=== PATIENT | female | born 1940 | race Caucasian/White ===

== ENCOUNTER 2017-04-06 23:10 | Observation (INO) | payer MEDICARE, SELFPAY ==
[2017-04-06 23:11] VITALS: BP 122/77; PULSE 125; RESP 26; TEMP 36.9; O2SAT 87; BMI 23.9
[2017-04-06 23:14] VITALS: BP 143/65; PULSE 121; RESP 26; O2SAT 95
--- NOTE | 2017-04-06 23:16 | NURSING ---
RN CALLED FOR EKG, PULLED OLD EKG'S FOR
--- NOTE | 2017-04-06 23:22 | EKG12_ITS ---
Test Reason : SOB Blood Pressure : / mmHG Vent. Rate : 161 BPM Atrial Rate : 105 BPM P-R Int : 152 ms QRS Dur : 010 ms QT Int : 074 ms P-R-T Axes : 057 000 246 degrees QTc Int : 121 ms Sinus rhythm Indeterminate axis Nonspecific ST and T wave abnormality Inferior PR, age undetermined, cannot be excluded Abnormal ECG Confirmed by KRISTOFER SHARP, ANGEL ([id number]), video effects editor LAVERNE HEMPHILL ([id number]) on 04/09/2017 1:55:00 PM Referred By: NIXON Confirmed By:ANGEL MINER MD
[2017-04-06 23:23] VITALS: O2SAT 95
--- NOTE | 2017-04-06 23:26 | ED.DCSUM_ITS ---
- ER Visit Summary Date of Service: 04/06/17 Chief Complaint: Pain and shortness of breath History of Present Illness: The patient is a 76 F with history of hypertension and hypercholesterolemia who presents for intermittent back pain and shortness of breath. Patient states that she began having symptoms 4 days ago with a really tight sharp pain in her bilateral lower thoracic back that takes her breath away. Pain gradually subsided and returned tonight. She is having cough and shortness of breath with it. No chest pain, no fever, no abdominal pain nausea or vomiting. She history of sleep apnea and has oxygen for this but does not use it. She denies any cardiac history. No history of blood clots in the lungs or legs. No recent history of travel or surgery, she does use tobacco. No known cancer history or use of exogenous hormones. Patient is not on blood thinners. Physical Examination: Vital signs: afebrile, hemodynamically stable, 87% on room air, hypoxic General: well nourished, well developed, in respiratory distress Skin: warm, dry, no rash, no pallor HEENT: normocephalic and atraumatic; PERRL, EOMI, moist mucous membranes Cardiovascular: Tachycardic rate and rhythm without murmurs, no peripheral edema , 2+ pulses all distal extremities no calf tenderness swelling Respiratory: Mild increased work of breathing, 96% on 2 L nasal cannula, lungs mild diffuse rhonchi with hyperresonant breath sounds in the left lower field Abdominal: Abdomen is soft, nontender with normoactive bowel sounds, no guarding or rebound, no masses MSK: Moves all extremities, no deformities, normal strength Neuro: Awake and alert, oriented ?4. No facial droop, sensation and motor function intact and symmetric Test Results: Abnormal Lab Results 04/06/17 04/06/17 04/06/17 23:15 23:15 23:15 WBC 11.1 H RBC 4.92 Hgb 15.7 H Hct 47.8 H MCV 97.2 MCH 31.9 MCHC 32.8 RDW 13.7 RDW Differential 47.8 H Plt Count 346 MPV 9.3 Immature Gran % (Auto) 0.400 Neut % (Auto) 67.2 Lymph % (Auto) 21.0 Sampson % (Auto) 9.5 Eos % (Auto) 1.4 Baso % (Auto) 0.5 Absolute Neuts (auto) 7.5 Absolute Lymphs (auto) 2.33 Total Counted Not Reportable PT 13.3 INR 1.1 APTT 38.8 H Sodium 141 Potassium 3.8 Chloride 104 Carbon Dioxide 30.0 Anion Gap 7 BUN 20 H Creatinine 1.01 Estim Creat Clear Calc 36.89 Est GFR (MDRD) Af Amer 68 Est GFR (MDRD) Non-Af 56 L BUN/Creatinine Ratio 19.8 Glucose 122 H Calcium 9.7 Troponin I < 0.02 Emergency Department Course and Treatment: Patient presents with pleuritic back pain and diffuse rhonchi, with hyperresonant breath sounds in the left lower lobe concerning for possible consolidation. Patient was hypoxic on presentation and tachycardic. Because she does have history of COPD, she was given breathing treatments and IV steroids. EKG showed a sinus tachycardia without ischemia or ectopy. CBC showed very mild leukocytosis of 11.1. No electrolyte derangements on BMP. Troponin negative. Patient was reevaluated and had improvement in her breath sounds, with resolution of the rhonchi and the uneven breath sounds, but still was tachypneic, felt no better, still was having the pleuritic back pain worse with deep inspiration, and remained tachycardic. A d-dimer was added to a workup to evaluate for possible pulmonary embolism. It was elevated at 1.68. CTA chest was ordered and is pending. Patient will acquire admission for her back pain and shortness of breath, with differential including COPD exacerbation or pulmonary embolism. Patient was signed out to the night physician for follow-up of CTA and final disposition. Treatment Plan: [] Disposition: Patient Impression: Hypoxia on room air, shortness of breath, pleuritic back pain This note was generated with [employer] dictation software. It may contain incorrect words, spelling, and punctuation that were not noted in review of the chart prior to signing ED Disposition - Plan for ED Patient: Chief Complaint: General Illness Referrals: Rebecca Dorman PA [Primary Care Provider] -
--- NOTE | 2017-04-06 23:30 | RAD_ITS ---
STUDY: X-RAY CHEST REASON FOR EXAM: Female, 76 years old. Back and chest pain TECHNIQUE: PA and lateral views of the chest. COMPARISON: None. FINDINGS: There is a left-sided suprahilar density suspicious for mass measuring 2.1 x 2.0 cm. The lungs are hyperinflated. There are calcified nodular densities in the right apex compatible with old granulomatous disease. There is a pattern of interstitial thickening throughout the lungs suggesting chronic lung disease. Normal size heart. Normal mediastinum and naida. Normal visualized pulmonary arteries. There is atherosclerotic calcification of the aortic arch with tortuosity. There are diffuse degenerative changes of the visualized thoracic spine. Normal visualized ribs, clavicles, and shoulders. There is no demonstrated abnormality of the visualized soft tissue structures of the upper abdomen. RAD/Chest PA and Lateral IMPRESSION: Soft tissue density in the suprahilar region of the left chest suspicious for mass or neoplasm measuring 2.1 x 2.0 cm. This is superimposed on chronic obstructive pulmonary disease. Recommend follow-up CT scan of the chest. N.B. : The above information has been verbally conveyed by Alexus Gunderson MD to , Covering Physician, on 04/07/2017 00:59:28 (ET). Electronically Signed: Alexus Gunderson MD at 0:55 EST Tel , Service support , N.B. : The above information has been verbally conveyed by Alexus Gunderson MD to , Covering Physician, on 04/07/2017 00:59:28 (ET).
[2017-04-06 23:36] LABS: Absolute Lymphocyte Count 2.33 X10^3/ul (0.83-4.51); Absolute Neutrophil Count 7.5 X10^3/uL (2.0-7.7); Basophil# 0.05 X10^3/uL; Basophil% 0.5 % (0-1); Eosinophil# 0.16 X10^3/uL; Eosinophils% 1.4 % (0-5); Hematocrit 47.8 % (37-47); Hemoglobin 15.7 g/dl (12.0-15.0); Lymphocyte # 2.33 X10^3/ul (4.0); Mean Corp Hgb Conc 32.8 g/gl (32-36); Mean Corpuscular Hgb 31.9 pg (27.0-32.0); Mean Corpuscular Volume 97.2 fL (81-99); Mean Platelet Vol. 9.3 fl (6.2-12.0); Monocyte# 1.05 X10^3/uL; Monocyte% 9.5 % (0-10); Neutrophil # 7.46 X10^3/uL (2.7-7.7); Neutrophil % 67.2 % (47-70); Platelet Count 346 K/mm3 (150-450); RBC Distribution Width CV 13.7 % (11.6-14.6); RBC Distribution Width SD 47.8 fl (35.1-43.9); Red Blood Count 4.92 M/mm3 (4.2-5.4); White Blood Count 11.1 K/mm3 (4.4-11.0)
[2017-04-06 23:40] LABS: International Normalized Ratio 1.1; Prothrombin Time (Protime)PT. 13.3 SECONDS (11.7-14.9)
[2017-04-06 23:41] LABS: Partial Thromboplast Time 38.8 Seconds (24.1-36.2)
[2017-04-06] MEDS: 0.9% Normal Saline 1,000 ML 250 ML IV (23:45)
[2017-04-06] MEDS: Aspirin 81 MG TAB.CHEW 324 MG PO (23:45)
[2017-04-06] MEDS: MethylPREDNISolone 125 MG/2 ML Vial IV (23:45)
[2017-04-06 23:48] VITALS: PULSE 101; RESP 28
[2017-04-06] MEDS: Albuterol 2.5 MG/3 ML VIAL.NEB. INHALATION (23:48)
[2017-04-06] MEDS: Ipratropium/Albuterol Sulfate 3 ML AMPUL.NEB INHALATION (23:48)
[2017-04-06 23:51] LABS: POSITIVE COUNT NO; POSITIVE DIFFERENTIAL NO; POSITIVE MORPHOLOGY NO
[2017-04-06 23:58] LABS: Anion Gap 7 (5-15); BUN 20 mg/dL (7-18); BUN/Creat Ratio 19.8 RATIO (10-20); Calcium,Total 9.7 mg/dL (8.5-10.1); Chloride 104 mmol/L (98-107); Creatinine, Serum 1.01 mg/dL (0.55-1.02); EST Glomerular Filtration Rate 56 mL/min (>60); Est Glom Filt Rate - Afr Amer 68 mL/min (>60); Estimated Creatinine Clearance 36.89 ml/min; Glucose 122 mg/dL (74-106); Potassium 3.8 mmol/L (3.5-5.1); Sodium Level 141 mmol/L (136-145)
[2017-04-07] VITALS (10 sets, daily range): BP systolic 132–173; BP diastolic 81–94; PULSE 86–108; RESP 18–24; TEMP 36.6–36.9; O2SAT 90–96; BMI 23.2
[2017-04-07 00:25] LABS: D-Dimer Quantitative (DVT/PE) 1.68 FEU/ug/m (0.27-0.49)
--- NOTE | 2017-04-07 00:26 | CT_ITS ---
STUDY: CTA CHEST REASON FOR EXAM: Female, 76 years old. Elevated d-dimer shortness of breath RADIATION DOSAGE (If Supplied By Facility): CTDIvol = ( 6.11 ) mGy, DLP = ( 305.75 ) mGycm TECHNIQUE: The examination was performed with the intravenous administration of 75ml ml of Isovue 370 contrast material. Post-processing of the angiographic images was performed, with multiplanar reformation and 3D reconstruction. Individualized dose optimization techniques were used for this CT. COMPARISON: Chest x-ray April 06, 2017 FINDINGS: Normal enhancement of the main pulmonary artery and right and left pulmonary arteries. Normal enhancement of the bilateral peripheral pulmonary arteries. There is no demonstrated pulmonary embolism. The aorta is tortuous and partially calcified in the ascending aorta. There is a mild bulbous appearance of the arch which likely represents ductus diverticulum. The descending thoracic aorta measures 3.1 x 3.0 cm. There is peripheral thrombus demonstrated. The descending thoracic aorta measures 3.2 x 3.2 cm at the level of the left atrium. It is tortuous as it enters the abdomen. There is no demonstrated aortic dissection. There are coronary calcifications. There is borderline cardiomegaly. Normal mediastinum. Normal hilar regions. Normal visualized trachea and bronchi. There is a pattern of emphysematous change throughout the lungs. There are scattered areas of minimal peripheral fibrotic change. Within the left upper lobe there is a lobulated spiculated mass that abuts the pleura and the prevascular pericardial fat that measures 2.4 x 2.5 x 2.8 cm. There is a subtle adjacent nodule measuring 2.4 mm. There are multiple punctate calcifications in the anterior aspect of the upper lobe and in the right upper lobe towards the apex compatible with old granulomatous disease. Normal pleura. Normal chest wall structures. The bones are osteopenic. There is multilevel loss of height demonstrated at the level of L1 T11 and T10. There is partial visualization of a sizable infrarenal aorta that measures 6.5 x 5.0 cm with a internal lumen measuring 5.0 x 3.9 cm. This could be further described on the CT scan of the abdomen and pelvis performed the same day. CT/CTA Chest W/WO Contrast IMPRESSION: There is a mass in the left apex Measuring 3.4 x 2.5 x 2.5 which is highly suspicious for primary lung carcinoma. Mild aneurysmal dilatation of the descending thoracic aorta. Advanced pulmonary emphysema and chronic obstructive pulmonary disease. Degenerative change thoracolumbar spine multilevel loss of height of the lower thoracic spine and upper lumbar spine. Please refer to the CT scan of the abdomen and pelvis performed the same day for further discussion of the infrarenal aortic aneurysm. N.B. : The above information has been verbally conveyed by Alexus Gunderson MD to Dr. Fuchs , Covering Physician, on 04/07/2017 02:21:52 (ET). Electronically Signed: Alexus Gunderson MD at 1:56 EST Tel , Service support , N.B. : The above information has been verbally conveyed by Alexus Gunderson MD to Dr. Fuchs , Covering Physician, on 04/07/2017 02:21:52 (ET).
--- NOTE | 2017-04-07 00:27 | NURSING ---
lab called with a critical of 1.68 ddimer
--- NOTE | 2017-04-07 00:51 | CT_ITS ---
STUDY: CTA OF THE ABDOMINAL AORTA AND BILATERAL LOWER EXTREMITIES REASON FOR EXAM: Female, 76 years old. Positive d-dimer RADIATION DOSAGE (If Supplied By Facility): CTDIvol = ( 21.12 ) mGy, DLP = ( 536.12 ) mGycm TECHNIQUE: Axial CT angiography multi-detector data acquisition was obtained from the to the following intravenous administration of 75ml ml of Isovue 370 contrast. Axial images and MIP images were reconstructed from the axial data set. Post-processing of the angiographic images was performed, with multiplanar reformation and 3D reconstruction. Individualized dose optimization techniques were used for this CT. TECHNICAL QUALITY: Good COMPARISON: None. Descriptors of Narrowing: None (0%) Mild (< 50%) Moderate (50-70%) Severe (70-90%) Subtotal/Total Occlusion (90-100%) Non-Evaluable (technically non-diagnostic FINDINGS: Abdominal aorta: Aorta at the hiatus measures 3.0 x 3.0 cm. There is a narrowed appearance of the lumen at the takeoff of the superior mesenteric artery relative to the caliber of the aorta. The aorta measures 2.0 x 3.7 cm. There is contrast within the aorta measuring 2.7 x 2.4 cm. At the level of the renal arteries see order measures 4.4 x 3.6 cm. Infrarenal aorta measures 6.2 x 5.7 cm over a segment of approximately 6.4 cm. The aorta is tortuous and then bifurcates to near normal caliber bilateral iliac arteries. There is fairly good contrast enhancement of the iliac arteries. Celiac and superior mesenteric arteries: The celiac has its takeoff from the well contrasted lumen at the hiatus there is calcification the take off of the superior mesenteric artery Inferior mesenteric artery: A track of contrast and seen be seen exiting the peripheral thrombosed portion of the aorta to enter into the inferior mesenteric artery which shows limited enhancement. Right renal artery(arteries): No demonstrated narrowing. Left renal artery(arteries): The flow to the left renal artery courses through the thrombus at the level of the aneurysm. Right common iliac artery: There is [id number] diffuse narrowing. Right external iliac artery: There is mild diffuse narrowing. Right internal iliac artery: There is moderate diffuse narrowing. Left common iliac artery: There is mild diffuse narrowing. Left external iliac artery: There is mild diffuse narrowing. Left internal iliac artery: There is mild diffuse narrowing. RIGHT LOWER EXTREMITY Right common femoral artery: There is mild diffuse narrowing. LEFT LOWER EXTREMITY Left common femoral artery: There is mild diffuse narrowing. The liver is borderline enlarged and fatty infiltrated. The gallbladder spleen and pancreas appear grossly unremarkable. There is right renal pelviectasis. There is left hydronephrosis likely secondary to the mass effect of the large aorta leaning to the left causing some effacement of the left ureter. There is a sizable diverticulum at the level of the duodenum with gas and fecal material that measures 5.2 x 6.5 cm. This appears to extend from the second part of the duodenum. There is a small hiatal hernia. Adrenal glands appear normal. There is abundant stool in the colon. There are numerous diverticula present without evidence of diverticulitis. There is a tortuous appearance of the bowel. There are a few small bowel loops that have a fecal appearance suggesting possible stasis associated with tortuosity. There is a tortuous low-lying appearance of the colon. The cecum appears to be on the left side of the abdomen. The appendix is not well-visualized. The uterus appears to been removed. At the timing of this study there is a right-sided ureteral jet. The left-sided ureteral jet is not seen. There is multilevel degenerative change in the thoracolumbar spine with chronic appearing loss of height at L1 and the visualized level of T12. CT/CTA Abdomen W/WO Contrast IMPRESSION: Abdominal aortic aneurysm measuring 5.2 x 6.5 cm. Without acute hematoma or free fluid in the abdomen. It is off to the left side of the abdomen at the left level of the left kidney causing mild to moderate hydronephrosis which is superimposed on left-sided pelviectasis. Hepatic steatosis. Large duodenal diverticulum. Tortuous colon with the cecum appearing to extend to the left side of the abdomen could consider follow-up barium enema when appropriate. Diverticulosis without evidence of diverticulitis. Small hiatal hernia. Electronically Signed: Alexus Gunderson MD at 2:09 EST Tel , Service support ,
--- NOTE | 2017-04-07 02:43 | PCM.HP.STD ---
Problem List (1) COPD with acute exacerbation Status: Acute (2) COPD (chronic obstructive pulmonary disease) Status: Chronic (3) AAA (abdominal aortic aneurysm) Status: Acute Qualifiers: Presence of rupture: without rupture Qualified Code(s): I71.4 - Abdominal aortic aneurysm, without rupture (4) Lung mass Status: Acute (5) Hyperlipidemia Status: Chronic (6) Hypertension Status: Chronic History of Present Illness Date of Admission: 04/07/17 Chief Complaint: back pain The patient is a 76 year old F presents w 1 day h/o back pain. Pain worse with deep respirations. Presents to ED and had a d-dimer that came back elevated. Subsequently underwent a CTA of chest that showed.a left lung apex mass of 3.4x2.5x2.5. Also underwent a CTA of A/P that showed a 5.2x6.5 AAA. Pt denies any abdominal pain. She was hypoxic at 87% on RA on presentation. Pt treated for AECOPD w solumedrol and BDs.[] Past Medical History Past Medical History (Chronic Problems): Chronic Problems COPD (chronic obstructive pulmonary disease) (Chronic) Hyperlipidemia (Chronic) Hypertension (Chronic) Allergies No Known Allergies Allergy (Verified 04/06/17 23:14) Home Medications: Ambulatory Orders Medication Instructions Recorded Albuterol Aerosols [Ventolin 2.5 mg INHALATION Q6HWA.RT 04/06/17 Aerosols] Albuterol IH (ProAir) [Proair Hfa 2 puff INHALATION 4X/DAY PRN PRN 04/06/17 (SP)Vent Pts] Fluticasone/Salmeterol [Advair 1 each IH BID 04/06/17 250-50 Diskus] Lisinopril 20 mg PO DAILY 04/06/17 Multivitamin No.58/Vit D3/K 1 tab PO DAILY 04/06/17 [Multivit-A,B,D,E,K,Zn Softgel] Pravastatin [Pravachol] 40 mg PO DAILY 04/06/17 Vitamin E Mixed [Vitamin E] 1,000 unit PO DAILY 04/06/17 Smoking Status: Heavy Smoker (>10/day) Tobacco Use: Cigarettes Alcohol: None Drugs: None - *Family History Maternal History Items: - - no cancer Review of Systems Constitutional: Denies: Chills, Fever, Weight Change Eyes: Denies: Blurred vision, Double vision HEENT: Reports: Difficulty Hearing. Denies: Dysphasia Cardiovascular: Denies: Chest Pain, Edema Respiratory: Reports: Shortness of Breath. Denies: Sputum production Gastrointestinal: Denies: Abdominal Pain, Nausea, Vomiting Genitourinary: Denies: Dysuria Musculoskeletal: Reports: Back Pain. Denies: Arm Pain Skin: Denies: Rash, Wounds Neurological: Denies: Blurred vision, Double vision, Focal weakness, Numbness, Tingling Psychiatric: Denies: Anxiety, Depression Hematologic/ Lymphatic: Denies: Easy Bruising, Easy Bleeding, Hx of blood clot VTE Information - Inpt Only VTE Present on Admission: No VTE Pharm Prophylaxis ordered?: Yes Patient Problems: Active and Suspected Problems COPD with acute exacerbation (Acute) AAA (abdominal aortic aneurysm) (Acute) Lung mass (Acute) - Physical Exam General: Alert, Cooperative, No apparent distress, - - P[place]E HEENT: Atraumatic, Normocephalic Neck: No Nodes, Thyroid Normal Size and Texture Lungs: No rhonchi, No wheeze, Diminished Cardiovascular: Regular rate, Regular Rhythm, Normal S1, Normal S2, No murmurs Abdomen: Bowel Sounds Present, Soft, Non Tender, Non-Distended, No Hepato-splenomegaly Extremities: No edema, No Calf Tenderness Skin: No rashes, No breakdown Musculoskeletal: No Tenderness to Palpation of Joints or Extremities, No Muscle Wasting Neurological: Neuro grossly intact, Sensory exam intact to light touch and pain Psych/Mental Status: Normal Affect, Appropriate Vital Signs Temp Pulse Resp BP Pulse Ox 36.9 C 103 H 24 H 132/93 H 94 04/07/17 02:24 04/07/17 02:24 04/07/17 02:24 04/07/17 02:24 04/07/17 02:24 Oxygen Flow Rate 2 Oxygen Delivery Method Nasal Cannula Weight: 59.3 kg Body Mass Index (BMI) 23.9 Laboratory Tests Past 24 Hrs 04/06/17 04/06/17 04/06/17 23:15 23:15 23:15 WBC 11.1 H RBC 4.92 Hgb 15.7 H Hct 47.8 H MCV 97.2 MCH 31.9 MCHC 32.8 RDW 13.7 RDW Differential 47.8 H Plt Count 346 MPV 9.3 Immature Gran % (Auto) 0.400 Neut % (Auto) 67.2 Lymph % (Auto) 21.0 Mathews % (Auto) 9.5 Eos % (Auto) 1.4 Baso % (Auto) 0.5 Absolute Neuts (auto) 7.5 Absolute Lymphs (auto) 2.33 Total Counted Not Reportable PT 13.3 INR 1.1 APTT 38.8 H D-Dimer Quant (PE/DVT) Sodium 141 Potassium 3.8 Chloride 104 Carbon Dioxide 30.0 Anion Gap 7 BUN 20 H Creatinine 1.01 Estim Creat Clear Calc 36.89 Est GFR (MDRD) Af Amer 68 Est GFR (MDRD) Non-Af 56 L BUN/Creatinine Ratio 19.8 Glucose 122 H Calcium 9.7 Troponin I < 0.02 04/06/17 23:18 WBC RBC Hgb Hct MCV MCH MCHC RDW RDW Differential Plt Count MPV Immature Gran % (Auto) Neut % (Auto) Lymph % (Auto) Mathews % (Auto) Eos % (Auto) Baso % (Auto) Absolute Neuts (auto) Absolute Lymphs (auto) Total Counted PT INR APTT D-Dimer Quant (PE/DVT) 1.68 H* Sodium Potassium Chloride Carbon Dioxide Anion Gap BUN Creatinine Estim Creat Clear Calc Est GFR (MDRD) Af Amer Est GFR (MDRD) Non-Af BUN/Creatinine Ratio Glucose Calcium Troponin I Clinical Impression(s) from Imaging Studies Chest X-Ray 04/06/17 23:30 IMPRESSION: Soft tissue density in the suprahilar region of the left chest suspicious for mass or neoplasm measuring 2.1 x 2.0 cm. This is superimposed on chronic obstructive pulmonary disease. Recommend follow-up CT scan of the chest. N.B. : The above information has been verbally conveyed by Alexus Gunderson MD to , Covering Physician, on 04/07/2017 00:59:28 (ET). Electronically Signed: Alexus Gunderson MD at 0:55 EST Tel , Service support , N.B. : The above information has been verbally conveyed by Alexus Gunderson MD to , Covering Physician, on 04/07/2017 00:59:28 (ET). Chest CTA 04/07/17 00:26 IMPRESSION: There is a mass in the left apex Measuring 3.4 x 2.5 x 2.5 which is highly suspicious for primary lung carcinoma. Mild aneurysmal dilatation of the descending thoracic aorta. Advanced pulmonary emphysema and chronic obstructive pulmonary disease. Degenerative change thoracolumbar spine multilevel loss of height of the lower thoracic spine and upper lumbar spine. Please refer to the CT scan of the abdomen and pelvis performed the same day for further discussion of the infrarenal aortic aneurysm. N.B. : The above information has been verbally conveyed by Alexus Gunderson MD to Dr. Fuchs , Covering Physician, on 04/07/2017 02:21:52 (ET). Electronically Signed: Alexus Gunderson MD at 1:56 EST Tel , Service support , N.B. : The above information has been verbally conveyed by Alexus Gunderson MD to Dr. Fuchs , Covering Physician, on 04/07/2017 02:21:52 (ET). Abdomen CTA 04/07/17 00:51 IMPRESSION: Abdominal aortic aneurysm measuring 5.2 x 6.5 cm. Without acute hematoma or free fluid in the abdomen. It is off to the left side of the abdomen at the left level of the left kidney causing mild to moderate hydronephrosis which is superimposed on left-sided pelviectasis. Hepatic steatosis. Large duodenal diverticulum. Tortuous colon with the cecum appearing to extend to the left side of the abdomen could consider follow-up barium enema when appropriate. Diverticulosis without evidence of diverticulitis. Small hiatal hernia. Electronically Signed: Alexus Gunderson MD at 2:09 EST Tel , Service support , Assessment/Plan Active and Suspected Problems COPD with acute exacerbation (Acute) AAA (abdominal aortic aneurysm) (Acute) Lung mass (Acute) 1. AECOPD BDs and solumedrol advised to quit smoking d/t further progression of COPD but also due to #2 and 3 2. Lung mass concerning for CA c/s pulm for input and recs for biopsy (perc v bronch). Informed pt and family may be done as outpt. 3. AAA asymptomatic, but large consult vascular surgery for input Again, pt and family advised may need further addressed as outpt 4. DVT proph: LMWH. Code Visit Inpatient E&M: [id number] Init Hosp L3
--- NOTE | 2017-04-07 02:54 | HP.PCM_ITS ---
Problem List (1) COPD with acute exacerbation Status: Acute (2) COPD (chronic obstructive pulmonary disease) Status: Chronic (3) AAA (abdominal aortic aneurysm) Status: Acute Qualifiers: Presence of rupture: without rupture Qualified Code(s): I71.4 - Abdominal aortic aneurysm, without rupture (4) Lung mass Status: Acute (5) Hyperlipidemia Status: Chronic (6) Hypertension Status: Chronic History of Present Illness Date of Admission: 04/07/17 Chief Complaint: back pain The patient is a 76 year old F presents w 1 day h/o back pain. Pain worse with deep respirations. Presents to ED and had a d-dimer that came back elevated. Subsequently underwent a CTA of chest that showed.a left lung apex mass of 3.4x2.5x2.5. Also underwent a CTA of A/P that showed a 5.2x6.5 AAA. Pt denies any abdominal pain. She was hypoxic at 87% on RA on presentation. Pt treated for AECOPD w solumedrol and BDs.[] Past Medical History Past Medical History (Chronic Problems): Chronic Problems COPD (chronic obstructive pulmonary disease) (Chronic) Hyperlipidemia (Chronic) Hypertension (Chronic) Allergies No Known Allergies Allergy (Verified 04/06/17 23:14) Home Medications: Ambulatory Orders Medication Instructions Recorded Albuterol Aerosols [Ventolin 2.5 mg INHALATION Q6HWA.RT 04/06/17 Aerosols] Albuterol IH (ProAir) [Proair Hfa 2 puff INHALATION 4X/DAY PRN PRN 04/06/17 (SP)Vent Pts] Fluticasone/Salmeterol [Advair 1 each IH BID 04/06/17 250-50 Diskus] Lisinopril 20 mg PO DAILY 04/06/17 Multivitamin No.58/Vit D3/K 1 tab PO DAILY 04/06/17 [Multivit-A,B,D,E,K,Zn Softgel] Pravastatin [Pravachol] 40 mg PO DAILY 04/06/17 Vitamin E Mixed [Vitamin E] 1,000 unit PO DAILY 04/06/17 Smoking Status: Heavy Smoker (>10/day) Tobacco Use: Cigarettes Alcohol: None Drugs: None - *Family History Maternal History Items: - - no cancer Review of Systems Constitutional: Denies: Chills, Fever, Weight Change Eyes: Denies: Blurred vision, Double vision HEENT: Reports: Difficulty Hearing. Denies: Dysphasia Cardiovascular: Denies: Chest Pain, Edema Respiratory: Reports: Shortness of Breath. Denies: Sputum production Gastrointestinal: Denies: Abdominal Pain, Nausea, Vomiting Genitourinary: Denies: Dysuria Musculoskeletal: Reports: Back Pain. Denies: Arm Pain Skin: Denies: Rash, Wounds Neurological: Denies: Blurred vision, Double vision, Focal weakness, Numbness, Tingling Psychiatric: Denies: Anxiety, Depression Hematologic/ Lymphatic: Denies: Easy Bruising, Easy Bleeding, Hx of blood clot VTE Information - Inpt Only VTE Present on Admission: No VTE Pharm Prophylaxis ordered?: Yes Patient Problems: Active and Suspected Problems COPD with acute exacerbation (Acute) AAA (abdominal aortic aneurysm) (Acute) Lung mass (Acute) - Physical Exam General: Alert, Cooperative, No apparent distress, - - [place] HEENT: Atraumatic, Normocephalic Neck: No Nodes, Thyroid Normal Size and Texture Lungs: No rhonchi, No wheeze, Diminished Cardiovascular: Regular rate, Regular Rhythm, Normal S1, Normal S2, No murmurs Abdomen: Bowel Sounds Present, Soft, Non Tender, Non-Distended, No Hepato- splenomegaly Extremities: No edema, No Calf Tenderness Skin: No rashes, No breakdown Musculoskeletal: No Tenderness to Palpation of Joints or Extremities, No Muscle Wasting Neurological: Neuro grossly intact, Sensory exam intact to light touch and pain Psych/Mental Status: Normal Affect, Appropriate Vital Signs Temp Pulse Resp BP Pulse Ox 36.9 C 103 H 24 H 132/93 H 94 04/07/17 02:24 04/07/17 02:24 04/07/17 02:24 04/07/17 02:24 04/07/17 02:24 Oxygen Flow Rate 2 Oxygen Delivery Method Nasal Cannula Weight: 59.3 kg Body Mass Index (BMI) 23.9 Laboratory Tests Past 24 Hrs 04/06/17 04/06/17 04/06/17 23:15 23:15 23:15 WBC 11.1 H RBC 4.92 Hgb 15.7 H Hct 47.8 H MCV 97.2 MCH 31.9 MCHC 32.8 RDW 13.7 RDW Differential 47.8 H Plt Count 346 MPV 9.3 Immature Gran % (Auto) 0.400 Neut % (Auto) 67.2 Lymph % (Auto) 21.0 [place] % (Auto) 9.5 Eos % (Auto) 1.4 Baso % (Auto) 0.5 Absolute Neuts (auto) 7.5 Absolute Lymphs (auto) 2.33 Total Counted Not Reportable PT 13.3 INR 1.1 APTT 38.8 H D-Dimer Quant (PE/DVT) Sodium 141 Potassium 3.8 Chloride 104 Carbon Dioxide 30.0 Anion Gap 7 BUN 20 H Creatinine 1.01 Estim Creat Clear Calc 36.89 Est GFR (MDRD) Af Amer 68 Est GFR (MDRD) Non-Af 56 L BUN/Creatinine Ratio 19.8 Glucose 122 H Calcium 9.7 Troponin I < 0.02 04/06/17 23:18 WBC RBC Hgb Hct MCV MCH MCHC RDW RDW Differential Plt Count MPV Immature Gran % (Auto) Neut % (Auto) Lymph % (Auto) [place] % (Auto) Eos % (Auto) Baso % (Auto) Absolute Neuts (auto) Absolute Lymphs (auto) Total Counted PT INR APTT D-Dimer Quant (PE/DVT) 1.68 H* Sodium Potassium Chloride Carbon Dioxide Anion Gap BUN Creatinine Estim Creat Clear Calc Est GFR (MDRD) Af Amer Est GFR (MDRD) Non-Af BUN/Creatinine Ratio Glucose Calcium Troponin I Clinical Impression(s) from Imaging Studies Chest X-Ray 04/06/17 23:30 IMPRESSION: Soft tissue density in the suprahilar region of the left chest suspicious for mass or neoplasm measuring 2.1 x 2.0 cm. This is superimposed on chronic obstructive pulmonary disease. Recommend follow-up CT scan of the chest. N.B. : The above information has been verbally conveyed by Alexus Gunderson MD to , Covering Physician, on 04/07/2017 00:59:28 (ET). Electronically Signed: Alexus Gunderson MD at 0:55 EST Tel , Service support , N.B. : The above information has been verbally conveyed by Alexus Gunderson MD to , Covering Physician, on 04/07/2017 00:59:28 (ET). Chest CTA 04/07/17 00:26 IMPRESSION: There is a mass in the left apex Measuring 3.4 x 2.5 x 2.5 which is highly suspicious for primary lung carcinoma. Mild aneurysmal dilatation of the descending thoracic aorta. Advanced pulmonary emphysema and chronic obstructive pulmonary disease. Degenerative change thoracolumbar spine multilevel loss of height of the lower thoracic spine and upper lumbar spine. Please refer to the CT scan of the abdomen and pelvis performed the same day for further discussion of the infrarenal aortic aneurysm. N.B. : The above information has been verbally conveyed by Alexus Gunderson MD to Dr. Fuchs , Covering Physician, on 04/07/2017 02:21:52 (ET). Electronically Signed: Alexus Gunderson MD at 1:56 EST Tel , Service support , N.B. : The above information has been verbally conveyed by Alexus Gunderson MD to Dr. Fuchs , Covering Physician, on 04/07/2017 02:21:52 (ET). Abdomen CTA 04/07/17 00:51 IMPRESSION: Abdominal aortic aneurysm measuring 5.2 x 6.5 cm. Without acute hematoma or free fluid in the abdomen. It is off to the left side of the abdomen at the left level of the left kidney causing mild to moderate hydronephrosis which is superimposed on left-sided pelviectasis. Hepatic steatosis. Large duodenal diverticulum. Tortuous colon with the cecum appearing to extend to the left side of the abdomen could consider follow-up barium enema when appropriate. Diverticulosis without evidence of diverticulitis. Small hiatal hernia. Electronically Signed: Alexus Gunderson MD at 2:09 EST Tel , Service support , Assessment/Plan Active and Suspected Problems COPD with acute exacerbation (Acute) AAA (abdominal aortic aneurysm) (Acute) Lung mass (Acute) 1. AECOPD * BDs and solumedrol * advised to quit smoking d/t further progression of COPD but also due to #2 and 3 2. Lung mass * concerning for CA * c/s pulm for input and recs for biopsy (perc v bronch). Informed pt and family may be done as outpt. 3. AAA * asymptomatic, but large * consult vascular surgery for input * Again, pt and family advised may need further addressed as outpt 4. DVT proph: LMWH. Code Visit Inpatient E&M: 37309 Init Hosp L3
[2017-04-07] MEDS: 0.9% NaCl Peripheral Flush Adult/Peds IV (05:31)
--- NOTE | 2017-04-07 06:13 | PCM.CONS.GEN ---
Problem List (1) AAA (abdominal aortic aneurysm) Status: Acute Qualifiers: Presence of rupture: without rupture Qualified Code(s): I71.4 - Abdominal aortic aneurysm, without rupture Reason for Consult Date of Consultation: 04/07/17 History of Present Illness: The patient is a 76 year old F who was admitted yesterday with exacerbation of COPD. Because of shortness of breath CT imaging of the chest led to identification of an abnormally ectatic thoracic aorta and a abdominal aortic aneurysm. CT of the abdomen was obtained demonstrating a 5.2 x 6.5 cm abdominal aortic aneurysm with tortuosity and suspected mass effect upon the left kidney causing mild to moderate hydronephrosis. Great significance however is that there is irregular thrombus within the aneurysm and narrowing of the lumen at the origin of the superior mesenteric artery. There is thrombus heavily involving the wall of the aneurysm at the level of the renals and there is aneurysmal change already at the level of the renals measuring 4.4 x 3.6 cm. additional mention is made of a 5.2 x 6.5 cm duodenal diverticulum. Tortuous colon. Diverticulosis. Small hiatal hernia. In addition unfortunately due to the patient's COPD she has a newly detected left apical lung mass measuring 3.4 x 2.5 x 2.5 which is highly suspicious for malignancy she is a long-term cigarette smoker and she continues to smoke. She has exacerbation of her COPD hypoxic at 87% on room air. She was complaining of back pain that was therefore aggravating and exacerbating her ability to breathe. She currently states that she is not having back pain at this moment Past Medical History Past Medical History (Chronic Problems): Chronic Problems COPD (chronic obstructive pulmonary disease) (Chronic) Hyperlipidemia (Chronic) Hypertension (Chronic) Allergies No Known Allergies Allergy (Verified 04/06/17 23:14) Home Medications: Ambulatory Orders Medication Instructions Recorded Albuterol Aerosols [Ventolin 2.5 mg INHALATION Q6HWA.RT 04/06/17 Aerosols] Albuterol IH (ProAir) [Proair Hfa 2 puff INHALATION 4X/DAY PRN PRN 04/06/17 (SP)Vent Pts] Fluticasone/Salmeterol [Advair 1 each IH BID 04/06/17 250-50 Diskus] Lisinopril 20 mg PO DAILY 04/06/17 Multivitamin No.58/Vit D3/K 1 tab PO DAILY 04/06/17 [Multivit-A,B,D,E,K,Zn Softgel] Pravastatin [Pravachol] 40 mg PO DAILY 04/06/17 Vitamin E Mixed [Vitamin E] 1,000 unit PO DAILY 04/06/17 Surgical History: hysterectomy Smoking Status: Heavy Smoker (>10/day) Tobacco Use: Cigarettes Alcohol: None Drugs: None - *Family History Maternal History Items: - - no cancer Review of Systems Constitutional: Denies: Anorexia Eyes: Denies: Blurred vision HEENT: Denies: Difficulty Hearing Cardiovascular: Reports: Chest Tightness Respiratory: Reports: Shortness of Breath Gastrointestinal: Denies: Abdominal Pain, Nausea, Vomiting Genitourinary: Denies: Dysuria Musculoskeletal: Denies: Leg Pain Skin: Denies: Jaundice Neurological: Denies: Balance problems Psychiatric: Denies: Anxiety Hematologic/ Lymphatic: Denies: Adenopathy Patient Problems: Active and Suspected Problems COPD with acute exacerbation (Acute) AAA (abdominal aortic aneurysm) (Acute) Lung mass (Acute) - Physical Exam General: Alert, Oriented x3, Cooperative, - - Patient moves and very quick hyper movements HEENT: Atraumatic Oral: Moist Mucosa Lungs: - - Markedly increased anterior posterior diameter. Notably kyphotic. Poor air excursion. Wheezes bilaterally Cardiovascular: - - Ectopic beats. 2/6 systolic ejection murmur Abdomen: Bowel Sounds Present, Soft, Non Tender, Non-Distended - Patient prefers a semisitting position. I cannot detect the aneurysm in this position Bilateral carotids 3+ no bruits, bilateral brachial and radials and femorals and popliteals 3+. Right DP 2+. Right PT 3+. Left DP and PT 3+ Lymphatic: No Cervical, Supraclavicular, or Inguinal Adenopathy Vital Signs Temp Pulse Resp BP Pulse Ox 98 F 101 H 20 H 173/84 H 94 04/07/17 03:25 04/07/17 03:25 04/07/17 03:25 04/07/17 03:25 04/07/17 03:25 Oxygen Flow Rate 1 Oxygen Delivery Method Room Air Weight: 127 lb 1 oz Body Mass Index (BMI) 23.2 Intake and Output for Last 24 Hours 04/05/17 04/06/17 04/07/17 23:59 23:59 23:59 Intake Total 120 / 120 Balance 120 / 120 Assessment/Plan Active and Suspected Problems COPD with acute exacerbation (Acute) AAA (abdominal aortic aneurysm) (Acute) Lung mass (Acute) Complicated 76-year-old female. She has exacerbation of her COPD and significant pulmonary dysfunction. In addition to that she has a newly detected highly suspicious left apical lung mass. In addition to that she has diffuse ectasia of her thoracic aorta and a significant abdominal aortic aneurysm with thrombus at the level of the superior mesenteric artery and aneurysm and thrombus involving the renal arteries. This represents an extraordinarily high risk repair candidate. She will need to be referred to a tertiary center for consideration of aneurysm treatment. The etiology to the patient's back pain that occurred yesterday and previously on Wednesday is indeterminate. Although the aneurysm is not demonstrating current signs of rupture it is not clear whether it is a component of her discomfort or whether it is compression upon the left kidney could be part of this complex. Tertiary evaluation at earliest convenience would be appropriate. I appreciate the opportunity of assisting with her surgical care and will sign off Aftab Tilley M.D., F.A.C.S.
[2017-04-07] MEDS: Ipratropium/Albuterol Sulfate 3 ML AMPUL.NEB INHALATION ×3 (07:08→15:22)
--- NOTE | 2017-04-07 09:08 | PCM.CONS.GEN ---
Problem List (1) Suspected chronic obstructive pulmonary disease based on initial evaluation Status: Chronic (2) AAA (abdominal aortic aneurysm) Status: Acute Qualifiers: Presence of rupture: without rupture Qualified Code(s): I71.4 - Abdominal aortic aneurysm, without rupture (3) Lung mass Status: Acute (4) Hyperlipidemia Status: Chronic Qualifiers: Hyperlipidemia type: unspecified Qualified Code(s): E78.5 - Hyperlipidemia, unspecified (5) Hypertension Status: Chronic Qualifiers: Hypertension type: unspecified Qualified Code(s): I10 - Essential (primary) hypertension Reason for Consult Date of Consultation: 04/07/17 Reason for Consultation: lung mass History of Present Illness: The patient is a 76 year old F with a past medical history as below who presented to the ED with a one-day history of severe lower thoracic back pain across her entire back. Patient states she had some moderate back pain the previous couple of days, however on day of presentation was so severe that she became short of breath. She tried taking a nebulizer with no relief. The pain was worse with deep inspiration. No relieving factors. Associated symptoms of cough but no sputum production. She denied any chest pain, fevers or chills, abdominal pain, nausea, vomiting, or diarrhea. She thought maybe she was having heart problems and called her granddaughter to bring her to the ED. Patient was initially hypoxic at 87% on room air. She did not appear to be in any respiratory distress. Chest x-ray on presentation showed a soft tissue density in the suprahilar region left chest suspicious for mass/neoplasm, as well as COPD. CTA of the chest was obtained and confirmed a mass in the left apex measuring 3.4 x 2.5 x 2.5 cm. There is also mild aneurysmal dilatation of the descending thoracic aorta and advanced pulmonary emphysema/COPD. There are degenerative changes of the lower thoracic and upper lumbar spine. CTA of the abdomen was obtained to further evaluate her aneurysm, showed AAA measuring 5.2 x 6.5 cm there is no acute hematoma or free fluid in the abdomen. She did have mild to moderate hydronephrosis with left-sided pelviectasis. There is also hepatic steatosis and large duodenal diverticulum. The colon was tortuous with the cecum appearing to extend to the left side of the abdomen. CBC remarkable for mildly elevated white count of 11,100, elevated hemoglobin of 15.7 and hematocrit 47.8. BUN mildly elevated at 20 and normal creatinine at 1.01. Glucose was 122, troponin normal, INR 1.1. D-dimer was elevated at 1.68. EKG with sinus tachycardia, no evidence of ischemia. Patient was given 4 baby aspirin, Solu-Medrol 125 mg ?1, and aerosols with improvement in her breathing. The pain in her back resolved while in the ER. She was started on scheduled IV steroids and bronchodilators and transferred to the medical surgical 3 floor for further evaluation and management. Patient denies previously seeing a custom furrier or having any pulmonary function tests completed. She was placed on Advair quite some time ago and has been using albuterol nebulizers for several years. She typically uses albuterol every 4-6 hours and Advair twice daily. Nebulizers do typically improve her shortness of breath. She does have some intermittent wheezing at home but nothing significant. She takes Proair when out of the house. Patient does note a history of tuberculosis when she was 21 years old and was treated for this at [facility]. She had follow-up chest x-rays for over 15 years and was eventually told she did not need to follow-up anymore. She denies any known abnormal follow up imaging. 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 She denies previous colonoscopies but had a mammogram several years ago that was reportedly normal. She does not wish to have any further testing done, including a colonoscopy. Denies any family or personal history of cancer. She does have a significant smoking history with 50 pack years and continues to smoke a pack a day. The patient has been weaned to room air this morning. Her shortness of breath on exertion is back to baseline which is very mild. She denies any significant cough or sputum production. No history of hemoptysis. She does admit to a history of sleep apnea and used oxygen for this in the past, however she does not currently use any oxygen at home. Patient does not wish to have a repeat sleep study or wear a noninvasive positive pressure device. Past Medical History Past Medical History (Chronic Problems): Chronic Problems COPD (chronic obstructive pulmonary disease) (Chronic) Hyperlipidemia (Chronic) Hypertension (Chronic) Suspected chronic obstructive pulmonary disease based on initial evaluation (Chronic) Allergies No Known Allergies Allergy (Verified 04/06/17 23:14) Home Medications: Ambulatory Orders Medication Instructions Recorded Albuterol Aerosols [Ventolin 2.5 mg INHALATION Q6HWA.RT 04/06/17 Aerosols] Albuterol IH (ProAir) [Proair Hfa 2 puff INHALATION 4X/DAY PRN PRN 04/06/17 (SP)Vent Pts] Fluticasone/Salmeterol [Advair 1 each IH BID 04/06/17 250-50 Diskus] Lisinopril 20 mg PO DAILY 04/06/17 Multivitamin No.58/Vit D3/K 1 tab PO DAILY 04/06/17 [Multivit-A,B,D,E,K,Zn Softgel] Pravastatin [Pravachol] 40 mg PO DAILY 04/06/17 Vitamin E Mixed [Vitamin E] 1,000 unit PO DAILY 04/06/17 Surgical History: hysterectomy Psychiatric History: No pertinent psych hx FLAT FOLDER History: No pertinent FLAT FOLDER history Lives: Alone Smoking Status: Heavy Smoker (>10/day) Tobacco Use: Cigarettes Alcohol: None Drugs: None - *Family History Maternal History Items: - - no cancer Paternal History Items: No pertinent history Review of Systems Constitutional: Denies: Anorexia, Chills, Fever, Night Sweats, Malaise, Weakness, Weight Change, Fatigue Eyes: Denies: Vision Change HEENT: Reports: - - TORRES MARTINEZ. Denies: Difficulty Swallowing, Head Aches, Nasal bleeding, Nasal Congestion, Post Nasal Drip, Sinus Congestion, Sore Throat Cardiovascular: Denies: Chest Pain, Chest Tightness, Edema, Light Headedness, Orthopnea, Palpitations, Paroxysmal Noc. Dyspnea, Syncope Respiratory: Reports: Cough - chronic. Denies: Hemoptysis Gastrointestinal: Denies: Abdominal Pain, Constipation, Diarrhea, Dyspepsia, Hematemesis, Hematochezia, Nausea, Melena, Vomiting Genitourinary: Reports: Incontinence - stress. Denies: Dysuria, Hematuria, Retention Gynecological: Denies: Breast symptoms Musculoskeletal: Reports: Back Pain - Resolved, Joint stiffness - Generalized. Denies: Muscle pain, Neck Pain Skin: Denies: Rash, Wounds Neurological: Denies: Balance problems, Change in Speech, Confusion, Difficulty swallowing, Focal weakness, Numbness, Tingling, Tremor, Seizures Psychiatric: Denies: Anxiety, Depression Endocrine: Denies: Change in Body Habitus, Polydipsia, Polyuria Hematologic/ Lymphatic: Reports: Easy Bruising. Denies: Adenopathy, Anemia, Easy Bleeding, Hx of blood clot Patient Problems: Active and Suspected Problems COPD with acute exacerbation (Acute) AAA (abdominal aortic aneurysm) (Acute) Lung mass (Acute) Subjective: The patient was seen and examined. She is ambulatory in the room. She does not appear to be in any acute distress. She reports her breathing is back to her baseline. She does have an occasional cough with no sputum production. Denies any wheezing or chest tightness. The pain in her back has not returned since she was in the ER. Objective: Clinical Impression(s) from Imaging Studies Chest X-Ray 04/06/17 23:30 IMPRESSION: Soft tissue density in the suprahilar region of the left chest suspicious for mass or neoplasm measuring 2.1 x 2.0 cm. This is superimposed on chronic obstructive pulmonary disease. Recommend follow-up CT scan of the chest. N.B. : The above information has been verbally conveyed by Alexus Gunderson MD to , Covering Physician, on 04/07/2017 00:59:28 (ET). Electronically Signed: Alexus Gunderson MD at 0:55 EST Tel , Service support , N.B. : The above information has been verbally conveyed by Alexus Gunderson MD to , Covering Physician, on 04/07/2017 00:59:28 (ET). Chest CTA 04/07/17 00:26 IMPRESSION: There is a mass in the left apex Measuring 3.4 x 2.5 x 2.5 which is highly suspicious for primary lung carcinoma. Mild aneurysmal dilatation of the descending thoracic aorta. Advanced pulmonary emphysema and chronic obstructive pulmonary disease. Degenerative change thoracolumbar spine multilevel loss of height of the lower thoracic spine and upper lumbar spine. Please refer to the CT scan of the abdomen and pelvis performed the same day for further discussion of the infrarenal aortic aneurysm. N.B. : The above information has been verbally conveyed by Alexus Gunderson MD to Dr. Fuchs , Covering Physician, on 04/07/2017 02:21:52 (ET). Electronically Signed: Alexus Gunderson MD at 1:56 EST Tel , Service support , N.B. : The above information has been verbally conveyed by Alexus Gunderson MD to Dr. Fuchs , Covering Physician, on 04/07/2017 02:21:52 (ET). Abdomen CTA 04/07/17 00:51 IMPRESSION: Abdominal aortic aneurysm measuring 5.2 x 6.5 cm. Without acute hematoma or free fluid in the abdomen. It is off to the left side of the abdomen at the left level of the left kidney causing mild to moderate hydronephrosis which is superimposed on left-sided pelviectasis. Hepatic steatosis. Large duodenal diverticulum. Tortuous colon with the cecum appearing to extend to the left side of the abdomen could consider follow-up barium enema when appropriate. Diverticulosis without evidence of diverticulitis. Small hiatal hernia. Electronically Signed: Alexus Gunderson MD at 2:09 EST Tel , Service support , - Physical Exam General: Alert, Oriented x3, Cooperative, No apparent distress, Well developed, Well nourished, - - No conversational dyspnea HEENT: Atraumatic, PERRLA, Normocephalic Oral: Moist Mucosa, No Gingival or Mucosal Lesions/ Ulcerations, - - Scar to right chin area from infection secondary to dental implants Neck: Supple, No JVD, No Nodes, Trachea Midline Lungs: - - Diminished throughout, no appreciable rhonchi, rales, or wheezing. Symmetric expansion. Kyphosis. Cardiovascular: Regular rate, Regular Rhythm, Normal S1, Normal S2, No murmurs, No rub noted, No Gallop Abdomen: Bowel Sounds Present, Soft, Non Tender, Non-Distended, No Hepato-splenomegaly Extremities: No cyanosis, No edema, Capillary Refill Less than 3 Seconds, Peripheral Pulses Normal Skin: No rashes, No breakdown Musculoskeletal: No Tenderness to Palpation of Joints or Extremities Lymphatic: No Cervical, Supraclavicular, or Inguinal Adenopathy Neurological: Cranial nerves II-XII grossly intact, Neuro grossly intact, Motor Exam 5/5 strength throughout Psych/Mental Status: Alert and oriented to time, place, person, mood and affect Vital Signs Temp Pulse Resp BP Pulse Ox 98 F 86 20 H 173/84 H 96 04/07/17 03:25 04/07/17 07:08 04/07/17 07:08 04/07/17 03:25 04/07/17 07:10 Oxygen Flow Rate 1 Oxygen Delivery Method Room Air Weight: 127 lb 1 oz Body Mass Index (BMI) 23.2 Intake and Output for Last 24 Hours 04/05/17 04/06/17 04/07/17 23:59 23:59 23:59 Intake Total 120 / 120 Balance 120 / 120 Assessment/Plan Active and Suspected Problems COPD with acute exacerbation (Acute) AAA (abdominal aortic aneurysm) (Acute) Lung mass (Acute) RECOMMENDATIONS 1. Wean oxygen supplementation to keep saturations 88-92%. 2. Encourage incentive spirometer 3. Increase activity as tolerated 4. Continue aerosols scheduled and PRN 5. Likely okay to discontinue steroids 6. Consider transfer to tertiary care center for evaluation of her AAA. 7. Follow-up with her primary care physician regarding her suspected COPD, management 8. Okay to discharge from pulmonary perspective IMPRESSIONS 1. Lung mass CTA of the chest showed a mass in the left apex measuring 3.4 x 2.5 x 2.5 cm that was suspicious for primary lung carcinoma. There is mild aneurysmal dilatation of the descending thoracic aorta. Also advanced pulmonary emphysema and COPD. If cancer, mass is likely not resectable. Discussed the CT findings with the patient, she does not wish to pursue any further workup regarding the mass. She states if it was cancer, she would still not want to pursue further evaluation and treatment, including chemotherapy and/or radiation. Discussed having a CT-guided biopsy while in the hospital, she is adamant she is not interested in this. I also met with the patient's son and son-in-law, who were brought up to speed on findings. 2. Suspected COPD CTA of the chest consistent with advanced pulmonary emphysema/COPD. No previous custom furrier or official pulmonary function tests to quantify her lung disease, states her COPD is presumed. Not wish to pursue any further workup or follow-up in the pulmonary clinic. Patient home inhaler regimen includes albuterol nebulizers every 4-6 hours and Advair twice daily. She also uses a MDI for when she is out of the house. States she is typically well at home and has not had any exacerbations in 2 years. Patient does not appear to be in an acute exacerbation at this time. No significant wheezing but is globally diminished. Very slight leukocytosis, no fevers. Can obtain sputum culture if cough becomes productive. Likely okay to discontinue steroids. No antibiotics required. Reasonable to continue her nebulizers and Advair on discharge. 3. Abdominal aortic aneurysm Evaluated via CTA of abdomen, measuring 5.2 x 6.5 cm. No acute hematoma or free fluid in abdomen. It is off to the left side of the abdomen at the level of the left kidney causing mild to moderate hydronephrosis which is superimposed on left-sided pelviectasis. Hepatic steatosis, large duodenal diverticulum. Small hiatal hernia, patient denies any epigastric discomfort or history of GERD. Dr. Tilley saw the patient as surgical consult, patient deemed high risk for intervention here at [facility] and recommended transfer to tertiary care center. The patient is interested in discussing transfer to a tertiary care center for possible intervention for her aneurysm. 4. Hypertension/hyperlipidemia/tobacco abuse Complicates care, management, recovery, and prognosis. Patient has verbalized no intention of quitting smoking. She still smokes about a pack a day. Nicotine replacement therapy can be offered while hospitalized. Thank you for the opportunity to participate in this patient's care, please do not hesitate to contact us with any further questions or concerns. This note was generated with [employer] dictation software. It may contain incorrect words, spelling, and punctuation that were not noted in checking the note before signing.
--- NOTE | 2017-04-07 09:23 | CON.PCM_ITS ---
Problem List (1) Suspected chronic obstructive pulmonary disease based on initial evaluation Status: Chronic (2) AAA (abdominal aortic aneurysm) Status: Acute Qualifiers: Presence of rupture: without rupture Qualified Code(s): I71.4 - Abdominal aortic aneurysm, without rupture (3) Lung mass Status: Acute (4) Hyperlipidemia Status: Chronic Qualifiers: Hyperlipidemia type: unspecified Qualified Code(s): E78.5 - Hyperlipidemia , unspecified (5) Hypertension Status: Chronic Qualifiers: Hypertension type: unspecified Qualified Code(s): I10 - Essential (primary ) hypertension Reason for Consult Date of Consultation: 04/07/17 Reason for Consultation: lung mass History of Present Illness: The patient is a 76 year old F with a past medical history as below who presented to the ED with a one-day history of severe lower thoracic back pain across her entire back. Patient states she had some moderate back pain the previous couple of days, however on day of presentation was so severe that she became short of breath. She tried taking a nebulizer with no relief. The pain was worse with deep inspiration. No relieving factors. Associated symptoms of cough but no sputum production. She denied any chest pain, fevers or chills, abdominal pain, nausea, vomiting, or diarrhea. She thought maybe she was having heart problems and called her granddaughter to bring her to the ED. Patient was initially hypoxic at 87% on room air. She did not appear to be in any respiratory distress. Chest x-ray on presentation showed a soft tissue density in the suprahilar region left chest suspicious for mass/neoplasm, as well as COPD. CTA of the chest was obtained and confirmed a mass in the left apex measuring 3.4 x 2.5 x 2.5 cm. There is also mild aneurysmal dilatation of the descending thoracic aorta and advanced pulmonary emphysema/COPD. There are degenerative changes of the lower thoracic and upper lumbar spine. CTA of the abdomen was obtained to further evaluate her aneurysm, showed AAA measuring 5.2 x 6.5 cm there is no acute hematoma or free fluid in the abdomen. She did have mild to moderate hydronephrosis with left-sided pelviectasis. There is also hepatic steatosis and large duodenal diverticulum. The colon was tortuous with the cecum appearing to extend to the left side of the abdomen. CBC remarkable for mildly elevated white count of 11,100, elevated hemoglobin of 15.7 and hematocrit 47.8. BUN mildly elevated at 20 and normal creatinine at 1.01. Glucose was 122, troponin normal, INR 1.1. D-dimer was elevated at 1.68. EKG with sinus tachycardia, no evidence of ischemia. Patient was given 4 baby aspirin, Solu-Medrol 125 mg ?1, and aerosols with improvement in her breathing. The pain in her back resolved while in the ER. She was started on scheduled IV steroids and bronchodilators and transferred to the medical surgical 3 floor for further evaluation and management. Patient denies previously seeing a warp trucker or having any pulmonary function tests completed. She was placed on Advair quite some time ago and has been using albuterol nebulizers for several years. She typically uses albuterol every 4-6 hours and Advair twice daily. Nebulizers do typically improve her shortness of breath. She does have some intermittent wheezing at home but nothing significant. She takes Proair when out of the house. Patient does note a history of tuberculosis when she was 21 years old and was treated for this at [facility]. She had follow-up chest x-rays for over 15 years and was eventually told she did not need to follow-up anymore. She denies any known abnormal follow up imaging. 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 She denies previous colonoscopies but had a mammogram several years ago that was reportedly normal. She does not wish to have any further testing done, including a colonoscopy. Denies any family or personal history of cancer. She does have a significant smoking history with 50 pack years and continues to smoke a pack a day. The patient has been weaned to room air this morning. Her shortness of breath on exertion is back to baseline which is very mild. She denies any significant cough or sputum production. No history of hemoptysis. She does admit to a history of sleep apnea and used oxygen for this in the past, however she does not currently use any oxygen at home. Patient does not wish to have a repeat sleep study or wear a noninvasive positive pressure device. Past Medical History Past Medical History (Chronic Problems): Chronic Problems COPD (chronic obstructive pulmonary disease) (Chronic) Hyperlipidemia (Chronic) Hypertension (Chronic) Suspected chronic obstructive pulmonary disease based on initial evaluation ( Chronic) Allergies No Known Allergies Allergy (Verified 04/06/17 23:14) Home Medications: Ambulatory Orders Medication Instructions Recorded Albuterol Aerosols [Ventolin 2.5 mg INHALATION Q6HWA.RT 04/06/17 Aerosols] Albuterol IH (ProAir) [Proair Hfa 2 puff INHALATION 4X/DAY PRN PRN 04/06/17 (SP)Vent Pts] Fluticasone/Salmeterol [Advair 1 each IH BID 04/06/17 250-50 Diskus] Lisinopril 20 mg PO DAILY 04/06/17 Multivitamin No.58/Vit D3/K 1 tab PO DAILY 04/06/17 [Multivit-A,B,D,E,K,Zn Softgel] Pravastatin [Pravachol] 40 mg PO DAILY 04/06/17 Vitamin E Mixed [Vitamin E] 1,000 unit PO DAILY 04/06/17 Surgical History: hysterectomy Psychiatric History: No pertinent psych hx MUSIC COMPOSER History: No pertinent MUSIC COMPOSER history Lives: Alone Smoking Status: Heavy Smoker (>10/day) Tobacco Use: Cigarettes Alcohol: None Drugs: None - *Family History Maternal History Items: - - no cancer Paternal History Items: No pertinent history Review of Systems Constitutional: Denies: Anorexia, Chills, Fever, Night Sweats, Malaise, Weakness , Weight Change, Fatigue Eyes: Denies: Vision Change HEENT: Reports: - - [place]. Denies: Difficulty Swallowing, Head Aches, Nasal bleeding, Nasal Congestion, Post Nasal Drip, Sinus Congestion, Sore Throat Cardiovascular: Denies: Chest Pain, Chest Tightness, Edema, Light Headedness, Orthopnea, Palpitations, Paroxysmal Noc. Dyspnea, Syncope Respiratory: Reports: Cough - chronic. Denies: Hemoptysis Gastrointestinal: Denies: Abdominal Pain, Constipation, Diarrhea, Dyspepsia, Hematemesis, Hematochezia, Nausea, Melena, Vomiting Genitourinary: Reports: Incontinence - stress. Denies: Dysuria, Hematuria, Retention Gynecological: Denies: Breast symptoms Musculoskeletal: Reports: Back Pain - Resolved, Joint stiffness - Generalized. Denies: Muscle pain, Neck Pain Skin: Denies: Rash, Wounds Neurological: Denies: Balance problems, Change in Speech, Confusion, Difficulty swallowing, Focal weakness, Numbness, Tingling, Tremor, Seizures Psychiatric: Denies: Anxiety, Depression Endocrine: Denies: Change in Body Habitus, Polydipsia, Polyuria Hematologic/ Lymphatic: Reports: Easy Bruising. Denies: Adenopathy, Anemia, Easy Bleeding, Hx of blood clot Patient Problems: Active and Suspected Problems COPD with acute exacerbation (Acute) AAA (abdominal aortic aneurysm) (Acute) Lung mass (Acute) Subjective: The patient was seen and examined. She is ambulatory in the room. She does not appear to be in any acute distress. She reports her breathing is back to her baseline. She does have an occasional cough with no sputum production. Denies any wheezing or chest tightness. The pain in her back has not returned since she was in the ER. Objective: Clinical Impression(s) from Imaging Studies Chest X-Ray 04/06/17 23:30 IMPRESSION: Soft tissue density in the suprahilar region of the left chest suspicious for mass or neoplasm measuring 2.1 x 2.0 cm. This is superimposed on chronic obstructive pulmonary disease. Recommend follow-up CT scan of the chest. N.B. : The above information has been verbally conveyed by Alexus Gunderson MD to , Covering Physician, on 04/07/2017 00:59:28 (ET). Electronically Signed: Alexus Gunderson MD at 0:55 EST Tel , Service support , N.B. : The above information has been verbally conveyed by Alexus Gunderson MD to , Covering Physician, on 04/07/2017 00:59:28 (ET). Chest CTA 04/07/17 00:26 IMPRESSION: There is a mass in the left apex Measuring 3.4 x 2.5 x 2.5 which is highly suspicious for primary lung carcinoma. Mild aneurysmal dilatation of the descending thoracic aorta. Advanced pulmonary emphysema and chronic obstructive pulmonary disease. Degenerative change thoracolumbar spine multilevel loss of height of the lower thoracic spine and upper lumbar spine. Please refer to the CT scan of the abdomen and pelvis performed the same day for further discussion of the infrarenal aortic aneurysm. N.B. : The above information has been verbally conveyed by Alexus Gunderson MD to Dr. Fuchs , Covering Physician, on 04/07/2017 02:21:52 (ET). Electronically Signed: Alexus Gunderson MD at 1:56 EST Tel , Service support , N.B. : The above information has been verbally conveyed by Alexus Gunderson MD to Dr. Fuchs , Covering Physician, on 04/07/2017 02:21:52 (ET). Abdomen CTA 04/07/17 00:51 IMPRESSION: Abdominal aortic aneurysm measuring 5.2 x 6.5 cm. Without acute hematoma or free fluid in the abdomen. It is off to the left side of the abdomen at the left level of the left kidney causing mild to moderate hydronephrosis which is superimposed on left-sided pelviectasis. Hepatic steatosis. Large duodenal diverticulum. Tortuous colon with the cecum appearing to extend to the left side of the abdomen could consider follow-up barium enema when appropriate. Diverticulosis without evidence of diverticulitis. Small hiatal hernia. Electronically Signed: Alexus Gunderson MD at 2:09 EST Tel , Service support , - Physical Exam General: Alert, Oriented x3, Cooperative, No apparent distress, Well developed, Well nourished, - - No conversational dyspnea HEENT: Atraumatic, PERRLA, Normocephalic Oral: Moist Mucosa, No Gingival or Mucosal Lesions/ Ulcerations, - - Scar to right chin area from infection secondary to dental implants Neck: Supple, No JVD, No Nodes, Trachea Midline Lungs: - - Diminished throughout, no appreciable rhonchi, rales, or wheezing. Symmetric expansion. Kyphosis. Cardiovascular: Regular rate, Regular Rhythm, Normal S1, Normal S2, No murmurs, No rub noted, No Gallop Abdomen: Bowel Sounds Present, Soft, Non Tender, Non-Distended, No Hepato- splenomegaly Extremities: No cyanosis, No edema, Capillary Refill Less than 3 Seconds, Peripheral Pulses Normal Skin: No rashes, No breakdown Musculoskeletal: No Tenderness to Palpation of Joints or Extremities Lymphatic: No Cervical, Supraclavicular, or Inguinal Adenopathy Neurological: Cranial nerves II-XII grossly intact, Neuro grossly intact, Motor Exam 5/5 strength throughout Psych/Mental Status: Alert and oriented to time, place, person, mood and affect Vital Signs Temp Pulse Resp BP Pulse Ox 98 F 86 20 H 173/84 H 96 04/07/17 03:25 04/07/17 07:08 04/07/17 07:08 04/07/17 03:25 04/07/17 07:10 Oxygen Flow Rate 1 Oxygen Delivery Method Room Air Weight: 127 lb 1 oz Body Mass Index (BMI) 23.2 Intake and Output for Last 24 Hours 04/05/17 04/06/17 04/07/17 23:59 23:59 23:59 Intake Total 120 / 120 Balance 120 / 120 Assessment/Plan Active and Suspected Problems COPD with acute exacerbation (Acute) AAA (abdominal aortic aneurysm) (Acute) Lung mass (Acute) RECOMMENDATIONS 1. Wean oxygen supplementation to keep saturations 88-92%. 2. Encourage incentive spirometer 3. Increase activity as tolerated 4. Continue aerosols scheduled and PRN 5. Likely okay to discontinue steroids 6. Consider transfer to tertiary care center for evaluation of her AAA. 7. Follow-up with her primary care physician regarding her suspected COPD, management 8. Okay to discharge from pulmonary perspective IMPRESSIONS 1. Lung mass CTA of the chest showed a mass in the left apex measuring 3.4 x 2.5 x 2.5 cm that was suspicious for primary lung carcinoma. There is mild aneurysmal dilatation of the descending thoracic aorta. Also advanced pulmonary emphysema and COPD. If cancer, mass is likely not resectable. Discussed the CT findings with the patient, she does not wish to pursue any further workup regarding the mass. She states if it was cancer, she would still not want to pursue further evaluation and treatment, including chemotherapy and/or radiation. Discussed having a CT-guided biopsy while in the hospital, she is adamant she is not interested in this. I also met with the patient's son and son-in-law, who were brought up to speed on findings. 2. Suspected COPD CTA of the chest consistent with advanced pulmonary emphysema/COPD. No previous warp trucker or official pulmonary function tests to quantify her lung disease, states her COPD is presumed. Not wish to pursue any further workup or follow-up in the pulmonary clinic. Patient home inhaler regimen includes albuterol nebulizers every 4-6 hours and Advair twice daily. She also uses a MDI for when she is out of the house. States she is typically well at home and has not had any exacerbations in 2 years. Patient does not appear to be in an acute exacerbation at this time. No significant wheezing but is globally diminished. Very slight leukocytosis, no fevers. Can obtain sputum culture if cough becomes productive. Likely okay to discontinue steroids. No antibiotics required. Reasonable to continue her nebulizers and Advair on discharge. 3. Abdominal aortic aneurysm Evaluated via CTA of abdomen, measuring 5.2 x 6.5 cm. No acute hematoma or free fluid in abdomen. It is off to the left side of the abdomen at the level of the left kidney causing mild to moderate hydronephrosis which is superimposed on left-sided pelviectasis. Hepatic steatosis, large duodenal diverticulum. Small hiatal hernia, patient denies any epigastric discomfort or history of GERD. Dr. Tilley saw the patient as surgical consult, patient deemed high risk for intervention here at [facility] and recommended transfer to tertiary care center. The patient is interested in discussing transfer to a tertiary care center for possible intervention for her aneurysm. 4. Hypertension/hyperlipidemia/tobacco abuse Complicates care, management, recovery, and prognosis. Patient has verbalized no intention of quitting smoking. She still smokes about a pack a day. Nicotine replacement therapy can be offered while hospitalized. Thank you for the opportunity to participate in this patient's care, please do not hesitate to contact us with any further questions or concerns. This note was generated with [employer] dictation software. It may contain incorrect words, spelling, and punctuation that were not noted in checking the note before signing.
[2017-04-07] MEDS: Lisinopril 20 MG Tablet PO (09:26)
[2017-04-07] MEDS: Multivitamins,Therapeutic Tablet 1 TABLET PO (09:26)
[2017-04-07] MEDS: Enoxaparin 40 MG/0.4 ML Syringe SC (09:29)
--- NOTE | 2017-04-07 10:15 | CASEMGMT ---
RN JOAQUIN Face to Face with patient for initial transition planning/care coordination assessment. RN CM introduced self and role at [facility]. Patient sitting in chair, alert and oriented, family at bedside. Patient willing to participate in assessment and is able to answer all questions appropriately. Care providers, pharmacy, and demographics verified. See link attached. Patient wishes to discharge home, denies need for home health at this time. Patient states she has no further needs or concerns at this time. CM to follow for discharge planning needs that may arise. Disposition Plan: Patient to discharge home with family support and follow-up plans in place.
--- NOTE | 2017-04-07 14:52 | PCM.DC ---
- Discharge Diagnoses Current Active Problems: Current Active and Chronic Problems COPD with acute exacerbation (Acute) COPD (chronic obstructive pulmonary disease) (Chronic) AAA (abdominal aortic aneurysm) (Acute) Lung mass (Acute) Hyperlipidemia (Chronic) Hypertension (Chronic) Suspected chronic obstructive pulmonary disease based on initial evaluation (Chronic) You will use the following diet at home:: Regular Discharge Activity: Return to Normal Activity Allergies/Adverse Reactions: Allergies No Known Allergies Allergy (Verified 04/06/17 23:14) Medications to take at Discharge Albuterol Aerosols [Ventolin Aerosols] 2.5 mg INHALATION Q6HWA.RT 04/06/17 Albuterol IH (ProAir) [Proair Hfa] 2 puff INHALATION 4X/DAY PRN PRN 04/06/17 Fluticasone/Salmeterol [Advair 250-50 Diskus] 1 each IH BID 04/06/17 Lisinopril 20 mg PO DAILY 04/06/17 Multivitamin No.58/Vit D3/K [Multivit-A,B,D,E,K,Zn Softgel] 1 tab PO DAILY 04/06/17 Pravastatin [Pravachol] 40 mg PO DAILY 04/06/17 Vitamin E Mixed [Vitamin E] 1,000 unit PO DAILY 04/06/17 Primary Care Physician: Rebecca Dorman PA [Primary Care Provider] - In 1 Week
--- NOTE | 2017-04-07 14:54 | PCM.DC.SUM ---
Discharge Date and Diagnosis Date of Admission: 04/07/17 Date of Discharge: 04/07/17 - Primary Discharge Diagnosis Active and Suspected Problems COPD with acute exacerbation (Acute) AAA (abdominal aortic aneurysm) (Acute) Lung mass (Acute) - Secondary Discharge Diagnosis Chronic Problems COPD (chronic obstructive pulmonary disease) (Chronic) Hyperlipidemia (Chronic) Hypertension (Chronic) Suspected chronic obstructive pulmonary disease based on initial evaluation (Chronic) Hospital Course and Treatment Summary of Care Provided: Maria Del Rosario Choi is a 76 F with history of hypertension and hypercholesterolemia who presents to the emergency room for intermittent back pain and shortness of breath. Patient states that she began having symptoms 4 days ago with a really tight sharp pain in her bilateral lower thoracic back that takes her breath away. In the emergency room she underwent CTA of the chest abdomen and pelvis. CTA of the chest showed a new left upper lobe lung mass suspicious for malignancy. CTA of the abdomen and pelvis shows a 6.5 cm x 5.7 cm infrarenal aneurysm of the aorta with no evidence of rupture. Additionally she has mild to moderate left hydronephrosis. Patient remained stable in the emergency department. Regarding the a new left upper lobe lung mass suspicious for malignancy found on the CT scan, pulmonary medicine was consulted but the patient declined any further workup on this. She understands this is likely to be malignancy but she does not want to proceed with any further workup or treatment on this. Regarding the CTA of the abdomen and pelvis showing the 6.5 cm x 5.7 cm infrarenal aneurysm of the aorta with no evidence of rupture. Dr Tilley was consulted,although the aneurysm is not demonstrating current signs of rupture it is not clear whether it is a component of her discomfort or whether it is compression upon the left kidney could be part of this complex. Tertiary evaluation at earliest convenience was recommended. The patient and family elected to go to tertiary care as an outpatient evaluation to her primary care doctor. For imaging on disc be given to them. She was discharged home in a stable condition. physical exam at the time of discharge; vital signs were stable. He was alert and oriented to time place and person. He did not appear to be any form of distress. S1 and S2 heard no murmur or gallop Lung exam was clear to auscultation with no adventitious sounds. Abdomen was soft nontender with normal bowel sounds. extremity exam did not reveal any edema, palpable pulses bilaterally. Neurologic exam was grossly intact. Discharge Diet: No Restrictions Discharge Activity: Return to Normal Activity Home Medications: Medications to take at Discharge Albuterol Aerosols [Ventolin Aerosols] 2.5 mg INHALATION Q6HWA.RT 04/06/17 Albuterol IH (ProAir) [Proair Hfa] 2 puff INHALATION 4X/DAY PRN PRN 04/06/17 Fluticasone/Salmeterol [Advair 250-50 Diskus] 1 each IH BID 04/06/17 Lisinopril 20 mg PO DAILY 04/06/17 Multivitamin No.58/Vit D3/K [Multivit-A,B,D,E,K,Zn Softgel] 1 tab PO DAILY 04/06/17 Pravastatin [Pravachol] 40 mg PO DAILY 04/06/17 Vitamin E Mixed [Vitamin E] 1,000 unit PO DAILY 04/06/17 Primary Care Physician: Rebecca Dorman PA [Primary Care Provider] - In 1 Week Disposition: Home Meaningful Use Info Meaningful Use Diagnoses (Choose all that apply): None applicable Code Visit Inpatient E&M: 74860 Disch Hosp
--- NOTE | 2017-04-07 15:36 | CASEMGMT ---
SW spoke w/pt and daughter in room, as pt has a new diagnosis of a lung mass. SW offered support to pt and daughter. Pt explains she has spoken with so many different doctors, she is not certain what to think or what questions to ask. Pt states she is not certain where to go from here and what to do next. SW offered support to pt and daughter, explained that the next step will likely be to follow up w/her doctor, and her doctor can assist in directing her what to do next(and this is what the physician did put in the discharge instructions). SW gave daughter SW card. SW explained if once they leave they think of questions, to call SW, and SW will assist as able. No further needs at this time, pt home today. CRISTOBAL Garcia, WAITER/WAITRESS BAR
== END 2017-04-07 16:09 | disposition home or self-care (01) ==
LOC: ED 04-07 01:05 → MS3 04-07 02:52 → PCU 04-07 15:11
PROVIDERS: Emergency Provider Emergency Medicine; Family Provider Physician Assistant; PCP Physician Assistant; Visit Provider Internal Medicine
DX: J44.1 Chronic obstructive pulmonary disease with (acute) exacerbation (principal); I71.4 Abdominal aortic aneurysm, without rupture; R91.8 Other nonspecific abnormal finding of lung field; E78.5 Hyperlipidemia, unspecified; I10 Essential (primary) hypertension; N13.30 Unspecified hydronephrosis; M54.6 Pain in thoracic spine; F17.210 Nicotine dependence, cigarettes, uncomplicated; K44.9 Diaphragmatic hernia without obstruction or gangrene; K57.90 Diverticulosis of intestine, part unspecified, without perforation or abscess without bleeding; Z79.899 Other long term (current) drug therapy
CPT/HCPCS: 71046; 71275; 74175; 80048; 84484; 85025; 85379; 85610; 85730; 93005; 94640; 96361; 96372; 96374; 96376; 99218; 99283; 99406; J7030; Q9967; A4216; G0378

== ENCOUNTER 2017-12-10 11:08 | Emergency (ER) | payer MEDICARE, SELFPAY ==
[2017-12-10] VITALS (8 sets, daily range): BP systolic 87–129; BP diastolic 54–83; PULSE 52–109; RESP 16–26; TEMP 36.9; O2SAT 85–100; BMI 25.5
--- NOTE | 2017-12-10 11:25 | RAD_ITS ---
STUDY: X-RAY CHEST REASON FOR EXAM: Female, 77 years old. Weakness TECHNIQUE: Single AP portable view of the chest. COMPARISON: April 06, 2017. FINDINGS: There are fibrotic densities and granulomatous calcifications of the lungs. There is no demonstrated pleural abnormality. There is mild cardiac enlargement. Normal mediastinum and naida. Normal visualized pulmonary arteries. There is atherosclerotic tortuosity of the aortic arch and descending thoracic aorta. There is demineralization of the osseous structures. There is scoliosis with degenerative change of the spine. Normal visualized ribs, clavicles, and shoulders. There is no demonstrated abnormality of the visualized soft tissue structures of the upper abdomen. RAD/Chest 1 View (Portable) IMPRESSION: Degenerative changes, as described above. No demonstrated acute cardiopulmonary process. Electronically Signed: Neno Marquez MD at 12:54 EDT , Service support ,
--- NOTE | 2017-12-10 11:25 | CT_ITS ---
STUDY: CT BRAIN WITHOUT CONTRAST REASON FOR EXAM: Female, 77 years old. Left arm weakness. RADIATION DOSAGE (If Supplied By Facility): CTDIvol = ( 44.99 ) mGy, DLP = ( 745.49 ) mGycm TECHNIQUE: Transaxial CT imaging of the brain was performed without administration of intravenous contrast material. Individualized dose optimization techniques were used for this CT. COMPARISON: None. FINDINGS: Normal soft tissue structures. Normal calvarium. There is an approximately 1.8 cm maximum dimension ovoid focus with associated small hemorrhage and adjacent vasogenic edema within the periphery of the posterior right frontal lobe. This finding is seen best on sequence 2, image 31, sequence 602, image 21 and sequence 601 image 48. There is no midline shift. There is local mass effect manifested by effacement over overlying cortical sulci. Normal size ventricles and extra-axial spaces for the patient's age. Normal basal ganglia and thalami. Normal brainstem. Normal cerebellum. There is no large vessel territory ischemia/edema. Normal visualized paranasal sinuses. CT/Brain/Head without Contrast IMPRESSION: Finding within the periphery of the posterior right frontal lobe with small quantity of hemorrhage and associated vasogenic edema. Differential considerations include hemorrhage within a neoplasm versus hemorrhage involving an underlying vascular malformation. Recommend better characterization with pre and postcontrast brain MRI. Neurosurgical consultation is also recommended. N.B. : The above information has been verbally conveyed by Mushtaq Woods MD to Marivel Alvarez MD, on 12/10/2017 13:05:23 (ET). Electronically Signed: Mushtaq Woods MD at 13:05 EDT , Service support ,
--- NOTE | 2017-12-10 11:26 | EKG12_ITS ---
Test Reason : SOB Blood Pressure : / mmHG Vent. Rate : 089 BPM Atrial Rate : 089 BPM P-R Int : 156 ms QRS Dur : 078 ms QT Int : 364 ms P-R-T Axes : 041 -25 069 degrees QTc Int : 442 ms Normal sinus rhythm Inferior infarct , age undetermined Cannot rule out Anterior infarct , age undetermined Abnormal ECG Confirmed by CHEO SHARP, ISELA ([id number]), market editor LAVERNE HEMPHILL ([id number]) on 12/13/2017 3:06:59 PM Referred By: LITA Confirmed By:ISELA GRIDER MD
[2017-12-10] MEDS: 0.9% Normal Saline 1,000 ML 150 ML IV (12:26)
[2017-12-10 12:42] LABS: Absolute Neutrophil Count 5.3 X10^3/uL (2.0-7.7); Basophil# 0.01 X10^3/uL; Basophil% 0.1 % (0-1); Eosinophil# 0.11 X10^3/uL; Eosinophils% 1.4 % (0-5); Hematocrit 46.3 % (37-47); Hemoglobin 15.2 g/dl (12.0-15.0); Mean Corp Hgb Conc 32.8 g/gl (32-36); Mean Corpuscular Volume 97.5 fL (81-99); Monocyte# 0.66 X10^3/uL; Monocyte% 8.3 % (0-10); Neutrophil # 5.25 X10^3/uL (2.7-7.7); Neutrophil % 66.2 % (47-70); POSITIVE COUNT NO; POSITIVE DIFFERENTIAL NO; POSITIVE MORPHOLOGY NO; Platelet Count 285 K/mm3 (150-450); RBC Distribution Width CV 13.3 % (11.6-14.6); RBC Distribution Width SD 46.9 fl (35.1-43.9); Red Blood Count 4.75 M/mm3 (4.2-5.4); White Blood Count 7.9 K/mm3 (4.4-11.0)
[2017-12-10 12:53] LABS: Bacteria 0 SEEN /hpf (None Seen); Mucous, Urine 0 SEEN /hpf (<or=2+); Red Blood Cells-Urine 0 SEEN /hpf (0-5); White Blood Cells 0 SEEN /hpf (0-5)
[2017-12-10 12:58] LABS: Color, Urine Yellow (Yellow); Glucose, Dipstick Normal (Normal); Ketone-Dipstick Negative (Negative); Leukocyte Esterase-Dipstick Negative /ul (Negative); Nitrite-Dipstick Negative (Negative); Occult Blood-Urine Negative /ul (Negative); Protein-Dipstick Negative (Negative); Urine Bilirubin Dipstick Negative (Negative); Urine Clarity Clear (Clear); Urine Urobilinogen Normal (Normal)
[2017-12-10 12:58] LABS: Anion Gap 7 (5-15); BUN 12 mg/dL (7-18); BUN/Creat Ratio 16.3 RATIO (10-20); Calcium,Total 9.3 mg/dL (8.5-10.1); Chloride 101 mmol/L (98-107); Creatinine, Serum 0.74 mg/dL (0.55-1.02); EST Glomerular Filtration Rate 81 mL/min (>60); Est Glom Filt Rate - Afr Amer 98 mL/min (>60); Glucose 86 mg/dL (74-106); Potassium 4.1 mmol/L (3.5-5.1); Sodium Level 139 mmol/L (136-145)
[2017-12-10 13:08] LABS: Squamous Epithelial Cells - UA 0-5 SEEN /hpf (5-10)
[2017-12-10] MEDS: Ipratropium/Albuterol Sulfate 3 ML AMPUL.NEB INHALATION (13:25)
--- NOTE | 2017-12-10 14:44 | ED.VISSUMM ---
- ER Visit Summary Date of Service: 12/10/17 Chief Complaint: [Left arm weakness] History of Present Illness: The patient is a 77 F [presents the emergency department complaint of left arm weakness that she noticed last night but states that it is possible it may been there for more than several days. Patient states that she noticed a couple of days ago that she was having a hard time pushing the button for her inhaler with her left arm so she started doing everything with her right arm. Patient denies any visual changes. Patient denies any slurred speech. She denies any weakness in her lower extremities. Patient denies headache or recent fall. Patient does have a history of COPD, hypertension, high cholesterol, lung mass and, AAA.] Physical Examination: [HEENT-PERRLA, EOMI. Cranial nerves II through XII grossly intact. TMs clear. Mucous membranes moist. No adenopathy. Cardiovascular-regular rate and rhythm without murmur or ectopy Lungs-clear to auscultation, chest wall stable without crepitus or subcu emphysema Abdomen-normoactive bowel sounds, soft, nontender, no rebound or rigidity, no peritoneal signs. Neuro hrdx-rxcnck-krez and heel fernandez testing within normal limits, negative Romberg, negative pronator drift, fundi benign. NIH stroke scale was 0 as I do not see any objective evidence of weakness. Extremities-intact ?4, normal range of motion, normal pulses, atraumatic] Test Results: [CBC with differential obtained showed a white blood cell count 7.9, hemoglobin 15, hematocrit 46, platelets 285. Chemistries unremarkable. Urinalysis was normal. EKG on arrival shows sinus rhythm with a ventricular rate of 89 bpm. Chest x-ray showed nothing acute. CT scan of the brain without contrast showed findings within the periphery of the posterior right frontal lobe with small quantity of hemorrhage and associated vasogenic edema differential consideration include hemorrhage with a neoplasm versus hemorrhage involving an underlying vascular malformation and recommended MRI for further evaluation and neurosurgical consultation.] Emergency Department Course and Treatment: [Case was discussed with patient and family members and since we do not have neurosurgical services at this hospital they request to be transferred to [facility] in [place] however they did not have neurosurgery available today. Patient then requested to go to the [facility] and I spoke with [facility] who accepted transfer of patient] Treatment Plan: [Transfer to [facility] for further workup and definitive care] Disposition: [Transfer] Impression: [Intracranial hemorrhage-metastasis with hemorrhage versus AV malformation with hemorrhage COPD] This note was generated with [employer] dictation software. It may contain incorrect words, spelling, and punctuation that were not noted in review of the chart prior to signing ED Disposition - Plan for ED Patient: Chief Complaint: Weakness Referrals: Rebecca Dorman PA [Primary Care Provider] -
--- NOTE | 2017-12-10 14:48 | ED.DCSUM_ITS ---
- ER Visit Summary Date of Service: 12/10/17 Chief Complaint: [Left arm weakness] History of Present Illness: The patient is a 77 F [presents the emergency department complaint of left arm weakness that she noticed last night but states that it is possible it may been there for more than several days. Patient states that she noticed a couple of days ago that she was having a hard time pushing the button for her inhaler with her left arm so she started doing everything with her right arm. Patient denies any visual changes. Patient denies any slurred speech. She denies any weakness in her lower extremities. Patient denies headache or recent fall. Patient does have a history of COPD, hypertension, high cholesterol, lung mass and, AAA.] Physical Examination: [HEENT-PERRLA, EOMI. Cranial nerves II through XII grossly intact. TMs clear. Mucous membranes moist. No adenopathy. Cardiovascular-regular rate and rhythm without murmur or ectopy Lungs-clear to auscultation, chest wall stable without crepitus or subcu emphysema Abdomen-normoactive bowel sounds, soft, nontender, no rebound or rigidity, no peritoneal signs. Neuro dooj-cyfnip-rbws and heel fernandez testing within normal limits, negative Romberg, negative pronator drift, fundi benign. NIH stroke scale was 0 as I do not see any objective evidence of weakness. Extremities-intact ?4, normal range of motion, normal pulses, atraumatic] Test Results: [CBC with differential obtained showed a white blood cell count 7.9, hemoglobin 15, hematocrit 46, platelets 285. Chemistries unremarkable. Urinalysis was normal. EKG on arrival shows sinus rhythm with a ventricular rate of 89 bpm. Chest x-ray showed nothing acute. CT scan of the brain without contrast showed findings within the periphery of the posterior right frontal lobe with small quantity of hemorrhage and associated vasogenic edema differential consideration include hemorrhage with a neoplasm versus hemorrhage involving an underlying vascular malformation and recommended MRI for further evaluation and neurosurgical consultation.] Emergency Department Course and Treatment: [Case was discussed with patient and family members and since we do not have neurosurgical services at this hospital they request to be transferred to [facility] in [place] however they did not have neurosurgery available today. Patient then requested to go to the [facility] and I spoke with [facility] who accepted transfer of patient] Treatment Plan: [Transfer to [facility] for further workup and definitive care] Disposition: [Transfer] Impression: [Intracranial hemorrhage-metastasis with hemorrhage versus AV malformation with hemorrhage COPD] This note was generated with [employer] dictation software. It may contain incorrect words, spelling, and punctuation that were not noted in review of the chart prior to signing ED Disposition - Plan for ED Patient: Chief Complaint: Weakness Referrals: Rebecca Dorman PA [Primary Care Provider] -
--- NOTE | 2017-12-10 15:28 | ED.RN ---
CALLED [facility] TO CHECK ON SQUAD, DISPATCHER STATED THAT THEY WOULD BE HERE ANY MINUTE.
== END 2017-12-10 15:49 | disposition home or self-care (01) ==
LOC: ED 13:03
PROVIDERS: Emergency Provider Emergency Medicine; Family Provider Physician Assistant; PCP Physician Assistant
DX: I62.9 Nontraumatic intracranial hemorrhage, unspecified (principal); G81.94 Hemiplegia, unspecified affecting left nondominant side; J44.9 Chronic obstructive pulmonary disease, unspecified; I10 Essential (primary) hypertension; E78.00 Pure hypercholesterolemia, unspecified; R91.1 Solitary pulmonary nodule; Z72.0 Tobacco use; Z79.51 Long term (current) use of inhaled steroids; Z79.899 Other long term (current) drug therapy
CPT/HCPCS: 70450; 71045; 80048; 81001; 84484; 85025; 93005; 94640; 96360; 96361; 99285; J7030; J7050

== ENCOUNTER 2017-12-25 09:59 | Emergency (ER) | payer MEDICARE, SELFPAY ==
[2017-12-25 10:00] VITALS: BP 136/96; PULSE 94; RESP 18; TEMP 36.4; O2SAT 93; BMI 26.4
--- NOTE | 2017-12-25 10:14 | EKG12_ITS ---
Test Reason : SOB Blood Pressure : / mmHG Vent. Rate : 143 BPM Atrial Rate : 084 BPM P-R Int : 134 ms QRS Dur : 072 ms QT Int : 354 ms P-R-T Axes : 048 -13 057 degrees QTc Int : 546 ms Sinus rhythm Possible Left atrial enlargement Low voltage QRS Inferior infarct , age undetermined Cannot rule out Anterior infarct , age undetermined Abnormal ECG Confirmed by RENETTA STEVEN ([id number]), book editor LAVERNE HEMPHILL ([id number]) on 12/28/2017 8:37:56 AM Referred By: RAIN Confirmed By:RENETTA STEVEN
--- NOTE | 2017-12-25 10:28 | RAD_ITS ---
STUDY: X-RAY CHEST REASON FOR EXAM: Female, 77 years old. Shortness of breath TECHNIQUE: Single AP portable view of the chest. COMPARISON: December 10 2017 chest x-ray CT chest April 07, 2017. April 06, 2017 chest x-ray. FINDINGS: There is a pattern of hyperlucency of the upper lung zones. There are calcifications in the right upper lobe compatible granulomatous disease. There is a left upper lobe suprahilar mass measuring 3.1 x 3.1 cm. This was also demonstrated on prior study April 07, 2017. There is no demonstrated pleural abnormality. Normal size heart. Normal mediastinum and naida. Normal visualized pulmonary arteries. There is atherosclerotic calcification of the aortic arch with tortuosity. Normal visualized thoracic spine. Normal visualized ribs, clavicles, and shoulders. There is no demonstrated abnormality of the visualized soft tissue structures of the upper abdomen. RAD/Chest 1 View (Portable) IMPRESSION: Persistent left upper lobe mass measuring 3.1 x 3.1 cm suspicious for cancer. Chronic obstructive pulmonary disease emphysema. Chronic interstitial markings. Electronically Signed: Alexus Gunderson MD at 11:21 EDT Tel , Service support ,
[2017-12-25 10:29] VITALS: BP 140/124; PULSE 84; O2SAT 96
--- NOTE | 2017-12-25 10:38 | ED.VISSUMM ---
- ER Visit Summary Date of Service: 12/25/17 Chief Complaint: Multiple conditions for evaluation History of Present Illness: The patient is a 77 F who is brought in by her family stating that they were told if anything is different to come to the emergency room. She has a history of lung cancer with brain metastasis. She is set to get gamma knife radiation treatment on the brain next week. Family states for the past several days she has had swelling in the legs. She states that that has not been a problem in the past. Family also notes that she has had what appears to be a pustule in the right axilla that they were using warm compresses for which had gotten better but now is worse and now they note some satellite pustules. The larger lesion had been draining pus. Patient is on chronic home oxygen. History of COPD. She is currently on dexamethasone. Physical Examination: Afebrile vital signs stable Gen: Well-nourished well-developed Head: Normocephalic atraumatic Eyes: Perrl EOMI ENT: TMs clear no rhinorrhea moist mucous membranes Neck: Supple no lymphadenopathy no JVD nontender CVS: Regular rate rhythm no murmurs normal S1-S2 Respiratory: Tachypneic clear to auscultation bilaterally chest nontender Abdomen: Soft nontender nondistended normal bowel sounds no masses Back: Nontender Extremity: Nontender 1+ bilateral lower extremity edema pitting Skin: Normal color no rash in the right axilla there are several small pustules surrounding a firm rubbery apparent abscess. There is a central crater with granulation tissue in it. There is no overt cellulitis. Neuro: alert orientated ?3 CN II-XII intact Psych: Normal affect normal mood Test Results: EKG shows a sinus rhythm at a rate of 85 without ectopy. This appears unchanged from December 10, 2017. White count 23.3. Creatinine 0.74. BUN 25. Troponin 0 0.027. Beta natruretic peptide 181.8. Chest x-ray showed COPD and lung mass. CT Zehra of the chest does not demonstrate pulmonary embolism. Is no evidence of superior vena cava syndrome. Emergency Department Course and Treatment: Bedside ultrasound of the lesion in the axilla I do not see any obvious drainable abscess. Patient will be started on Keflex and Bactrim. For the lymphedema we will do Lasix and I advised compression stockings. Follow-up with primary care. Return if worsening or concerns Impression: 1. Lymphedema 2. Right axillary abscess 3. Metastatic lung cancer This note was generated with [facility] dictation software. It may contain incorrect words, spelling, and punctuation that were not noted in review of the chart prior to signing ED Disposition - Plan for ED Patient: Disposition: Home or Assisted Living Chief Complaint: Edema Instructions: ED Staph Infec Abx Tx Only, ED Lymphedema Prescriptions: Cephalexin [Keflex] 500 mg PO Q6 #28 cap Furosemide [Lasix] 40 mg PO DAILY #7 tab Smz/Tmp Ds [Bactrim Ds] 1 tab PO BID #14 tab Referrals: Rebecca Dorman PA [Primary Care Provider] - 5-7 Days
[2017-12-25] MEDS: Ipratropium/Albuterol Sulfate 3 ML AMPUL.NEB INHALATION (10:48)
[2017-12-25 10:49] VITALS: PULSE 85; RESP 22
[2017-12-25 10:50] LABS: Absolute Lymphocyte Count 1.44 X10^3/ul (0.83-4.51); Absolute Neutrophil Count 19.8 X10^3/uL (2.0-7.7); Basophil# 0.02 X10^3/uL; Basophil% 0.1 % (0-1); Differential Indicated SCAN CRITERIA MET; Eosinophil# 0.05 X10^3/uL; Eosinophils% 0.2 % (0-5); Hematocrit 45.7 % (37-47); Hemoglobin 14.7 g/dl (12.0-15.0); Lymphocyte # 1.44 X10^3/ul (4.0); Lymphocyte % 6.2 % (19-41); Mean Corp Hgb Conc 32.2 g/gl (32-36); Mean Corpuscular Volume 99.6 fL (81-99); Mean Platelet Vol. 9.1 fl (6.2-12.0); Monocyte# 1.82 X10^3/uL; Monocyte% 7.8 % (0-10); Neutrophil % 85.2 % (47-70); POSITIVE COUNT NO; POSITIVE DIFFERENTIAL YES; POSITIVE MORPHOLOGY NO; Platelet Count 271 K/mm3 (150-450); RBC Distribution Width CV 13.5 % (11.6-14.6); RBC Distribution Width SD 49.2 fl (35.1-43.9); Red Blood Count 4.59 M/mm3 (4.2-5.4); White Blood Count 23.3 K/mm3 (4.4-11.0)
[2017-12-25 11:03] LABS: AST(SGOT) 19 U/L (15-37); Alanine Aminotransfer ALT/SGPT 26 U/L (13-56); Albumin, Serum 2.9 g/dL (3.2-5.0); Alkaline Phosphatase 63 U/L (45-117); Anion Gap 7 (5-15); BUN 25 mg/dL (7-18); BUN/Creat Ratio 33.7 RATIO (10-20); Calcium,Total 8.5 mg/dL (8.5-10.1); Chloride 98 mmol/L (98-107); Creatinine, Serum 0.74 mg/dL (0.55-1.02); EST Glomerular Filtration Rate 81 mL/min (>60); Est Glom Filt Rate - Afr Amer 97 mL/min (>60); Globulin 3.1 g/dL (2.2-4.2); Glucose 110 mg/dL (74-106); Potassium 3.9 mmol/L (3.5-5.1); Sodium Level 135 mmol/L (136-145)
[2017-12-25 11:17] LABS: BNP,B-Type NATRIURETIC PEPTIDE 181.8 pg/mL (0-100)
[2017-12-25 11:25] VITALS: BP 131/68; PULSE 86; RESP 16; O2SAT 96
[2017-12-25 11:32] LABS: Differential Comment SCANNED
--- NOTE | 2017-12-25 11:37 | CT_ITS ---
STUDY: CTA CHEST REASON FOR EXAM: Female, 77 years old. Shortness of breath bilateral lower extremity edema, sores in the right axilla Stage IV lung cancer brain metastases smoker hypertension COPD RADIATION DOSAGE (If Supplied By Facility): CTDIvol = ( 8.99 ) mGy, DLP = ( 353.84 ) mGycm TECHNIQUE: The examination was performed with the intravenous administration of 100 ml of Isovue 370 contrast material. Post-processing of the angiographic images was performed, with multiplanar reformation and 3D reconstruction. Individualized dose optimization techniques were used for this CT. COMPARISON: CTA chest April 07, 2017 FINDINGS: The right upper extremity is partially visualized on this study and there is partial visualization of a mass which may be extending out of the skin on the axillary view. This is also seen coronal view which there is a mass underlying the skin measuring 1.4 x 1.2 cm. Normal enhancement of the main pulmonary artery and right and left pulmonary arteries. Normal enhancement of the bilateral peripheral pulmonary arteries. There is no demonstrated pulmonary embolism. The aorta is tortuous partially calcified. The aorta is aneurysmal in the descending thoracic aorta extending into the hiatus. The aorta at the level of the left pulmonary artery measures 2.9 x 2.6 cm. Allowing for tortuosity aorta measures 2.9 x 3.6 cm towards the hiatus. At the level of the celiac aorta measures 3.7 x 3.0 cm. 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 Aorta at the takeoff of the celiac measures 3.9 x 3.1 cm. In the infrarenal aorta measures 6.4 x 5.5 cm with visualized central luminal contrast enhancement that may measure 2.8 x 2.0 cm. The size of the aortic aneurysm is stable since prior study. There is mild cardiac enlargement. Normal heart and pericardium. There are a few small AP window lymph nodes measuring up to 6 mm. There is a minimal left hilar lymph node. Normal visualized trachea and bronchi. There is a pattern of advanced emphysematous change throughout the lungs. This is especially seen in the right upper lobe. There is a persistent abnormal lobulated spiculated mass with extension to the left upper pleura with thickening that measures 2.9 x 2.1 x 2.3 cm. There is partial visualization of right upper arm skin thickening and a underlying indeterminate mass this is not seen on prior study. There are degenerative changes of thoracic spine. As mentioned above there is a sizable infrarenal aortic aneurysm. Allowing for differences in contrast enhancement there is a lesser contrasted appearance of the aorta within the abdomen. There are persistent bilateral peripelvic cysts. There is a large distended appearance of the duodenum more large 6.4 x 5.4 duodenal diverticulum in the right upper quadrant approximately the level of the second part of the duodenum. CT/CTA Chest W/WO Contrast IMPRESSION: No evidence of pulmonary embolism. Persistent neoplasm in the left upper lobe slightly lesser in size from prior study. Pulmonary emphysema chronic obstructive pulmonary disease. New subcutaneous mass right upper extremity partially visualized on this study. Significant aneurysmal dilatation of the infrarenal aorta. Bilateral peripelvic cysts Large duodenal diverticulum. Electronically Signed: Alexus Gunderson MD at 13:14 EDT Tel , Service support ,
[2017-12-25 14:02] VITALS: BP 123/70; PULSE 84; RESP 14; O2SAT 98
[2017-12-25 14:54] VITALS: BP 123/70; PULSE 83; RESP 22; O2SAT 96
== END 2017-12-25 14:54 | disposition home or self-care (01) ==
PROVIDERS: Emergency Provider Emergency Medicine; Family Provider Physician Assistant; PCP Physician Assistant
DX: I89.0 Lymphedema, not elsewhere classified (principal); L02.411 Cutaneous abscess of right axilla; C34.90 Malignant neoplasm of unspecified part of unspecified bronchus or lung; C79.31 Secondary malignant neoplasm of brain; R06.82 Tachypnea, not elsewhere classified; J44.9 Chronic obstructive pulmonary disease, unspecified; Z99.81 Dependence on supplemental oxygen; Z79.899 Other long term (current) drug therapy; Z72.0 Tobacco use
CPT/HCPCS: 71045; 71275; 80048; 80076; 83880; 84484; 85025; 93005; 94640; 99284; Q9967; A4216

== ENCOUNTER 2018-01-29 17:17 | Inpatient (IN) | payer MEDICARE, SELFPAY ==
[2018-01-29] VITALS (17 sets, daily range): BP systolic 103–177; BP diastolic 48–97; PULSE 99–139; RESP 12–40; TEMP 36.6–37.7; O2SAT 84–100; BMI 23.9; BMI 26.9; BMI 26.8
--- NOTE | 2018-01-29 17:31 | RAD_ITS ---
STUDY: X-RAY CHEST REASON FOR EXAM: Female, 77 years old. Shortness of breath. TECHNIQUE: Single frontal view of the chest. COMPARISON: December 25, 2017 FINDINGS: There is stable hyperexpansion. There are healed granulomatous calcifications unchanged. There is no demonstrated pleural abnormality. There is borderline cardiomegaly unchanged. Normal mediastinum and naida. Normal visualized pulmonary arteries. Normal visualized aortic arch and descending thoracic aorta. Normal visualized thoracic spine. Normal visualized ribs, clavicles, and shoulders. There is no demonstrated abnormality of the visualized soft tissue structures of the upper abdomen. RAD/Chest 1 View (Portable) IMPRESSION: Stable appearance of the chest with no new or acute finding. Electronically Signed: Kareem Downey MD at 20:10 EST , Service support ,
--- NOTE | 2018-01-29 17:31 | EKG12_ITS ---
Test Reason : SOB Blood Pressure : / mmHG Vent. Rate : 135 BPM Atrial Rate : 121 BPM P-R Int : 152 ms QRS Dur : 066 ms QT Int : 304 ms P-R-T Axes : 053 002 073 degrees QTc Int : 456 ms Sinus rhythm Low voltage QRS (limb leads) Inferior infarct Abnormal ECG Confirmed by KRISTOFER SHARP, ANGEL ([id number]), deputy editor in chief LAVERNE HEMPHILL ([id number]) on 02/01/2018 2:33:10 PM Referred By: ALISTAIR Confirmed By:ANGEL MINER MD
--- NOTE | 2018-01-29 17:34 | ED.VISSUMM ---
- ER Visit Summary Date of Service: 01/29/18 Chief Complaint: Shortness of breath History of Present Illness: The patient is a 77 F history of lung CA with brain metastases being treated with radiation. Also hypertension, COPD on 4 L O2 at home and a known AAA. Patient states that since she has had increasing shortness of breath. Denies any fever. No hemoptysis. She has had recent negative workups for pulmonary emboli. She denies any leg pain or swelling. No chest pain. No nausea, vomiting or diarrhea Mahsa. No melena. She is on no blood thinners. Family who is with her states she is also just been generalized weakness. No fever. No dysuria. Physical Examination: Older female vital signs show blood pressure 139/80 temperature 99.9. Heart rate 133. Sat initially was 84% on her normal 4 L which is obviously toxic. HEENT exam unremarkable. Moist mucous membranes. Neck nontender no JVD. No lymphadenopathy. Lungs diminished breath sounds bilaterally. Prolonged expiratory phase. No rales or rhonchi. Increased respiratory rate. Heart tachycardic no murmur. Abdomen soft nontender. Normal bowel sounds no peritoneal signs. She is moving all 4 extremities. Neurovascular intact. Calves are nontender without edema or cords. Neurologically she is awake and alert. Moving all 4 extremities. No focal motor deficits. Test Results: Chest x-ray portable 1 view read by myself shows chronic changes no acute process. Chronic left upper lung mass. EKG sinus tachycardia rate of 135. No acute signs of IL or acute ischemia. Unchanged from a prior EKG from November. CBC shows a white count 9. Hemoglobin 12. Electrolytes are unremarkable CO2 of 36. Normal creatinine and gap. Troponin is normal. Emergency Department Course and Treatment: Patient with dyspnea. Treated with aerosols both DuoNeb and albuterol. IV Solu-Medrol. Multiple repeat exams patient remains tachycardic in the 130s. We tried to ambulate her and her pulse ox dropped immediately even while being on her 4 L of normal oxygen. Treatment Plan: I will speak to the hospitalist about admission. Disposition: Assigned to observation. Impression: Acute dyspnea acute exacerbation COPD History of COPD on 4 L nasal cannula O2 History of lung CA with brain metastases History of known AAA This note was generated with [employer] dictation software. It may contain incorrect words, spelling, and punctuation that were not noted in review of the chart prior to signing ED Disposition - Plan for ED Patient: Chief Complaint: Shortness of Breath Referrals: Rebecca Dorman PA [Primary Care Provider] -
[2018-01-29] MEDS: Albuterol 2.5 MG/3 ML VIAL.NEB. INHALATION ×2 (17:39)
[2018-01-29] MEDS: Ipratropium/Albuterol Sulfate 3 ML AMPUL.NEB INHALATION ×2 (17:39→23:10)
[2018-01-29] MEDS: MethylPREDNISolone 125 MG/2 ML Vial IV (17:51)
[2018-01-29 17:53] LABS: Absolute Lymphocyte Count 1.76 X10^3/ul (0.83-4.51); Eosinophil# 0.07 X10^3/uL; Eosinophils% 0.8 % (0-5); Hematocrit 38.2 % (37-47); Hemoglobin 12.5 g/dl (12.0-15.0); Lymphocyte # 1.76 X10^3/ul (4.0); Lymphocyte % 19.6 % (19-41); Mean Corp Hgb Conc 32.7 g/gl (32-36); Mean Corpuscular Hgb 31.6 pg (27.0-32.0); Mean Corpuscular Volume 96.5 fL (81-99); Mean Platelet Vol. 8.7 fl (6.2-12.0); Monocyte# 1.12 X10^3/uL; Monocyte% 12.5 % (0-10); Neutrophil # 6.03 X10^3/uL (2.7-7.7); Platelet Count 352 K/mm3 (150-450); RBC Distribution Width CV 14.1 % (11.6-14.6); RBC Distribution Width SD 50.1 fl (35.1-43.9); Red Blood Count 3.96 M/mm3 (4.2-5.4)
[2018-01-29 17:56] LABS: POSITIVE COUNT NO; POSITIVE DIFFERENTIAL NO; POSITIVE MORPHOLOGY NO
[2018-01-29 18:24] LABS: Anion Gap 5 (5-15); BUN 14 mg/dL (7-18); BUN/Creat Ratio 18.7 RATIO (10-20); Calcium,Total 9.4 mg/dL (8.5-10.1); Chloride 99 mmol/L (98-107); Creatinine, Serum 0.75 mg/dL (0.55-1.02); EST Glomerular Filtration Rate 80 mL/min (>60); Est Glom Filt Rate - Afr Amer 96 mL/min (>60); Glucose 101 mg/dL (74-106); Sodium Level 140 mmol/L (136-145)
[2018-01-29] MEDS: Morphine 4 MG/ML Syringe IV (18:32)
[2018-01-29] MEDS: Ondansetron 4 MG/2 ML Vial IV (18:32)
--- NOTE | 2018-01-29 19:32 | HP.PCM_ITS ---
Problem List (1) COPD with acute exacerbation Status: Acute (2) AAA (abdominal aortic aneurysm) Status: Acute Qualifiers: Presence of rupture: without rupture Qualified Code(s): I71.4 - Abdominal aortic aneurysm, without rupture (3) Lung mass Status: Acute (4) Hypertension Status: Chronic Qualifiers: Hypertension type: unspecified Qualified Code(s): I10 - Essential (primary) hypertension History of Present Illness Date of Admission: 01/29/18 Chief Complaint: back pain and shortness of breath The patient is a 77 year old F with a significant history of AAA; hypertension; lung cancer metastatic to the brain; COPD on 4 L of home oxygen who presented because of progressively worsening excruciating upper back pain and shortness of breath. Patient reported that her symptoms started 2 days ago. She describes sharp nonradiating progressively worsening upper back pain. Her back pain increases with mild exertion. Her back pain was relieved with morphine given at the emergency department. She has shortness of breath at rest which increases with exertion. She has chronic cough with clear to yellow sputum which is unchanged from her baseline. Reported patient has been very weak to the extent that even she has a problem using the spoon to drink a bowl of soup. At emergency department she was found to be 84% on 4 L of nasal cannula. Past Medical History Past Medical History (Chronic Problems): Chronic Problems COPD (chronic obstructive pulmonary disease) (Chronic) Hyperlipidemia (Chronic) Hypertension (Chronic) Suspected chronic obstructive pulmonary disease based on initial evaluation (Chronic) Allergies No Known Allergies Allergy (Verified 01/29/18 18:34) Home Medications: Ambulatory Orders Medication Instructions Recorded Acetaminophen [Tylenol Arthritis] 1,300 mg PO BID 12/10/17 Albuterol IH (ProAir) [Proair Hfa 2 puff INHALATION Q4H PRN PRN 12/10/17 (SP)Vent Pts] Fluticasone/Salmeterol [Advair 1 each IH BID 12/10/17 250-50 Diskus] Ipratropium/Albuterol Sulfate 3 ml INHALATION Q4HWA.RT 12/10/17 [Duoneb] Latanoprost 0.005% [Xalatan 1 drop RIGHT EYE QHS 12/10/17 Opthalmic] Lisinopril/Hydrochlorothiazide 12.5 mg PO DAILY 12/10/17 [Zestoretic 20-12.5 mg Tablet] Mirtazapine [Remeron] 15 mg PO QHS 12/10/17 Pravastatin [Pravachol] 40 mg PO DAILY 12/10/17 Vitamin E Mixed [Vitamin E] 1,000 unit PO DAILY 12/10/17 Surgical History: hysterectomy Lives: With Family Smoking Status: Current every day smoker Tobacco Use: Cigarettes Alcohol: None - *Family History Maternal Family History: Family History (Last Updated 01/29/18 @ 20:17 by Pop Velazquez MD) Mother Myocardial infarction Father Myocardial infarction Brother Cancer History Items: - Paternal Family History: Family History (Last Updated 01/29/18 @ 20:17 by Pop Velazquez MD) Mother Myocardial infarction Father Myocardial infarction Brother Cancer History Items: No pertinent history Review of Systems Constitutional: Reports: Weakness. Denies: Chills, Fever, Weight Change HEENT: Denies: Head Aches, Sinus Congestion, Sinus Drainage Cardiovascular: Denies: Chest Pain, Palpitations Respiratory: Reports: Cough - Chronic, Shortness of Breath, Shortness of breath upon exertion, Sputum production - Chronic. Denies: Shortness of breath at rest Gastrointestinal: Denies: Abdominal Pain, Nausea, Vomiting Genitourinary: Denies: Dysuria Musculoskeletal: Denies: Joint Pain, Joint Tenderness Skin: Denies: Rash, Wounds Neurological: Denies: Numbness, Tingling, Focal weakness Psychiatric: Denies: Anxiety, Depression, Homicidal Ideations, Suicidal Ideations Hematologic/ Lymphatic: Denies: Easy Bruising, Easy Bleeding VTE Information - Inpt Only VTE Present on Admission: Yes VTE Mechan Device Prophylaxis: None VTE Pharm Prophylaxis ordered?: Yes - Physical Exam General: Alert, Oriented x3, Cooperative HEENT: Atraumatic, PERRLA, EOMI, Normocephalic Neck: Supple, No JVD, Negative Carotid Bruits Lungs: Diminished - Severely diminished, Tachypneic, Using Accessory Muscles, - - Talking in short sentences due to shortness of breath. Cardiovascular: No murmurs, Tachycardic Abdomen: Bowel Sounds Present, Soft, Non Tender Extremities: No edema, Capillary Refill Less than 3 Seconds Skin: No rashes, No breakdown Musculoskeletal: No Tenderness to Palpation of Joints or Extremities Neurological: Neuro grossly intact Psych/Mental Status: Normal Affect, Anxious Vital Signs Temp Pulse Resp BP Pulse Ox 99.9 F H 130 H 23 H 177/81 H 100 01/29/18 17:17 01/29/18 19:17 01/29/18 19:17 01/29/18 19:17 01/29/18 19:17 Oxygen Flow Rate (L/min) 4 Oxygen Delivery Method Room Air Weight: 62.4 kg Body Mass Index (BMI) 26.9 Laboratory Tests Past 24 Hrs 01/29/18 01/29/18 17:45 17:45 WBC 9.0 RBC 3.96 L Hgb 12.5 Hct 38.2 MCV 96.5 MCH 31.6 MCHC 32.7 RDW 14.1 RDW Differential 50.1 H Plt Count 352 MPV 8.7 Immature Gran % (Auto) 0.100 Neut % (Auto) 67.0 Lymph % (Auto) 19.6 Coffey % (Auto) 12.5 H Eos % (Auto) 0.8 Baso % (Auto) 0.0 Absolute Neuts (auto) 6.0 Absolute Lymphs (auto) 1.76 Total Counted Not Reportable Sodium 140 Potassium 4.0 Chloride 99 Carbon Dioxide 36.0 H Anion Gap 5 BUN 14 Creatinine 0.75 Estim Creat Clear Calc 33.30 Est GFR (MDRD) Af Amer 96 Est GFR (MDRD) Non-Af 80 BUN/Creatinine Ratio 18.7 Glucose 101 Calcium 9.4 Troponin I < 0.015 Assessment/Plan All Active Problems COPD with acute exacerbation (Acute) AAA (abdominal aortic aneurysm) (Acute) Lung mass (Acute) The patient is a 77 year old F with a significant history of AAA; hypertension; lung cancer metastatic to the brain; COPD on 4 L of home oxygen who presented because of progressively worsening excruciating upper back pain and shortness of breath concerning for acute exacerbation of COPD.. Acute hypoxemic respiratory failure Patient with bicarbonate of 36 showing chronic CO2 retention. Likely due to COPD exacerbation. Received Solu-Medrol at emergency department. Solu-Medrol continued. Receive DuoNeb at emergency department. Scheduled DuoNeb and as needed albuterol. Due to increased work of breathing with patient's respiratory rate in the 30s and heart rates in the upper 120s-130s will place patient on BiPAP. Influenza test ordered. Back pain Diagnosis include acute exacerbation of COPD; metastatic spread of cancer to her back; aortic aneurysm enlargement. Of note patient has not had low blood pressure making aortic aneurysm rupture unlikely. Patient had a CT PA about a month ago. Continue treat for COPD. If patient does not improve consider further imaging of her back or CTPA. Review of old records show that last CTPA was on 12/25/2017. At that time it showed persistent neoplasm in the left upper lobe; emphysema; subcutaneous mass; aortic aneurysm; and large duodenal diverticulum. Morphine as needed for pain. Hypertension On admission her blood pressure was not within goal. Home lisinopril and HCTZ continued. Trend blood pressure medication and make adjustments as necessary. 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 Per family patient is scheduled to have radiation of the lungs on 11 February 2018. Continue outpatient follow-up. Tobacco abuse Counseled Nicotine patch ordered. DVT prophylaxis Subcutaneous Lovenox ordered. CODE STATUS Patient is a full code for now. Power of finance attorney is Ritu Candelaria, daughter. Code Visit Inpatient E&M: 24425 Init Hosp L3
[2018-01-29] MEDS: Morphine 2 MG/ML Syringe IV (19:54)
[2018-01-29] MEDS: Pravastatin 40 MG Tablet PO (23:01)
[2018-01-29] MEDS: Latanoprost 0.005% 1 Bottle 1 DRP RIGHT EYE (23:02)
[2018-01-30] VITALS (37 sets, daily range): BP systolic 79–208; BP diastolic 45–117; PULSE 78–140; RESP 12–51; TEMP 36.6–39.2; O2SAT 87–99
[2018-01-30] MEDS: Ipratropium/Albuterol Sulfate 3 ML AMPUL.NEB INHALATION ×2 (02:55→07:01)
[2018-01-30] MEDS: Morphine 2 MG/ML Syringe IV ×9 (03:20→22:50)
[2018-01-30] MEDS: 0.9% NaCl Peripheral Flush Adult/Peds IV ×4 (03:24→07:47)
[2018-01-30] MEDS: LORazepam 2 MG/ML Syringe 1 MG IV (03:36)
[2018-01-30 03:56] LABS: Allen Test POS; Base Excess 7 mmol/L (-2 to +2); Bicarbonate 33.4 mmol/L (22-26); Blood Gas Specimen Type ART; EPAP 6; FI02 35; IPAP 11; PO2 77 mmHG (75-100); RR 12; SITE R Radial; SO2 94 % (95-99); Time Given 345; Total Carbon Dioxide 35 mmol/L; pCO2 63.2 mmHg (35-45); pH 7.33 (7.35-7.45)
--- NOTE | 2018-01-30 04:10 | NURSING ---
0410 Pt arrives to ICU 0412 Dr. Velazquez arrives to bedside 0422 Etomidate 20mg given by Dr. Velazquez 0423 Succ [address] Velazquez 0424 IV started to right hand by Brandy Schmidt,RN 0425 heart rate 119, 148/102, 16 0430 Intubated with 7.5 tube 0435 OG inserted by this RN 0442 Propofol and Fentanyl started.
[2018-01-30] MEDS: fentaNYL drip 100 ML 2.5 MCG IV (04:50)
[2018-01-30] MEDS: Propofol 10MG/Ml 1,000 MG/100 ML Bottle 3.72 MG CONT INF (04:50)
--- NOTE | 2018-01-30 04:50 | RAD_ITS ---
HISTORY: ETT PLACEMENT, OG PLACEMENT EXAM: XR Chest 1 View: COMPARISON: 01/29/2018 and CTA chest 12/25/2017 FINDINGS: LINES/DEVICES: The endotracheal tube and NG tube appear in good position. Lungs: There is a left suprahilar density, more conspicuous compared to previous, which corresponds to a mass lesion evident by recent CT exam. By chest x-ray, this lesion appears enlarging. Background chronic lung disease with emphysema and Binh has calcifications. Atherosclerotic thoracic aorta. RAD/Chest 1 View (Portable) IMPRESSION: 1. The previously seen left upper lobe mass is more conspicuous and appears enlarged. 2. Background chronic lung disease with emphysema and granulomatous calcifications. 3. The endotracheal tube and NG tube appear in good position. at 0635 Reported and signed by: Girish Wilde MD Electronically Signed: Girish Wilde, at 6:33 EST Tel , Service support ,
--- NOTE | 2018-01-30 04:55 | PCM.PN.BLA ---
Progress Note Critical Care Documentation: Patient was at the progressive care unit but patient continued to be tachypneic; tachycardic and was using accessory muscles of breathing. ABG showed pH of 7.33; and CO2 of 73.2; and PO2 of 77. Patient complained of back pain and also giving as needed morphine for pain. Also because she was severely anxious she was given Ativan IV to relax her. CODE STATUS was discussed seeing that patient has lung cancer with metastasis to her brain. Family and patient settled on full code with POA to make further decisions if patient was intubated. Prognosis was discussed with family. Patient and family was advised that intubation was necessary since patient patient was pending respiratory failure. Her lung sounds remain diminished. Patient was moved to the ICU and was subsequently intubated because of impending respiratory failure.. A critical care spent on patient without intubation was 45 minutes.
--- NOTE | 2018-01-30 05:00 | RAD_ITS ---
HISTORY: ETT PLACEMENT, NG PLACEMENT EXAM: XR Chest 1 View: 0440 hours COMPARISON: 01/29/2018 and CTA chest 12/25/2017 FINDINGS: LINES/DEVICES: The endotracheal tube has been retracted and appears in good position with the tube tip approximately 3.5 cm above the ayla. The NG tube remains in good position. Lungs: There is a left suprahilar density, more conspicuous compared to previous, which corresponds to a mass lesion evident by recent CT exam. By chest x-ray, this lesion appears enlarging. Background chronic lung disease with emphysema and Binh has calcifications. Atherosclerotic thoracic aorta. RAD/Chest 1 View (Portable) IMPRESSION: 1. The endotracheal tube has been retracted and now appears in good position. 2. Persistent left upper lobe mass and this lesion is well seen by recent CT exam. 3. Background chronic lung disease with emphysema and granulomatous calcifications. at 0936 Reported and signed by: Girish Wilde MD Electronically Signed: Girish Wilde, at 7:00 EST Tel , Service support ,
--- NOTE | 2018-01-30 05:10 | PCM.PN.BLA ---
Progress Note Endotracheal Intubation Note Indication: Respiratory Distress Performed by: Dr. Pop Velazquez The patient was placed in a flat position. RSI was done using Etomidate 20mg and succinylcholine 100 mg. The patient was easily ventilated using an ambu bag. Miguel blade of 3 was used to view vocal cords. A 7.5-[place] endotracheal tube was inserted. The cuff was inflated. Colorimetric change was visualized on the CO2 detector. Breath sounds were heard equally in both lung peterson. The endotracheal tube was placed at 23 cm, measured at the lips. A STAT chest x-ray was ordered to verify endotracheal tube placement. The patient tolerated the procedure well and there were no immediate complications. Code Visit Procedures: 69048 Insert Emergency Airway
--- NOTE | 2018-01-30 05:14 | PN_ITS ---
Progress Note Endotracheal Intubation Note Indication: Respiratory Distress Performed by: Dr. Pop Velazquez The patient was placed in a flat position. RSI was done using Etomidate 20mg and succinylcholine 100 mg. The patient was easily ventilated using an ambu bag. Miguel blade of 3 was used to view vocal cords. A 7.5-[place] endotracheal tube was inserted. The cuff was inflated. Colorimetric change was visualized on the CO2 detector. Breath sounds were heard equally in both lung peterson. The endotracheal tube was placed at 23 cm, measured at the lips. A STAT chest x-ray was ordered to verify endotracheal tube placement. The patient tolerated the procedure well and there were no immediate complications. Code Visit Procedures: 29078 Insert Emergency Airway
--- NOTE | 2018-01-30 05:42 | CT_ITS ---
STUDY: CTA CHEST REASON FOR EXAM: Female, 77 years old. Redness of breath and back pain intubated history of COPD hypertension lung cancer with brain metastases history of abdominal aortic aneurysm. RADIATION DOSAGE (If Supplied By Facility): CTDIvol = ( 11.71 ) mGy, DLP = ( 441.04 ) mGycm TECHNIQUE: The examination was performed with the intravenous administration of 75 ml of Isovue 370 contrast material. Post-processing of the angiographic images was performed, with multiplanar reformation and 3D reconstruction. Individualized dose optimization techniques were used for this CT. COMPARISON: April 27, 2017 CT scan abdomen and pelvis FINDINGS: Patient is intubated. The ET tube above the ayla. An NG tube is present to the stomach. There is mild prominence of the pulmonary arteries. There is a subtle focus of thrombus within the lingular branch, image #128 and 139 upper lobe series 2, image 103 of the coronal views series 601. . Endings are positive for pulmonary embolism. The ascending thoracic aorta measures 3.0 x 2.8 cm. The descending thoracic aorta is tortuous and shows peripheral thrombus measures up to 3.4 x 3.6 cm the level of the pulmonary arteries and 2.8 x 3.03 level hiatus and then expands in the abdomen 5.5 x 6.1 cm which is known to the patient. There is no demonstrated aortic dissection. Normal heart and pericardium. Normal mediastinum. Normal hilar regions. Normal visualized trachea and bronchi. There is a pattern of emphysematous change and chronic obstructive pulmonary disease. There are calcified granulomas right upper lobe and right middle lobe. There is lower lobe atelectasis. There is a solid spiculated mass within the left upper lobe in the same region as the PE that measures 3.2 x 2.3 x 2.8 cm with adjacent pleural thickening. There is closer proximity to the pericardial fat compared to prior study when the mass measures 2.8 x 2.0 cm. Normal chest wall structures. There is 50% loss of height at the level of T11 T10 T8 and T7 and L1. The bones are osteopenic. There is hepatic steatosis. His of abdominal aortic aneurysm. There is a thickened appearance to bilateral adrenal glands. CT/CTA Chest W/WO Contrast IMPRESSION: Pulmonary emphysema chronic obstructive pulmonary disease enlarging left upper lobe mass compatible with neoplasm. Findings are positive for pulmonary embolism involving the left upper lobe and lingula. Descending thoracic aortic aneurysm, abdominal aortic and. Multilevel 50% loss of height stable since prior study in the thoracic spine and the visualized L1 level as detailed above. N.B. : The above information has been verbally conveyed by Alexus Gunderson MD to Vish Uribe MD, on 01/30/2018 08:50:23 (ET). Electronically Signed: Alexus Gunderson MD at 8:35 EST Tel , Service support ,
[2018-01-30 06:08] LABS: Partial Thromboplast Time 36.6 Seconds (24.1-36.2)
[2018-01-30 06:23] LABS: Lactic Acid 1.4 mmol/L (0.4-2.0)
--- NOTE | 2018-01-30 06:31 | PCM.CON.CC ---
Reason for Consult Date of Consultation: 01/30/18 Reason for Consultation: Respiratory failure History of Present Illness: The patient is a 77-year-old female, with a history as outlined below, who initially presented to the emergency department on January 29 with complaints of shortness of breath. The patient has underlying COPD, chronic hypoxemic respiratory failure and a known AAA. She also has a history of lung cancer with brain metastases. The exact type of underlying lung cancer is not known to the patient's family. However, she is currently following with an oncology provider at the [facility]. On presentation to the emergency department, the patient was noted to be febrile, tachycardic and tachypneic. She was initially requiring 4 L/min of supplemental oxygen to maintain appropriate saturations. Laboratory evaluation revealed no evidence of a leukocytosis. Chemistry profile revealed an elevated serum bicarbonate to 36. Troponin was negative. Serum lactate was within normal limits. Initial plain film chest x-ray revealed no acute cardiopulmonary process. The patient was treated in the emergency department with duo nebs, albuterol and IV Solu-Medrol. She was subsequently admitted to the progressive care unit for ongoing management. 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 The patient's respiratory state became unstable with increasing tachycardia, tachypnea and hypoxia. The overnight hospitalist did have a CODE STATUS discussion with the family, who eventually agreed on maintaining the patient a full CODE STATUS. The patient had to be transferred to the medical intensive care unit, where she was subsequently intubated for impending respiratory failure. A CTA chest obtained this morning did reveal evidence for pulmonary embolism along with a known left upper lobe spiculated mass and emphysematous changes bilaterally. Past Medical History Past Medical History (Chronic Problems): Chronic Problems COPD (chronic obstructive pulmonary disease) (Chronic) Hyperlipidemia (Chronic) Hypertension (Chronic) Suspected chronic obstructive pulmonary disease based on initial evaluation (Chronic) Allergies No Known Allergies Allergy (Verified 01/29/18 18:34) Home Medications: Ambulatory Orders Medication Instructions Recorded Acetaminophen [Tylenol Arthritis] 1,300 mg PO BID 12/10/17 Albuterol IH (ProAir) [Proair Hfa 2 puff INHALATION Q4H PRN PRN 12/10/17 (SP)Vent Pts] Fluticasone/Salmeterol [Advair 1 each IH BID 12/10/17 250-50 Diskus] Ipratropium/Albuterol Sulfate 3 ml INHALATION Q4HWA.RT 12/10/17 [Duoneb] Latanoprost 0.005% [Xalatan 1 drop EACH EYE QHS 12/10/17 Opthalmic] Lisinopril/Hydrochlorothiazide 12.5 mg PO DAILY 12/10/17 [Zestoretic 20-12.5 mg Tablet] Mirtazapine [Remeron] 15 mg PO QHS 12/10/17 Pravastatin [Pravachol] 40 mg PO DAILY 12/10/17 Melatonin 10 mg PO QHS PRN PRN 01/29/18 Surgical History: hysterectomy Lives: With Family Smoking Status: Current every day smoker Tobacco Use: Cigarettes Alcohol: None - *Family History Maternal Family History: Family History (Last Updated 01/29/18 @ 20:17 by Pop Velazquez MD) Mother Myocardial infarction Father Myocardial infarction Brother Cancer History Items: - Paternal Family History: Family History (Last Updated 01/29/18 @ 20:17 by Pop Velazquez MD) Mother Myocardial infarction Father Myocardial infarction Brother Cancer History Items: No pertinent history Review of Systems Unable to obtain accurate/complete ROS d/t: Due to current intubation and mechanical ventilation status. Objective: The patient's most recent lab work, culture data and imaging studies have all been personally reviewed. - Physical Exam General: - - Intubated, sedated mechanically ventilated. HEENT: Atraumatic, PERRLA, Normocephalic Oral: No Gingival or Mucosal Lesions/ Ulcerations, - - Edentulous. Endotracheal and OG tubes in place. Neck: Supple, No Nodes, Trachea Midline Lungs: No wheeze, No rales, Diminished, - - Scant rhonchi. Cardiovascular: Normal S1, Normal S2, No murmurs, Tachycardic Abdomen: Bowel Sounds Present, Soft, Distended Extremities: No clubbing, No cyanosis, - - Trace pedal edema Skin: No breakdown Musculoskeletal: No Tenderness to Palpation of Joints or Extremities Lymphatic: No Cervical, Supraclavicular, or Inguinal Adenopathy Neurological: - - No focal neurological deficits. Currently sedated with a RASS of -2. Vital Signs Temp Pulse Resp BP Pulse Ox 39.2 C H 112 H 17 118/69 94 01/30/18 05:42 01/30/18 05:50 01/30/18 05:42 01/30/18 05:42 01/30/18 05:42 Oxygen Flow Rate (L/min) 6 Oxygen Delivery Method Mechanical Ventilator Weight: 135 lb 9.349 oz Body Mass Index (BMI) 26.8 Intake and Output for Last 24 Hours 01/28/18 01/29/18 01/30/18 23:59 23:59 23:59 Intake Total 50 / 50 Output Total 200 / 200 Balance -150 / -150 Microbiology Past 72 Hours 01/29/18 20:45 Influenza Types A,B Direct FA (BRISEYDA) - Final Mucosa - Nose Laboratory Tests Past 24 Hrs 01/29/18 01/29/18 01/30/18 17:45 17:45 03:47 WBC 9.0 RBC 3.96 L Hgb 12.5 Hct 38.2 MCV 96.5 MCH 31.6 MCHC 32.7 RDW 14.1 RDW Differential 50.1 H Plt Count 352 MPV 8.7 Immature Gran % (Auto) 0.100 Neut % (Auto) 67.0 Lymph % (Auto) 19.6 [place] % (Auto) 12.5 H Eos % (Auto) 0.8 Baso % (Auto) 0.0 Absolute Neuts (auto) 6.0 Absolute Lymphs (auto) 1.76 Total Counted Not Reportable APTT Specimen Type ART Sample Site R Radial pH 7.33 L Bicarbonate Actual 33.4 H POC Total CO2 35 Base Excess 7 H O2 Saturation 94 L O2 % 35 ABG pCO2 63.2 H ABG pO2 77 Michael Test POS Respiration Rate 12 O2 Delivery Device Bi / C PAP EPAP 6 IPAP 11 Blood Gas Notified Whom HOSP Blood Gas Notified Time 345 Sodium 140 Potassium 4.0 Chloride 99 Carbon Dioxide 36.0 H Anion Gap 5 BUN 14 Creatinine 0.75 Estim Creat Clear Calc 33.30 Est GFR (MDRD) Af Amer 96 Est GFR (MDRD) Non-Af 80 BUN/Creatinine Ratio 18.7 Glucose 101 Lactic Acid Calcium 9.4 Phosphorus Total Bilirubin AST ALT Alkaline Phosphatase Total Creatine Kinase Troponin I < 0.015 Total Protein Albumin Triglycerides 01/30/18 01/30/18 01/30/18 05:40 05:40 05:40 WBC RBC Hgb Hct MCV MCH MCHC RDW RDW Differential Plt Count MPV Immature Gran % (Auto) Neut % (Auto) Lymph % (Auto) [place] % (Auto) Eos % (Auto) Baso % (Auto) Absolute Neuts (auto) Absolute Lymphs (auto) Total Counted APTT Pending Specimen Type Sample Site pH Bicarbonate Actual POC Total CO2 Base Excess O2 Saturation O2 % ABG pCO2 ABG pO2 Michael Test Respiration Rate O2 Delivery Device EPAP IPAP Blood Gas Notified Whom Blood Gas Notified Time Sodium Pending Potassium Pending Chloride Pending Carbon Dioxide Pending Anion Gap Pending BUN Pending Creatinine Pending Estim Creat Clear Calc Est GFR (MDRD) Af Amer Pending Est GFR (MDRD) Non-Af Pending BUN/Creatinine Ratio Pending Glucose Pending Lactic Acid 1.4 Calcium Pending Phosphorus Pending Total Bilirubin Pending AST Pending ALT Pending Alkaline Phosphatase Pending Total Creatine Kinase Pending Troponin I Total Protein Pending Albumin Pending Triglycerides Pending Clinical Impression(s) from Imaging Studies Chest X-Ray 01/29/18 17:31 IMPRESSION: Stable appearance of the chest with no new or acute finding. Electronically Signed: Kareem Downey MD at 20:10 EST , Service support , Chest X-Ray 01/30/18 04:50 IMPRESSION: 1. The previously seen left upper lobe mass is more conspicuous and appears enlarged. 2. Background chronic lung disease with emphysema and granulomatous calcifications. 3. The endotracheal tube and NG tube appear in good position. at 0635 Reported and signed by: Girish Wilde MD Electronically Signed: Girish Wilde, at 6:33 EST Tel , Service support , Assessment/Plan RECOMMENDATIONS: 1. Initiate treatment strength Lovenox, given underlying PE. 2. Continue bronchodilators. 3. Discontinue sedative regimen with plans to transition to CPAP with eventual extubation, per family wishes. 4. CODE STATUS to be updated to DNR comfort care. 5. If the patient remains stable once extubated, consideration can be given to hospice referral tomorrow morning. IMPRESSIONS: 1. Acute on chronic hypoxemic and hypercarbic respiratory failure, likely secondary to newly discovered pulmonary embolism The patient was initially intubated due to impending respiratory failure in the setting of a COPD exacerbation and newly discovered pulmonary embolism. However, per the patient's family, she did have some form of advanced directives indicating that she would not want invasive mechanical ventilation. Upon further discussion with the family this morning at the bedside, they have elected to pursue palliative withdrawal of life support and initiation of comfort care measures. The plan at this time will include withdrawal of sedation and subsequent extubation, once the patient is no longer sedated. Morphine and Ativan can be utilized for pain and anxiety. If the patient does not pass this afternoon/overnight, will contact hospice in the morning. 2. Stage IV metastatic lung cancer The patient is currently being followed at the [facility]. The patient reportedly has a poor prognosis and is receiving palliative radiation. As noted above, the plan at this time will include palliative withdrawal of life support and initiation of comfort care measures, per family wishes. 3. Hypertension/tobacco dependence/chronic back pain/baseline COPD of unknown severity Complicates care, management, recovery and prognosis. Continue baseline medications as tolerated. 4. CODE STATUS I did have a discussion with the patient's family, present at the bedside. They indicated to me that the patient would not want to have any of the current interventions, nor would she have wanted to be intubated. Alternatives to her current full CODE STATUS was discussed with the patient at length. Following a family meeting, they have elected to proceed with comfort care measures. They would like to proceed with extubating the patient at this time. I explained to them that I would place the patient's sedatives on hold and proceed with weaning her from mechanical ventilation. If she does remain stable throughout today and tonight, consideration can be given to hospice referral tomorrow morning. CODE STATUS to be updated to DNR CC. TIME: 45 minutes of critical care time, independent of procedures, was spent addressing the patient's acute on chronic hypoxemic and hypercarbic respiratory failure, acute PE, stage IV metastatic lung cancer, tobacco dependency, review of all data and collaboration with the care team. ([id number]) Code Visit 9xxxx: [id number] Critical care first hour
--- NOTE | 2018-01-30 06:37 | CON.PCM_ITS ---
Reason for Consult Date of Consultation: 01/30/18 Reason for Consultation: Respiratory failure History of Present Illness: The patient is a 77-year-old female, with a history as outlined below, who initially presented to the emergency department on January 29 with complaints of shortness of breath. The patient has underlying COPD, chronic hypoxemic respiratory failure and a known AAA. She also has a history of lung cancer with brain metastases. The exact type of underlying lung cancer is not known to the patient's family. However, she is currently following with an oncology provider at the [facility]. On presentation to the emergency department, the patient was noted to be feb rile, tachycardic and tachypneic. She was initially requiring 4 L/min of supplemental oxygen to maintain appropriate saturations. Laboratory evaluation revealed no evidence of a leukocytosis. Chemistry profile revealed an elevated serum bicarbonate to 36. Troponin was negative. Serum lactate was within normal limits. Initial plain film chest x-ray revealed no acute cardiopulmonary process. The patient was treated in the emergency department with duo nebs, albuterol and IV Solu-Medrol. She was subsequently admitted to the progressive care unit for ongoing management. 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 The patient's respiratory state became unstable with increasing tachycardia, tachypnea and hypoxia. The overnight hospitalist did have a CODE STATUS discussion with the family, who eventually agreed on maintaining the patient a full CODE STATUS. The patient had to be transferred to the medical intensive care unit, where she was subsequently intubated for impending respiratory failure. A CTA chest obtained this morning did reveal evidence for pulmonary embolism along with a known left upper lobe s piculated mass and emphysematous changes bilaterally. Past Medical History Past Medical History (Chronic Problems): Chronic Problems COPD (chronic obstructive pulmonary disease) (Chronic) Hyperlipidemia (Chronic) Hypertension (Chronic) Suspected chronic obstructive pulmonary disease based on initial evaluation (Chronic) Allergies No Known Allergies Allergy (Verified 01/29/18 18:34) Home Medications: Ambulatory Orders Medication Instructions Recorded Acetaminophen [Tylenol Arthritis] 1,300 mg PO BID 12/10/17 Albuterol IH (ProAir) [Proair Hfa 2 puff INHALATION Q4H PRN PRN 12/10/17 (SP)Vent Pts] Fluticasone/Salmeterol [Advair 1 each IH BID 12/10/17 250-50 Diskus] Ipratropium/Albuterol Sulfate 3 ml INHALATION Q4HWA.RT 12/10/17 [Duoneb] Latanoprost 0.005% [Xalatan 1 drop EACH EYE QHS 12/10/17 Opthalmic] Lisinopril/Hydrochlorothiazide 12.5 mg PO DAILY 12/10/17 [Zestoretic 20-12.5 mg Tablet] Mirtazapine [Remeron] 15 mg PO QHS 12/10/17 Pravastatin [Pravachol] 40 mg PO DAILY 12/10/17 Melatonin 10 mg PO QHS PRN PRN 01/29/18 Surgical History: hysterectomy Lives: With Family Smoking Status: Current every day smoker Tobacco Use: Cigarettes Alcohol: None - *Family History Maternal Family History: Family History (Last Updated 01/29/18 @ 20:17 by Pop Velazquez MD) Mother Myocardial infarction Father Myocardial infarction Brother Cancer History Items: - Paternal Family History: Family History (Last Updated 01/29/18 @ 20:17 by Pop Velazquez MD) Mother Myocardial infarction Father Myocardial infarction Brother Cancer History Items: No pertinent history Review of Systems Unable to obtain accurate/complete ROS d/t: Due to current intubation and mechanical ventilation status. Objective: The patient's most recent lab work, culture data and imaging studies have all been personally reviewed. - Physical Exam General: - - Intubated, sedated mechanically ventilated. HEENT: Atraumatic, PERRLA, Normocephalic Oral: No Gingival or Mucosal Lesions/ Ulcerations, - - Edentulous. Endotracheal and OG tubes in place. Neck: Supple, No Nodes, Trachea Midline Lungs: No wheeze, No rales, Diminished, - - Scant rhonchi. Cardiovascular: Normal S1, Normal S2, No murmurs, Tachycardic Abdomen: Bowel Sounds Present, Soft, Distended Extremities: No clubbing, No cyanosis, - - Trace pedal edema Skin: No breakdown Musculoskeletal: No Tenderness to Palpation of Joints or Extremities Lymphatic: No Cervical, Supraclavicular, or Inguinal Adenopathy Neurological: - - No focal neurological deficits. Currently sedated with a RASS of -2. Vital Signs Temp Pulse Resp BP Pulse Ox 39.2 C H 112 H 17 118/69 94 01/30/18 05:42 01/30/18 05:50 01/30/18 05:42 01/30/18 05:42 01/30/18 05:42 Oxygen Flow Rate (L/min) 6 Oxygen Delivery Method Mechanical Ventilator Weight: 135 lb 9.349 oz Body Mass Index (BMI) 26.8 Intake and Output for Last 24 Hours 01/28/18 01/29/18 01/30/18 23:59 23:59 23:59 Intake Total 50 / 50 Output Total 200 / 200 Balance -150 / -150 Microbiology Past 72 Hours 01/29/18 20:45 Influenza Types A,B Direct FA (BRISEYDA) - Final Mucosa - Nose Laboratory Tests Past 24 Hrs 01/29/18 01/29/18 01/30/18 17:45 17:45 03:47 WBC 9.0 RBC 3.96 L Hgb 12.5 Hct 38.2 MCV 96.5 MCH 31.6 MCHC 32.7 RDW 14.1 RDW Differential 50.1 H Plt Count 352 MPV 8.7 Immature Gran % (Auto) 0.100 Neut % (Auto) 67.0 Lymph % (Auto) 19.6 [place] % (Auto) 12.5 H Eos % (Auto) 0.8 Baso % (Auto) 0.0 Absolute Neuts (auto) 6.0 Absolute Lymphs (auto) 1.76 Total Counted Not Reportable APTT Specimen Type ART Sample Site R Radial pH 7.33 L Bicarbonate Actual 33.4 H POC Total CO2 35 Base Excess 7 H O2 Saturation 94 L O2 % 35 ABG pCO2 63.2 H ABG pO2 77 Michael Test POS Respiration Rate 12 O2 Delivery Device Bi / C PAP EPAP 6 IPAP 11 Blood Gas Notified Whom HOSP Blood Gas Notified Time 345 Sodium 140 Potassium 4.0 Chloride 99 Carbon Dioxide 36.0 H Anion Gap 5 BUN 14 Creatinine 0.75 Estim Creat Clear Calc 33.30 Est GFR (MDRD) Af Amer 96 Est GFR (MDRD) Non-Af 80 BUN/Creatinine Ratio 18.7 Glucose 101 Lactic Acid Calcium 9.4 Phosphorus Total Bilirubin AST ALT Alkaline Phosphatase Total Creatine Kinase Troponin I < 0.015 Total Protein Albumin Triglycerides 01/30/18 01/30/18 01/30/18 05:40 05:40 05:40 WBC RBC Hgb Hct MCV MCH MCHC RDW RDW Differential Plt Count MPV Immature Gran % (Auto) Neut % (Auto) Lymph % (Auto) [place] % (Auto) Eos % (Auto) Baso % (Auto) Absolute Neuts (auto) Absolute Lymphs (auto) Total Counted APTT Pending Specimen Type Sample Site pH Bicarbonate Actual POC Total CO2 Base Excess O2 Saturation O2 % ABG pCO2 ABG pO2 Michael Test Respiration Rate O2 Delivery Device EPAP IPAP Blood Gas Notified Whom Blood Gas Notified Time Sodium Pending Potassium Pending Chloride Pending Carbon Dioxide Pending Anion Gap Pending BUN Pending Creatinine Pending Estim Creat Clear Calc Est GFR (MDRD) Af Amer Pending Est GFR (MDRD) Non-Af Pending BUN/Creatinine Ratio Pending Glucose Pending Lactic Acid 1.4 Calcium Pending Phosphorus Pending Total Bilirubin Pending AST Pending ALT Pending Alkaline Phosphatase Pending Total Creatine Kinase Pending Troponin I Total Protein Pending Albumin Pending Triglycerides Pending Clinical Impression(s) from Imaging Studies Chest X-Ray 01/29/18 17:31 IMPRESSION: Stable appearance of the chest with no new or acute finding. Electronically Signed: Kareem Downey MD at 20:10 EST , Service support , Chest X-Ray 01/30/18 04:50 IMPRESSION: 1. The previously seen left upper lobe mass is more conspicuous and appears enlarged. 2. Background chronic lung disease with emphysema and granulomatous calcifications. 3. The endotracheal tube and NG tube appear in good position. at 0635 Reported and signed by: Girish Wilde MD Electronically Signed: Girish Wilde, at 6:33 EST Tel , Service support , Assessment/Plan RECOMMENDATIONS: 1. Initiate treatment strength Lovenox, given underlying PE. 2. Continue bronchodilators. 3. Discontinue sedative regimen with plans to transition to CPAP with eventual extubation, per family wishes. 4. CODE STATUS to be updated to DNR comfort care. 5. If the patient remains stable once extubated, consideration can be given to hospice referral tomorrow morning. IMPRESSIONS: 1. Acute on chronic hypoxemic and hypercarbic respiratory failure, likely secondary to newly discovered pulmonary embolism The patient was initially intubated due to impending respiratory failure in the setting of a COPD exacerbation and newly discovered pulmonary embolism. However, per the patient's family, she did have some form of advanced directives indicating that she would not want invasive mechanical ventilation. Upon further discussion with the family this morning at the bedside, they have elected to pursue palliative withdrawal of life support and initiation of comfort care measures. The plan at this time will include withdrawal of sedation and subsequent extubation, once the patient is no longer sedated. M orphine and Ativan can be utilized for pain and anxiety. If the patient does not pass this afternoon/overnight, will contact hospice in the morning. 2. Stage IV metastatic lung cancer The patient is currently being followed at the [facility]. The patient reportedly has a poor prognosis and is receiving palliative radiation. As noted above, the plan at this time will include palliative withdrawal of life support and initiation of comfort care measures, per family wishes. 3. Hypertension/tobacco dependence/chronic back pain/baseline COPD of unknown severity Complicates care, management, recovery and prognosis. Continue baseline medications as tolerated. 4. CODE STATUS I did have a discussion with the patient's family, present at the bedside. They indicated to me that the patient would not want to have any of the current interventions, nor would she have wanted to be intubated. Alternatives to her current full CODE STATUS was discussed with the patient at length. Following a family meeting, they have elected to proceed with comfort care measures. They would like to proceed with extubating the patient at this time. I explained to them that I would place the patient's sedatives on hold and proceed with weaning her from mechanical ventilation. If she does remain stable throughout today and tonight, consideration can be given to hospice referral tomorrow morning. CODE STATUS to be updated to DNR CC. TIME: 45 minutes of critical care time, independent of procedures, was spent addressing the patient's acute on chronic hypoxemic and hypercarbic respiratory failure, acute PE, stage IV metastatic lung cancer, tobacco dependency, review of all data and collaboration with the care team. ([id number]) Code Visit 9xxxx: [id number] Critical care first hour
[2018-01-30] MEDS: Succinylcholine Chloride 200 MG/10 ML Vial 100 MG IV (07:02)
[2018-01-30] MEDS: Etomidate 20 MG/10 ML Vial IV (07:05)
[2018-01-30] MEDS: Lactated Ringers 1,000 ML 75 ML IV (07:07)
[2018-01-30 07:20] LABS: Base Excess 6 mmol/L (-2 to +2); Bicarbonate 31.8 mmol/L (22-26); Blood Gas Specimen Type ART; FI02 40; Mode A-C; O2 Delivery Device Vent; PEEP 5; PO2 64 mmHG (75-100); RR 12; SITE L Radial; SO2 91 % (95-99); Time Given 714; Total Carbon Dioxide 33 mmol/L; Vt 400; pCO2 56.1 mmHg (35-45); pH 7.36 (7.35-7.45)
[2018-01-30] MEDS: CHLORHEXIDINE GLUC 2% CLOTH 1 EACH TOWELETTE TOPICAL (07:48)
[2018-01-30 08:26] LABS: ALB/GLOB Ratio 0.7 RATIO (0.9-2.4); AST(SGOT) 27 U/L (15-37); Alanine Aminotransfer ALT/SGPT 34 U/L (13-56); Albumin, Serum 2.9 g/dL (3.2-5.0); Alkaline Phosphatase 103 U/L (45-117); Anion Gap 9 (5-15); BUN 21 mg/dL (7-18); BUN/Creat Ratio 25.6 RATIO (10-20); CPK Total, Creatine Kinase 49 U/L (26-192); Calcium,Total 9.2 mg/dL (8.5-10.1); Chloride 100 mmol/L (98-107); Creatinine, Serum 0.82 mg/dL (0.55-1.02); EST Glomerular Filtration Rate 72 mL/min (>60); Est Glom Filt Rate - Afr Amer 87 mL/min (>60); Globulin 4.2 g/dL (2.2-4.2); Glucose 157 mg/dL (74-106); Potassium 4.8 mmol/L (3.5-5.1); Protein, Total 7.1 g/dL (6.4-8.2); Sodium Level 138 mmol/L (136-145); Triglycerides 106 mg/dL
--- NOTE | 2018-01-30 09:35 | NURSING ---
Dr Lazcano at bedside after ICU Rounds, discussing patients wishes with family members. Family expressed that patient would not want the breathing tube and after discussing with Dr Lazcano decision was made by family to change patient to DNRCC and withdraw ETT kaley. Sedation was then turned off in order to wake pt for extubation per Dr Lazcano. Will proceed with extubation when pt has sustained wakefulness.
--- NOTE | 2018-01-30 10:05 | NURSING ---
Patient extubated to 5L NC by Respiratory in accordance with family wishes. Dr Lazcano and this RN present. Patient tolerated well, was awake and nodding appropriately to questions prior to extubation. Respirations non-labored at this time, tachypneic. Pt denies needs, will continue to monitor
[2018-01-30] MEDS: LORazepam 2 MG/ML Syringe 0.5 MG IV (12:10)
[2018-01-30] MEDS: Atropine Sulfate 1% 2 ml Bottle 4 DRP PO ×3 (12:14→22:41)
--- NOTE | 2018-01-30 13:07 | PCM.PN.HOSP ---
Subjective: Unresponsive, extubated on hospice Vitals/I&O's: Vital Signs Temp Pulse Resp BP Pulse Ox 101.7 F H 117 H 51 H 141/69 H 91 01/30/18 12:25 01/30/18 12:25 01/30/18 12:25 01/30/18 12:25 01/30/18 12:25 Oxygen Flow Rate (L/min) 5 Oxygen Delivery Method Nasal Cannula Weight: 135 lb 9.349 oz Body Mass Index (BMI) 26.8 Intake and Output for Last 24 Hours 01/28/18 01/29/18 01/30/18 23:59 23:59 23:59 Intake Total 50 / 50 360 / 360 Output Total 200 / 200 350 / 350 Balance -150 / -150 General: - - sedated HEENT: Atraumatic Oral: Dry Mucosa Neck: No JVD Lungs: Tachypneic, - - coarse, accessory muscle use Cardiovascular: Tachycardic Abdomen: Soft, Non-Distended, No Hepato-splenomegaly Neurological: - - Sedated and unresponsive Psych/Mental Status: - - sedated and unresponsive Microbiology Past 72 Hours 01/30/18 07:45 Sputum, Induced/Lukens Gram Stain - Final 01/30/18 07:45 Mucosa - Nose Respiratory Panel (PCR) - Final 01/29/18 20:45 Mucosa - Nose Influenza Types A,B Direct FA (BRISEYDA) - Final Laboratory Results 01/29/18 17:45: Sodium 140, Potassium 4.0, Chloride 99, Carbon Dioxide 36.0 H, Anion Gap 5, BUN 14, Creatinine 0.75, Estim Creat Clear Calc 33.30, Est GFR (MDRD) Af Amer 96, Est GFR (MDRD) Non-Af 80, BUN/Creatinine Ratio 18.7, Glucose 101, Calcium 9.4, Troponin I < 0.015 01/29/18 17:45: WBC 9.0, RBC 3.96 L, Hgb 12.5, Hct 38.2, MCV 96.5, MCH 31.6, MCHC 32.7, RDW 14.1, RDW Differential 50.1 H, Plt Count 352, MPV 8.7, Immature Gran % (Auto) 0.100, Neut % (Auto) 67.0, Lymph % (Auto) 19.6, [place] % (Auto) 12.5 H, Eos % (Auto) 0.8, Baso % (Auto) 0.0, Absolute Neuts (auto) 6.0, Absolute Lymphs (auto) 1.76, Total Counted Not Reportable 01/30/18 03:47: Specimen Type ART, Sample Site R Radial, pH 7.33 L, Bicarbonate Actual 33.4 H, POC Total CO2 35, Base Excess 7 H, O2 Saturation 94 L, O2 % 35, ABG pCO2 63.2 H, ABG pO2 77, Michael Test POS, Respiration Rate 12, O2 Delivery Device Bi / C PAP, EPAP 6, IPAP 11, Blood Gas Notified Whom HOSP , Blood Gas Notified Time 345 01/30/18 05:40: APTT 36.6 H 01/30/18 05:40: Sodium 138, Potassium 4.8, Chloride 100, Carbon Dioxide 29.0, Anion Gap 9, BUN 21 H, Creatinine 0.82, Estim Creat Clear Calc 54.90, Est GFR (MDRD) Af Amer 87, Est GFR (MDRD) Non-Af 72, BUN/Creatinine Ratio 25.6 H, Glucose 157 H, Calcium 9.2, Phosphorus 4.0, Total Bilirubin 0.90, AST 27, ALT 34, Alkaline Phosphatase 103, Total Creatine Kinase 49, Total Protein 7.1, Albumin 2.9 L, Globulin 4.2, Albumin/Globulin Ratio 0.7 L, Triglycerides 106 01/30/18 05:40: Lactic Acid 1.4 01/30/18 07:14: Specimen Type ART, Sample Site L Radial, pH 7.36, Bicarbonate Actual 31.8 H, POC Total CO2 33, Base Excess 6 H, O2 Saturation 91 L, O2 % 40, ABG pCO2 56.1 H, ABG pO2 64 L, Respiration Rate 12, O2 Delivery Device Vent, Vent Mode A-C, Tidal Volume 400, POC PEEP 5, Blood Gas Notified Whom ICU , Blood Gas Notified Time 714 Current Medications Acetaminophen (Tylenol Liquid) 650 mg PO Q4H PRN PRN PRN Reason: TEMP>101 Albuterol Sulfate (Ventolin Aerosols) 2.5 mg INHALATION Q2H PRN PRN PRN Reason: SHORTNESS OF BREATH Atropine Sulfate (Atropisol) 4 drop PO Q1H PRN PRN PRN Reason: CONGESTION Last Admin: 01/30/18 12:14 Dose: 4 drop Bisacodyl (Dulcolax) 5 mg PO DAILY PRN PRN PRN Reason: Constipation Chlorhexidine Gluconate () 15 ml PO BID [facility] Last Admin: 01/30/18 11:17 Dose: Not Given Chlorhexidine Gluconate () 1 each TOPICAL DAILY [facility] Last Admin: 01/30/18 07:48 Dose: 1 each Enoxaparin Sodium (Lovenox) 60 mg SC Q12@0600,1800 [facility] Hydrochlorothiazide (Hydrochlorothiazide) 12.5 mg PO DAILY [facility] Last Admin: 01/30/18 11:19 Dose: Not Given Pantoprazole Sodium 40 mg/ (Sodium Chloride) 110 mls @ 330 mls/hr IV Q24 [facility] Last Admin: 01/30/18 07:03 Dose: 330 mls/hr Lactated Ringer's () 1,000 mls @ 75 mls/hr IV .[id number] [facility] Last Admin: 01/30/18 07:07 Dose: 75 mls/hr Sodium Chloride () 250 mls @ 15 mls/hr IV .[id number] PRN PRN Reason: SALINE FLUSH Latanoprost (Xalatan Opthalmic) 1 drop RIGHT EYE QHS [facility] Last Admin: 01/29/18 23:02 Dose: 1 drop Lisinopril (Zestril) 20 mg PO DAILY [facility] Last Admin: 01/30/18 11:20 Dose: Not Given Lorazepam (Ativan) 0.5 - 2 mg IV Q15M PRN PRN Reason: ANXIETY/AGITATION Magnesium Hydroxide (Milk Of Magnesia) 30 ml PO DAILY PRN PRN Reason: Constipation Methylprednisolone (Solu-Medrol) 40 mg IV Q8 [facility] Last Admin: 01/30/18 03:24 Dose: 40 mg Morphine Sulfate () 2 - 10 mg IV Q10M PRN PRN PRN Reason: PAIN Nicotine (Nicoderm Cq (Pbkc)) 21 mg TRANSDERM. DAILY [facility] Last Admin: 01/30/18 11:19 Dose: Not Given Nutritional Formula (Lactose Free) (Ensure Enlive) 120 ml PO 4X/DAY [facility] Last Admin: 01/30/18 11:18 Dose: Not Given Pravastatin Sodium (Pravachol) 40 mg PO DAILY@2200 [facility] Last Admin: 01/29/18 23:01 Dose: 40 mg Sodium Chloride () 5 - 15 ml IV UD PRN PRN Reason: SALINE FLUSH Last Admin: 01/30/18 07:47 Dose: 10 ml Zolpidem Tartrate (Ambien (Generic)) 5 mg PO QHS PRN PRN PRN Reason: INSOMNIA Medical Necessity - Tobacco Use Smoking Status: Current every day smoker Tobacco Use: Cigarettes Assessment/Plan All Active Problems COPD with acute exacerbation (Acute) AAA (abdominal aortic aneurysm) (Acute) Lung mass (Acute) 1. Acute hypoxic respiratory failure/Metastatic lung cancer/COPD - Intubated based on response from a family member - she is DNRCC - Extubated and surrounded by family - Morphine as much as needed to control restlessness and pain - Ativan q10-15 min PRN for terminal restlessness - O2 if wanted - Called hospice to follow family in bereavement 2. HTN/Back pain - will discontinue all meds except those for comfort Dispo: Hospice Code Visit Inpatient E&M: [id number] Subs Hosp L2
--- NOTE | 2018-01-30 13:15 | PN_ITS ---
Subjective: Unresponsive, extubated on hospice Vitals/I&O's: Vital Signs Temp Pulse Resp BP Pulse Ox 101.7 F H 117 H 51 H 141/69 H 91 01/30/18 12:25 01/30/18 12:25 01/30/18 12:25 01/30/18 12:25 01/30/18 12:25 Oxygen Flow Rate (L/min) 5 Oxygen Delivery Method Nasal Cannula Weight: 135 lb 9.349 oz Body Mass Index (BMI) 26.8 Intake and Output for Last 24 Hours 01/28/18 01/29/18 01/30/18 23:59 23:59 23:59 Intake Total 50 / 50 360 / 360 Output Total 200 / 200 350 / 350 Balance -150 / -150 General: - - sedated HEENT: Atraumatic Oral: Dry Mucosa Neck: No JVD Lungs: Tachypneic, - - coarse, accessory muscle use Cardiovascular: Tachycardic Abdomen: Soft, Non-Distended, No Hepato-splenomegaly Neurological: - - Sedated and unresponsive Psych/Mental Status: - - sedated and unresponsive Microbiology Past 72 Hours 01/30/18 07:45 Sputum, Induced/Lukens Gram Stain - Final 01/30/18 07:45 Mucosa - Nose Respiratory Panel (PCR) - Final 01/29/18 20:45 Mucosa - Nose Influenza Types A,B Direct FA (BRISEYDA) - Final Laboratory Results 01/29/18 17:45: Sodium 140, Potassium 4.0, Chloride 99, Carbon Dioxide 36.0 H, Anion Gap 5, BUN 14, Creatinine 0.75, Estim Creat Clear Calc 33.30, Est GFR (MDRD) Af Amer 96, Est GFR (MDRD) Non-Af 80, BUN/Creatinine Ratio 18.7, Glucose 101, Calcium 9.4, Troponin I < 0.015 01/29/18 17:45: WBC 9.0, RBC 3.96 L, Hgb 12.5, Hct 38.2, MCV 96.5, MCH 31.6, MCHC 32.7, RDW 14.1, RDW Differential 50.1 H, Plt Count 352, MPV 8.7, Immature Gran % (Auto) 0.100, Neut % (Auto) 67.0, Lymph % (Auto) 19.6, [place] % (Auto) 12.5 H, Eos % (Auto) 0.8, Baso % (Auto) 0.0, Absolute Neuts (auto) 6.0, Absolute Lymphs (auto) 1.76, Total Counted Not Reportable 01/30/18 03:47: Specimen Type ART, Sample Site R Radial, pH 7.33 L, Bicarbonate Actual 33.4 H, POC Total CO2 35, Base Excess 7 H, O2 Saturation 94 L, O2 % 35, ABG pCO2 63.2 H, ABG pO2 77, Michael Test POS, Respiration Rate 12, O2 Delivery Device Bi / C PAP, EPAP 6, IPAP 11, Blood Gas Notified Whom HOSP , Blood Gas Notified Time 345 01/30/18 05:40: APTT 36.6 H 01/30/18 05:40: Sodium 138, Potassium 4.8, Chloride 100, Carbon Dioxide 29.0, Anion Gap 9, BUN 21 H, Creatinine 0.82, Estim Creat Clear Calc 54.90, Est GFR (MDRD) Af Amer 87, Est GFR (MDRD) Non-Af 72, BUN/Creatinine Ratio 25.6 H, Glucose 157 H, Calcium 9.2, Phosphorus 4.0, Total Bilirubin 0.90, AST 27, ALT 34, Alkaline Phosphatase 103, Total Creatine Kinase 49, Total Protein 7.1, Albumin 2.9 L, Globulin 4.2, Albumin/Globulin Ratio 0.7 L, Triglycerides 106 01/30/18 05:40: Lactic Acid 1.4 01/30/18 07:14: Specimen Type ART, Sample Site L Radial, pH 7.36, Bicarbonate Actual 31.8 H, POC Total CO2 33, Base Excess 6 H, O2 Saturation 91 L, O2 % 40, ABG pCO2 56.1 H, ABG pO2 64 L, Respiration Rate 12, O2 Delivery Device Vent, Vent Mode A-C, Tidal Volume 400, POC PEEP 5, Blood Gas Notified Whom ICU , Blood Gas Notified Time 714 Current Medications Acetaminophen (Tylenol Liquid) 650 mg PO Q4H PRN PRN PRN Reason: TEMP>101 Albuterol Sulfate (Ventolin Aerosols) 2.5 mg INHALATION Q2H PRN PRN PRN Reason: SHORTNESS OF BREATH Atropine Sulfate (Atropisol) 4 drop PO Q1H PRN PRN PRN Reason: CONGESTION Last Admin: 01/30/18 12:14 Dose: 4 drop Bisacodyl (Dulcolax) 5 mg PO DAILY PRN PRN PRN Reason: Constipation Chlorhexidine Gluconate () 15 ml PO BID [facility] Last Admin: 01/30/18 11:17 Dose: Not Given Chlorhexidine Gluconate () 1 each TOPICAL DAILY [facility] Last Admin: 01/30/18 07:48 Dose: 1 each Enoxaparin Sodium (Lovenox) 60 mg SC Q12@0600,1800 [facility] Hydrochlorothiazide (Hydrochlorothiazide) 12.5 mg PO DAILY [facility] Last Admin: 01/30/18 11:19 Dose: Not Given Pantoprazole Sodium 40 mg/ (Sodium Chloride) 110 mls @ 330 mls/hr IV Q24 [facility] Last Admin: 01/30/18 07:03 Dose: 330 mls/hr Lactated Ringer's () 1,000 mls @ 75 mls/hr IV .[id number] [facility] Last Admin: 01/30/18 07:07 Dose: 75 mls/hr Sodium Chloride () 250 mls @ 15 mls/hr IV .[id number] PRN PRN Reason: SALINE FLUSH Latanoprost (Xalatan Opthalmic) 1 drop RIGHT EYE QHS [facility] Last Admin: 01/29/18 23:02 Dose: 1 drop Lisinopril (Zestril) 20 mg PO DAILY [facility] Last Admin: 01/30/18 11:20 Dose: Not Given Lorazepam (Ativan) 0.5 - 2 mg IV Q15M PRN PRN Reason: ANXIETY/AGITATION Magnesium Hydroxide (Milk Of Magnesia) 30 ml PO DAILY PRN PRN Reason: Constipation Methylprednisolone (Solu-Medrol) 40 mg IV Q8 [facility] Last Admin: 01/30/18 03:24 Dose: 40 mg Morphine Sulfate () 2 - 10 mg IV Q10M PRN PRN PRN Reason: PAIN Nicotine (Nicoderm Cq (Pbkc)) 21 mg TRANSDERM. DAILY [facility] Last Admin: 01/30/18 11:19 Dose: Not Given Nutritional Formula (Lactose Free) (Ensure Enlive) 120 ml PO 4X/DAY [facility] Last Admin: 01/30/18 11:18 Dose: Not Given Pravastatin Sodium (Pravachol) 40 mg PO DAILY@2200 [facility] Last Admin: 01/29/18 23:01 Dose: 40 mg Sodium Chloride () 5 - 15 ml IV UD PRN PRN Reason: SALINE FLUSH Last Admin: 01/30/18 07:47 Dose: 10 ml Zolpidem Tartrate (Ambien (Generic)) 5 mg PO QHS PRN PRN PRN Reason: INSOMNIA Medical Necessity - Tobacco Use Smoking Status: Current every day smoker Tobacco Use: Cigarettes Assessment/Plan All Active Problems COPD with acute exacerbation (Acute) AAA (abdominal aortic aneurysm) (Acute) Lung mass (Acute) 1. Acute hypoxic respiratory failure/Metastatic lung cancer/COPD - Intubated based on response from a family member - she is DNRCC - Extubated and surrounded by family - Morphine as much as needed to control restlessness and pain - Ativan q10-15 min PRN for terminal restlessness - O2 if wanted - Called hospice to follow family in bereavement 2. HTN/Back pain - will discontinue all meds except those for comfort Dispo: Hospice Code Visit Inpatient E&M: [id number] Subs Hosp L2
[2018-01-30] MEDS: LORazepam 2 MG/ML Syringe IV ×2 (14:04→22:49)
[2018-01-30] MEDS: Acetaminophen 650 MG Suppository RECTAL ×2 (15:58→22:40)
[2018-01-31] MEDS: Morphine 2 MG/ML Syringe IV (00:44)
[2018-01-31] MEDS: Atropine Sulfate 1% 2 ml Bottle 4 DRP PO (00:49)
--- NOTE | 2018-01-31 01:55 | NURSING ---
Addendum entered by Fadumo Ponce 01/31/18 03:30: Family present in room. Original Note: Pt. at 0145 01/31/19. Verified with Robina Gutierrez RN.
--- NOTE | 2018-01-31 02:10 | PCM.DEATH ---
Preliminary Cause of Acute respiratory failure secondary to COPD exacerbation and PE Date of Admission: 01/29/18 Date of : 01/31/18 - Principle Diagnosis Acute COPD exacerbation on top of Pulmonary embolism in setting of Metastatic Lung mass to the brain. Problem List: Metastatic Lung mass to [facility] brain Acute COPD exacerbation Pulmonary Embolism HTN Hyperlipidemia Hospital Course The patient is a 77 year old F with a significant history of AAA; hypertension; lung cancer metastatic to the brain; COPD on 4 L of home oxygen who presented because of progressively worsening excruciating upper back pain; shortness of breath and severe generalized weakness.. Patient reported that her symptoms started 2 days prior to her admission. She describes sharp nonradiating progressively worsening upper back pain for which she was placed on as needed morphine. She was admitted to the stepdown unit of the [facility] care after being placed on BiPAP from the emergency department. Right from the emergency department she was started on breathing treatment and IV steroid which was continued on the floor. Once on the floor patient was noted to have increasing shortness of breath and was wearing out her muscles of respiration. An ABG showed worsening respiratory acidosis. Patient was anxious and was given some Ativan. She continued to have worsening shortness of breath and was tiring out her muscles of respiration. A discussion was made with patient and family on impending respiratory failure. Risk and benefits of intubation with mechanical ventilation was discussed with patient and family. With hesitancy patient and family said that patient should be kept as a full code and intubated and placed on mechanical ventilation; and further orders obtained from the power of regulatory attorney. Patient was moved to the intensive care unit and intubated and placed on mechanical ventilation for impending respiratory failure. A CTPA of the chest show the patient had a pulmonary embolism. Because prognosis was grin family decided that patient should be made a DNR CC and extubated. Accordingly patient was extubated and placed on hospice. Patient received comfort care with morphine and Ativan. On 01/31/2018 at 1:45am nurses noted that patient had . On examination by physician, patient had no heart sounds or lung sounds. Patient had no pupillary reflex or corneal reflex. Accordingly patient was pronounced . Time of would be 01/31/2018 at 1:45 am Time spent with discharge was 45 minutes. Code Visit Inpatient E&M: [id number] [facility]
--- NOTE | 2018-01-31 02:15 | EXP.PCM_ITS ---
Preliminary Cause of Acute respiratory failure secondary to COPD exacerbation and PE Date of Admission: 01/29/18 Date of : 01/31/18 - Principle Diagnosis Acute COPD exacerbation on top of Pulmonary embolism in setting of Metastatic Lung mass to the brain. Problem List: Metastatic Lung mass to [facility] brain Acute COPD exacerbation Pulmonary Embolism HTN Hyperlipidemia Hospital Course The patient is a 77 year old F with a significant history of AAA; hypertension; lung cancer metastatic to the brain; COPD on 4 L of home oxygen who presented because of progressively worsening excruciating upper back pain; shortness of breath and severe generalized weakness.. Patient reported that her symptoms started 2 days prior to her admission. She describes sharp nonradiating progressively worsening upper back pain for which she was placed on as needed morphine. She was admitted to the stepdown unit of the [facility] care after being placed on BiPAP from the emergency department. Right from the emergency department she was started on breathing treatment and IV steroid which was continued on the floor. Once on the floor patient was noted to have increasing shortness of breath and was wearing out her muscles of respiration. An ABG showed worsening respiratory acidosis. Patient was anxious and was given some Ativan. She continued to have worsening shortness of breath and was tiring out her muscles of respiration. A discussion was made with patient and family on impending respiratory failure. Risk and benefits of intubation with mechanical ventilation was discussed with patient and family. With hesitancy patient and family said that patient should be kept as a full code and intubated and placed on mechanical ventilation; and further orders obtained from the power of civil attorney. Patient was moved to the intensive care unit and intubated and placed on mechanical ventilation for impending respiratory failure. A CTPA of the chest show the patient had a pulmonary embolism. Because prognosis was grin family decided that patient should be made a DNR CC and extubated. Accordingly patient was extubated and placed on hospice. Patient received comfort care with morphine and Ativan. On 01/31/2018 at 1:45am nurses noted that patient had . On examination by physician, patient had no heart sounds or lung sounds. Patient had no pupillary reflex or corneal reflex. Accordingly patient was pronounced . Time of would be 01/31/2018 at 1:45 am Time spent with discharge was 45 minutes. Code Visit Inpatient E&M: [id number] [facility]
--- NOTE | 2018-01-31 02:30 | DCINST_ITS ---
- Discharge Diagnoses Reason(s) for Visit for Discharge Instructions: Shortness of breath Allergies/Adverse Reactions: Allergies No Known Allergies Allergy (Verified 01/29/18 18:34) Medications to take at Discharge Acetaminophen [Tylenol Arthritis] 1,300 mg PO BID 12/10/17 Albuterol IH (ProAir) [Proair Hfa (SP)Vent Pts] 2 puff INHALATION Q4H PRN PRN 12/10/17 Fluticasone/Salmeterol [Advair 250-50 Diskus] 1 each IH BID 12/10/17 Ipratropium/Albuterol Sulfate [Duoneb] 3 ml INHALATION Q4HWA.RT 12/10/17 Latanoprost 0.005% [Xalatan Opthalmic] 1 drop EACH EYE QHS 12/10/17 Lisinopril/Hydrochlorothiazide [Zestoretic 20-12.5 mg Tablet] 12.5 mg PO DAILY 12/10/17 Mirtazapine [Remeron] 15 mg PO QHS 12/10/17 Pravastatin [Pravachol] 40 mg PO DAILY 12/10/17 Melatonin 10 mg PO QHS PRN PRN 01/29/18 Primary Care Physician: Rebecca Dorman PA [Primary Care Provider] - Test Results: Test results from this visit will be discussed in further detail at your follow- up appointment, if applicable.
--- NOTE | 2018-01-31 03:28 | NURSING ---
[facility] called at 0250, patient
--- OUTSIDE RECORDS SUMMARY | 2018-03-25 21:36 | XMS RPT_ITS ---
:1940 Author Organization OHIP Support Name Relationship Address Phone ARMBRUST, RITU Unavailable [address] + [place] [address] NAHUN, CINNOMON Unavailable [address] + [place] [address] R Unavailable Unavailable Unavailable ARMBRUST, RITU Unavailable [address] + [place] [address] NAHUN, CINNOMON Unavailable [address] + [place] [address] R Unavailable Unavailable Unavailable ARMBRUST, RITU Unavailable [address] + [place] [address] NAHUN, CINNOMON Unavailable [address] + [place] [address] R Unavailable Unavailable Unavailable ARMBRUST, RITU Unavailable [address] + [place] [address] NAHUN, CINNOMON Unavailable [address] + [place] [address] R Unavailable Unavailable Unavailable ARMBRUST, RITU Unavailable [address] + [place] [address] NAHUN, CINNOMON Unavailable [address] + [place] [address] R Unavailable Unavailable Unavailable ARMBRUST, RITU Unavailable [address] + [place] [address] NAHUN, CINNOMON Unavailable [address] + [place] [address] R Unavailable Unavailable Unavailable ARMBRUST, RITU Unavailable [address] + [place] [address] NAHUN, CINNOMON Unavailable [address] + [place] [address] R Unavailable Unavailable Unavailable NOT GIVEN Unavailable Unavailable Unavailable ARMBRUST, RITU Unavailable [address] + [place] [address] NAHUN, CINNOMON Unavailable [address] + [place] [address] R Unavailable Unavailable Unavailable NAHUN, CINNAMON Unavailable [address] + [address] [place] [phone] NOT GIVEN Unavailable Unavailable Unavailable NAHUN, CINNAMON Unavailable [address] [place], [place] [phone] ARMBRUST, RITU Unavailable Unavailable + NAHUN, CINNAMON Unavailable [address] + [address] [place] [phone] ARMBRUST, RITU Unavailable [address] + [place] [address] NAHUN, CINNOMON Unavailable [address] + [place] [address] R Unavailable Unavailable Unavailable ARMBRUST, RITU Unavailable [address] + [place] [address] NAHUN, CINNOMON Unavailable [address] + [place] [address] R Unavailable Unavailable Unavailable ARMBRUST, RITU Unavailable [address] + [place] [address] NAHUN, CINNOMON Unavailable [address] + [place] [address] R Unavailable Unavailable Unavailable ARMBRUST, RITU Unavailable [address] + [place] [address] NAHUN, CINNOMON Unavailable [address] + [place] [address] R Unavailable Unavailable Unavailable ARMBRUST, RITU Unavailable [address] + [place] [address] NAHUN, CINNOMON Unavailable [address] + [place] [address] R Unavailable Unavailable Unavailable Care Team Providers Name Role Phone LILLIAN SHARP, THIERRY Brandon Consulting Unavailable RUDI FRANZ MD Attending Unavailable DORMAN, MS. REBECCA Primary Care Unavailable DORMAN, MS. REBECCA Referring Unavailable MK, REN Referring Unavailable MK, REN Attending Unavailable THIERRY SNYDER Referring Unavailable NIKUNJ MARSHALL V (LITZY) Attending Unavailable THIERRY SNYDER Referring Unavailable MK, REN Referring Unavailable SELENE HOUSER Admitting Unavailable KRZYSZTOF CHU) Attending Unavailable KRZYSZTOF CHU) Referring Unavailable SADIAJANETH Attending Unavailable KRZYSZTOF CHU) Referring Unavailable BRAND, ENZO Santamaria Attending Unavailable KRZYSZTOF CHU) Referring Unavailable ANGELOV, KERRI Attending Unavailable SADIAJANETH Referring Unavailable ANGELOV, KERRI Referring Unavailable ANGELOV, KERRI Admitting Unavailable ANGELOV, KERRI Attending Unavailable ANGELOV, KERRI Referring Unavailable ANGELOV, KERRI Admitting Unavailable ANGELOV, KERRI Attending Unavailable ANGELOV, KERRI Referring Unavailable ANGELOV, KERRI Admitting Unavailable ANGELOV, KERRI Attending Unavailable ANGELOV, KERRI Referring Unavailable BRAND, ENZO A Referring Unavailable BRAND, ENZO Santamaria Referring Unavailable BRAND, ENZO Santamaria Attending Unavailable BRAND, ENZO Santamaria Referring Unavailable GASTONANTONYUNG Attending Unavailable BRAND, ENZO Santamaria Referring Unavailable GASTON, DAESUNG Referring Unavailable SAPPHIRE, DR NISHANT Cloud Admitting Unavailable SAPPHIRE, DR NISHANT Cloud Attending Unavailable SAPPHIRE, DR NISHANT Cloud Primary Care Unavailable DORMAN, REBECCA J Consulting Unavailable PROVIDER, UNKNOWN Consulting Unavailable DORMAN, REBECCA J Admitting Unavailable DORMAN, REBECCA J Attending Unavailable DORMAN, REBECCA J Primary Care Unavailable DORMAN, REBECCA J Consulting Unavailable PROVIDER, UNKNOWN Consulting Unavailable DORMAN, REBECCA J Admitting Unavailable DORMAN, REBECCA J Attending Unavailable DORMAN, REBECCA J Primary Care Unavailable DORMAN, REBECCA J Consulting Unavailable PROVIDER, UNKNOWN Consulting Unavailable DORMAN, REBECCA J Admitting Unavailable DORMAN, REBECCA J Attending Unavailable DORMAN, REBECCA J Primary Care Unavailable DORMAN, REBECCA J Consulting Unavailable PROVIDER, UNKNOWN Consulting Unavailable Pop Velazquez Attending Unavailable Sofia Turner Attending Unavailable DORMAN, REBECCA Primary Care Unavailable Brayan Castanon Admitting Unavailable Jamey Pacheco Consulting Unavailable Aftab Tilley Consulting Unavailable Jopperi, Brayan Admitting Unavailable Jopperi, Brayan Attending Unavailable [facility] Primary Care Unavailable Jopperi, Brayan Consulting Unavailable Jopperi, Brayan Admitting Unavailable Ирина Purcell NP-C Attending Unavailable [facility] Primary Care Unavailable Junior, Jamey Consulting Unavailable Cebul, Aftab Consulting Unavailable Gbaruk, Kombian Consulting Unavailable Jopperi, Brayan Admitting Unavailable Junior, Jamey Attending Unavailable [facility] Primary Care Unavailable Junior, Jamey Consulting Unavailable Jopperi, Brayan Referring Unavailable Cebul, Aftab Consulting Unavailable Gbaruk, Kombian Consulting Unavailable Cebul, Aftab Attending Unavailable [facility] Primary Care Unavailable Marivel Alvarez Attending Unavailable [facility] Primary Care Unavailable Jairon Waldrop Attending Unavailable [facility] Primary Care Unavailable Agyepong, Pop Admitting Unavailable Junior, Jamey Consulting Unavailable Adam Mckeon Attending Unavailable Agyepong, Pop Admitting Unavailable Agyepong, Pop Attending Unavailable [facility] Primary Care Unavailable Agyepong, Pop Consulting Unavailable Agyepong, Pop Admitting Unavailable [facility] Primary Care Unavailable Agyepong, Pop Consulting Unavailable Adam Mckeon Attending Unavailable Agyepong, Pop Admitting Unavailable Axel Lazcano D.O. Attending Unavailable [facility] Primary Care Unavailable Junior, Jamey Consulting Unavailable Adam Mckeon Consulting Unavailable Agyepong, Pop Admitting Unavailable Agyepong, Pop Attending Unavailable [facility] Primary Care Unavailable Junior, Jamey Consulting Unavailable Adam Mckeon Consulting Unavailable PROBLEMS PROBLEMS DATE TYPE CONDITION / CODE ATTENDING STATUS SOURCE 01/19/2018 Active Malignant neoplasm NA Active [facility] of upper lobe, left [facility] bronchus or lung / [place] C34.12(ICD-10) Repository 01/05/2018 Active Malignant neoplasm NA Active [facility] of unspecified part [facility] of right bronchus [place] or lung / Repository C34.91(ICD-10) 12/30/2017 Active Secondary malignant ANGELOV, 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 / KERRI [facility] C79.31(ICD-10) [place] Repository 12/23/2017 Active Disorder of brain, NA Active [facility] unspecified / [facility] G93.9(ICD-10) [place] Repository 12/23/2017 Active 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 / [facility] C79.51(ICD-10) [place] Repository 12/23/2017 Active 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 [facility] marrow / [place] C79.52(ICD-10) Repository 12/13/2017 Principle Dizziness and DORMAN, REBECCA Active [facility] Diagnosis giddiness / [facility] R42(ICD-10) [facility] Repository 12/15/2017 Active Nicotine KRZYSZTOF CHU Active [facility] dependence, () [facility] unspecified, [place] uncomplicated / Repository F17.200(ICD-10) 12/10/2017 Active Other nonspecific KRZYSZTOF CHU Active [facility] abnormal finding of (MD) [facility] lung field / [place] R91.8(ICD-10) Repository 12/10/2017 Active Chronic obstructive KRZYSZTOF CHU Active [facility] pulmonary disease, () [facility] unspecified / [place] J44.9(ICD-10) Repository 12/10/2017 Active Hyperlipidemia, KRZYSZTOF CHU Active [facility] unspecified / () [facility] E78.5(ICD-10) [place] Repository 04/20/2017 Active Unknown / NEGRESCU, NIKUNJ Active [facility] UNK(Unknown) V (PA-C) [facility] [place] Repository 04/08/2017 Admitting Abdominal aortic SAPPHIRE, DR Juliet [facility] Diagnosis aneurysm, without [facility] rupture / Hospital I714(ICD-10) Repository 04/08/2017 Principle Abdominal aortic SAPPHIRE, DR Juliet [facility] Diagnosis aneurysm, without [facility] I714(ICD-10) Repository 04/08/2017 Secondary Malignant neoplasm SAPPHIRE, DR Juliet [facility] Diagnosis of unspecified part [facility] of unspecified Hospital bronchus or lung / Repository C3490(ICD-10) 04/08/2017 Secondary Dorsalgia, SAPPHIRE, DR Juliet [facility] Diagnosis unspecified / [facility] M549(ICD-10) Hospital Repository 04/08/2017 Secondary Chronic obstructive SAPPHIREDR Juliet Diagnosis pulmonary disease, [facility] unspecified / Hospital J449(ICD-10) Repository 04/08/2017 Secondary Nicotine SAPPHIRE, DR Juliet [place] Diagnosis dependence, [facility] unspecified, Hospital uncomplicated / Repository A47377(ICD-10) 04/08/2017 Secondary Essential (primary) SAPPHIRE, DR Juliet [place] Diagnosis hypertension / [facility] I10(ICD-10) Hospital Repository 04/08/2017 Secondary Acquired absence of SAPPHIRE, DR Juliet [place]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) / Hospital Z9079(ICD-10) Repository 06/04/2017 Unknown I74.4 - Embolism Cebul, Aftab Active [place] and thrombosis of [facility] extremities, Repository unspecified / I74.4(ICD-10) PROCEDURES PROCEDURES No Procedure Records FoundRESULTS RESULTS 12 LEAD ELECTROCARDIOGRAM Observed: 02/01/2018 Status: F Source: [place] 2:33 PM [facility] [place] [facility] Cardi[facility] Services [address] [place] [address] 12 Lead EKG 01/29/18 1726 MR#: [id number] Acct: [id number] Name: DEBBIE CHOI Rep #: [id number] : 1940 77 From: José Miguel Eid MD Attending Dr: Adam Mckeon MD Status: DIS IN Ordering Dr: Adrian Carmona MD Date: 01/29/18 [place] [facility] [place] F C Admitted: 01/29/18 Test Reason : SOB Blood Pressure : / mmHG Vent. Rate : 135 BPM Atrial Rate : 121 BPM P-R Int : 152 ms QRS Dur : 066 ms QT Int : 304 ms P-R-T Axes : 053 002 073 degrees QTc Int : 456 ms Sinus rhythm Low voltage QRS (limb leads) Inferior infarct Abnormal ECG Confirmed by KRISTOFER SHARP, JOSÉ MIGUEL ([id number]), electronic news gathering editor LAVERNE HEMPHILL ([id number]) on 02/01/2018 2:33:10 PM Referred By: ALISTAIR Confirmed By:JOSÉ MIGUEL EID MD 02/01/18 1433 Date José Miguel Eid MD CC: CHALO DORMAN; Adrian Carmona MD; Adam Mckeon MD Signed SUMMARY Observed: 01/31/2018 Status: F Source: [place] 11:09 AM [facility] [place] Medical Records Department [address] [place] [address] Summary 01/31/18 0210 MR#: [id number] Acct: [id number] Name: DEBBIE CHOI Rep #: [id number] : 1940 77 From: Pop Velazquez MD PCP: CHALO JURADO Status: DIS IN Y Location: [facility]2 NO528-8 Preliminary Cause of Acute respiratory failure secondary to COPD exacerbation and PE Date of Admission: 01/29/18 Date of : 01/31/18 - Principle Diagnosis Acute COPD exacerbation on top of Pulmonary embolism in setting of Metastatic Lung mass to the brain. Problem List: Metastatic Lung mass to [facility] brain Acute COPD exacerbation Pulmonary Embolism HTN Hyperlipidemia Hospital Course The patient is a 77 year old F with a significant history of AAA; hypertension; lung cancer metastatic to the brain; COPD on 4 L of home oxygen who presented because of progressively worsening excruciating upper back pain; shortness of breath and severe generalized weakness.. Patient reported that her symptoms started 2 days prior to her admission. She describes sharp nonradiating progressively worsening upper back pain for which she was placed on as needed morphine. She was admitted to the stepdown unit of the progressive care after being placed on BiPAP from the emergency department. Right from the emergency department she was started on breathing treatment and IV steroid which was continued on the floor. Once on the floor patient was noted to have increasing shortness of breath and was wearing out her muscles of respiration. An ABG showed worsening respiratory acidosis. Patient was anxious and was given some Ativan. She continued to have worsening shortness of breath and was tiring out her muscles of respiration. A discussion was made with patient and family on impending respiratory failure. Risk and benefits of intubation with mechanical ventilation was discussed with patient and family. With hesitancy patient and family said that patient should be kept as a full code and intubated and placed on mechanical ventilation; and further orders obtained from the power of tax attorney. Patient was moved to the intensive care unit and intubated and placed on mechanical ventilation for impending respiratory failure. A CTPA of the chest show the patient had a pulmonary embolism. Because prognosis was grin family decided that patient should be made a DNR CC and extubated. Accordingly patient was extubated and placed on hospice. Patient received comfort care with morphine and Ativan. On 01/31/2018 at 1:45am nurses noted that patient had . On examination by physician, patient had no heart sounds or lung sounds. Patient had no pupillary reflex or corneal reflex. Accordingly patient was pronounced . Time of would be 01/31/2018 at 1:45 am Time spent with discharge was 45 minutes. Code Visit Inpatient E AND M: 36208 Disch Hosp 01/31/18 1109 <Electronically signed by Pop Velazquez MD> Date Pop Velazquez MD Cosigner Signature (if applicable): Date CC: CHALO DORMAN; Jamey Pacheco MD Signed CONSULTATION Observed: 01/31/2018 Status: F Source: [place] 6:48 AM [facility] [place] [facility] Medical Records Department [address] [place] [address] Consultation 01/30/18 0631 MR#: [id number] Acct: [id number] Name: DEBBIE CHOI Rep #: [id number] : 1940 77 From: Axel Lazcano DO PCP: CHALO JURADO Status: DIS IN Y [place] [facility] [place] Reason for Consult Date of Consultation: 01/30/18 Reason for Consultation: Respiratory failure History of Present Illness: The patient is a 77-year-old female, with a history as outlined below, who initially presented to the emergency department on January 29 with complaints of shortness of breath. The patient has underlying COPD, chronic hypoxemic respiratory failure and a known AAA. She also has a history of lung cancer with brain metastases. The exact type of underlying lung cancer is not known to the patient's family. However, she is currently following with an oncology provider at the [facility]. On presentation to the emergency department, the patient was noted to be febrile, tachycardic and tachypneic. She was initially requiring 4 L/min of supplemental oxygen to maintain appropriate saturations. Laboratory evaluation revealed no evidence of a leukocytosis. Chemistry profile revealed an elevated serum bicarbonate to 36. Troponin was negative. Serum lactate was within normal limits. Initial plain film chest x-ray revealed no acute cardiopulmonary process. The patient was treated in the emergency department with duo nebs, albuterol and IV Solu-Medrol. She was subsequently admitted to the progressive care unit for ongoing management. During the yeast pusher hours of January 30, the patient was noted to become progressively clinically unstable. The patient's respiratory state became unstable with increasing tachycardia, tachypnea and hypoxia. The overnight hospitalist did have a CODE STATUS discussion with the family, who eventually agreed on maintaining the patient a full CODE STATUS. The patient had to be transferred to the medical intensive care unit, where she was subsequently intubated for impending respiratory failure. A CTA chest obtained this morning did reveal evidence for pulmonary embolism along with a known left upper lobe spiculated mass and emphysematous changes bilaterally. Past Medical History Past Medical History (Chronic Problems): Chronic Problems COPD (chronic obstructive pulmonary disease) (Chronic) Hyperlipidemia (Chronic) Hypertension (Chronic) Suspected chronic obstructive pulmonary disease based on initial evaluation (Chronic) Allergies No Known Allergies Allergy (Verified 01/29/18 18:34) Home Medications: Ambulatory Orders Medication Instructions Recorded Acetaminophen [Tylenol Arthritis] 1,300 mg PO BID 12/10/17 Surgical History: hysterectomy Lives: With Family Smoking Status: Current every day smoker Tobacco Use: Cigarettes Alcohol: None - *Family History Maternal Family History: Family History (Last Updated 01/29/18 @ 20:17 by Pop Velazquez MD) Mother Myocardial infarction Father Myocardial infarction Brother Cancer History Items: - Paternal Family History: Family History (Last Updated 01/29/18 @ 20:17 by Pop Velazquez MD) Mother Myocardial infarction Father Myocardial infarction Brother Cancer History Items: No pertinent history Review of Systems Unable to obtain accurate/complete ROS d/t: Due to current intubation and mechanical ventilation status. Objective: The patient's most recent lab work, culture data and imaging studies have all been personally reviewed. - Physical Exam General: - - Intubated, sedated mechanically ventilated. HEENT: Atraumatic, PERRLA, Normocephalic Oral: No Gingival or Mucosal Lesions/ Ulcerations, - - Edentulous. Endotracheal and OG tubes in place. Neck: Supple, No Nodes, Trachea Midline Lungs: No wheeze, No rales, Diminished, - - Scant rhonchi. Cardiovascular: Normal S1, Normal S2, No murmurs, Tachycardic Abdomen: Bowel Sounds Present, Soft, Distended Extremities: No clubbing, No cyanosis, - - Trace pedal edema Skin: No breakdown Musculoskeletal: No Tenderness to Palpation of Joints or Extremities Lymphatic: No Cervical, Supraclavicular, or Inguinal Adenopathy Neurological: - - No focal neurological deficits. Currently sedated with a RASS of -2. Vital Signs Temp Pulse Resp BP Pulse Ox 39.2 C H 112 H 17 118/69 94 01/30/18 05:42 01/30/18 05:50 01/30/18 05:42 01/30/18 05:42 01/30/18 05:42 Oxygen Flow Rate (L/min) 6 Oxygen Delivery Method Mechanical Ventilator Weight: 135 lb 9.349 oz Body Mass Index (BMI) 26.8 Intake and Output for Last 24 Hours Intake Total 50 / 50 Output Total 200 / 200 Balance -150 / -150 Microbiology Past 72 Hours 01/29/18 20:45 Influenza Types A,B Direct FA (BRISEYDA) - Final Mucosa - Nose Laboratory Tests Past 24 Hrs WBC 9.0 RBC 3.96 L Hgb 12.5 Hct 38.2 MCV 96.5 MCH 31.6 MCHC 32.7 RDW 14.1 WBC RBC Hgb Hct Clinical Impression(s) from Imaging Studies Chest X-Ray 01/29/18 17:31 IMPRESSION: Stable appearance of the chest with no new or acute finding. Electronically Signed: Kareem Downey MD at 20:10 EST , Service support , Chest X-Ray 01/30/18 04:50 IMPRESSION: 1. The previously seen left upper lobe mass is more conspicuous and appears enlarged. 2. Background chronic lung disease with emphysema and granulomatous calcifications. 3. The endotracheal tube and NG tube appear in good position. at 0635 Reported and signed by: Girish Wilde MD Electronically Signed: Girish Wilde, at 6:33 EST Tel , Service support , Assessment/Plan RECOMMENDATIONS: 1. Initiate treatment strength Lovenox, given underlying PE. 2. Continue bronchodilators. 3. Discontinue sedative regimen with plans to transition to CPAP with eventual extubation, per family wishes. 4. CODE STATUS to be updated to DNR comfort care. 5. If the patient remains stable once extubated, consideration can be given to hospice referral tomorrow morning. IMPRESSIONS: 1. Acute on chronic hypoxemic and hypercarbic respiratory failure, likely secondary to newly discovered pulmonary embolism The patient was initially intubated due to impending respiratory failure in the setting of a COPD exacerbation and newly discovered pulmonary embolism. However, per the patient's family, she did have some form of advanced directives indicating that she would not want invasive mechanical ventilation. Upon further discussion with the family this morning at the bedside, they have elected to pursue palliative withdrawal of life support and initiation of comfort care measures. The plan at this time will include withdrawal of sedation and subsequent extubation, once the patient is no longer sedated. Morphine and Ativan can be utilized for pain and anxiety. If the patient does not pass this afternoon/overnight, will contact hospice in the morning. 2. Stage IV metastatic lung cancer The patient is currently being followed at the [facility]. The patient reportedly has a poor prognosis and is receiving palliative radiation. As noted above, the plan at this time will include palliative withdrawal of life support and initiation of comfort care measures, per family wishes. 3. Hypertension/tobacco dependence/chronic back pain/baseline COPD of unknown severity Complicates care, management, recovery and prognosis. Continue baseline medications as tolerated. 4. CODE STATUS I did have a discussion with the patient's family, present at the bedside. They indicated to me that the patient would not want to have any of the current interventions, nor would she have wanted to be intubated. Alternatives to her current full CODE STATUS was discussed with the patient at length. Following a family meeting, they have elected to proceed with comfort care measures. They would like to proceed with extubating the patient at this time. I explained to them that I would place the patient's sedatives on hold and proceed with weaning her from mechanical ventilation. If she does remain stable throughout today and tonight, consideration can be given to hospice referral tomorrow morning. CODE STATUS to be updated to DNR CC. TIME: 45 minutes of critical care time, independent of procedures, was spent addressing the patient's acute on chronic hypoxemic and hypercarbic respiratory failure, acute PE, stage IV metastatic lung cancer, tobacco dependency, review of all data and collaboration with the care team. ([id number]) Code Visit 9xxxx: [id number] Critical care first hour 01/31/18 0648 <Electronically signed by Axel Lazcano DO> Date Axel Lazcano DO Cosigner Signature (if applicable): Date CC: CHALO DORMAN; Jamey Pacheco MD Signed DISCHARGE INSTRUCTION Observed: 01/31/2018 Status: F Source: [place] 2:31 AM [facility] [place] [facility] Medical Records Department [address] [place] [id number] Instructions for Home/Discharge Instructions 01/31/18 0226 MR#: [id number] Acct: [id number] Name: DEBBIE CHOI Rep #: [id number] : 1940 77 From: Pop Velazquez MD PCP: CHALO JURADO Status: ADM IN - Discharge Diagnoses Reason(s) for Visit for Discharge Instructions: Shortness of breath Allergies/Adverse Reactions: Allergies No Known Allergies Allergy (Verified 01/29/18 18:34) Medications to take at Discharge Acetaminophen [Tylenol Arthritis] 1,300 mg PO BID 12/10/17 Albuterol IH (ProAir) [Proair Hfa (SP)Vent Pts] 2 puff INHALATION Q4H PRN PRN 12/10/17 Fluticasone/Salmeterol [Advair 250-50 Diskus] 1 each IH BID 12/10/17 Ipratropium/Albuterol Sulfate [Duoneb] 3 ml INHALATION Q4HWA.RT 12/10/17 Latanoprost 0.005% [Xalatan Opthalmic] 1 drop EACH EYE QHS 12/10/17 Lisinopril/Hydrochlorothiazide [Zestoretic 20-12.5 mg Tablet] 12.5 mg PO DAILY 12/10/17 Mirtazapine [Remeron] 15 mg PO QHS 12/10/17 Pravastatin [Pravachol] 40 mg PO DAILY 12/10/17 Melatonin 10 mg PO QHS PRN PRN 01/29/18 Primary Care Physician: Rebecca Dorman PA [Primary Care Provider] - Test Results: Test results from this visit will be discussed in further detail at your follow-up appointment, if applicable. 01/31/18 0231 <Electronically signed by Pop Velazquez MD> Date Pop Velazquez MD CC: CHALO DORMAN; Jamey Pacheco MD Observed: 01/30/2018 Status: F Source: [place] RESPIRATORY PANEL 7:45 AM [facility] [place] [facility] RP PANEL ADENOVIRUS Not Detected HUMAN METAPHNEUMO Not Detected INFLUENZA A Not Detected INFLUENZA A (SUBTYPE H1) Not Detected INFLUENZA A (SUBTYPE H3) Not Detected INFLUENZA B Not Detected PARAINFLUENZA 1 Not Detected PARAINFLUENZA 2 Not Detected PARAINFLUENZA 3 Not Detected PARAINFLUENZA 4 Not Detected RHINOVIRUS Not Detected RSV A Not Detected RSV B Not Detected NAAT METHOD Testing was performed using nucleic acid amplification Performed By: #### M100.638 #### [facility] [address] [place], [address] Observed: 01/30/2018 Status: F Source: [place] CULTURE, SPUTUM 7:45 AM [facility] [place] Gram Stain Acceptable Specimen? Acceptable Specimen(Evaluation not needed) Gram Stain 3+ White Blood Cells 2+ Gram positive cocci 1+ Gram positive rods Rare Yeast Like Organisms Resp. Culture Mixed normal respiratory kimani. No Haemophilus, Streptococcus pneumoniae, beta-hemolytic Streptococcus or Staphylococcus aureus isolated. Performed By: #### M100.0800 #### [facility] [address] [place], [address] BLOOD GASES BY CPS Collected: 01/30/2018 Status: F Source: [place] 7:14 AM [facility] [place] TYPE CODE TESTS RESULT OUT OF RANGE REFERENCE UNITS LAB L9000.9990 Normal BLD GAS TYPE ART LAB L9001.1000 Normal SITE L Radial LAB L9001.1048 Normal Mode A-C LAB L9001.1050 O2 Normal Delivery Dev Vent LAB L9001.1065 Vt Normal 400 LAB L9001.1070 RR Normal 12 LAB L9001.1074 Normal FI02 40 LAB L9001.1076 Normal PEEP 5 LAB L9001.1104 Normal Results To ICU LAB L9001.1105 Normal Time Given 714 LAB L9001.1110 7.35-7.45 pH Normal - I-STAT 7.36 LAB L9001.1210 35-45 mmHg High pCO2 - ISTAT 56.1 LAB L9001.1310 75-100 mmHG Low PO2 I-STAT 64 LAB L9001.2300 22-26 mmol/L High HCO3 ISTAT 31.8 LAB L9001.2400 -2 to +2 mmol/L High BE ISTAT 6 LAB L9001.2415 mmol/L Normal TOTAL CO2 33 ISTAT LAB L9001.2425 95-99 % Low SO2 ISTAT 91 Performed By: #### L9000.0800 #### [facility] Point of Care [address] [facility] [place] [address] CTA CHEST W/WO Observed: 01/30/2018 Status: F Source: [place] CONTRAST 5:44 AM [facility] [place] [facility] Imaging Services [address] [facility] [place] [place] [address] CTA Chest W/WO Contrast MR#: [id number] Acct: [id number] Name: DEBBIE CHOI Rep #: [id number] : 1940 F 77 From: Alexus Gunderson MD PCP: CHALO JURADO Status: ADM IN Study: CTA Chest W/WO Contrast Date of Exam: 01/30/18 Exam# [id number] Ordering Dr: Pop Velazquez MD STUDY: CTA CHEST REASON FOR EXAM: Female, 77 years old. Redness of breath and back pain intubated history of COPD hypertension lung cancer with brain metastases history of abdominal aortic aneurysm. RADIATION DOSAGE (If Supplied By Facility): CTDIvol = ( 11.71 ) mGy, DLP = ( 441.04 ) mGycm TECHNIQUE: The examination was performed with the intravenous administration of 75 ml of Isovue 370 contrast material. Post-processing of the angiographic images was performed, with multiplanar reformation and 3D reconstruction. Individualized dose optimization techniques were used for this CT. COMPARISON: April 27, 2017 CT scan abdomen and pelvis FINDINGS: Patient is intubated. The ET tube above the ayla. An NG tube is present to the stomach. There is mild prominence of the pulmonary arteries. There is a subtle focus of thrombus within the lingular branch, image #128 and 139 upper lobe series 2, image 103 of the coronal views series 601. . Endings are positive for pulmonary embolism. The ascending thoracic aorta measures 3.0 x 2.8 cm. The descending thoracic aorta is tortuous and shows peripheral thrombus measures up to 3.4 x 3.6 cm the level of the pulmonary arteries and 2.8 x 3.03 level hiatus and then expands in the abdomen 5.5 x 6.1 cm which is known to the patient. There is no demonstrated aortic dissection. Normal heart and pericardium. Normal mediastinum. Normal hilar regions. Normal visualized trachea and bronchi. There is a pattern of emphysematous change and chronic obstructive pulmonary disease. There are calcified granulomas right upper lobe and right middle lobe. There is lower lobe atelectasis. There is a solid spiculated mass within the left upper lobe in the same region as the PE that measures 3.2 x 2.3 x 2.8 cm with adjacent pleural thickening. There is closer proximity to the pericardial fat compared to prior study when the mass measures 2.8 x 2.0 cm. Normal chest wall structures. There is 50% loss of height at the level of T11 T10 T8 and T7 and L1. The bones are osteopenic. There is hepatic steatosis. His of abdominal aortic aneurysm. There is a thickened appearance to bilateral adrenal glands. CT/CTA Chest W/WO Contrast IMPRESSION: Pulmonary emphysema chronic obstructive pulmonary disease enlarging left upper lobe mass compatible with neoplasm. Findings are positive for pulmonary embolism involving the left upper lobe and lingula. Descending thoracic aortic aneurysm, abdominal aortic and. Multilevel 50% loss of height stable since prior study in the thoracic spine and the visualized L1 level as detailed above. N.B. : The above information has been verbally conveyed by Alexus Gunderson MD to Vish Uribe MD, on 01/30/2018 08:50:23 (ET). Electronically Signed: Alexus Gunderson MD at 8:35 EST Tel , Service support , CC: CHALO DORMAN; Pop Velazquez MD Charging Operator: Signed LACTIC ACID Collected: 01/30/2018 Status: F Source: [place] 5:40 AM [facility] [place] [facility] Order Comment: Yes/No query for Sepsis Lactate Rule Y TYPE CODE TESTS RESULT OUT OF RANGE REFERENCE UNITS LAB L503.6005 0.4-2.0 mmol/L Normal LACTIC ACID 1.4 Performed By: #### L503.6005, L500.4050, L501.2300, L501.3620, L501.5000, M200.1000, M100.636 #### [facility] [address] [place], [address] COMPREHENSIVE METABOLIC Collected: 01/30/2018 Status: F Source: [facility] 5:40 AM [facility] [place] TYPE CODE TESTS RESULT OUT OF RANGE REFERENCE UNITS LAB L501.0100 74-106 mg/dL High GLU 157 Result Comment: Fasting Glucose result greater than or equal to 126 mg/dL suggests DIABETES MELLITUS per A.D.A. criteria. Please note revised GLUCOSE reference range effective 2017. LAB L501.1000 7-18 mg/dL High BUN 21 LAB L501.1100 0.55-1.02 mg/dL Normal CREAT,SERUM 0.82 Result Comment: The validity of the calculated GFR AND GFRAA in patients over 70 years has not been determined. Clinical correlation is essential. LAB L501.1110 >60 mL/min Normal EST GFR 72 Result Comment: Non- GFR Calc LAB L501.1115 >60 mL/min Normal EST GFR - AA 87 Result Comment: GFR Calc LAB L501.1255 ml/min Normal Estimated CRCL 54.90 LAB L501.1300 10-20 RATIO High BUN/CRE 25.6 LAB L501.1500 6.4-8. g/dL Normal 2 T PROT 7.1 LAB L501.1800 3.2-5. g/dL Low 0 ALB 2.9 LAB L501.1950 2.2-4. g/dL Normal 2 GLOB 4.2 LAB L501.2000 0.9-2. RATIO Low 4 A/G 0.7 LAB L501.2200 8.5-10 mg/dL Normal .1 CA 9.2 LAB L501.4100 15-37 U/L Normal AST 27 Result Comment: Slight Hemolysis, Result may be falsely increased. LAB L501.4305 45-117 U/L Normal ALK P 103 LAB L501.4405 13-56 U/L Normal ALT 34 LAB L501.4600 0.20-1.00 mg/dL Normal T BILI 0.90 LAB L501.5300 136-145 mmol/L Normal NA 138 LAB L501.5600 3.5-5.1 mmol/L Normal K 4.8 Result Comment: Slight Hemolysis, Result may be falsely increased. LAB L501.5900 98-107 mmol/L Normal CL 100 LAB L501.6100 21.0-32.0 mmol/L Normal CO2 29.0 LAB L501.6200 5-15 Normal 9 GAP Performed By: #### L503.6005, L500.4050, L501.2300, L501.3620, L501.5000, M200.1000, M100.636 #### [facility] [address] [place], [address] PHOSPHORUS Collected: 01/30/2018 Status: F Source: [place] 5:40 AM [facility] [place] TYPE CODE TESTS RESULT OUT OF RANGE REFERENCE UNITS LAB L501.2300 2.5-4.9 mg/dL Normal PHOS 4.0 Performed By: #### L503.6005, L500.4050, L501.2300, L501.3620, L501.5000, M200.1000, M100.636 #### [facility] [address] [place], [address] CPK TOTAL, CREATINE Collected: 01/30/2018 Status: F Source: [place] KINASE 5:40 AM [facility] [place] TYPE CODE TESTS RESULT OUT OF RANGE REFERENCE UNITS LAB L501.3620 26-192 U/L Normal CPK TOTAL 49 Performed By: #### L503.6005, L500.4050, L501.2300, L501.3620, L501.5000, M200.1000, M100.636 #### [facility] [address] [place], [place], [address] TRIGLYCERIDES Collected: 01/30/2018 Status: F Source: [place] 5:40 AM [facility] [place] [facility] TYPE CODE TESTS RESULT OUT OF RANGE REFERENCE UNITS LAB L501.5000 mg/dL Normal TRIG 106 Result Comment: The drugs N-Acetylcysteine and Metamizole may falsely depress this assay. Serum Triglycerides Reference Interval Normal <150 mg/dL Borderline high 150 - 199 mg/dL High 200 - 499 mg/dL Very High > or = 500 mg/dL Performed By: #### L503.6005, L500.4050, L501.2300, L501.3620, L501.5000, M200.1000, M100.636 #### [facility] [address] [place], [place], [address] Observed: 01/30/2018 Status: F Source: [place] CULTURE, BLOOD (WB) 5:40 AM [facility] [place] Has pt arrived? Y BC GRAM POSITIVE COCCI IN ANAEROBIC BOTTLE PRELIM CALLED TO ICU POLIDERMULE 01/30/18/ @1610 GRAM POSITIVE COCCI IN AEROBIC BOTTLE PRELIM CALLED TO ICU DKNOBEL 01/30/18 @7261 Copy of report sent to Infection Control Printer [id number] 02/01/18 0743 DCANNON. ORGANISM 1: Meth. resistant Staph. aureus Amount Growth Growth Meth. resistant Staph. aureus: REACTION Benzylpenicillin NF >=0.5 R Cefoxitin *NF + Clindamycin $$ <=0.25 S Inducable Clindamycin Resistan - Erythromycin $ >=8 R Gentamicin $ <=0.5 S Levofloxacin $ 4 I Linezolid $$$$ 2 S Oxacillin NF >=4 R Tigecycline $$$$ <=0.12 S Rifampin $$ <=0.5 S Tetracycline NF <=1 S Trimethoprim/Sulfametho $ <=10 S Vancomycin $ 1 S (NF) indicates non-formulary drug at [facility]. Approval by Infectious Disease Specialist required before non-formulary drugs may be ordered and/or dispensed. * CLSI guidelines does not recommend testing of cephalosporins. This interpretation is deduced from Beta-lactam/penicillin results. Performed By: #### L503.6005, L500.4050, L501.2300, L501.3620, L501.5000, M200.1000, M100.636 #### [facility] [address] [facility] [place], [place], [id number] Observed: 01/30/2018 Status: F Source: [facility] GPC ID 5:40 AM [facility] [place] Has pt arrived? Y GPC ID Staphylococcus sp. Staphylococcus aureus Enterococcus sp. Not Detected Streptococcus spp. Not Detected Listeria spp Not Detected Zaid/vanB Not Detected mecA mecA Resistance Marker Detected NAAT METHOD Testing was performed using nucleic acid amplification ORGANISM 1: Staphylococcus aureus ORGANISM 2: mecA Resistance Marker Performed By: #### L503.6005, L500.4050, L501.2300, L501.3620, L501.5000, M200.1000, M100.636 #### [facility] [address] [facility] [place], [address] PARTIAL THROMBOPLAST Collected: 01/30/2018 Status: F Source: [place] TIME 5:40 AM [facility] [place] TYPE CODE TESTS RESULT OUT OF REFERENCE UNITS RANGE LAB L300.4310 24.1-36.2 Seconds High PTT 36.6 Performed By: #### L300.4310 #### [facility] [address] [place], [address] Observed: 01/30/2018 Status: F Source: [place] CULTURE, BLOOD (WB) 5:40 AM [facility] [place] Has pt arrived? Y BC GRAM POSITIVE COCCI IN ANAEROBIC BOTTLE PRELIM CALLED TO ICU JINDERMULE 01/30/18/ @1610 GRAM POSITIVE COCCI IN AEROBIC BOTTLE PRELIM CALLED TO ICU DKNOBEL 01/30/18 @1822 PLEASE REFER TO [id number] FOR COMPLETE ID AND SENSITIVITY RESULTS. Copy of report sent to Infection Control Printer [id number] 02/01/18 0745 DCANNON. ORGANISM 1: Meth. resistant Staph. aureus Amount Growth Growth Performed By: #### M200.1000 #### [facility] [address] [place], [address] CHEST 1 VIEW Observed: 01/30/2018 Status: F Source: [place] (PORTABLE) 5:07 AM [facility] [place] [facility] Imaging Services [address] [place] [address] Chest 1 View (Portable) MR#: [id number] Acct: [id number] Name: DEBBIE CHOI Rep #: [id number] : 1940 F 77 From: Girish Wilde MD PCP: CHALO JURADO Status: ADM IN Study: Chest 1 View (Portable) Date of Exam: 01/30/18 Exam# [id number] Ordering Dr: Pop Velazquez MD HISTORY: ETT PLACEMENT, NG PLACEMENT EXAM: XR Chest 1 View: 0440 hours COMPARISON: 01/29/2018 and CTA chest 12/25/2017 FINDINGS: LINES/DEVICES: The endotracheal tube has been retracted and appears in good position with the tube tip approximately 3.5 cm above the ayla. The NG tube remains in good position. Lungs: There is a left suprahilar density, more conspicuous compared to previous, which corresponds to a mass lesion evident by recent CT exam. By chest x-ray, this lesion appears enlarging. Background chronic lung disease with emphysema and Binh has calcifications. Atherosclerotic thoracic aorta. RAD/Chest 1 View (Portable) IMPRESSION: 1. The endotracheal tube has been retracted and now appears in good position. 2. Persistent left upper lobe mass and this lesion is well seen by recent CT exam. 3. Background chronic lung disease with emphysema and granulomatous calcifications. at 0936 Reported and signed by: Girish Wilde MD Electronically Signed: Girish Wilde, at 7:00 EST Tel , Service support , CC: CHALO DORMAN; Pop Velazquez MD Charging Operator: Signed CHEST 1 VIEW Observed: 01/30/2018 Status: F Source: [place] (PORTABLE) 4:37 AM [facility] [place] [facility] Imaging Services [address] [place] [address] Chest 1 View (Portable) MR#: [id number] Acct: [id number] Name: DEBBIE CHOI Rep #: [id number] : 1940 F 77 From: Girish Wilde MD PCP: CHALO JURADO Status: ADM IN Study: Chest 1 View (Portable) Date of Exam: 01/30/18 Exam# [id number] Ordering Dr: Pop Velazquez MD HISTORY: ETT PLACEMENT, OG PLACEMENT EXAM: XR Chest 1 View: COMPARISON: 01/29/2018 and CTA chest 12/25/2017 FINDINGS: LINES/DEVICES: The endotracheal tube and NG tube appear in good position. Lungs: There is a left suprahilar density, more conspicuous compared to previous, which corresponds to a mass lesion evident by recent CT exam. By chest x-ray, this lesion appears enlarging. Background chronic lung disease with emphysema and Binh has calcifications. Atherosclerotic thoracic aorta. RAD/Chest 1 View (Portable) IMPRESSION: 1. The previously seen left upper lobe mass is more conspicuous and appears enlarged. 2. Background chronic lung disease with emphysema and granulomatous calcifications. 3. The endotracheal tube and NG tube appear in good position. at 0635 Reported and signed by: Girish Wilde MD Electronically Signed: Girish Wilde, at 6:33 EST Tel , Service support , CC: CHALO DORMAN; Pop Velazquez MD Charging Operator: Signed BLOOD GASES BY CPS Collected: 01/30/2018 Status: F Source: [place] 3:47 AM [facility] [place] TYPE CODE TESTS RESULT OUT OF RANGE REFERENCE UNITS LAB L9000.9990 Normal BLD GAS TYPE ART LAB L9001.1000 Normal SITE R Radial LAB L9001.1010 Normal REGGIE TEST POS LAB L9001.1050 O2 Normal Delivery Dev Bi / C PAP LAB L9001.1070 RR Normal 12 LAB L9001.1074 Normal FI02 35 LAB L9001.1088 Normal IPAP 11 LAB L9001.1090 Normal EPAP 6 LAB L9001.1104 Normal Results To HOSP MD LAB L9001.1105 Normal Time Given 345 LAB L9001.1110 7.35-7.45 Low pH - I-STAT 7.33 LAB L9001.1210 35-45 mmHg High pCO2 - ISTAT 63.2 LAB L9001.1310 75-100 mmHG Normal PO2 I-STAT 77 LAB L9001.2300 22-26 mmol/L High HCO3 ISTAT 33.4 LAB L9001.2400 -2 to +2 mmol/L High BE ISTAT 7 LAB L9001.2415 mmol/L Normal TOTAL CO2 35 ISTAT LAB L9001.2425 95-99 % Low SO2 ISTAT 94 Performed By: #### L9000.0800 #### [facility] Point of Care [address] [place] [address] EMERGENCY DEPARTMENT Observed: 01/29/2018 Status: F Source: [place] SUMMARY 9:51 PM [facility] [place] [facility] Medical Records Department [address] [place] [address] Emergency Department Summary 01/29/18 1734 MR#: [id number] Acct: [id number] Name: DEBBIE CHOI Rep #: [id number] : 1940 77 From: Adrian Carmona MD PCP: CHALO JURADO Status: ADM IN - ER Visit Summary Date of Service: 01/29/18 Chief Complaint: Shortness of breath History of Present Illness: The patient is a 77 F history of lung CA with brain metastases being treated with radiation. Also hypertension, COPD on 4 L O2 at home and a known AAA. Patient states that since she has had increasing shortness of breath. Denies any fever. No hemoptysis. She has had recent negative workups for pulmonary emboli. She denies any leg pain or swelling. No chest pain. No nausea, vomiting or diarrhea [place]. No melena. She is on no blood thinners. Family who is with her states she is also just been generalized weakness. No fever. No dysuria. Physical Examination: Older female vital signs show blood pressure 139/80 temperature 99.9. Heart rate 133. Sat initially was 84% on her normal 4 L which is obviously toxic. HEENT exam unremarkable. Moist mucous membranes. Neck nontender no JVD. No lymphadenopathy. Lungs diminished breath sounds bilaterally. Prolonged expiratory phase. No rales or rhonchi. Increased respiratory rate. Heart tachycardic no murmur. Abdomen soft nontender. Normal bowel sounds no peritoneal signs. She is moving all 4 extremities. Neurovascular intact. Calves are nontender without edema or cords. Neurologically she is awake and alert. Moving all 4 extremities. No focal motor deficits. Test Results: Chest x-ray portable 1 view read by myself shows chronic changes no acute process. Chronic left upper lung mass. EKG sinus tachycardia rate of 135. No acute signs of GA or acute ischemia. Unchanged from a prior EKG from November. CBC shows a white count 9. Hemoglobin 12. Electrolytes are unremarkable CO2 of 36. Normal creatinine and gap. Troponin is normal. Emergency Department Course and Treatment: Patient with dyspnea. Treated with aerosols both DuoNeb and albuterol. IV Solu-Medrol. Multiple repeat exams patient remains tachycardic in the 130s. We tried to ambulate her and her pulse ox dropped immediately even while being on her 4 L of normal oxygen. Treatment Plan: I will speak to the hospitalist about admission. Disposition: Assigned to observation. Impression: Acute dyspnea acute exacerbation COPD History of COPD on 4 L nasal cannula O2 History of lung CA with brain metastases History of known AAA This note was generated with [employer] dictation software. It may contain incorrect words, spelling, and punctuation that were not noted in review of the chart prior to signing ED Disposition - Plan for ED Patient: Chief Complaint: Shortness of Breath Referrals: Rebecca Dorman PA [Primary Care Provider] - What to do if you have Problems For any increased pain, shortness of breath, bleeding, nausea or vomiting, chest pain, or any unexpected problems, contact your Primary Care Provider. Call [facility] ([phone]) or report to the closest Emergency Room. Call 911 if necessary. 01/29/18 2151 <Electronically signed by Adrian Carmona MD> Date Adrian Carmona MD Cosigner Signature (If Indicated): Date CC: CHALO DORMAN Observed: 01/29/2018 Status: F Source: [place] INFLUENZA A+B (RAPID 8:45 PM [facility] [place] [facility] REPOSITORY Order Date: 01/29/18 Has pt arrived? Y FLU A/B Rapid Negative test results should be confirmed by culture. Order Rapid Viral Culture for Influenzae A+B ([id number]) if clinically indicated. Influenza Ag, Direct Presumptive NEGATIVE for Influenza A/B Antigen (See Note) Performed By: #### M101.0101 #### [facility] [address] [facility] [place], [address] HISTORY AND PHYSICAL Observed: 01/29/2018 Status: F Source: [place] EXAM 8:30 PM [facility] [place] [facility] Medical Records Department [address] [place] [address] History and Physical 01/29/181931 MR#: [id number] Acct: [id number] Name: DEBBIE CHOI Rep #: [id number] : 1940 77 From: Pop Velazquez MD PCP: CHALO JURADO Status: ADM IN Y [id number] (1) COPD with acute exacerbation Status: Acute (2) AAA (abdominal aortic aneurysm) Status: Acute Qualifiers: Presence of rupture: without rupture Qualified Code(s): I71.4 - Abdominal aortic aneurysm, without rupture (3) Lung mass Status: Acute (4) Hypertension Status: Chronic Qualifiers: Hypertension type: unspecified Qualified Code(s): I10 - Essential (primary) hypertension History of Present Illness Date of Admission: 01/29/18 Chief Complaint: back pain and shortness of breath The patient is a 77 year old F with a significant history of AAA; hypertension; lung cancer metastatic to the brain; COPD on 4 L of home oxygen who presented because of progressively worsening excruciating upper back pain and shortness of breath. Patient reported that her symptoms started 2 days ago. She describes sharp nonradiating progressively worsening upper back pain. Her back pain increases with mild exertion. Her back pain was relieved with morphine given at the emergency department. She has shortness of breath at rest which increases with exertion. She has chronic cough with clear to yellow sputum which is unchanged from her baseline. Reported patient has been very weak to the extent that even she has a problem using the spoon to drink a bowl of soup. At emergency department she was found to be 84% on 4 L of nasal cannula. Past Medical History Past Medical History (Chronic Problems): Chronic Problems COPD (chronic obstructive pulmonary disease) (Chronic) Hyperlipidemia (Chronic) Hypertension (Chronic) Suspected chronic obstructive pulmonary disease based on initial evaluation (Chronic) Allergies No Known Allergies Allergy (Verified 01/29/18 18:34) Home Medications: Ambulatory Orders Medication Instructions Recorded Acetaminophen [Tylenol Arthritis] 1,300 mg PO BID 12/10/17 Surgical History: hysterectomy Lives: With Family Smoking Status: Current every day smoker Tobacco Use: Cigarettes Alcohol: None - *Family History Maternal Family History: Family History (Last Updated 01/29/18 @ 20:17 by Pop Velazquez MD) Mother Myocardial infarction Father Myocardial infarction Brother Cancer History Items: - Paternal Family History: Family History (Last Updated 01/29/18 @ 20:17 by Pop Velazquez MD) Mother Myocardial infarction Father Myocardial infarction Brother Cancer History Items: No pertinent history Review of Systems Constitutional: Reports: Weakness. Denies: Chills, Fever, Weight Change HEENT: Denies: Head Aches, Sinus Congestion, Sinus Drainage Cardiovascular: Denies: Chest Pain, Palpitations Respiratory: Reports: Cough - Chronic, Shortness of Breath, Shortness of breath upon exertion, Sputum production - Chronic. Denies: Shortness of breath at rest Gastrointestinal: Denies: Abdominal Pain, Nausea, Vomiting Genitourinary: Denies: Dysuria Musculoskeletal: Denies: Joint Pain, Joint Tenderness Skin: Denies: Rash, Wounds Neurological: Denies: Numbness, Tingling, Focal weakness Psychiatric: Denies: Anxiety, Depression, Homicidal Ideations, Suicidal Ideations Hematologic/ Lymphatic: Denies: Easy Bruising, Easy Bleeding VTE Information - Inpt Only VTE Present on Admission: Yes VTE Mechan Device Prophylaxis: None VTE Pharm Prophylaxis ordered?: Yes - Physical Exam General: Alert, Oriented x3, Cooperative HEENT: Atraumatic, PERRLA, EOMI, Normocephalic Neck: Supple, No JVD, Negative Carotid Bruits Lungs: Diminished - Severely diminished, Tachypneic, Using Accessory Muscles, - - Talking in short sentences due to shortness of breath. Cardiovascular: No murmurs, Tachycardic Abdomen: Bowel Sounds Present, Soft, Non Tender Extremities: No edema, Capillary Refill Less than 3 Seconds Skin: No rashes, No breakdown Musculoskeletal: No Tenderness to Palpation of Joints or Extremities Neurological: Neuro grossly intact Psych/Mental Status: Normal Affect, Anxious Vital Signs Temp Pulse Resp BP Pulse Ox 99.9 F H 130 H 23 H 177/81 H 100 01/29/18 17:17 01/29/18 19:17 01/29/18 19:17 01/29/18 19:17 01/29/18 19:17 Oxygen Flow Rate (L/min) 4 Oxygen Delivery Method Room Air Weight: 62.4 kg Body Mass Index (BMI) 26.9 Laboratory Tests Past 24 Hrs WBC 9.0 RBC 3.96 L Hgb 12.5 Hct 38.2 MCV 96.5 MCH 31.6 MCHC 32.7 RDW 14.1 Assessment/Plan All Active Problems COPD with acute exacerbation (Acute) AAA (abdominal aortic aneurysm) (Acute) Lung mass (Acute) The patient is a 77 year old F with a significant history of AAA; hypertension; lung cancer metastatic to the brain; COPD on 4 L of home oxygen who presented because of progressively worsening excruciating upper back pain and shortness of breath concerning for acute exacerbation of COPD.. Acute hypoxemic respiratory failure Patient with bicarbonate of 36 showing chronic CO2 retention. Likely due to COPD exacerbation. Received Solu-Medrol at emergency department. Solu-Medrol continued. Receive DuoNeb at emergency department. Scheduled DuoNeb and as needed albuterol. Due to increased work of breathing with patient's respiratory rate in the 30s and heart rates in the upper 120s-130s will place patient on BiPAP. Influenza test ordered. Back pain Diagnosis include acute exacerbation of COPD; metastatic spread of cancer to her back; aortic aneurysm enlargement. Of note patient has not had low blood pressure making aortic aneurysm rupture unlikely. Patient had a CT PA about a month ago. Continue treat for COPD. If patient does not improve consider further imaging of her back or CTPA. Review of old records show that last CTPA was on 12/25/2017. At that time it showed persistent neoplasm in the left upper lobe; emphysema; subcutaneous mass; aortic aneurysm; and large duodenal diverticulum. Morphine as needed for pain. Hypertension On admission her blood pressure was not within goal. Home lisinopril and HCTZ continued. Trend blood pressure medication and make adjustments as necessary. 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 Per family patient is scheduled to have radiation of the lungs on 11 February 2018. Continue outpatient follow-up. Tobacco abuse Counseled Nicotine patch ordered. DVT prophylaxis Subcutaneous Lovenox ordered. CODE STATUS Patient is a full code for now. Power of tax attorney is Ritu Candelaria, daughter. Code Visit Inpatient E AND M: 96153 Init Hosp L3 01/29/182029 <Electronically signed by Pop Velazquez MD> Date Pop Velazquez MD Cosigner Signature: Date (if applicable) CC: CHALO DORMAN; Pop Velazquez MD Signed CBC W/DIFF, AUTOMATED Collected: 01/29/2018 Status: F Source: [place] 5:45 PM [facility] [place] CODE TESTS RESULT OUT OF RANGE REFERENCE UNITS LAB L100.1000 4.4-11.0 K/mm3 Normal WBC 9.0 LAB L100.1200 4.2-5.4 M/mm3 Low RBC 3.96 LAB L100.1300 12.0-15.0 g/dl Normal HGB 12.5 LAB L100.1400 37-47 % Normal HCT 38.2 LAB L100.1500 81-99 fL Normal MCV 96.5 LAB L100.1600 27.0-32.0 pg Normal MCH 31.6 LAB L100.1700 32-36 g/gl Normal MCHC 32.7 LAB L100.1810 11.6-14.6 % Normal RDW CV 14.1 LAB L100.1820 35.1-43.9 fl High RDW SD 50.1 LAB L100.1900 150-450 K/mm3 Normal PLT 352 LAB L100.2000 6.2-12.0 fl Normal MPV 8.7 LAB L100.2100 47-70 % Normal NEUT% 67.0 LAB L100.2200 19-41 % Normal LY% 19.6 LAB L100.2300 0-10 % High MONO% 12.5 LAB L100.2400 0-5 % Normal EO% 0.8 LAB L100.2500 0-1 % Normal BASO% 0.0 LAB L100.2550 0.0-0.9 % Normal IM GRAN % 0.100 Result Comment: IG% - Immature Granulocytes (promyelocytes, myelocytes and metamyelocytes) > 1% indicates that a LEFT SHIFT is Present. LAB L100.2620 2.0-7.7 X10 3/uL Normal Absolute Neut 6.0 LAB L100.2720 0.83-4.51 X10 3/ul Normal Absolute Lymph 1.76 Performed By: #### L100.0100 #### [facility] [address] [place], [address] BASIC METABOLIC Collected: 01/29/2018 Status: F Source: [place] PRO[facility] (BMP) [facility] TYPE CODE TESTS RESULT OUT OF RANGE REFERENCE UNITS LAB L501.0100 74-106 mg/dL Normal GLU 101 Result Comment: Fasting Glucose result from 100 to 125 mg/dL suggests IMPAIRED HOMEOSTASIS per A.D.A. criteria. Please note revised GLUCOSE reference range effective 2017. LAB L501.1000 7-18 mg/dL Normal BUN 14 LAB L501.1100 0.55-1.02 mg/dL Normal CREAT,SERUM 0.75 Result Comment: The validity of the calculated GFR AND GFRAA in patients over 70 years has not been determined. Clinical correlation is essential. LAB L501.1110 >60 mL/min Normal EST GFR 80 Result Comment: Non- GFR Calc LAB L501.1115 >60 mL/min Normal EST GFR - AA 96 Result Comment: GFR Calc LAB L501.1255 ml/min Normal Estimated CRCL 33.30 LAB L501.1300 10-20 RATIO Normal BUN/CRE 18.7 LAB L501.2200 8.5-10 mg/dL Normal .1 CA 9.4 LAB L501.5300 136-14 mmol/L Normal 5 NA 140 LAB L501.5600 3.5-5. mmol/L Normal 1 K 4.0 LAB L501.5900 98-107 mmol/L Normal CL 99 LAB L501.6100 21.0-3 mmol/L High 2.0 CO2 36.0 LAB L501.6200 5-15 Normal GAP 5 Performed By: #### L500.2500, L501.4010 #### [facility] [place], [address] TROPONIN-I Collected: 01/29/2018 Status: F Source: [place] 5:45 PM [facility] [place] CODE TESTS RESULT OUT OF RANGE REFERENCE UNITS LAB L501.4010 <0.045 ng/mL Normal < 0.015 TROPONIN-I Result Comment: TROPONIN-I EXPECTED VALUES <0.045 Negative 0.045 - 0.590 Consistent with Cardiac Damage > OR = 0.600 Critical Value Not every elevated troponin is indicative of GA. These values should be used with clinical judgement in examining the patient's clinical picture for diagnosis. To establish a diagnosis of GA versus myocardial injury, there must be a demonstrated rise and/or fall in the troponin values, in addition to ischemic symptoms, EKG changes, new regional wall motion abnormality, and/or angiographical evidence. PLEASE NOTE: REFERENCE RANGES EDITED 17 Performed By: #### L500.2500, L501.4010 #### [facility] [address] [place], [address] CHEST 1 VIEW Observed: 01/29/2018 Status: F Source: [place] (PORTABLE) 5:32 PM [facility] REPOSITORY [facility] Imaging Services [address] [place] [address] Chest 1 View (Portable) MR#: [id number] Acct: [id number] Name: DEBBIE CHOI Rep #: [id number] : 1940 F 77 From: Kareem Downey MD PCP: CHALO JURADO Status: ADM ERIC Study: Chest 1 View (Portable) Date of Exam: 01/29/18 Exam# [id number] Ordering Dr: Adrian Carmona MD STUDY: X-RAY CHEST REASON FOR EXAM: Female, 77 years old. Shortness of breath. TECHNIQUE: Single frontal view of the chest. COMPARISON: December 25, 2017 FINDINGS: There is stable hyperexpansion. There are healed granulomatous calcifications unchanged. There is no demonstrated pleural abnormality. There is borderline cardiomegaly unchanged. Normal mediastinum and naida. Normal visualized pulmonary arteries. Normal visualized aortic arch and descending thoracic aorta. Normal visualized thoracic spine. Normal visualized ribs, clavicles, and shoulders. There is no demonstrated abnormality of the visualized soft tissue structures of the upper abdomen. RAD/Chest 1 View (Portable) IMPRESSION: Stable appearance of the chest with no new or acute finding. 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 HPI: 77 year old female who presents with above diagnosis, for an opinion regarding the role of radiation therapy in the management of the patient's disease. Final recommendations will be communicated back to the requesting physician by way of the shared medical record, or letter to requesting physician via US mail. 77 year old woman who had back pain early this year. CT scan showed a left lung mass and AAA. CTA chest/abdomen/pelvis on 04/20/17 showed Spiculated 3.1 x 2.2 cm mass in the left upper lobe highly suspicious for malignant neoplasm. There was Juxtarenal abdominal aortic aneurysm, associated with moderate mural thrombus and measuring 5.8 x 5.6 cm. Biopsy of the left lung mass was offered but she declined it. She developed difficulties with left had coordination last month and presented to the [facility]. CT brain there reportedly showed a hemorrhagic lesion and associated vasogenic edema at the periphery of the posterior R frontal lobe concerning for metastasis vs AVM with Hemorrhage. MRI brain on 12/10/17 showed Enhancing mass lesion posterior right frontal lobe likely reflecting metastatic disease. It measured 2.3 AP by 2.3 transverse centimeters. She declined major surgery. CT chest/abdomen/pelvis on 12/13/17 again showed Lobulated spiculated lesion in the anterior left upper lobe measuring approximately 3.[address] guided FNA of the left upper lobe lung mass on 12/14/17 showed malignant cells, adenocarcinoma with extensive necrosis. PET scan on 01/05/18 showed 2.7 x 1.9 cm anterior LEFT upper lobe hypermetabolic spiculated mass. There wre multiple bilateral calcified and noncalcified non-FDG avid pulmonary nodules which are below PET resolution. There was no definite hypermetabolic distant or hazel metastasis. She underwent GK SRS to the right frontal lobe brain lesion on 12/30/[address] Santiago. She was seen by Dr. Enzo Brand and due to her overall medical condition with COPD and possible CHF, she was thought to be not a good candidate for cytotoxic chemotherapy. She is here for consideration of SBRT. ALLERGIES No Known Allergies PAST MEDICAL HISTORY Diagnosis Date - AAA (abdominal aortic aneurysm) without rupture (HCC) - Bladder infection - COPD (chronic obstructive pulmonary disease) (HCC) - Dilatation of thoracic aorta (HCC) mild aneurismal dilatation of the descending aorta - Diverticulosis - Duodenal diverticulum large - Emphysema lung (HCC) Advanced - Hepatic steatosis - Hiatal hernia small - CH[place] RANCH (hard of hearing) - HTN (hypertension) - Hydronephrosis - Hypercholesterolemia - Lung mass - Pelviectasis left - Smoker Prior radiation therapy, collagen vascular disease, or inflammatory bowel disease: Yes, GK SRS on 12/30/17 as above. status: Post-menopausal. PAST SURGICAL HISTORY Procedure Laterality Date - PAST SURGICAL HISTORY OF 1996 Hysterectomy - PAST SURGICAL HISTORY OF 1993 dental implant placed - PAST SURGICAL HISTORY OF 06/2016 dental implant removed FAMILY HISTORY Problem Relation Age of Onset - other (AAA) Father - Cancer Brother eye - other (cerebral aneurysm) Brother Social History Marital status: Spouse name: Years of education: Number of children: Social History Main Topics Smoking status: Former Smoker Packs/day: 1.00 Years: 0.00 Types: Cigarettes Quit date: 12/17/2017 Smokeless tobacco: Never Used Comment: trying patch-1-2 cigarrettes a day Alcohol use: No Drug use: No COMPLETE REVIEW OF SYSTEMS: GENERAL: Negative for weight loss, fevers, chills, or night sweats. HEENT: Negative for sudden vision or hearing changes. NECK: Negative for masses in the neck. RESPIRATORY:Shortness of breath with exertion. She is on oxygen 3L/min. CARDIAC: Negative for chest pain, palpitations, murmurs, or syncopal episodes. GI: Negative for nausea, vomiting, diarrhea, constipation, blood per rectum, or melena. : frequency MUSCULOSKELETAL: Negative for limitations in movement, pain, or swelling. NEURO: Negative for dizziness, headache, weakness or numbness. HEMATOLOGIC: easy bruising. SKIN: Negative for rashes or other skin changes. PHYSICAL EXAM: VS: BP 116/59 (BP Site: Right Arm, BP Position: Sitting, BP Cuff Size: Regular Adult) Pulse 94 Temp 36.9 ?C (98.4 ?F) (Temporal Artery) Resp 22 Wt 63.3 kg (139 lb 8 oz) SpO2 92% BMI 27.42 kg/m? KPS: 70 General Appearance: Alert and oriented. No acute distress. HEENT: NCAT. Sclera anicteric. PERRL. EOMI. Neck: Normal ROM. Chest: No respiratory distress. Lungs bilateral rhonchi. Heart: Regular rate and rhythm. Abdomen: Soft. Nontender. Nondistended. Musculoskeletal: Moderate bilateral pedal edema. Neuro: Left hand weakness. Skin: No rashes noted Lymphatics: No palpable cervical or supraclavicular adenopathy. 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 She declined major surgery. She is not a good candidate for chemotherapy due to her co-morbidity. She has oligometastasis with the only metastasis in the brain which was treated with GK SRS. Although she will eventually develop distant disease in the future, I agree with SBRT to the primary lung lesion as controlled gross disease in patients with oligometastasis is suggested to be associated with improved survival. And it appears that her disease is slowly progressing as she was found to have the lung lesion back in April when she declined a biopsy. I will get a pulmonary function test for baseline lung function before SBRT. I explained the rationale, benefits, alternative management options and potential complications of radiation treatment to the patient and she understands and agrees to proceed. It was explained and understood that other personnel such as radiation therapists, straightener and aligner, and physicists will participate in planning and delivery of radiation treatment. Permanent tattoo de la vega will be placed to aid with positioning for daily treatment and the patient consented. Patient will have a simulation procedure after PFT. Thank you very much for allowing us to participate in her care. Signed by: Mike Feldman MD cc: Rebecca Dorman, [address] [place] [address] Enzo Brand MD [address] [facility] [address] CNOV Observed: 01/19/2018 Status: COMPLETED Source: [place] 1:30 PM [facility] REPOSITORY Office Visit (RADTWS) DEBBIE CHOI ([id number]) 1940 F Date Time Provider Department 01/19/18 1:30 PM MIKE FELDMAN During your visit today, we recorded the following information about you: Temperature Pulse Respiration Blood pressure 98.4 degrees 94/minute 22/minute 116/59 Weight 63.3 kg Edilma Richardson RN, RN 01/19/2018 1:37 PM Signed Radiation Therapy - Nursing Note (Consult) PATIENT NAME: Debbie Choi PATIENT January 19, 2018 [facility] FACILITY/LOCATION: [place] Chief Complaint: consult Reason for visit: Consult. Referring physician: Internal provider Dr Brand Subjective Data: No c/o. Pt on 3 L O2 per nasal cannula Additional Data Do you want to see a Wood Panel Inspector? No Are you interested in information about fertility? No Sexual Activity: Female: postmenopausal Stress Scale: On a scale of 0 to 10, what number best describes how much distress you have experienced in the past week?(0 being no distress and 10 being extreme distress) 0 Social work notified: Pt denied need to see social work job titles at this time. Radiation therapy teaching initiated. [facility] external beam radiation therapy handout given. Department phone numbers given AND patient encouraged to verbalize questions. 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 HPI: 77 year old female who presents with above diagnosis, for an opinion regarding the role of radiation therapy in the management of the patient's disease. Final recommendations will be communicated back to the requesting physician by way of the shared medical record, or letter to requesting physician via US mail. 77 year old woman who had back pain early this year. CT scan showed a left lung mass and AAA. CTA chest/abdomen/pelvis on 04/20/17 showed Spiculated 3.1 x 2.2 cm mass in the left upper lobe highly suspicious for malignant neoplasm. There was Juxtarenal abdominal aortic aneurysm, associated with moderate mural thrombus and measuring 5.8 x 5.6 cm. Biopsy of the left lung mass was offered but she declined it. She developed difficulties with left had coordination last month and presented to the [facility]. CT brain there reportedly showed a hemorrhagic lesion and associated vasogenic edema at the periphery of the posterior R frontal lobe concerning for metastasis vs AVM with Hemorrhage. MRI brain on 12/10/17 showed Enhancing mass lesion posterior right frontal lobe likely reflecting metastatic disease. It measured 2.3 AP by 2.3 transverse centimeters. She declined major surgery. CT chest/abdomen/pelvis on 12/13/17 again showed Lobulated spiculated lesion in the anterior left upper lobe measuring approximately 3.[address] guided FNA of the left upper lobe lung mass on 12/14/17 showed malignant cells, adenocarcinoma with extensive necrosis. PET scan on 01/05/18 showed 2.7 x 1.9 cm anterior LEFT upper lobe hypermetabolic spiculated mass. There wre multiple bilateral calcified and noncalcified non-FDG avid pulmonary nodules which are below PET resolution. There was no definite hypermetabolic distant or hazel metastasis. She underwent GK SRS to the right frontal lobe brain lesion on 12/30/[address] Santiago. She was seen by Dr. Enzo Brand and due to her overall medical condition with COPD and possible CHF, she was thought to be not a good candidate for cytotoxic chemotherapy. She is here for consideration of SBRT. ALLERGIES No Known Allergies PAST MEDICAL HISTORY Diagnosis Date - AAA (abdominal aortic aneurysm) without rupture (HCC) - Bladder infection - COPD (chronic obstructive pulmonary disease) (HCC) - Dilatation of thoracic aorta (HCC) mild aneurismal dilatation of the descending aorta - Diverticulosis - Duodenal diverticulum large - Emphysema lung (HCC) Advanced - Hepatic steatosis - Hiatal hernia small - [place] RANCH (hard of hearing) - HTN (hypertension) - Hydronephrosis - Hypercholesterolemia - Lung mass - Pelviectasis left - Smoker Prior radiation therapy, collagen vascular disease, or inflammatory bowel disease: Yes, GK SRS on 12/30/17 as above. status: Post-menopausal. PAST SURGICAL HISTORY Procedure Laterality Date - PAST SURGICAL HISTORY OF 1996 Hysterectomy - PAST SURGICAL HISTORY OF 1993 dental implant placed - PAST SURGICAL HISTORY OF 06/2016 dental implant removed FAMILY HISTORY Problem Relation Age of Onset - other (AAA) Father - Cancer Brother eye - other (cerebral aneurysm) Brother Social History Marital status: Spouse name: Years of education: Number of children: Social History Main Topics Smoking status: Former Smoker Packs/day: 1.00 Years: 0.00 Types: Cigarettes Quit date: 12/17/2017 Smokeless tobacco: Never Used Comment: trying patch-1-2 cigarrettes a day Alcohol use: No Drug use: No COMPLETE REVIEW OF SYSTEMS: GENERAL: Negative for weight loss, fevers, chills, or night sweats. HEENT: Negative for sudden vision or hearing changes. NECK: Negative for masses in the neck. RESPIRATORY:Shortness of breath with exertion. She is on oxygen 3L/min. CARDIAC: Negative for chest pain, palpitations, murmurs, or syncopal episodes. GI: Negative for nausea, vomiting, diarrhea, constipation, blood per rectum, or melena. : frequency MUSCULOSKELETAL: Negative for limitations in movement, pain, or swelling. NEURO: Negative for dizziness, headache, weakness or numbness. HEMATOLOGIC: easy bruising. SKIN: Negative for rashes or other skin changes. PHYSICAL EXAM: VS: BP 116/59 (BP Site: Right Arm, BP Position: Sitting, BP Cuff Size: Regular Adult) Pulse 94 Temp 36.9 ?C (98.4 ?F) (Temporal Artery) Resp 22 Wt 63.3 kg (139 lb 8 oz) SpO2 92% BMI 27.42 kg/m? KPS: 70 General Appearance: Alert and oriented. No acute distress. HEENT: NCAT. Sclera anicteric. PERRL. EOMI. Neck: Normal ROM. Chest: No respiratory distress. Lungs bilateral rhonchi. Heart: Regular rate and rhythm. Abdomen: Soft. Nontender. Nondistended. Musculoskeletal: Moderate bilateral pedal edema. Neuro: Left hand weakness. Skin: No rashes noted Lymphatics: No palpable cervical or supraclavicular adenopathy. 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 She declined major surgery. She is not a good candidate for chemotherapy due to her co-morbidity. She has oligometastasis with the only metastasis in the brain which was treated with GK SRS. Although she will eventually develop distant disease in the future, I agree with SBRT to the primary lung lesion as controlled gross disease in patients with oligometastasis is suggested to be associated with improved survival. And it appears that her disease is slowly progressing as she was found to have the lung lesion back in April when she declined a biopsy. I will get a pulmonary function test for baseline lung function before SBRT. I explained the rationale, benefits, alternative management options and potential complications of radiation treatment to the patient and she understands and agrees to proceed. It was explained and understood that other personnel such as radiation therapists, straightener and aligner, and physicists will participate in planning and delivery of radiation treatment. Permanent tattoo de la vega will be placed to aid with positioning for daily treatment and the patient consented. Patient will have a simulation procedure after PFT. Thank you very much for allowing us to participate in her care. Signed by: Mike Feldman MD cc: Rebecca Dorman, [address] [place] [address] Enzo Brand MD [address] [facility] [address] Referring Provider: ENZO BRAND [[id number]] Allergies As of Date: 01/19/2018 (No Known Allergies) Date Reviewed: 01/19/2018 Reviewed by: Edilma (Rn) LEYDA Richardson - Fully Assessed Reason for Visit: Consult [502] Visit Diagnosis:Cancer of upper lobe of left lung (HCC) [C34.12] Order(s):SPIROMETRY - BASELINE AND POST DILATOR [[id number]] Order #: [id number] FUTURE Prescriptions as of 01/19/2018 Sig: MIRTAZAPINE 15 MG TABLET Take 15 mg by mouth daily at * LATANOPROST 0.005 % EYE DROPS INSTILL 1 DROP INTO BOTH EYES* LISINOPRIL 20 MG-HYDROCHLOROT* Take 1 tablet by mouth once d* PRAVASTATIN 40 MG TABLET once daily. ADVAIR DISKUS 250 MCG-50 MCG/* once daily. PROAIR HFA 90 MCG/ACTUATION A* INHALE 2 (TWO) PUFFS EVERY 4-* IPRATROPIUM-ALBUTEROL 0.5 MG-* USE ONE VIAL VIA NEBULIZER EV* DEXAMETHASONE 4 MG TABLET 4mg TID x4 days, then 4mg bid* Patient not taking: Reported on 01/19/2018 FAMOTIDINE 20 MG TABLET Take 1 tablet by mouth twice * Patient not taking: Reported on 01/19/2018 DEXAMETHASONE 4 MG TABLET Take 1 tablet by mouth twice * Patient not taking: Reported on 01/19/2018 PANTOPRAZOLE 40 MG TABLET,DEL* Take 1 tablet by mouth DAILY * Patient not taking: Reported on 01/19/2018 MULTIVITAMIN TABLET Take 1 tablet by mouth once d* CHOLECALCIFEROL (VITAMIN D3) * Take by mouth once daily. VITAMIN E ORAL Take by mouth once daily. Medication notes this encounter DEXAMETHASONE 4 MG TABLET >> Edilma Richardson RN, RN 01/19/2018 1:31 PM >> EDILMA RICHARDSON WedJan 19, 2018 1:31 PM Completed therapy. 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 Brain metastases (HCC) [C79.31] INVALID FOR* More... Cancer of upper lobe of left lung (HCC) [C34.12]INVALID FOR* Visit Notes: >> Edilma Dueñas) LEYDA Richardson WedJan 19, 2018 1:35 PM Status: Signed Radiation Therapy - Nursing Note (Consult) PATIENT NAME: Debbie Choi PATIENT January 19, 2018 [facility] FACILITY/LOCATION: [place] Chief Complaint: consult Reason for visit: Consult. Referring physician: Internal provider Dr Brand Subjective Data: No c/o. Pt on 3 L O2 per nasal cannula Additional Data Do you want to see a Wood Panel Inspector? No Are you interested in information about fertility? No Sexual Activity: Female: postmenopausal Stress Scale: On a scale of 0 to 10, what number best describes how much distress you have experienced in the past week?(0 being no distress and 10 being extreme distress) 0 Social work notified: Pt denied need to see social work job titles at this time. Radiation therapy teaching initiated. [facility] external beam radiation therapy handout given. Department phone numbers given AND patient encouraged to verbalize questions. SIGNED by: Edilma Richardson RN Encounter Status:Closed by MIKE FELDMAN MD on 01/21/18 CNOVSP Observed: 01/05/2018 Status: COMPLETED Source: [place] 3:40 PM [facility] REPOSITORY Visit (SP) Office ([id number]) DEBBIE CHOI ([id number]) 1940 F Date Time Provider Department 01/05/18 3:40 PM ENZO BRAND [facility] During your visit today, we recorded the following information about you: Temperature Pulse Respiration Blood pressure 98.1 degrees 84/minute 18/minute 127/55 Weight 64 kg Enzo Brand MD 01/11/2018 12:24 PM Signed I have reviewed the progress note obtained and documented by Dr. Lei and I personally participated in the brito components of care. The following comments revise or confirm relevant brito components of the note. ? 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 BIOMARKERS: EGFR pending ALK negative KRAS Negative BRAF WT MET Negative PDL-1 pending STAGE (AJCC 8): [id number] - Stage IV (solitary brain metastasis, hazel staging by PET) ? PRIOR THERAPY: 1. GK Right Frontal Brain Lesion (solitary) December 30, 2017 ? CURRENT THERAPY: Pending ? NUMBER OF PLANNED CYCLES: N/A ? SPECIAL MEDICAL ISSUES: 1. 6.5 cm AAA 2. 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 Left hydronephrosis ? PALLIATIVE CARE PROVIDER: [] INTERVAL HISTORY: ? Ms. Choi for follow-up for her metastatic lung cancer. She tolerated gamma knife well. She continues to have significant pulmonary symptoms from her COPD and overall stable. No new bony pains or focal neurological symptoms. ? PAST MEDICAL HISTORY: Hypertension Dyslipidemia COPD 2 L nasal cannula at home Glaucoma ? PAST SURGICAL HISTORY: None ? ALLERGIES:Reviewed and updated in the electronic medical record ? MEDICATIONS: Reviewed and updated in the electronic medical record ? SOCIAL HISTORY: Tobbacco: 45-50 pack years ? FAMILY HISTORY: Brother ocular cancer later age no other first or second degree relatives with malignancy REVIEW OF SYSTEMS: Otherwise negative beyond that noted in the interval history ?10 systems ? PHYSICAL EXAM: BP 127/55 Pulse 84 Temp 36.7 ?C (98.1 ?F) (Oral) Resp 18 Wt 64 kg (141 lb 3.2 oz) SpO2 97% BMI 27.76 kg/m? Per Dr. Lei LABORATORES: ? ASSESSMENT/PLAN: Metastatic lung cancer. PET scan shows no other evidence of disease besides the left lung pulmonary lesion. Mediastinal and hilar areas are negative for malignant lymphadenopathy. Outside of the brain lesion there is no other evidence of metastatic disease. I discussed the case with Dr. Ruffin and our recommendation is to consider stereotactic radiotherapy to the left lung lesion. I believe I more likely to cause harm than benefit with systemic chemotherapy given her frail nature and severe COPD and we would watch closely after the completion of radiation. ? ? Enzo Brand MD Cc: Rebecca Dorman, PAC - (Inactive), In Basket (Inactive) - User (Inactive) [address] [place] [id number] () Aguila Lei MD 01/06/2018 9:55 AM Signed FOLLOW UP THORACIC ONCOLOGY CLINIC NOTE CANCER DIAGNOSIS: Oligometastatic left lung adenocarcinoma (PET proven, brain met in addition to primary tumor) STAGE: T2a N0 M1a, stage IV CURRENT TREATMENT REGIMEN: - GK to brain met 12/30/2017 PRIOR TREATMENT REGIMENS: none ONCOLOGIC HISTORY: 77 year old lady who initially presented for management of a UTI and was incidentally found to have a lefty upper lobe mass. She had then refused to have a biopsy of the lesion. (reportedly because she was fearful of the procedure) November 2017: she presented with left hand incoordination, underwent a CT brain in [facility] which showed 1.8 cm maximum dimension ovoid focus w/ associated small hemorrhage and adjacent vasogenic edema within the periphery of the posterior right front lobe. No midline shift. Differential consideration include hemorrhage with a neoplasm versus hemorrhage involving an underlying vascular malformation and - MRI showed a peripherally enhancing mass lesion present within the posterior right frontal lobe measuring 2.3cm AP x 2.3cm transverse with mixed internal signal intensity and a moderate degree of surrounding vasogenic edema. ?No gross leptomeningeal suggestive of enhancing mass lesion posterior right frontal lobe likely reflecting metastatic disease. ? The pt has refused major surgery and her children off whom Ritu Herrera is her POA. 12/20/2017: underwent FNA of the lung lesion which showed adenocarcinoma. Her tumor is ALK negative (8%), PD-L1 pending. 12/30/17: underwent GK to the brain met 01/05/18: PET showed primary and no other mets. Other than brain that was previously known. ---> 2.7 x 1.9 cm anterior LEFT upper lobe hypermetabolic spiculated mass consistent with echogenic malignancy. ?No hypermetabolic chest lymphadenopathy or pleural effusions. Today's visit: Patient is a 77 year old y/o female, here for follow up and treatment planning. She tolerated the GK well and has no significant side effect that she has yet noted. However she is more short of breath than previously noted and reports a ?URI. Also significant pedal edema, --> ?CHF exacerbation. No pain or other complaints. No significant change in the LUE. REVIEW OF SYSTEMS: CONSTITUTIONAL: No fevers, chills, nightsweats, unintended weight loss HEENT: Denies frequent or severe headaches, nasal congestion/sinus symptoms, problematic allergy problems. CARDIOVASCULAR: No chest pain, palpitations, ankle edema. PULM: No dyspnea. GI: No dysphagia, constipation, diarrhea, changes in stool habits, hematochezia, melena. : No new urinary complaints, including dysuria, gross hematuria or pyuria. NEURO: No new balance problems. MUSC-SKEL: Lower extremity swelling +. 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 - Dilatation of thoracic aorta: mild aneurismal dilatation of the descending aorta - Diverticulosis - Duodenal diverticulum - Hepatic steatosis - Hiatal hernia - CH[place] RANCH (hard of hearing) - HTN (hypertension) - Hydronephrosis - Hypercholesterolemia - Lung cancer: oligometastatic NSCLC - Smoker: for 45-50 years 1PPD PSH: PAST SURGICAL HISTORY Procedure Laterality Date - Hysterectomy 1996 Social History: - Marital status: - Has 5 children off whom 4 live relatively nearby and 1 lives out of state - lived alone and until her recent neurological issues has been independent, even driving to get her own groceries. But now lives with her daughter. Personal History: - stopped smoking approx 2 weeks back has been using a nicotine patch - previously smoked 1ppd for 45-50 years - never used smokeless tobacco Family History: No FMH of cancer - paternal h/o AAA and aneurysm in the brother - brother had cancer in the eye in the 80s for which his eye was removed. CURRENT MEDICATIONS: Current Outpatient Prescriptions: dexamethasone (DECADRON) 4 mg tablet 4mg TID x4 days, then 4mg bid x4 days,then 4mg daily x4 days, [id number] daily x4days, then 2mg every other day x4 days then stop. Disp: 28 tablet Rfl: 0 famotidine (PEPCID) 20 mg tablet Take 1 tablet by mouth twice daily. WHILE TAKING DECADRON. STOP PEPCID WHEN FINISHED TAKING DECADRON Disp: 40 tablet Rfl: 0 dexamethasone (DECADRON) 4 mg tablet Take 1 tablet by mouth twice daily with meals. Disp: 60 tablet Rfl: [address] (PROTONIX) 40 mg tablet Take 1 tablet by mouth DAILY (6 AM). Disp: 30 tablet Rfl: 2 mirtazapine (REMERON) 15 mg tablet Take 15 mg by mouth daily at bedtime. Disp: Rfl: latanoprost (XALATAN) 0.005 % ophthalmic solution INSTILL 1 DROP INTO BOTH EYES AT BEDTIME DIRECTED Disp: Rfl: 3 lisinopril-hydrochlorothiazide (PRINZIDE,ZESTORETIC) 20-12.5 mg per tablet Take 1 tablet by mouth once daily. Disp: Rfl: 3 pravastatin (PRAVACHOL) 40 mg tablet once daily. Disp: Rfl: 3 ADVAIR DISKUS 250-50 mcg/dose dsdv once daily. Disp: Rfl: 3 PROAIR HFA 90 mcg/actuation inhaler INHALE 2 (TWO) PUFFS EVERY 4-6 HOURS NEEDED Disp: Rfl: 3 ipratropium-albuterol (DUONEB) 0.5 mg-3 mg(2.5 mg base)/3 mL nebu USE ONE VIAL VIA NEBULIZER EVERY 4 TO 6 HOURS NEEDED Disp: Rfl: 3 multivitamin tablet Take 1 tablet by mouth once daily. Disp: Rfl: CHOLECALCIFEROL, VITAMIN D3, ORAL Take by mouth once daily. Disp: Rfl: VITAMIN E ORAL Take by mouth once daily. Disp: Rfl: No current facility-administered medications for this visit. PHYSICAL EXAMINATION: BP 127/55 Pulse 84 Temp 36.7 ?C (98.1 ?F) (Oral) Resp 18 Wt 64 kg (141 lb 3.2 oz) SpO2 97% BMI 27.76 kg/m? General appearance:appears SOB, alert, in no acute distress, well-hydrated, moderately nourished. Neck: Supple, no adenopathy. Lungs: Lungs clear to auscultation. No wheezing, rhonchi, rales Heart: RRR without gallop, or rubs. Systolic murmur in the LLSB. Abdomen: Normal abdominal exam, Abdomen soft, non-tender. Bowel sounds normal. No masses, organomegaly Extremities: pedal edema ++. No rash. Neuro: Pt in wheelchair by choice, is able to walk a few meters without getting SOB. Weakness and incoordination in the left hand. No other focal deficits. LABORATORY: No new labs. PATHOLOGY: Adenocarcinoma with extensive necrosis. ALK Rearrangement 8%?(0-14%) PD-L1 pending RADIOGRAPHIC DATA: PET: 01/05/2018 1. ?NECK: No FDG avid mass, adenopathy, or fluid collection. 2. ?CHEST: * ?2.7 x 1.9 cm anterior LEFT upper lobe hypermetabolic spiculated mass consistent with echogenic malignancy. ?No hypermetabolic chest lymphadenopathy or pleural effusions. * ?Multiple bilateral calcified and noncalcified non-FDG avid pulmonary nodules which are below PET resolution -- these may be followed by follow up diagnostic CT chest. 3. ?ABDOMEN/PELVIS: Severe atherosclerotic changes of the aortoiliac system with a 6.5 x 5.7 cm mid descending aortic aneurysm. ?Aneurysm likely causes mass effect about the LEFT UPJ resulting in LEFT pelvocaliectasis. 4. ?EXTREMITIES/SKELETON: ?No FDG avid osseous process. No destructive/traumatic bony abnormality. CT abd pel: 12/13/2017 No evidence of metastatic disease in the abd, but she does have a 6cm infrarenal abdominal aneurysm. In addition also left hydronephrosis with abrupt caliber change at left UPJ. CT Chest 12/13/2017: SPICULATED LOBULATED NODULE MEASURING APPROXIMATELY 3.2 X 1.8 CM IN THE ANTERIOR LEFT UPPER LOBE. ?THIS DEMONSTRATES SOME CHANGE IN ORIENTATION AND CONFIGURATION SINCE THE PREVIOUS EXAM. ?MINIMAL OVERALL DECREASE IN SIZE IS NOT EXCLUDED. ?THE FINDINGS MAY REPRESENT NEOPLASTIC PROCESS UNDERGOING TREATMENT OR NECROTIC CHANGES. ? MRI brain 12/10/2017: Enhancing mass lesion posterior right frontal lobe likely reflecting metastatic disease. ?Chronic changes. IMPRESSION: Debbie Choi is a 77 year old female with a new diagnosis of (?oligo) metastatic NSCLC (adenocarcinoma) of the left lung. She is treatment naive and ALK negative. She has multiple other medical conditions at baseline and maybe classified as an ECOG 3. She was recently treated with GK which she tolerated well and has encouraged her to participate in further therapy. - Her PET confirmed suspected Oligometastatic disease with solitary brain met. Considering her newer clincal deterioration which is likely 2/2 COPD exacerbation v/s CHF exacerbation, she is not likely to tolerate a nisqually based regimen. - we therefore discussed with about the possibility of using radiation +/- EBUS to further stage. Per our discussion, we have decided not to recommend EBUS, instead he will evaluate her for SBRT to the primary lesion. - it is likely that the pt will manifest further metastasis in the upcoming period however considering her poor functional status, this appears to be a reasonable plan for now. - PD-L1 will enable us to plan for the future should she metastasize and want further therapy PLAN: Our recommendations are as follows: # SBRT discussion with next week. # PD-L1 testing # follow up after completion of RT. The patient was seen and discussed with . Attending addendum to follow. 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 . Follow-up and Disposition History Recorded Prescriptions as of 01/05/2018 Sig: DEXAMETHASONE 4 MG TABLET 4mg TID x4 days, then 4mg bid* FAMOTIDINE 20 MG TABLET Take 1 tablet by mouth twice * DEXAMETHASONE 4 MG TABLET Take 1 tablet by mouth twice * PANTOPRAZOLE 40 MG TABLET,DEL* Take 1 tablet by mouth DAILY * MIRTAZAPINE 15 MG TABLET Take 15 mg by mouth daily at * LATANOPROST 0.005 % EYE DROPS INSTILL 1 DROP INTO BOTH EYES* LISINOPRIL 20 MG-HYDROCHLOROT* Take 1 tablet by mouth once d* PRAVASTATIN 40 MG TABLET once daily. ADVAIR DISKUS 250 MCG-50 MCG/* once daily. PROAIR HFA 90 MCG/ACTUATION A* INHALE 2 (TWO) PUFFS EVERY 4-* IPRATROPIUM-ALBUTEROL 0.5 MG-* USE ONE VIAL VIA NEBULIZER EV* MULTIVITAMIN TABLET Take 1 tablet by mouth once d* CHOLECALCIFEROL (VITAMIN D3) * Take by mouth once daily. VITAMIN E ORAL Take by mouth once daily. Problem List As Of Date 01/05/2018 Noted Resolved Thoracoabdominal aortic aneurysm (TAAA) without*INVALID FOR* Stroke (HCC) [I63.9] INVALID FOR* Nicotine use disorder, F17.2 [F17.200] INVALID FOR* Brain mass [G93.9] INVALID FOR* Lung mass [R91.8] INVALID FOR* Secondary malignant neoplasm of bone and bone m*INVALID FOR* More... Brain metastases (HCC) [C79.31] INVALID FOR* More... Encounter Status:Closed by ENZO BRAND MD on 01/11/18 PROGRESS Observed: 01/05/2018 Status: COMPLETED Source: [place] 3:36 PM [facility] REPOSITORY HNO ID: [id number] Author: Aguila Lei (Fel) Service: (none) Author Type: Fellow Type: Progress Notes Filed: 01/06/2018 9:55 AM Note Text: FOLLOW UP THORACIC ONCOLOGY CLINIC NOTE CANCER DIAGNOSIS: Oligometastatic left lung adenocarcinoma (PET proven, brain met in addition to primary tumor) STAGE: T2a N0 M1a, stage IV CURRENT TREATMENT REGIMEN: - GK to brain met 12/30/2017 PRIOR TREATMENT REGIMENS: none ONCOLOGIC HISTORY: 77 year old lady who initially presented for management of a UTI and was incidentally found to have a lefty upper lobe mass. She had then refused to have a biopsy of the lesion. (reportedly because she was fearful of the procedure) November 2017: she presented with left hand incoordination, underwent a CT brain in [facility] which showed 1.8 cm maximum dimension ovoid focus w/ associated small hemorrhage and adjacent vasogenic edema within the periphery of the posterior right front lobe. No midline shift. Differential consideration include hemorrhage with a neoplasm versus hemorrhage involving an underlying vascular malformation and - MRI showed a peripherally enhancing mass lesion present within the posterior right frontal lobe measuring 2.3cm AP x 2.3cm transverse with mixed internal signal intensity and a moderate degree of surrounding vasogenic edema. ?No gross leptomeningeal suggestive of enhancing mass lesion posterior right frontal lobe likely reflecting metastatic disease. ? The pt has refused major surgery and her children off whom Ritu Herrera is her POA. 12/20/2017: underwent FNA of the lung lesion which showed adenocarcinoma. Her tumor is ALK negative (8%), PD-L1 pending. 12/30/17: underwent GK to the brain met 01/05/18: PET showed primary and no other mets. Other than brain that was previously known. ---> 2.7 x 1.9 cm anterior LEFT upper lobe hypermetabolic spiculated mass consistent with echogenic malignancy. ?No hypermetabolic chest lymphadenopathy or pleural effusions. Today's visit: Patient is a 77 year old y/o female, here for follow up and treatment planning. She tolerated the GK well and has no significant side effect that she has yet noted. However she is more short of breath than previously noted and reports a ?URI. Also significant pedal edema, --> ?CHF exacerbation. No pain or other complaints. No significant change in the LUE. REVIEW OF SYSTEMS: CONSTITUTIONAL: No fevers, chills, nightsweats, unintended weight loss HEENT: Denies frequent or severe headaches, nasal congestion/sinus symptoms, problematic allergy problems. CARDIOVASCULAR: No chest pain, palpitations, ankle edema. PULM: No dyspnea. GI: No dysphagia, constipation, diarrhea, changes in stool habits, hematochezia, melena. : No new urinary complaints, including dysuria, gross hematuria or pyuria. NEURO: No new balance problems. MUSC-SKEL: Lower extremity swelling +. 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 - Dilatation of thoracic aorta: mild aneurismal dilatation of the descending aorta - Diverticulosis - Duodenal diverticulum - Hepatic steatosis - Hiatal hernia - CH[place] RANCH (hard of hearing) - HTN (hypertension) - Hydronephrosis - Hypercholesterolemia - Lung cancer: oligometastatic NSCLC - Smoker: for 45-50 years 1PPD PSH: PAST SURGICAL HISTORY Procedure Laterality Date - Hysterectomy 1996 Social History: - Marital status: - Has 5 children off whom 4 live relatively nearby and 1 lives out of state - lived alone and until her recent neurological issues has been independent, even driving to get her own groceries. But now lives with her daughter. Personal History: - stopped smoking approx 2 weeks back has been using a nicotine patch - previously smoked 1ppd for 45-50 years - never used smokeless tobacco Family History: No FMH of cancer - paternal h/o AAA and aneurysm in the brother - brother had cancer in the eye in the 80s for which his eye was removed. CURRENT MEDICATIONS: Current Outpatient Prescriptions: dexamethasone (DECADRON) 4 mg tablet 4mg TID x4 days, then 4mg bid x4 days,then 4mg daily x4 days, [id number] daily x4days, then 2mg every other day x4 days then stop. Disp: 28 tablet Rfl: 0 famotidine (PEPCID) 20 mg tablet Take 1 tablet by mouth twice daily. WHILE TAKING DECADRON. STOP PEPCID WHEN FINISHED TAKING DECADRON Disp: 40 tablet Rfl: 0 dexamethasone (DECADRON) 4 mg tablet Take 1 tablet by mouth twice daily with meals. Disp: 60 tablet Rfl: [address] (PROTONIX) 40 mg tablet Take 1 tablet by mouth DAILY (6 AM). Disp: 30 tablet Rfl: 2 mirtazapine (REMERON) 15 mg tablet Take 15 mg by mouth daily at bedtime. Disp: Rfl: latanoprost (XALATAN) 0.005 % ophthalmic solution INSTILL 1 DROP INTO BOTH EYES AT BEDTIME DIRECTED Disp: Rfl: 3 lisinopril-hydrochlorothiazide (PRINZIDE,ZESTORETIC) 20-12.5 mg per tablet Take 1 tablet by mouth once daily. Disp: Rfl: 3 pravastatin (PRAVACHOL) 40 mg tablet once daily. Disp: Rfl: 3 ADVAIR DISKUS 250-50 mcg/dose dsdv once daily. Disp: Rfl: 3 PROAIR HFA 90 mcg/actuation inhaler INHALE 2 (TWO) PUFFS EVERY 4-6 HOURS NEEDED Disp: Rfl: 3 ipratropium-albuterol (DUONEB) 0.5 mg-3 mg(2.5 mg base)/3 mL nebu USE ONE VIAL VIA NEBULIZER EVERY 4 TO 6 HOURS NEEDED Disp: Rfl: 3 multivitamin tablet Take 1 tablet by mouth once daily. Disp: Rfl: CHOLECALCIFEROL, VITAMIN D3, ORAL Take by mouth once daily. Disp: Rfl: VITAMIN E ORAL Take by mouth once daily. Disp: Rfl: No current facility-administered medications for this visit. PHYSICAL EXAMINATION: BP 127/55 Pulse 84 Temp 36.7 ?C (98.1 ?F) (Oral) Resp 18 Wt 64 kg (141 lb 3.2 oz) SpO2 97% BMI 27.76 kg/m? General appearance:appears SOB, alert, in no acute distress, well-hydrated, moderately nourished. Neck: Supple, no adenopathy. Lungs: Lungs clear to auscultation. No wheezing, rhonchi, rales Heart: RRR without gallop, or rubs. Systolic murmur in the LLSB. Abdomen: Normal abdominal exam, Abdomen soft, non-tender. Bowel sounds normal. No masses, organomegaly Extremities: pedal edema ++. No rash. Neuro: Pt in wheelchair by choice, is able to walk a few meters without getting SOB. Weakness and incoordination in the left hand. No other focal deficits. LABORATORY: No new labs. PATHOLOGY: Adenocarcinoma with extensive necrosis. ALK Rearrangement 8%?(0-14%) PD-L1 pending RADIOGRAPHIC DATA: PET: 01/05/2018 1. ?NECK: No FDG avid mass, adenopathy, or fluid collection. 2. ?CHEST: * ?2.7 x 1.9 cm anterior LEFT upper lobe hypermetabolic spiculated mass consistent with echogenic malignancy. ?No hypermetabolic chest lymphadenopathy or pleural effusions. * ?Multiple bilateral calcified and noncalcified non-FDG avid pulmonary nodules which are below PET resolution -- these may be followed by follow up diagnostic CT chest. 3. ?ABDOMEN/PELVIS: Severe atherosclerotic changes of the aortoiliac system with a 6.5 x 5.7 cm mid descending aortic aneurysm. ?Aneurysm likely causes mass effect about the LEFT UPJ resulting in LEFT pelvocaliectasis. 4. ?EXTREMITIES/SKELETON: ?No FDG avid osseous process. No destructive/traumatic bony abnormality. CT abd pel: 12/13/2017 No evidence of metastatic disease in the abd, but she does have a 6cm infrarenal abdominal aneurysm. In addition also left hydronephrosis with abrupt caliber change at left UPJ. CT Chest 12/13/2017: SPICULATED LOBULATED NODULE MEASURING APPROXIMATELY 3.2 X 1.8 CM IN THE ANTERIOR LEFT UPPER LOBE. ?THIS DEMONSTRATES SOME CHANGE IN ORIENTATION AND CONFIGURATION SINCE THE PREVIOUS EXAM. ?MINIMAL OVERALL DECREASE IN SIZE IS NOT EXCLUDED. ?THE FINDINGS MAY REPRESENT NEOPLASTIC PROCESS UNDERGOING TREATMENT OR NECROTIC CHANGES. ? MRI brain 12/10/2017: Enhancing mass lesion posterior right frontal lobe likely reflecting metastatic disease. ?Chronic changes. IMPRESSION: Debbie Choi is a 77 year old female with a new diagnosis of (?oligo) metastatic NSCLC (adenocarcinoma) of the left lung. She is treatment naive and ALK negative. She has multiple other medical conditions at baseline and maybe classified as an ECOG 3. She was recently treated with GK which she tolerated well and has encouraged her to participate in further therapy. - Her PET confirmed suspected Oligometastatic disease with solitary brain met. Considering her newer clincal deterioration which is likely 2/2 COPD exacerbation v/s CHF exacerbation, she is not likely to tolerate a nisqually based regimen. - we therefore discussed with about the possibility of using radiation +/- EBUS to further stage. Per our discussion, we have decided not to recommend EBUS, instead he will evaluate her for SBRT to the primary lesion. - it is likely that the pt will manifest further metastasis in the upcoming period however considering her poor functional status, this appears to be a reasonable plan for now. - PD-L1 will enable us to plan for the future should she metastasize and want further therapy PLAN: Our recommendations are as follows: # SBRT discussion with next week. # PD-L1 testing # follow up after completion of RT. The patient was seen and discussed with . Attending addendum to follow. Aguila Lei MD Fellow, Hematology-Oncology [facility] January 06, 2018 9:54 AM Pager: [phone] NM PET/CT SKULL-THIGH Observed: 01/05/2018 Status: F Source: [facility] IN[facility] 1:57 PM [facility] REPOSITORY * * *Final Report* * * DATE OF EXAM: Jan 05 2018 1:57PM [facility] 0060 - NM PET/CT SKULL-THIGH INIT / PROCEDURE REASON: Primary lung cancer with metastasis from lung to other site, right (HCC) * * * * Physician Interpretation * * * * EXAMINATION: WHOLE BODY BODY FDG PET/CT SCAN: (01/05/2018 3:54 PM) HISTORY: 77 years old Female with lung mass and brain lesion INDICATION: Study performed for initial treatment strategy. TECHNIQUE: F18-FDG administered IV was followed about 60 minutes later by PET imaging from SKULL BASE THRU PROXIMAL THIGHS. Free breathing low dose CT was performed without contrast for attenuation correction and anatomic localization. Blood glucose before FDG injection: 81 mg/dL FDG radionuclide dose: 6.[address] Dose-Length Product (DLP): 178 mGy*cm. CT Dose Reduction Employed: Yes COMPARISON: 07/17/2015 CORRELATION: CT chest, abdomen, pelvis 12/13/2017 RESULT: Extensive muscle uptake within the upper chest and diaphragm from excursion. NECK: Physiologic uptake seen in the visualized brain, parapharyngeal soft tissues, base of tongue, vocal cords, and salivary glands. No hypermetabolic cervical lymphadenopathy or masses. No focal thyroid lesion. CHEST: Physiologic uptake in the heart and mediastinum. Lungs and tracheobronchial tree: Extensive emphysema with mild FDG avidity (Max SUV 2.2-4) associated with scarring/atelectasis at the periphery of the RIGHT lung base, likely inflammatory in nature. Mild non-FDG avid scarring seen in the posterior RIGHT lung apex. There is an approximately 1.9 x 2.7 cm spiculated anterior LEFT upper lobe mass with moderate FDG avidity (max SUV 8.7) peripherally lesion touches the peripheral pleura but not the mediastinum. Elsewhere there are multiple scattered calcified and noncalcified pulmonary nodules in both lungs which are not hypermetabolic but below PET resolution. Pleura: No hypermetabolic pleural or pericardial effusion, or pleural mass. Mediastinum and Lymph nodes: Calcified mediastinal lymph nodes. No hypermetabolic lymphadenopathy in the chest. No axillary lymphadenopathy. Chest wall and axilla: Unremarkable. ABDOMEN AND PELVIS: Physiologic uptake seen in the and GI tracts. Liver: No mass. No hepatomegaly Biliary: No bile duct dilation. Gallbladder is unremarkable. Spleen: No mass. No splenomegaly. Pancreas: No mass or duct dilation. Adrenals: No mass. Kidneys: Right kidney unremarkable. Prominent LEFT extrarenal pelvis with upper and lower pole caliectasis, but there is no ureterectasis. Mild parenchymal thinning noted raising the possibility of UVJ obstruction secondary to large abdominal aortic aneurysm that is described below. GI tract: No dilation or wall thickening. Diverticulosis without acute diverticulitis. Lymph nodes: No abdominal or pelvic lymphadenopathy. Mesentery/Peritoneum: No ascites or mass. Vasculature: Vascular patency cannot be assessed due to lack of IV contrast. Moderate to severe atherosclerotic changes of the aortoiliac system with an approximately 6.5 x 5.7 cm somewhat eccentric aneurysm of the mid abdominal aorta just adjacent to the renal vessels. Pelvis: Status post hysterectomy. No hypermetabolic pelvis mass, lymphadenopathy or fluid collection BONES AND EXTREMITIES: Bones are osteopenia. There are multilevel degenerative changes throughout the spine. No destructive or traumatic bone lesion is seen. IMPRESSION: 1. NECK: No FDG avid mass, adenopathy, or fluid collection. 2. CHEST: * 2.7 x 1.9 cm anterior LEFT upper lobe hypermetabolic spiculated mass consistent with echogenic malignancy. No hypermetabolic chest lymphadenopathy or pleural effusions. * Multiple bilateral calcified and noncalcified non-FDG avid pulmonary nodules which are below PET resolution -- these may be followed by follow up diagnostic CT chest. 3. ABDOMEN/PELVIS: Severe atherosclerotic changes of the aortoiliac system with a 6.5 x 5.7 cm mid descending aortic aneurysm. Aneurysm likely causes mass effect about the LEFT UPJ resulting in LEFT pelvocaliectasis. 4. EXTREMITIES/SKELETON: No FDG avid osseous process. No destructive/traumatic bony abnormality. COMMUNICATION: Communicated with: Physician: ENZO BRAND on 01/05/2018 at 1600. 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 INDICATION: Initial treatment strategy. COMPARISON: None CORRELATION: Brain MRI 12/30/2017 TECHNIQUE: 6.7 mCi FDG 18 IV in dimly lit and quiet room, followed by PET imaging of the brain in 35-40 minutes. The PET images were co-registered with MRI images using co-registration software. CT Radiation dose: Integrated Dose-length product (DLP) for this visit = 43 mGy*cm. CT Dose Reduction Employed: Automatic exposure control used (AED) The blood glucose level before FDG injection is 81 mg/dL. RESULT: Photopenic defect is noted in the right frontal region responding to lesion on MR scan, consistent with posttreatment changes. The FDG uptake in the rest of the cortical regions, subcortical basal structures, cerebellum appears physiological. No other hypermetabolic lesions. CT of head and brain: the images were acquired mainly for attenuation correction, suboptimal for diagnosis purpose. No gross acute abnormal findings. IMPRESSION: POSTTREATMENT CHANGES IN THE RIGHT FRONTAL REGION. NO FOCAL HYPERMETABOLIC LESIONS TO SUGGEST METASTASES. Charging Operator: BRIAN Transcribe Date/Time: Jan 06 2018 8:53A Dictated by : JENNIFER DAMON MD This examination was interpreted and the report reviewed and electronically signed by: JENNIFER DAMON MD on Jan 06 2018 9:05AM EST [id number] PROGRESS Observed: 01/05/2018 Status: COMPLETED Source: [facility] 12:24 PM [facility] REPOSITORY O ID: [id number] Author: Dm Nunez [facility] Service: (none) Author Type: (none) Type: Progress Notes Filed: 01/05/2018 12:25 PM Note Text: RADIOLOGY SERVICE PROGRESS NOTE SERVICE DATE: 01/05/2018 SERVICE TIME: 12:25 PM PATIENT IDENTITY VERIFICATION COMPLETED USING TWO (2) METHODS: Patient confirmed name and Date of verbally and ID Band . PATIENT GENDER DATA: .female : No ALLERGIES: Reviewed and unchanged MEDICATIONS REVIEWED: Yes PATIENT RELEVANT IMPLANT DATA REVIEWED: Not Applicable CREATININE: Creatinine Date Value Ref Range Status 12/15/2017 0.77 0.58 - 0.96 mg/dL Final 12/14/2017 0.69 0.58 - 0.96 mg/dL Final 12/12/2017 0.70 0.58 - 0.96 mg/dL Final eGFR-All Other Races Date Value Ref Range Status 12/15/2017 >60 . Final Comment: eGFR (Estimated GFR) Units of measure: mL/min/1.73 meters squared eGFR is derived from the reexpressed MDRD Study equation using the following parameters: serum creatinine, age, gender and race. The creatinine assay has been calibrated to be traceable to IDMS. An eGFR <60 mL/min/1.73m2 for >3 months is consistent with chronic kidney disease. Refer to KDOQI guidelines for clinical interpretation. In patients with unstable renal function, e.g. those with acute kidney injury, the eGFR may not accurately reflect actual GFR. eGFR- Date Value Ref Range Status 12/15/2017 >60 Final P.O.C.T. RESULTS: N/A January 05, [address] PERFORMED: No IV SITE: Ambulatory: NM only - direct IV injection in the Right antecubital site POST EXAM PIV STATUS: Not applicable PROCEDURE TYPE: NM INJECT: PET/CT BODY SCAN. 6.7 mCi F18 FDG. No other medications given.. ADMINISTRATION TIME: 1223 PATIENT DISCHARGED TO: Ambulatory patient, left NM department area. A Diagnostic radioactive procedure has taken place, with no further precautions necessary other than routine body substance precautions. More information regarding radiation safety can be found using this link: [email or web address] SIGNATURE: Dm Nunez [facility] PATIENT NAME: Debbie Choi DATE: January 05, 2018 TIME: 12:25 PM PAGER/CONTACT #: PROGRESS Observed: 01/05/2018 Status: COMPLETED Source: [facility] 11:04 AM [facility] REPOSITORY HNO ID: [id number] Author: Enzo Brand Service: (none) Author Type: Physician Type: Progress Notes Filed: 01/11/2018 12:24 PM Note Text: I have reviewed the progress note obtained and documented by Dr. Lei and I personally participated in the brito components of care. The following comments revise or confirm relevant brito components of the note. ? 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 BIOMARKERS: EGFR pending ALK negative KRAS Negative BRAF WT MET Negative PDL-1 pending STAGE (AJCC 8): [id number] - Stage IV (solitary brain metastasis, hazel staging by PET) ? PRIOR THERAPY: 1. GK Right Frontal Brain Lesion (solitary) December 30, 2017 ? CURRENT THERAPY: Pending ? NUMBER OF PLANNED CYCLES: N/A ? SPECIAL MEDICAL ISSUES: 1. 6.5 cm AAA 2. 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 Left hydronephrosis ? PALLIATIVE CARE PROVIDER: [] INTERVAL HISTORY: ? Ms. Choi for follow-up for her metastatic lung cancer. She tolerated gamma knife well. She continues to have significant pulmonary symptoms from her COPD and overall stable. No new bony pains or focal neurological symptoms. ? PAST MEDICAL HISTORY: Hypertension Dyslipidemia COPD 2 L nasal cannula at home Glaucoma ? PAST SURGICAL HISTORY: None ? ALLERGIES:Reviewed and updated in the electronic medical record ? MEDICATIONS: Reviewed and updated in the electronic medical record ? SOCIAL HISTORY: Tobbacco: 45-50 pack years ? FAMILY HISTORY: Brother ocular cancer later age no other first or second degree relatives with malignancy REVIEW OF SYSTEMS: Otherwise negative beyond that noted in the interval history ?10 systems ? PHYSICAL EXAM: BP 127/55 Pulse 84 Temp 36.7 ?C (98.1 ?F) (Oral) Resp 18 Wt 64 kg (141 lb 3.2 oz) SpO2 97% BMI 27.76 kg/m? Per Dr. Lei LABORATORES: ? ASSESSMENT/PLAN: Metastatic lung cancer. PET scan shows no other evidence of disease besides the left lung pulmonary lesion. Mediastinal and hilar areas are negative for malignant lymphadenopathy. Outside of the brain lesion there is no other evidence of metastatic disease. I discussed the case with Dr. Ruffin and our recommendation is to consider stereotactic radiotherapy to the left lung lesion. I believe I more likely to cause harm than benefit with systemic chemotherapy given her frail nature and severe COPD and we would watch closely after the completion of radiation. ? ? Enzo Brand MD Cc: Rebecca Dorman, PAC - (Inactive), In Basket (Inactive) - User (Inactive) [address] [place] [address] DR [place] [id number] () OPERATIVE NO Observed: 12/30/2017 Status: COMPLETED Source: [facility] 6:28 PM [facility] REPOSITORY HNO ID: [id number] Author: Kerri Mays Service: Neurosurgery Author Type: Physician Type: Operative Report Filed: 12/30/2017 6:28 PM Note Text: [facility] [address] [place] [address] [place] OPERATIVE REPORT NAME: Guadalupe Choiomi [facility] NO.: [id number] RADIATION TREATMENT START DATE AND TIME: 2017-12-30, 09:45 RADIATION TREATMENT END DATE AND TIME: 2017-12-30, 13:35 PREOPERATIVE DIAGNOSIS: Metastasis, lung POSTOPERATIVE DIAGNOSIS: Same OPERATION: Stereotactic frame application and gamma knife radiosurgery. ANESTHESIA: Locally injected 1% Lidocaine with intravenous anxiolytic Versed. SURGEON: Kerri Mays M.D. - Frame placement and planning, immediately available for all other aspects of case. RADIATION ONCOLOGIST: Janeth Santiago M.D. ASSISTANTS: NONE SPECIMEN: None EBL: 0 ccs OPERATIVE INDICATIONS: The full clinical history and indications for treatment were discussed in the initial neurosurgery visit note. The indications, risks, benefits, and alternatives were discussed with the patient who asked us to proceed. The patient is aware that this may be one of several staged procedures in the management of this disorder. OPERATIVE FINDINGS: DESCRIPTION OF PROCEDURE: The patient was admitted to the [facility] Center where intravenous access was obtained. The [place] stereotactic frame was placed with the use of intravenous sedation and local anesthetic. The frame was placed without any difficulty and appropriate stereotactic measurements were made. The patient then underwent stereotactic imaging. The scans were loaded in the planning computer and Le[place]ell gamma plan was used to perform stereotactic radiosurgery dose planning. The lesion was treated as follows: Target 1 (r_fr) Location: right frontal Prescription: 18 Gy to the 52% local isodose line The plan uses 10 shots covering 100% of the target. Target Volume: 8.6 cc Max linear size: 2.8 cm Conformality Index (PIV/TV) = 1.279 Complexity: Simple Gradient Index: 2.7 Number of Fractions: 1 After the usual quality specialist procedures were performed, stereotactic radiosurgery was delivered with use of the Gamma Knife. Following the completion of the last shot, the stereotactic frame was removed and the pin sites were dressed. The Gamma Knife checklist and time outs were performed during this procedure. Kerri Mays M.D. CT BRAIN STEREOLOCAL WO Observed: 12/30/2017 Status: F Source: [facility] 10:47 AM [facility] REPOSITORY * * *Final Report* * * DATE OF EXAM: Dec 30 2017 10:47AM [facility] 0503 - CT BRAIN STEREOLOCAL WO IVCON / PROCEDURE REASON: multiple diagnoses * * * * Physician Interpretation * * * * COMPARISONS: 12/30/2017 MRI. HISTORY: Brain neoplasm/metastatic disease preintervention. TECHNIQUE: Head CT without contrast. MQ: [id number]_3 CT Dose-Length Product (DLP): 1253 mGy*cm CT Dose Reduction Employed: No dose reduction techniques were required RESULT: HEAD CT: Patient's head placed in stereotactic frame. Streak artifact limits study sensitivity. Partially calcified high density focus within right frontal lobe represents patient's known metastasis with brain changes (better appreciable on MRI). There is questionable extend up to the dural lining with questionable mild dural thickening on MRI (not appreciated on CT examination). Stable senescent changes allowing for change in modality. Overall brain and bones and soft tissues are stable from prior disease. No herniation is noted. No additional lesions are identified on current exam. IMPRESSION: Satisfactory preintervention imaging. Charging Operator: PSCB Transcribe Date/Time: Dec 30 2017 10:57A Dictated by : RAVIN TERRELL MD This examination was interpreted and the report reviewed and electronically signed by: RAVIN TERRELL MD on Dec 30 2017 11:02AM EST [id number] PROGRESS Observed: 12/30/2017 Status: COMPLETED Source: [place] 10:43 AM [facility] REPOSITORY HNO ID: [id number] Author: Bertram Jacobsen) KAYLA Jones Service: Radiology Author Type: Clinical Blast Furnace Keeper Helper Type: Progress Notes Filed: 12/30/2017 10:44 AM Note Text: Radiology Service Progress Note PATIENT NAME: Debbie Choi DATE OF SERVICE: December 30, 2017 TIME: 10:43 AM PATIENT IDENTITY VERIFICATION COMPLETED USING TWO (2) METHODS: Patient confirmed name verbally and ID band matches.. PATIENT GENDER DATA: Female. status: : No status: NO. PATIENT RELEVANT IMPLANT DATA REVIEWED: Yes RADIOLOGY DEPARTMENT: CT; Exam(s) Completed: Brain gamma PERIPHERAL IV DATA: Not applicable SIGNED BY: KAYLA Morelos December 30, 2017 10:43 AM CNOV Observed: 12/30/2017 Status: COMPLETED Source: [place] 8:15 AM [facility] REPOSITORY Office Visit (NOGKCA) DEBBIE CHOI ([id number]) 1940 F Date Time Provider Department 12/30/17 8:15 AM [facility] MARGARET BETANCOURTRosalio During your visit today, we recorded the following information about you: Pulse Respiration Blood pressure 80/minute 15/minute 105/52 Hortencia Tay 12/30/2017 3:38 PM Signed December 30, 2017 0730 Debbie Choi arrived wheelchair with daughter from imaging after MRI completed. Debbie here for Gamma Knife Stereotactic Radiosurgery. ID verified with patient with two identifiers, name and birthdate. ID band applied. Hortencia Chong Debbie assessed for the following: Does Debbie have any pain? No. Pain 0 on scale of 0-10 Does Debbie have: Unintentional weight loss or gain of greater than 10 pounds due to a change of appetite and/or intake: no Difficulty chewing and/or swallowing: no Fall risk assessment: At risk due to: use of a wheelchair Difficulty performing or completing routine daily living activities: Yes Concerns about physical or emotional abuse: no Allergies reviewed with patient, yes. Glasses: Yes . Dentures:Yes Hearing Aid: No Transportation home verified: yes, with daughter. HANDP done, dated: . IV site: #20 Angiocath inserted in left arm prior to arrival to GK. Hortencia Tay Debbie positioned in sitting position for stereotactic frame application. UNIVERSAL PROTOCOL / SAFETY CHECKLIST Procedure to be performed: Gamma Knife headframe placement. Sign in communication: Completed. 0942 Time Out.: Team Confirms the Correct Patient, Correct Procedure, Correct Site and Site Marking, Correct Position. Hortencia Tay 0945 Versed 0.5 mg IV per order of Dr. Mays for anxiolysis, Hortencia Tay. 0947 Head frame # 2042 and pinset # 1 used for frame placement by Dr. Mays. Sign Out Discussion: Completed. Post frame scannin Report called to nurse [place]ning[place]. To CT scan via wheelchair. 1050 CT scan completed. Debbie returned to [facility] center waiting with family. Nutrition offered. Debbie updated regarding treatment planning. 1215 Decadron 10mg IV pre-Gamma Knife per order of Dr. Mays, Hortencia Tay 1245 Patient assisted to treatment room. Gamma Knife SRS begun. 1330 Gamma Knife Stereotactic Radiosurgery completed. Debbie assisted to exam bed. 1333 Morphine 1 MG IV given 1335 Head frame removed. 1340 Four pinsite wounds cleansed with hydrogen peroxide, antibiotic ointment applied, Band-Aids to Frontal area pin sites. Heplock dc'd. Hortencia Chong Does Debbie have any pain post frame removal? No. Pain 0 on scale of 0-10 Debbie is able to move within pre-procedural abilities. Discharge Information: Written and verbal post-procedural discharge instructions given to Debbie with stated understanding. Reviewed pin site care of cleansing pin sites twice a day x3-4 days and application of antibiotic ointment to sites. To keep pin sites clean/dry, do not wash hair/scalp for 48 hours post Gamma Knife Radiosurgery. Keep head elevated on 2 pillows x1 week to minimize pin site swelling. May take Ibuprofen or Tylenol for discomfort. Discharge prescriptions eScripted to pharmacy of choice: Yes Decadron (Dexamethasone) 1.Take 4 mg (1 tablet) three times a day for 4 days then 2.Take 4 mg (1 tablet) twice a day for 4 days then 3.Take 4 mg (1 tablet) once a day for 4 days then 5.Take 2 mg (1/2 tablet) once a day for 4 days then 6.Take 2 mg (1/2 tablet) every OTHER day for 4 days then 7.Stop the Decadron Take Pepcid (20 mg) twice a day while on Decadron. Stop Pepcid when you stop the Decadron. . Local and toll free telephone numbers for [facility] Center/Gamma Knife nurse, hours of availability, Dr. Mays's clinic telephone number, and [facility] local and toll free numbers given to Debbie and family/visitors. 1410 Patient IV DCED 1420 Debbie left wheelchair with daughter. Hortencia Tay Referring Provider: KERRI MAYS [[id number]] Allergies As of Date: 12/30/2017 (No Known Allergies) Date Reviewed: 12/30/2017 Reviewed by: Hortencia Tay - Fully Assessed Reason for Visit: Procedure [88] Cmt: Gamma Knife SRS Primary Visit Diagnosis:Brain mass [G93.9] Order(s):dexamethasone (DECADRON) 4 mg [id number] TID x4 days, then 4mg bid x4 days,then 4mg daily x4 days, [id number] daily x4days, then 2mg every other day x4 days then stop.Disp: 28 tabletRfl: 0 famotidine (PEPCID) 20 mg tabletTake 1 tablet by mouth twice daily. WHILE TAKING DECADRON. STOP PEPCID WHEN FINISHED TAKING DECADRONDisp: 40 tabletRfl: 0 Prescriptions as of 12/30/2017 Sig: DEXAMETHASONE 4 MG TABLET Take 1 tablet by mouth twice * Patient not taking: Reported on 01/19/2018 PANTOPRAZOLE 40 MG TABLET,DEL* Take 1 tablet by mouth DAILY * Patient not taking: Reported on 01/19/2018 MIRTAZAPINE 15 MG TABLET Take 15 mg by mouth daily at * LATANOPROST 0.005 % EYE DROPS INSTILL 1 DROP INTO BOTH EYES* LISINOPRIL 20 MG-HYDROCHLOROT* Take 1 tablet by mouth once d* PRAVASTATIN 40 MG TABLET once daily. ADVAIR DISKUS 250 MCG-50 MCG/* once daily. PROAIR HFA 90 MCG/ACTUATION A* INHALE 2 (TWO) PUFFS EVERY 4-* IPRATROPIUM-ALBUTEROL 0.5 MG-* USE ONE VIAL VIA NEBULIZER EV* DEXAMETHASONE 4 MG TABLET 4mg TID x4 days, then 4mg bid* Patient not taking: Reported on 01/19/2018 FAMOTIDINE 20 MG TABLET Take 1 tablet by mouth twice * Patient not taking: Reported on 01/19/2018 MULTIVITAMIN TABLET Take 1 tablet by mouth once d* CHOLECALCIFEROL (VITAMIN D3) * Take by mouth once daily. VITAMIN E ORAL Take by mouth once daily. 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 Brain metastases (HCC) [C79.31] INVALID FOR* More... Prescriptions ordered this encounter Disp Refills Start End DEXAMETHASONE 4 MG TABLET 28 t* 0 12/31/2017 Simg TID x4 days, then 4mg bid x4 days,then 4mg daily x4 days, otud4se daily x4days, then 2mg every other day x4 days then stop. FAMOTIDINE 20 MG TABLET 40 t* 0 12/31/2017 Route: ORAL Sig: Take 1 tablet by mouth twice daily. WHILE TAKING DECADRON. STOP PEPCID WHEN FINISHED TAKING DECADRON Follow-up and Disposition History Recorded Letter Text Debbie Choi [id number] [facility] Discharge Instructions - As with any surgery there are risks and potential side effects. There is a slight chance of developing brain swelling days or months after the Gamma Knife radiosurgery. If you experience nausea, vomiting, severe headache, visual changes, difficulty speaking, a seizure or any other symptom unusual for you, contact your physician immediately or go to the nearest emergency room. These may or may not be symptoms of brain swelling. If you go to a physician or hospital other than the [facility] with any problem related to the Gamma Knife procedure, please notify the Gamma Knife nurse. - Keep the pin sites clean and dry. You may remove the bandaids from the pin sites the morning after your radiosurgery. Clean the sites twice a day with hydrogen peroxide or mild soap and water. You may then apply a small amount of antibiotic ointment such as Neosporin or Bacitracin to the pin sites for 3-4 days. Bandaids over the pin sites for 2-3 days are sufficient. Often the sites on the back of your head will not have bandaids, as the bandaid will not adhere to hair. A small amount of pink drainage on your pillow the first or second night after your radiosurgery is not unusual. The pin sites may be tender to the touch, as with any small wound, for 3-4 days. Infection of the pin sites is very rare. If a couple days post-radiosurgery you notice increased pain, redness, swelling, the pin sites feel hot to the touch, a cloudy or foul smelling drainage from the pin sites, or a fever of 101 degrees F or higher, contact your physician. - You may wash your hair/scalp 48 hours after your radiosurgery. This gives the pin sites a chance to begin to heal and not introduce any infection into the wounds. - Avoid wearing tight bands or wigs over the pin sites for a few days. This gives the wounds a chance to heal in a dry, clean environment. - Keep your head elevated on a couple of pillows for one week. This will help lessen swelling at the pin sites and minimize pressure within your head. Occasionally patients will notice a small amount of swelling or slight bruising at the pin sites. This swelling may even spread to below your eyes. Applying ice packs to the affected area may help lessen the amount of swelling. This swelling usually lasts less than a week. - Rarely, patients experience pain the day after their radiosurgery. You may take non-aspirin pain medication, such as Ibuprofen or Tylenol, if you are having any discomfort. - Some patients are placed on steroids, such as Decadron, and an antacid, such as Pepcid, following their radiosurgery. Certain conditions require these medications to lessen the chance of swelling around the treated area. When prescribed, these medications are extremely important in the period immediately following your Gamma Knife treatment and must be taken exactly as directed. Start the day after your Gamma Knife procedure: Decadron (Dexamethasone) 1. Take 4 mg (1 tablet) three times a day for 4 days then 2. Take 4 mg (1 tablet) twice a day for 4 days then 3. Take 4 mg (1 tablet) once a day for 4 days then 5. Take 2 mg (1/2 tablet) once a day for 4 days then 6. Take 2 mg (1/2 tablet) every OTHER day for 4 days then 7. Stop the Decadron Take Pepcid (20 mg) twice a day while on Decadron. Stop Pepcid when you stop the Decadron. - Taking good care of your general health is an important step to recovery. Continue to eat well and get plenty of rest. At the time of discharge, you will be given your follow-up appointments with your neurosurgeon and radiation oncologist. If not, these appointment dates and times will be mailed to you. If you have any questions or problems, you may call the Gamma Knife nurse Wednesday through 8:00 am to 4:00 pm at [phone] or toll-free or your physician, Dr. Mays at Wednesday through Wednesday 8:00 am to 5:00 pm. 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 Encounter Status:Closed by HORTENCIA TAY on 12/30/17 PROGRESS Observed: 12/30/2017 Status: COMPLETED Source: [place] 8:03 AM [facility] REPOSIT[facility] HNO ID: [id number] Author: Hortencia Tay Service: (none) Author Type: (none) Type: Progress Notes Filed: 12/30/2017 3:38 PM Note Text: December 30, 2017 8125 Debbie Choi arrived wheelchair with daughter from imaging after MRI completed. Debbie here for Gamma Knife Stereotactic Radiosurgery. ID verified with patient with two identifiers, name and birthdate. ID band applied. Hortencia Chong Debbie assessed for the following: Does Debbie have any pain? No. Pain 0 on scale of 0-10 Does Debbie have: Unintentional weight loss or gain of greater than 10 pounds due to a change of appetite and/or intake: no Difficulty chewing and/or swallowing: no Fall risk assessment: At risk due to: use of a wheelchair Difficulty performing or completing routine daily living activities: Yes Concerns about physical or emotional abuse: no Allergies reviewed with patient, yes. Glasses: Yes . Dentures:Yes Hearing Aid: No Transportation home verified: yes, with daughter. HANDP done, dated: . IV site: #20 Angiocath inserted in left arm prior to arrival to [facility]. Hortencia Tay Debbie positioned in sitting position for stereotactic frame application. UNIVERSAL PROTOCOL / SAFETY CHECKLIST Procedure to be performed: Gamma Knife headframe placement. Sign in communication: Completed. 0942 Time Out.: Team Confirms the Correct Patient, Correct Procedure, Correct Site and Site Marking, Correct Position. Hortencia Tay 0945 Versed 0.5 mg IV per order of Dr. Mays for anxiolysis, Hortencia Tay. 0947 Head frame # [id number] and pinset # 1 used for frame placement by Dr. Mays. Sign Out Discussion: Completed. Post frame scannin Report called to nurse Gorge. To CT scan via wheelchair. 1050 CT scan completed. Debbie returned to Gamma Knife center waiting with family. Nutrition offered. Debbie updated regarding treatment planning. 1215 Decadron 10mg IV pre-Gamma Knife per order of Dr. Mays, Hortencia Tay 1245 Patient assisted to treatment room. Gamma Knife SRS begun. 1330 Gamma Knife Stereotactic Radiosurgery completed. Debbie assisted to exam bed. 1333 Morphine 1 MG IV given 1335 Head frame removed. 1340 Four pinsite wounds cleansed with hydrogen peroxide, antibiotic ointment applied, Band-Aids to Frontal area pin sites. Deandre rojo. Hortencia Chong Does Debbie have any pain post frame removal? No. Pain 0 on scale of 0-10 Debbie is able to move within pre-procedural abilities. Discharge Information: Written and verbal post-procedural discharge instructions given to Debbie with stated understanding. Reviewed pin site care of cleansing pin sites twice a day x3-4 days and application of antibiotic ointment to sites. To keep pin sites clean/dry, do not wash hair/scalp for 48 hours post Gamma Knife Radiosurgery. Keep head elevated on 2 pillows x1 week to minimize pin site swelling. May take Ibuprofen or Tylenol for discomfort. Discharge prescriptions eScripted to pharmacy of choice: Yes Decadron (Dexamethasone) 1.Take 4 mg (1 tablet) three times a day for 4 days then 2.Take 4 mg (1 tablet) twice a day for 4 days then 3.Take 4 mg (1 tablet) once a day for 4 days then 5.Take 2 mg (1/2 tablet) once a day for 4 days then 6.Take 2 mg (1/2 tablet) every OTHER day for 4 days then 7.Stop the Decadron Take Pepcid (20 mg) twice a day while on Decadron. Stop Pepcid when you stop the Decadron. . Local and toll free telephone numbers for Gamma Knife Center/Gamma Knife nurse, hours of availability, Dr. Mays's clinic telephone number, and [facility] local and toll free numbers given to Debbie and family/visitors. 1410 Patient IV DCED 1420 Debbie left wheelchair with daughter. Hortencia Chong MRI BRAIN LOCAL W Observed: 12/30/2017 Status: F Source: [place] 7:16 AM [facility] RE[facility]ORY * * *Final Report* * * DATE OF EXAM: Dec 30 2017 7:16AM MICHAEL 0289 - MRI BRAIN LOCAL W IVCON / PROCEDURE REASON: multiple diagnoses * * * * Physician Interpretation * * * * EXAMINATION: MRI BRAIN LOCAL W IVCON HISTORY: Brain mass. 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 TECHNIQUE: Localization protocol including postcontrast T1-weighted scans. No MRA. MR Contrast: Dotarem MR Contrast Volume (ml): 11 MR Contrast Route of Administration: IV RESULT: Localization protocol MR brain was performed. Redemonstration of enhancing lesion centered in the right precentral gyrus (image 61 series 2) which measures 2.5 x 2.7 cm in greatest axial dimensions, slightly increased compared with prior study previously measuring 2.3 x 2.3 cm. There is likely peripheral enhancement. Mildly increased central T1 hyperintensity may represent enhancement and/or a component of internal blood products, noting absence of precontrast T1 imaging limits evaluation for this. There is mild surrounding vasogenic edema which is stable in extent compared with prior study. Mass effect with partial effacement of the central sulcus and right lateral ventricle but no midline shift. No new enhancing intracranial lesions are identified. No leptomeningeal enhancement. Scattered foci of white matter T1 hypointensity are consistent with chronic microvascular ischemic changes. The vascular structures are patent. Partial opacification of bilateral mastoid air cells again seen, with enhancement not excluded. IMPRESSION: Slightly increased size of right posterior frontal mass compared with 12/10/2017. Charging Operator: PSCB Transcribe Date/Time: Dec 30 2017 8:17A Dictated by : VICTORINO COHEN MD This examination was interpreted and the report reviewed and electronically signed by: VICTORINO COHEN MD on Dec 30 2017 8:24AM EST [id number] PROGRESS Observed: 12/30/2017 Status: COMPLETED Source: [place] 7:11 AM [facility] O ID: [id number] Author: Ami Min Mri-T Service: (none) Author Type: (none) Type: Progress Notes Filed: 12/30/2017 7:12 AM Note Text: Radiology Service Progress Note PATIENT NAME: Debbie Choi DATE OF SERVICE: December 30, 2017 TIME: 7:11 AM PATIENT IDENTITY VERIFICATION COMPLETED USING TWO (2) METHODS: Patient confirmed name verbally and ID band matches.. PATIENT GENDER DATA: Female. status: : No status: NO. PATIENT RELEVANT IMPLANT DATA REVIEWED: Yes RADIOLOGY DEPARTMENT: MR; Exam(s) Completed: Head: Localization PERIPHERAL IV DATA: Site assessment: Clean,Dry and Intact, Site disposition Left in for next appointment SIGNED BY: Ami Min Mri-T December 30, 2017 7:11 AM PROGRESS Observed: 12/30/2017 Status: COMPLETED Source: [place] 6:49 AM [facility] REPOSITORY HNO ID: [id number] Author: Anthony (Rn) LEYDA Emmanuel Service: (none) Author Type: Registered Nurse Type: Progress Notes Filed: 12/30/2017 6:55 AM Note Text: Radiology Service Progress Note PATIENT NAME: Debbie Choi DATE OF SERVICE: December 30, 2017 TIME: 6:50 AM PATIENT WEIGHT: 135 LBS PATIENT IDENTITY VERIFICATION COMPLETED USING TWO (2) METHODS: Patient confirmed name verbally and ID band matches.. PATIENT GENDER DATA: Female. status: : No status: NO. CONTRAST INDUCED NEPHROPATHY RISK FACTORS: Patient age > 60 years CREATININE: Creatinine Date Value Ref Range Status 12/15/2017 0.77 0.58 - 0.96 mg/dL Final 12/14/2017 0.69 0.58 - 0.96 mg/dL Final 12/12/2017 0.70 0.58 - 0.96 mg/dL Final eGFR-All Other Races Date Value Ref Range Status 12/15/2017 >60 . Final Comment: eGFR (Estimated GFR) Units of measure: mL/min/1.73 meters squared eGFR is derived from the reexpressed MDRD Study equation using the following parameters: serum creatinine, age, gender and race. The creatinine assay has been calibrated to be traceable to IDMS. An eGFR <60 mL/min/1.73m2 for >3 months is consistent with chronic kidney disease. Refer to KDOQI guidelines for clinical interpretation. In patients with unstable renal function, e.g. those with acute kidney injury, the eGFR may not accurately reflect actual GFR. eGFR- Date Value Ref Range Status 12/15/2017 >60 Final P.O.C.T. RESULTS: N/A December 30, 2017 TREATMENT: No Hydration needed. ALLERGIES: Reviewed and unchanged CONTRAST ALLERGY: NO. IV SITE: Ambulatory: A peripheral IV was started in the Left antecubital site with a Angio cath: 20 gauge. and A Saline lock was inserted per protocol IV SITE APPEARANCE: Clean,Dry and Intact SIGNED BY: Anthony Emmanuel RN December 30, 2017 6:50 AM PROGRESS Observed: 12/30/2017 Status: COMPLETED Source: [place] 12:00 AM [facility] REPOSITORY HNO ID: [id number] Author: Janeth Santiago Service: Radiation Oncology Author Type: Physician Type: Progress Notes Filed: 12/31/2017 12:34 AM Note Text: DEBBIE CHOI [id number] 12/30/2017 [facility] Department of Radiation Oncology [facility] RADIATION ONCOLOGY GAMMA KNIFE TREATMENT PLANNING NOTE For reasons stated in the consult note, DEBBIE CHOI is a candidate for palliative radiosurgery. Based on review and interpretation of the relevant diagnostic studies together with the exam findings, DEBBIE CHOI was imaged on 12/30/2017. The imaging was fused into Gamma Plan and the target volume to be treated as well as the critical normal structure(s) were delineated. After participating in the treatment planning process with neurosurgery and medical physics, I approved the best plan to deliver my prescribed course of radiosurgery. The target tissue was planned using Gamma Plan to allow for the best isodose distribution and dosimetry/DVH. The dose to normal tissue and target tissue was confirmed upon review of the calculated dose. A completed summary of this plan dated 12/30/2017 incorporated herein by reference includes dose, isodose distribution and DVH. Electronically Signed Janeth Santiago M.D. / VILMA 12/30/20174:21 PM PROGRESS Observed: 12/30/2017 Status: COMPLETED Source: [place] 12:00 AM [facility] REPOSITORY HNO ID: [id number] Author: Janeth Santiago Service: Radiation Oncology Author Type: Physician Type: Progress Notes Filed: 01/01/2018 12:34 AM Note Text: DEBBIE CHOI [id number] 12/30/2017 [facility] Department of Radiation Oncology [facility] RADIATION ONCOLOGY: COMPLETION NOTE DATE OF TREATMENT: December 30, 2017 UNIT: Gamma Knife AREA TREATED: right frontal DISEASE: 77 year old female with lung SIMRAN adenocarcinoma 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 The plan utilized 10 shots using 16 mm and 8 mm sectors. Target volume = 8.6 cc. Maximum dose = 3460.0 cGy. Maximum diameter = 2.8 cm. MD/PD = 1.922. PIV/TV = 1.279. Gradient Index = 2.7. Number of Fractions = 1. 1 separate treatment plan was devised. Authorized user was present during the entire treatment. The total treatment time was within 10% of the written directive. ELAPSED TREATMENT TIME: 31 minutes (one session). Start time: 12:57 p.m./Stop time: 1:28 p.m. TOLERANCE: Excellent. RESPONSE: To be evaluated. REMARKS: The patient will follow-up in 2 months with repeat MRI scan. Signed Janeth Santiago M.D./ cc: Rebecca Dorman, [facility] [address] [place] [address] [place] [address] [place] [address] Dr. Monalisa Brand, CC Dr. Adin Mays, CC 12 LEAD ELECTROCARDIOGRAM Observed: 12/28/2017 Status: F Source: [place] 8:38 AM [facility] Cardiovascular Services [address] [place] [address] 12 Lead EKG 12/25/17 1027 MR#: [id number] Acct: [id number] Name: DEBBIE CHOI Rep #: [id number] : 1940 77 From: Jairon Steven MD Attending Dr: Status: DEP ER Ordering Dr: Jairon Waldrop DO Date: 12/25/17 Location: ED Sex: F C Admitted: Test Reason : SOB Blood Pressure : / mmHG Vent. Rate : 143 BPM Atrial Rate : 084 BPM P-R Int : 134 ms QRS Dur : 072 ms QT Int : 354 ms P-R-T Axes : 048 -13 057 degrees QTc Int : 546 ms Sinus rhythm Possible Left atrial enlargement Low voltage QRS Inferior infarct , age undetermined Cannot rule out Anterior infarct , age undetermined Abnormal ECG Confirmed by JAIRON STEVEN ([id number]), electronic news gathering editor LAVERNE HEMPHILL ([id number]) on 12/28/2017 8:37:56 AM Referred By: RAIN Confirmed By:JAIRON STEVEN 12/28/17 0838 Date Jairon Steven MD CC: CHALO DORMAN; Jairon Waldrop DO Signed EMERGENCY DEPARTMENT Observed: 12/25/2017 Status: F Source: [place] SUMMARY 4:16 PM [facility] [place] [facility] Medical Records Department [address] [place] [address] Emergency Department Summary 12/25/17 1038 MR#: [id number] Acct: [id number] Name: DEBBIE CHOI Rep #: [id number] : 1940 77 From: Jairon Waldrop DO PCP: CHALO JURADO Status: DEP ER - ER Visit Summary Date of Service: 12/25/17 Chief Complaint: Multiple conditions for evaluation History of Present Illness: The patient is a 77 F who is brought in by her family stating that they were told if anything is different to come to the emergency room. She has a history of lung cancer with brain metastasis. She is set to get gamma knife radiation treatment on the brain next week. Family states for the past several days she has had swelling in the legs. She states that that has not been a problem in the past. Family also notes that she has had what appears to be a pustule in the right axilla that they were using warm compresses for which had gotten better but now is worse and now they note some satellite pustules. The larger lesion had been draining pus. Patient is on chronic home oxygen. History of COPD. She is currently on dexamethasone. Physical Examination: Afebrile vital signs stable Gen: Well-nourished well-developed Head: Normocephalic atraumatic Eyes: Perrl EOMI ENT: TMs clear no rhinorrhea moist mucous membranes Neck: Supple no lymphadenopathy no JVD nontender CVS: Regular rate rhythm no murmurs normal S1-S2 Respiratory: Tachypneic clear to auscultation bilaterally chest nontender Abdomen: Soft nontender nondistended normal bowel sounds no masses Back: Nontender Extremity: Nontender 1+ bilateral lower extremity edema pitting Skin: Normal color no rash in the right axilla there are several small pustules surrounding a firm rubbery apparent abscess. There is a central crater with granulation tissue in it. There is no overt cellulitis. Neuro: alert orientated 3 CN II-XII intact Psych: Normal affect normal mood Test Results: EKG shows a sinus rhythm at a rate of 85 without ectopy. This appears unchanged from December 10, 2017. White count 23.3. Creatinine 0.74. BUN 25. Troponin 0 0.027. Beta natruretic peptide 181.8. Chest x-ray showed COPD and lung mass. CT Zehra of the chest does not demonstrate pulmonary embolism. Is no evidence of superior vena cava syndrome. Emergency Department Course and Treatment: Bedside ultrasound of the lesion in the axilla I do not see any obvious drainable abscess. Patient will be started on Keflex and Bactrim. For the lymphedema we will do Lasix and I advised compression stockings. Follow-up with primary care. Return if worsening or concerns Impression: 1. Lymphedema 2. Right axillary abscess 3. Metastatic lung cancer This note was generated with [employer] dictation software. It may contain incorrect words, spelling, and punctuation that were not noted in review of the chart prior to signing ED Disposition - Plan for ED Patient: Disposition: Home or Assisted Living Chief Complaint: Edema Instructions: ED Staph Infec Abx Tx Only, ED Lymphedema Prescriptions: Cephalexin [Keflex] 500 mg PO Q6 #28 cap Furosemide [Lasix] 40 mg PO DAILY #7 tab Smz/Tmp Ds [Bactrim Ds] 1 tab PO BID #14 tab Referrals: Rebecca Dorman PA [Primary Care Provider] - 5-7 Days What to do if you have Problems For any increased pain, shortness of breath, bleeding, nausea or vomiting, chest pain, or any unexpected problems, contact your Primary Care Provider. Call [facility] ([phone]) or report to the closest Emergency Room. Call 911 if necessary. 12/25/17 7176 <Electronically signed by Jairon Waldrop DO> Date Jairon Waldrop DO [facility] Signature (If Indicated): Date CC: CHALO DORMAN CTA CHEST W/WO Observed: 12/25/2017 Status: F Source: [place] CONTRAST 11:51 AM [facility] [place] [facility] Imaging Services [address] [place] [address] CTA Chest W/WO Contrast MR#: [id number] Acct: [id number] Name: DEBBIE CHOI Rep #: [id number] : 1940 F 77 From: Alexus Gunderson MD PCP: CHALO JURADO Status: REG ER Study: CTA Chest W/WO Contrast Date of Exam: 12/25/17 Exam# [id number] Ordering Dr: Jairon Waldrop DO STUDY: CTA CHEST REASON FOR EXAM: Female, 77 years old. Shortness of breath bilateral lower extremity edema, sores in the right axilla Stage IV lung cancer brain metastases smoker hypertension COPD RADIATION DOSAGE (If Supplied By Facility): CTDIvol = ( 8.99 ) mGy, DLP = ( 353.84 ) mGycm TECHNIQUE: The examination was performed with the intravenous administration of 100 ml of Isovue 370 contrast material. Post-processing of the angiographic images was performed, with multiplanar reformation and 3D reconstruction. Individualized dose optimization techniques were used for this CT. COMPARISON: CTA chest April 07, 2017 FINDINGS: The right upper extremity is partially visualized on this study and there is partial visualization of a mass which may be extending out of the skin on the axillary view. This is also seen coronal view which there is a mass underlying the skin measuring 1.4 x 1.2 cm. Normal enhancement of the main pulmonary artery and right and left pulmonary arteries. Normal enhancement of the bilateral peripheral pulmonary arteries. There is no demonstrated pulmonary embolism. The aorta is tortuous partially calcified. The aorta is aneurysmal in the descending thoracic aorta extending into the hiatus. The aorta at the level of the left pulmonary artery measures 2.9 x 2.6 cm. Allowing for tortuosity aorta measures 2.9 x 3.6 cm towards the hiatus. At the level of the celiac aorta measures 3.7 x 3.0 cm. 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 Aorta at the takeoff of the celiac measures 3.9 x 3.1 cm. In the infrarenal aorta measures 6.4 x 5.5 cm with visualized central luminal contrast enhancement that may measure 2.8 x 2.0 cm. The size of the aortic aneurysm is stable since prior study. There is mild cardiac enlargement. Normal heart and pericardium. There are a few small AP window lymph nodes measuring up to 6 mm. There is a minimal left hilar lymph node. Normal visualized trachea and bronchi. There is a pattern of advanced emphysematous change throughout the lungs. This is especially seen in the right upper lobe. There is a persistent abnormal lobulated spiculated mass with extension to the left upper pleura with thickening that measures 2.9 x 2.1 x 2.3 cm. There is partial visualization of right upper arm skin thickening and a underlying indeterminate mass this is not seen on prior study. There are degenerative changes of thoracic spine. As mentioned above there is a sizable infrarenal aortic aneurysm. Allowing for differences in contrast enhancement there is a lesser contrasted appearance of the aorta within the abdomen. There are persistent bilateral peripelvic cysts. There is a large distended appearance of the duodenum more large 6.4 x 5.4 duodenal diverticulum in the right upper quadrant approximately the level of the second part of the duodenum. CT/CTA Chest W/WO Contrast IMPRESSION: No evidence of pulmonary embolism. Persistent neoplasm in the left upper lobe slightly lesser in size from prior study. Pulmonary emphysema chronic obstructive pulmonary disease. New subcutaneous mass right upper extremity partially visualized on this study. Significant aneurysmal dilatation of the infrarenal aorta. Bilateral peripelvic cysts Large duodenal diverticulum. Electronically Signed: Alexus Gunderson MD at 13:14 EDT Tel , Service support , CC: CHALO DORMAN; Jairon Waldrop DO Charging Operator: Signed CBC W/DIFF, AUTOMATED Collected: 12/25/2017 Status: F Source: [place] 10:30 AM [facility] [place] TYPE CODE TESTS RESULT OUT OF RANGE REFERENCE UNITS LAB L100.1000 4.4-11.0 K/mm3 High WBC 23.3 LAB L100.1200 4.2-5.4 M/mm3 Normal RBC 4.59 LAB L100.1300 12.0-15.0 g/dl Normal HGB 14.7 LAB L100.1400 37-47 % Normal HCT 45.7 LAB L100.1500 81-99 fL High MCV 99.6 LAB L100.1600 27.0-32.0 pg Normal MCH 32.0 LAB L100.1700 32-36 g/gl Normal MCHC 32.2 LAB L100.1810 11.6-14.6 % Normal RDW CV 13.5 LAB L100.1820 35.1-43.9 fl High RDW SD 49.2 LAB L100.1900 150-450 K/mm3 Normal PLT 271 LAB L100.2000 6.2-12.0 fl Normal MPV 9.1 LAB L100.2100 47-70 % High NEUT% 85.2 LAB L100.2200 19-41 % Low LY% 6.2 LAB L100.2300 0-10 % Normal MONO% 7.8 LAB L100.2400 0-5 % Normal EO% 0.2 LAB L100.2500 0-1 % Normal BASO% 0.1 LAB L100.2550 0.0-0.9 % Normal IM GRAN % 0.500 Result Comment: IG% - Immature Granulocytes (promyelocytes, myelocytes and metamyelocytes) > 1% indicates that a LEFT SHIFT is Present. LAB L100.2620 2.0-7.7 X10 3/uL High Absolute Neut 19.8 LAB L100.2720 0.83-4.51 X10 3/ul Normal Absolute Lymph 1.44 LAB L100.4500 Normal SMEAR COMMENT SCANNED Performed By: #### L100.0100 #### [facility] [place], [address] BASIC METABOLIC Collected: 12/25/2017 Status: F Source: [place] PROFILE (BMP) 10:30 AM [facility] [place] CODE TESTS RESULT OUT OF RANGE REFERENCE UNITS LAB L501.0100 74-106 mg/dL High GLU 110 Result Comment: Fasting Glucose result from 100 to 125 mg/dL suggests IMPAIRED HOMEOSTASIS per A.D.A. criteria. Please note revised GLUCOSE reference range effective 2017. LAB L501.1000 7-18 mg/dL High BUN 25 LAB L501.1100 0.55-1.02 mg/dL Normal CREAT,SERUM 0.74 Result Comment: The validity of the calculated GFR AND GFRAA in patients over 70 years has not been determined. Clinical correlation is essential. LAB L501.1110 >60 mL/min Normal EST GFR 81 Result Comment: Non- GFR Calc LAB L501.1115 >60 mL/min Normal EST GFR - AA 97 Result Comment: GFR Calc LAB L501.1255 ml/min Normal Estimated CRCL 33.30 LAB L501.1300 10-20 RATIO High BUN/CRE 33.7 LAB L501.2200 8.5-10 mg/dL Normal .1 CA 8.5 LAB L501.5300 136-14 mmol/L Low 5 NA 135 LAB L501.5600 3.5-5. mmol/L Normal 1 K 3.9 LAB L501.5900 98-107 mmol/L Normal CL 98 LAB L501.6100 21.0-3 mmol/L Normal 2.0 CO2 30.0 LAB L501.6200 5-15 Normal GAP 7 Performed By: #### L500.2500, L500.3400, L501.4010 #### [facility] [address] [place], [address] LIVER PROFILE Collected: 12/25/2017 Status: F Source: [place] 10:30 AM [facility] [place] CODE TESTS RESULT OUT OF RANGE REFERENCE UNITS LAB L501.1500 6.4-8.2 g/dL Low T PROT 6.0 LAB L501.1800 3.2-5.0 g/dL Low ALB 2.9 LAB L501.1950 2.2-4.2 g/dL Normal GLOB 3.1 LAB L501.4100 15-37 U/L Normal AST 19 LAB L501.4305 45-117 U/L Normal ALK P 63 LAB L501.4405 13-56 U/L Normal ALT 26 LAB L501.4600 0.20-1.00 mg/dL Normal T BILI 0.40 LAB L501.4700 0.00-0.30 mg/dL Normal D BILI 0.10 Performed By: #### L500.2500, L500.3400, L501.4010 #### [facility] [address] [place], [address] TROPONIN-I Collected: 12/25/2017 Status: F Source: [place] 10:30 AM [facility] [place] CODE TESTS RESULT OUT OF RANGE REFERENCE UNITS LAB L501.4010 <0.045 ng/mL Normal 0.027 TROPONIN-I Result Comment: TROPONIN-I EXPECTED VALUES <0.045 Negative 0.045 - 0.590 Consistent with Cardiac Damage > OR = 0.600 Critical Value Not every elevated troponin is indicative of GA. These values should be used with clinical judgement in examining the patient's clinical picture for diagnosis. To establish a diagnosis of GA versus myocardial injury, there must be a demonstrated rise and/or fall in the troponin values, in addition to ischemic symptoms, EKG changes, new regional wall motion abnormality, and/or angiographical evidence. PLEASE NOTE: REFERENCE RANGES EDITED 17 Performed By: #### L500.2500, L500.3400, L501.4010 #### [facility] [address] [place], [place], [address] BNP,B-TYPE NATRIURETIC Collected: 12/25/2017 Status: F Source: R[place]GE PEPTIDE 10:30 AM [facility] [place] CODE TESTS RESULT OUT OF RANGE REFERENCE UNITS LAB L503.6620 0-100 pg/mL High B-TYPE 181.8 SONIYA PEP Performed By: #### L503.6620 #### [facility] [address] [place], [address] CHEST 1 VIEW Observed: 12/25/2017 Status: F Source: R[place] (PORTABLE) 10:16 AM [facility] [place] [facility] [address] [place] [address] Chest 1 View (Portable) MR#: [id number] Acct: [id number] Name: DEBBIE CHOI Rep #: [id number] : 1940 F 77 From: Alexus Gunderson MD PCP: CHALO JURADO Status: REG ER Study: Chest 1 View (Portable) Date of Exam: 12/25/17 Exam# [id number] Ordering Dr: Jairon Waldrop DO STUDY: X-RAY CHEST REASON FOR EXAM: Female, 77 years old. Shortness of breath TECHNIQUE: Single AP portable view of the chest. COMPARISON: December 10 2017 chest x-ray CT chest April 07, 2017. April 06, 2017 chest x-ray. FINDINGS: There is a pattern of hyperlucency of the upper lung zones. There are calcifications in the right upper lobe compatible granulomatous disease. There is a left upper lobe suprahilar mass measuring 3.1 x 3.1 cm. This was also demonstrated on prior study April 07, 2017. There is no demonstrated pleural abnormality. Normal size heart. Normal mediastinum and naida. Normal visualized pulmonary arteries. There is atherosclerotic calcification of the aortic arch with tortuosity. Normal visualized thoracic spine. Normal visualized ribs, clavicles, and shoulders. There is no demonstrated abnormality of the visualized soft tissue structures of the upper abdomen. RAD/Chest 1 View (Portable) IMPRESSION: Persistent left upper lobe mass measuring 3.1 x 3.1 cm suspicious for cancer. Chronic obstructive pulmonary disease emphysema. Chronic interstitial markings. Electronically Signed: Alexus Gunderson MD at 11:21 EDT Tel , Service support , CC: CHALO DORMAN; Jairon Waldrop DO Charging Operator: Signed PROGRESS Observed: 12/22/2017 Status: COMPLETED Source: [facility] 2:31 PM [facility] REPOS[facility] HNO ID: [id number] Author: Craig Vikas Ms Service: (none) Author Type: (none) Type: Progress Notes Filed: 12/23/2017 3:46 PM Note Text: Radiation Oncology - New Patient/Consult Note PATIENT NAME: Debbie Choi PATIENT REQUESTING PROVIDER: Krzysztof Chu MD. 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 No additional masses noted on CT C/A/P. She declined biopsy or treatment at that time, saying that given her age she does not want invasive workup and treatment of the lung mass. 12/10/17 She initially presented with 1 day of L handed discoordination. She had a CT done at [facility] which showed R frontal cortical hemorrhage measuring 1.4x1.1 cm with moderate associated edema. MRI at [facility] showed 2.3x2.3 cm posterior R frontal lobe enhancing lesion with moderate degree of surrounding vasogenic edema. 12/13/17 CT C/A/P redemonstrated spiculated SIMRAN mass, measuring 3.2x1.8 cm, and showed no other metastatic sites 12/14/17 Image guided biopsy lung showed adenocarcinoma with extensive necrosis Today, she reports continued worsening of discoordination in L hand as well as weakness. The patient plans to meet with Dr. Mays in Neurosurgery and Dr. Brand in medical oncology later today. ALLERGIES No Known Allergies MEDICATIONS: pantoprazole DR (PROTONIX) 40 mg tablet Take 1 tablet by mouth DAILY (6 AM). dexamethasone (DECADRON) 4 mg tablet Take 1 tablet by mouth twice daily with meals for 8 days. mirtazapine (REMERON) 15 mg tablet Take 15 mg by mouth daily at bedtime. latanoprost (XALATAN) 0.005 % ophthalmic solution INSTILL 1 DROP INTO BOTH EYES AT BEDTIME DIRECTED lisinopril-hydrochlorothiazide (PRINZIDE,ZESTORETIC) 20-12.5 mg per tablet Take 1 tablet by mouth once daily. pravastatin (PRAVACHOL) 40 mg tablet once daily. ADVAIR DISKUS 250-50 mcg/dose dsdv once daily. PROAIR HFA 90 mcg/actuation inhaler INHALE 2 (TWO) PUFFS EVERY 4-6 HOURS NEEDED ipratropium-albuterol (DUONEB) 0.5 mg-3 mg(2.5 mg base)/3 mL nebu USE ONE VIAL VIA NEBULIZER EVERY 4 TO 6 HOURS NEEDED multivitamin tablet Take 1 tablet by mouth once daily. CHOLECALCIFEROL, VITAMIN D3, ORAL Take by mouth once daily. VITAMIN E ORAL Take by mouth once daily. PAST MEDICAL HISTORY Diagnosis Date - AAA (abdominal aortic aneurysm) without rupture (HCC) - Bladder infection - COPD (chronic obstructive pulmonary disease) (HCC) - Dilatation of thoracic aorta (HCC) mild aneurismal dilatation of the descending aorta - Diverticulosis - Duodenal diverticulum large - Emphysema lung (HCC) Advanced - Hepatic steatosis - Hiatal hernia small - CHICK[place] RANCH (hard of hearing) - HTN (hypertension) - Hydronephrosis - Hypercholesterolemia - Lung mass - Pelviectasis left - Smoker Prior radiation therapy, collagen vascular disease, or inflammatory bowel disease: No status: Naturally post-menopausal. 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 RESPIRATORY: Negative, except for productive cough CARDIAC: Negative for chest pain, palpitations, murmurs, or syncopal episodes. GI: Negative for nausea, vomiting, diarrhea, constipation, blood per rectum, or melena. : Negative, except for urgent incontinence MUSCULOSKELETAL: Negative for limitations in movement, pain, or swelling. HEMATOLOGIC: Negative, except for bruises from IV at Hospital visit on 12/10/17 SKIN: Negative for rashes or other skin changes. Neuro detailed: Headache: No Pain: No Pain interventions: none required Fatigue: none Decreased visual acuity: No Diplopia: No Visual Field Changes: No Tinnitus: No Hearing loss: mild Dysphagia: No Decreased balance: none Arm/leg numbness: No Focal weakness: Yes Limb discoordination: Yes Disorientation: none Decreased concentration: none Memory changes: none Word finding difficulty: none Dysarthria: none Seizures: No PHYSICAL EXAM: VS: There were no vitals taken for this visit. KPS: 80 Neuro function score (NFS): NFS 2 General Appearance: Alert and oriented. No acute distress. HEENT: Normal ROM. No palpable cervical or supraclavicular adenopathy. Dentures present in top and bottom of mouth. Chest: No respiratory distress. Lungs clear to auscultation bilaterally. Heart: Regular rate and rhythm. Abdomen: Soft. Nontender. Nondistended. Musculoskeletal: No edema. Normal ROM in extremities. No bone or spine tenderness. Neuro: Speech fluent. CN II-XII intact. Able to recite zipcode backwards. Strength intact except for 4/5 in L arm and L hip flexion. Sensation intact to light touch. Reflexes 2+/4 and symmetric. Normal gait. VISHAL and FNF intact. Negative Romberg. No pronator drift. Dysdiadochokinesia present in left hand. Tandem gait intact. No other focal deficits. Skin: No rashes noted Lymphatics: No palpable lymphadenopathy. RADIOLOGY/LABORATORY DATA: see HPI ASSESSMENT AND PLAN: The patient is a 77 year old right-handed woman with lung SIMRAN adenocarcinoma, Stage GEOFFREY, [id number], and metastasis to R frontal cortex here to discuss radiation therapy to brain metastasis. GKBMET: Primary disease controlled:No, Extracranial disease:Yes, Prior systemic therapy for metastasis:No, # of brain metastases: 1, GTR of brain metastasis:No, Prior WBRT:No, Planned dose (use highest dose for multiple lesions): 18 Gy (per RTOG 9005) We had a long and detailed discussion with the patient and her family today regarding her diagnosis. We discussed in detail the potential risks, benefits, side effects, and alternatives to radiation therapy. All questions were addressed. The patient consents to the recommended plan. Head frame will be used. Radiosurgery will be done in a single fraction using the Gamma Knife Perfexion system, which uses up to 192 beams of radiation. A head CT and brain MRI will be performed the day of the procedure. The images will be co registered for target contouring and treatment planning. The CT scan is necessary to correct for the spatial distortion of the MRI. Both scans will be evaluated by a radiologist and the results will be discussed with the patient. We are awaiting the results of genetic analysis. The patient plans to meet with Dr. Mays in Neurosurgery and Dr. Brand in medical oncology later today to discuss other treatment options. Signed by: Craig Bean, MS4 Staff addendum: Patient was seen and examined with 77 year old right-handed woman with lung SIMRAN adenocarcinoma, Stage GEOFFREY, [id number], and metastasis to R frontal cortex. All parts of the history and PE were confirmed by me. I have reviewed the medical student's note and agree with its content. In summary, this is a 77 year old right-handed woman with lung SIMRAN adenocarcinoma, Stage GEOFFREY, [id number], and metastasis to R frontal cortex. She is being seen at the request of Dr. Chu. PMH, PSH, allergies, medications, social, family history and ROS were reviewed and confirmed by me. A/P: 77 year old right-handed woman with lung SIMRAN adenocarcinoma, Stage GEOFFREY, [id number], and metastasis to R frontal cortex The natural history and treatment options for brain metastases were fully discussed with the patient and family. I reviewed the various treatment options including Gamma Knife radiosurgery. The rationale, risks, benefits, alternatives, consent and personnel of treatment were fully discussed with the patient and family who voiced understanding. All questions were answered. Given size of her metastasis, we may proceed with staged radiosurgery. The patient has given consent to proceed and has signed informed consent. Signed by: [facility] Dept. of Radiation Oncology, [address] [place] [address] cc: Rebecca Dorman, [address] [place] [address] [place] [id number] [place] [address] Dr. Monalisa Brand, [facility] Dr. Adin Mays, [facility] CARRI Observed: 12/22/2017 Status: COMPLETED Source: [facility] 2:10 PM [facility] REPOSITORY Office Visit ([facility]) DEBBIE CHOI ([id number]) 1940 F Date Time Provider Department 12/22/17 2:10 PM KERRI MAYS [facility] During your visit today, we recorded the following information about you: Temperature Pulse Respiration Blood pressure 97.8 degrees 82/minute 16/minute 136/67 Weight Height 61.5 kg 1.519 m Kerri Mays MD 01/04/2018 8:48 PM Signed [facility] REQUESTING PROVIDER: Krzysztof Chu MD. ? 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 HPI: The patient is a 77 year old right-handed woman with lung SIMRAN adenocarcinoma, Stage GEOFFREY, [id number], and metastasis to R frontal cortex here to discuss treatment for her brain metastasis ? Apr 2017 CT chest for PE workup showed spiculated SIMRAN mass 3.1 x 2.2cm and 4mm noncalcified SIMRAN nodule. No additional masses noted on CT C/A/P. She declined biopsy or treatment at that time, saying that given her age she does not want invasive workup and treatment of the lung mass. ? 12/10/17 She initially presented with 1 day of L handed discoordination. She had a CT done at [facility] which showed R frontal cortical hemorrhage measuring 1.4x1.1 cm with moderate associated edema. MRI at [facility] showed 2.3x2.3 cm posterior R frontal lobe enhancing lesion with moderate degree of surrounding vasogenic edema. ? 12/13/17 CT C/A/P redemonstrated spiculated SIMRAN mass, measuring 3.2x1.8 cm, and showed no other metastatic sites ? 12/14/17 Image guided biopsy lung showed adenocarcinoma with extensive necrosis ? Today, she reports continued worsening of discoordination in L hand as well as weakness. She denies any headaches, nausea, vomiting, numbness, seizures, or visual changes. Patient is here today, accompanied by her daughter to discuss treatment options. REVIEW OF SYSTEMS: Constitutional: No recent fever or weight loss. Eyes: No history of glaucoma or cataracts ENMT: No recent ear infection, nasal congestion, mouth sores or sore throat. CV: No history of chest pain, palpitations or leg swelling Respiratory: No history of SOB, wheezing or recent cough. Gastrointestinal: No history of nausea, vomiting, dysphagia or abdominal pain. Genitourinary: No history of hematuria or dysuria. Musculoskeletal: No complaint of arthritis, unstable gait or arm/leg weakness Neurological: No complaint of headache No complaint of tinnitus Complaint of decreased hearing- Both ears. No complaint of diplopia No complaints of blurred vision. No complaint of arm/leg numbness No problem with limb coordination No complaint of syncope No complaints of seizures. No complaints of memory changes or disorientation. PAST MEDICAL HISTORY Diagnosis Date - AAA (abdominal aortic aneurysm) without rupture (HCC) - Bladder infection - COPD (chronic obstructive pulmonary disease) (HCC) - Dilatation of thoracic aorta (HCC) mild aneurismal dilatation of the descending aorta - Diverticulosis - Duodenal diverticulum large - Emphysema lung (HCC) Advanced - Hepatic steatosis - Hiatal hernia small - CH[place]AN[place] (hard of hearing) - HTN (hypertension) - Hydronephrosis - Hypercholesterolemia - Lung mass - Pelviectasis left - Smoker PAST SURGICAL HISTORY Procedure Laterality Date - PAST SURGICAL HISTORY OF 1997 Hysterectomy Social History Marital status: Spouse name: Years of education: Number of children: Social History Main Topics Smoking status: Former Smoker Packs/day: 1.00 Years: 0.00 Types: Cigarettes Quit date: 12/17/2017 Smokeless tobacco: Never Used Comment: trying patch FAMILY HISTORY Problem Relation Age of Onset - other (AAA) Father - other (cerebral aneurysm) Brother Current Outpatient Prescriptions: pantoprazole DR (PROTONIX) 40 mg tablet Take 1 tablet by mouth DAILY (6 AM). dexamethasone (DECADRON) 4 mg tablet Take 1 tablet by mouth twice daily with meals for 8 days. mirtazapine (REMERON) 15 mg tablet Take 15 mg by mouth daily at bedtime. latanoprost (XALATAN) 0.005 % ophthalmic solution INSTILL 1 DROP INTO BOTH EYES AT BEDTIME DIRECTED lisinopril-hydrochlorothiazide (PRINZIDE,ZESTORETIC) 20-12.5 mg per tablet Take 1 tablet by mouth once daily. pravastatin (PRAVACHOL) 40 mg tablet once daily. ADVAIR DISKUS 250-50 mcg/dose dsdv once daily. PROAIR HFA 90 mcg/actuation inhaler INHALE 2 (TWO) PUFFS EVERY 4-6 HOURS NEEDED ipratropium-albuterol (DUONEB) 0.5 mg-3 mg(2.5 mg base)/3 mL nebu USE ONE VIAL VIA NEBULIZER EVERY 4 TO 6 HOURS NEEDED multivitamin tablet Take 1 tablet by mouth once daily. CHOLECALCIFEROL, VITAMIN D3, ORAL Take by mouth once daily. VITAMIN E ORAL Take by mouth once daily. No current facility-administered medications for this visit. ALLERGIES No Known Allergies PHYSICAL EXAMINATION: BP 136/67, Pulse 82, Temp 36.6 ?C (97.8 ?F) (Oral), Resp 16, Ht 151.9 cm (4' 11.8) , Wt 61.5 kg (135 lb 8 oz) , SpO2 95% BMI 26.64 kg/m? BSA 1.61 m? General: Head, Face, Neck: No JVD, or carotid bruits. No thyroid enlargement, tenderness, mass. Eyes: Clear conjunctiva. Non-icteric. CV: Reg S1-S2 without abnormal sounds or murmurs. Respiratory: Clear breath sounds bilaterally Abdomen: Soft, non-tender without organomegaly. Neurological: Higher integrative functions: Oriented to person, place AND time. Memory: Good recent and remote. Attention Span and Concentration: Good. Language: Accurate naming of objects. Good comprehension. Fund of Knowledge: Good. 2nd CN: Full visual peterson. 3rd,4th,6th CN: Pupils (=), round, react to light, full extraocular movements. 5th CN: No decrease in facial sensation, normal corneal reflexes. 7th CN: Facial muscles symmetric and strong. 8th CN: Hears finger rub decreased bilaterally. 9th CN: Good gag. 10th CN: Spontaneous palate movement, full and symmetric. 11th CN: Full strength in shoulder shrug. 12th CN: Tongue protrusion full and midline. Sensation: No decrease in sensation in upper or lower limbs to touch. Musculoskeletal: Gait is normal. Negative romberg and Tandem gait is normal. Motor: 4/5 Left hand frame sample and pattern supervisor. 4*/5 in the left upper limb. Pronator drift in the Left. Myotatic reflexes: 3/4 throughout and symmetrical. Coordination: Rapid alternating movements decreased in the left upper limbs. KPS score:80 Imaging : 12/10/2017 10:47 PM - Radiology, [facility] In Impression IMPRESSION: Enhancing mass lesion posterior right frontal lobe likely reflecting metastatic disease. ?Chronic changes. Charging Operator: BRIAN ? Transcribe Date/Time: Dec 10 2017 10:39P Dictated by : NAY BHANDARI MD This examination was interpreted and the report reviewed and electronically signed by: NAY BHANDARI MD on Dec 10 2017 10:44PM ?EST Results-Findings * * *Final Report* * * DATE OF EXAM: Dec 10 2017 10:21PM ? QBM ? 0295 ?- ?MRI BRAIN WO/W IVCON ?/ PROCEDURE REASON: Intracranial hemorrhage ?? ? * * * * Physician Interpretation * * * * ?EXAMINATION: ?MRI BRAIN WO/W IVCON CLINICAL HISTORY: Intracranial hemorrhage. TECHNIQUE: ?Routine brain MRI protocol without and with contrast including diffusion images. MQ: ?[id number] Contrast: ?11 mL Dotarem IV COMPARISON: None. RESULT: Acute Change: ? There is no evidence of restricted diffusion to suggest an acute infarct. Hemorrhage: ? ?Remote blood degradation byproducts within the mass lesion which is detailed below. Mass Lesion/ Mass Effect: ? ?Peripherally enhancing mass lesion present within the posterior right frontal lobe measuring 2.3 AP by 2.3 transverse centimeters with mixed internal signal intensity and a moderate degree of surrounding vasogenic edema. ?No gross leptomeningeal extension of disease. ?No additional area of abnormal enhancement. Chronic Change: ?Multiple foci of increased T2 and FLAIR signal intensity are present throughout the periventricular white matter of both cerebral hemispheres which is a nonspecific finding but likely the sequelae of chronic small vessel ischemia. Parenchyma: ? Ventricles and cortical sulci are prominent suggesting volume loss. ?The brain parenchyma is otherwise within normal limits of signal intensity and morphology. Ventricles: ? ? Ventriculomegaly corresponds to the degree of parenchymal volume loss. Skull Base: ? ?Hypothalamic and pituitary region are grossly normal. ? Craniocervical junction is normal. No significant marrow replacement process. Vasculature: ? ?Major intracranial arterial structures, and dural venous sinuses show typical flow void, suggesting patency by spin echo criteria. Other: ?Minimal mucosal thickening present within the imaged paranasal sinuses. Postoperative changes involve the left globe. INFORMATION COLLECTED BY: Jose Alejandro Chavez MD Medical Decision Making Data Review: Personal review of medical records: I have reviewed with the patient history, physical exam, the images and the chart as well the above information. I personally participated in the brito components and agree with the above. Treatment Options and Risks: I have discussed the management options and their respective risks and benefits with the patient. We reviewed the radiographic findings ( above) and their significance. We discussed observations, surgery (craniotomy vs biopsy), chemotherapy, radiation and radiosurgery. Of these I believe that Gamma knife radiosurgery is the most appropriate next step. We discussed the Gamma Knife procedure including the specific risks and benefits related to the procedure. The morning of the procedure an IV is started and local anesthetic is injected at four sites into the scalp. A reference frame is then secured to the head at those sites - some discomfort (pressure) is common for the first five to ten minutes but then usually goes away. Measurement are taken and then a head CT and brain MRI will be performed. The images will be co-registered for target contouring and treatment planning. The CT scan is necessary to correct for the spatial distortion of the MRI. Both scans will be evaluated by a radiologist and the results will be discussed with the patient. These are transferred to our planning computer where I define the region(s) to be treated. The radiation oncologist reviews the plan and assigns a dose of radiation. The radiation physicist reviews the plan and confirms the machine is working properly. During this time the patient rests in the waiting area. Treatment typically is in the afternoon. The patient lies down on the treatment couch and the barrelhead inspector is part of a positioning device that will direct, with great accuracy, up to 192 beams of radiation to converge at the point I picked on the computer. The staff will leave the room prior to treatment and the patient will be monitored by 3 television cameras and 2 intercom systems. The patient will then slide into the device up to their lower chest for a variable duration and number of times as required for the treatment plan and then exit. When the treatment is completed, the patient will be taken to the recovery room where the frame will be removed and band aids applied. The patient will be observed, typically for 1/2 to 2 hours then discharged. Postoperative and follow-up instructions will be given prior to discharge. They understand that this treatment will not prevent new lesions and that if unexpected lesions are found on the day of treatment, I will attempt to treat all accessible lesions however, a staged treatment may be required. They also understand that while the lesion likely represents a metastasis related to the primary cancer, diagnostic certainty can only be achieved by direct pathological examination of tissue obtained via an open surgical procedure. Per the patient's request, we will proceed with scheduling the case in the coming days. All questions and issues were addressed with the patient and they appears satisfied with the current plan. Recommendations: As above Medicines: No Change Instructions: Continue present activity Kerri Mays M.D. cc: CHRIS Nelson RN, RN 12/22/2017 2:20 PM Signed Reviewed and confirmed with patient that there were no changes in the the nursing assessment and vitals that were completed on 12/22/2017 during previous provider appointment. Zoë Vazquez RN Referring Provider: JANETH SANTIAGO [[id number]] Allergies As of Date: 12/22/2017 (No Known Allergies) Date Reviewed: 12/22/2017 Reviewed by: Zoë (Rn) LEYDA Vazquez - Fully Assessed Primary Visit Diagnosis:Brain metastases (HCC) [C79.31] Other Visit Diagnosis:Lung mass [R91.8] Prescriptions as of 12/22/2017 Sig: DEXAMETHASONE 4 MG TABLET Take 1 tablet by mouth twice * X PANTOPRAZOLE 40 MG TABLET,DEL* Take 1 tablet by mouth DAILY * MIRTAZAPINE 15 MG TABLET Take 15 mg by mouth daily at * LATANOPROST 0.005 % EYE DROPS INSTILL 1 DROP INTO BOTH EYES* LISINOPRIL 20 MG-HYDROCHLOROT* Take 1 tablet by mouth once d* PRAVASTATIN 40 MG TABLET once daily. ADVAIR DISKUS 250 MCG-50 MCG/* once daily. PROAIR HFA 90 MCG/ACTUATION A* INHALE 2 (TWO) PUFFS EVERY 4-* IPRATROPIUM-ALBUTEROL 0.5 MG-* USE ONE VIAL VIA NEBULIZER EV* MULTIVITAMIN TABLET Take 1 tablet by mouth once d* CHOLECALCIFEROL (VITAMIN D3) * Take by mouth once daily. VITAMIN E ORAL Take by mouth once daily. Problem List As Of Date 12/22/2017 Noted Resolved Thoracoabdominal aortic aneurysm (TAAA) without*INVALID FOR* Stroke (HCC) [I63.9] INVALID FOR* Nicotine use disorder, F17.2 [F17.200] INVALID FOR* Brain mass [G93.9] INVALID FOR* Lung mass [R91.8] INVALID FOR* Visit Notes: >> Zoë (Leyda) LEYDA Vazquez WedDec 22, 2017 2:18 PM Status: Signed Reviewed and confirmed with patient that there were no changes in the the nursing assessment and vitals that were completed on 12/22/2017 during previous provider appointment. Zoë Vazquez RN Encounter Status:Closed by KERRI MAYS MD on 01/04/18 PROGRESS Observed: 12/22/2017 Status: COMPLETED Source: [facility] 1:59 PM [facility] REPOSIT[facility] HNO ID: [id number] Author: Kerri Mays Service: (none) Author Type: Physician Type: Progress Notes Filed: 01/04/2018 8:48 PM Note Text: [facility] CONSULT REQUESTING PROVIDER: Krzysztof Chu MD. ? DIAGNOSIS: 77 year old female with lung SIMRAN adenocarcinoma and metastasis to R frontal cortex, Stage GEOFFREY, [id number] ? HPI: The patient is a 77 year old right-handed woman with lung SIMRAN adenocarcinoma, Stage GEOFFREY, [id number], and metastasis to R frontal cortex here to discuss treatment for her brain metastasis ? Apr 2017 CT chest for PE workup showed spiculated SIMRAN mass 3.1 x 2.2cm and 4mm noncalcified SIMRAN nodule. No additional masses noted on CT C/A/P. She declined biopsy or treatment at that time, saying that given her age she does not want invasive workup and treatment of the lung mass. ? 12/10/17 She initially presented with 1 day of L handed discoordination. She had a CT done at [facility] which showed R frontal cortical hemorrhage measuring 1.4x1.1 cm with moderate associated edema. MRI at [facility] showed 2.3x2.3 cm posterior R frontal lobe enhancing lesion with moderate degree of surrounding vasogenic edema. ? 12/13/17 CT C/A/P redemonstrated spiculated SIMRAN mass, measuring 3.2x1.8 cm, and showed no other metastatic sites ? 12/14/17 Image guided biopsy lung showed adenocarcinoma with extensive necrosis ? Today, she reports continued worsening of discoordination in L hand as well as weakness. She denies any headaches, nausea, vomiting, numbness, seizures, or visual changes. Patient is here today, accompanied by her daughter to discuss treatment options. REVIEW OF SYSTEMS: Constitutional: No recent fever or weight loss. Eyes: No history of glaucoma or cataracts ENMT: No recent ear infection, nasal congestion, mouth sores or sore throat. CV: No history of chest pain, palpitations or leg swelling Respiratory: No history of SOB, wheezing or recent cough. Gastrointestinal: No history of nausea, vomiting, dysphagia or abdominal pain. Genitourinary: No history of hematuria or dysuria. Musculoskeletal: No complaint of arthritis, unstable gait or arm/leg weakness Neurological: No complaint of headache No complaint of tinnitus Complaint of decreased hearing- Both ears. No complaint of diplopia No complaints of blurred vision. No complaint of arm/leg numbness No problem with limb coordination No complaint of syncope No complaints of seizures. No complaints of memory changes or disorientation. PAST MEDICAL HISTORY Diagnosis Date - AAA (abdominal aortic aneurysm) without rupture (HCC) - Bladder infection - COPD (chronic obstructive pulmonary disease) (HCC) - Dilatation of thoracic aorta (HCC) mild aneurismal dilatation of the descending aorta - Diverticulosis - Duodenal diverticulum large - Emphysema lung (HCC) Advanced - Hepatic steatosis - Hiatal hernia small - CHICKEN RANCH (hard of hearing) - HTN (hypertension) - Hydronephrosis - Hypercholesterolemia - Lung mass - Pelviectasis left - Smoker PAST SURGICAL HISTORY Procedure Laterality Date - PAST SURGICAL HISTORY OF 1996 Hysterectomy Social History Marital status: Spouse name: Years of education: Number of children: Social History Main Topics Smoking status: Former Smoker Packs/day: 1.00 Years: 0.00 Types: Cigarettes Quit date: 12/17/2017 Smokeless tobacco: Never Used Comment: trying patch FAMILY HISTORY Problem Relation Age of Onset - other (AAA) Father - other (cerebral aneurysm) Brother Current Outpatient Prescriptions: pantoprazole DR (PROTONIX) 40 mg tablet Take 1 tablet by mouth DAILY (6 AM). dexamethasone (DECADRON) 4 mg tablet Take 1 tablet by mouth twice daily with meals for 8 days. mirtazapine (REMERON) 15 mg tablet Take 15 mg by mouth daily at bedtime. latanoprost (XALATAN) 0.005 % ophthalmic solution INSTILL 1 DROP INTO BOTH EYES AT BEDTIME DIRECTED lisinopril-hydrochlorothiazide (PRINZIDE,ZESTORETIC) 20-12.5 mg per tablet Take 1 tablet by mouth once daily. pravastatin (PRAVACHOL) 40 mg tablet once daily. ADVAIR DISKUS 250-50 mcg/dose dsdv once daily. PROAIR HFA 90 mcg/actuation inhaler INHALE 2 (TWO) PUFFS EVERY 4-6 HOURS NEEDED ipratropium-albuterol (DUONEB) 0.5 mg-3 mg(2.5 mg base)/3 mL nebu USE ONE VIAL VIA NEBULIZER EVERY 4 TO 6 HOURS NEEDED multivitamin tablet Take 1 tablet by mouth once daily. CHOLECALCIFEROL, VITAMIN D3, ORAL Take by mouth once daily. VITAMIN E ORAL Take by mouth once daily. No current facility-administered medications for this visit. ALLERGIES No Known Allergies PHYSICAL EXAMINATION: BP 136/67, Pulse 82, Temp 36.6 ?C (97.8 ?F) (Oral), Resp 16, Ht 151.9 cm (4' 11.8) , Wt 61.5 kg (135 lb 8 oz) , SpO2 95% BMI 26.64 kg/m? BSA 1.61 m? General: Head, Face, Neck: No JVD, or carotid bruits. No thyroid enlargement, tenderness, mass. Eyes: Clear conjunctiva. Non-icteric. CV: Reg S1-S2 without abnormal sounds or murmurs. Respiratory: Clear breath sounds bilaterally Abdomen: Soft, non-tender without organomegaly. Neurological: Higher integrative functions: Oriented to person, place AND time. Memory: Good recent and remote. Attention Span and Concentration: Good. Language: Accurate naming of objects. Good comprehension. Fund of Knowledge: Good. 2nd CN: Full visual peterson. 3rd,4th,6th CN: Pupils (=), round, react to light, full extraocular movements. 5th CN: No decrease in facial sensation, normal corneal reflexes. 7th CN: Facial muscles symmetric and strong. 8th CN: Hears finger rub decreased bilaterally. 9th CN: Good gag. 10th CN: Spontaneous palate movement, full and symmetric. 11th CN: Full strength in shoulder shrug. 12th CN: Tongue protrusion full and midline. Sensation: No decrease in sensation in upper or lower limbs to touch. Musculoskeletal: Gait is normal. Negative romberg and Tandem gait is normal. Motor: 4/5 Left hand frame sample and pattern supervisor. 4*/5 in the left upper limb. Pronator drift in the Left. Myotatic reflexes: 3/4 throughout and symmetrical. Coordination: Rapid alternating movements decreased in the left upper limbs. KPS score:80 Imaging : 12/10/2017 10:47 PM - Radiology, [facility] In Impression IMPRESSION: Enhancing mass lesion posterior right frontal lobe likely reflecting metastatic disease. ?Chronic changes. Charging Operator: BRIAN ? Transcribe Date/Time: Dec 10 2017 10:39P Dictated by : NAY BHANDARI MD This examination was interpreted and the report reviewed and electronically signed by: NAY BHANDARI MD on Dec 10 2017 10:44PM ?EST Results-Findings * * *Final Report* * * DATE OF EXAM: Dec 10 2017 10:21PM ? QBM ? 0295 ?- ?MRI BRAIN WO/W IVCON ?/ PROCEDURE REASON: Intracranial hemorrhage ?? ? * * * * Physician Interpretation * * * * ?EXAMINATION: ?MRI BRAIN WO/W IVCON CLINICAL HISTORY: Intracranial hemorrhage. TECHNIQUE: ?Routine brain MRI protocol without and with contrast including diffusion images. MQ: ?[id number] Contrast: ?11 mL Dotarem IV COMPARISON: None. RESULT: Acute Change: ? There is no evidence of restricted diffusion to suggest an acute infarct. Hemorrhage: ? ?Remote blood degradation byproducts within the mass lesion which is detailed below. Mass Lesion/ Mass Effect: ? ?Peripherally enhancing mass lesion present within the posterior right frontal lobe measuring 2.3 AP by 2.3 transverse centimeters with mixed internal signal intensity and a moderate degree of surrounding vasogenic edema. ?No gross leptomeningeal extension of disease. ?No additional area of abnormal enhancement. Chronic Change: ?Multiple foci of increased T2 and FLAIR signal intensity are present throughout the periventricular white matter of both cerebral hemispheres which is a nonspecific finding but likely the sequelae of chronic small vessel ischemia. Parenchyma: ? Ventricles and cortical sulci are prominent suggesting volume loss. ?The brain parenchyma is otherwise within normal limits of signal intensity and morphology. Ventricles: ? ? Ventriculomegaly corresponds to the degree of parenchymal volume loss. Skull Base: ? ?Hypothalamic and pituitary region are grossly normal. ? Craniocervical junction is normal. No significant marrow replacement process. Vasculature: ? ?Major intracranial arterial structures, and dural venous sinuses show typical flow void, suggesting patency by spin echo criteria. Other: ?Minimal mucosal thickening present within the imaged paranasal sinuses. Postoperative changes involve the left globe. INFORMATION COLLECTED BY: Jose Alejandro Chavez MD Medical Decision Making Data Review: Personal review of medical records: I have reviewed with the patient history, physical exam, the images and the chart as well the above information. I personally participated in the brito components and agree with the above. Treatment Options and Risks: I have discussed the management options and their respective risks and benefits with the patient. We reviewed the radiographic findings ( above) and their significance. We discussed observations, surgery (craniotomy vs biopsy), chemotherapy, radiation and radiosurgery. Of these I believe that Gamma knife radiosurgery is the most appropriate next step. We discussed the Gamma Knife procedure including the specific risks and benefits related to the procedure. The morning of the procedure an IV is started and local anesthetic is injected at four sites into the scalp. A reference frame is then secured to the head at those sites - some discomfort (pressure) is common for the first five to ten minutes but then usually goes away. Measurement are taken and then a head CT and brain MRI will be performed. The images will be co-registered for target contouring and treatment planning. The CT scan is necessary to correct for the spatial distortion of the MRI. Both scans will be evaluated by a radiologist and the results will be discussed with the patient. These are transferred to our planning computer where I define the region(s) to be treated. The radiation oncologist reviews the plan and assigns a dose of radiation. The radiation physicist reviews the plan and confirms the machine is working properly. During this time the patient rests in the waiting area. Treatment typically is in the afternoon. The patient lies down on the treatment couch and the barrelhead inspector is part of a positioning device that will direct, with great accuracy, up to 192 beams of radiation to converge at the point I picked on the computer. The staff will leave the room prior to treatment and the patient will be monitored by 3 television cameras and 2 intercom systems. The patient will then slide into the device up to their lower chest for a variable duration and number of times as required for the treatment plan and then exit. When the treatment is completed, the patient will be taken to the recovery room where the frame will be removed and band aids applied. The patient will be observed, typically for 1/2 to 2 hours then discharged. Postoperative and follow-up instructions will be given prior to discharge. They understand that this treatment will not prevent new lesions and that if unexpected lesions are found on the day of treatment, I will attempt to treat all accessible lesions however, a staged treatment may be required. They also understand that while the lesion likely represents a metastasis related to the primary cancer, diagnostic certainty can only be achieved by direct pathological examination of tissue obtained via an open surgical procedure. Per the patient's request, we will proceed with scheduling the case in the coming days. All questions and issues were addressed with the patient and they appears satisfied with the current plan. Recommendations: As above Medicines: No Change Instructions: Continue present activity Kerri Mays M.D. cc: CHRIS Nelson PROGRESS Observed: 12/22/2017 Status: COMPLETED Source: [place] 1:36 PM [facility] REPOSITORY O ID: [id number] Author: Enzo Brand Service: (none) Author Type: Physician Type: Progress Notes Filed: 12/27/2017 4:45 PM Note Text: Staff Oncology Note I have reviewed the progress note obtained and documented by Dr. Lei and I personally participated in the brito components of care. The following comments revise or confirm relevant brito components of the note. NEW PATIENT EVALUATION ? REASON FOR EVALUATION: Request for medical oncology opinion by KRZYSZTOF Gomez for lung cancer ? 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 BIOMARKERS: EGFR pending ALK negative KRAS pending PDL-1 pending ? STAGE (AJCC 8): [id number] - Stage IV (solitary brain metastasis) ? PRIOR THERAPY: None ? CURRENT THERAPY: GK Brain Pending ? NUMBER OF PLANNED CYCLES: N/A ? SPECIAL MEDICAL ISSUES: 1. 6.5 cm AAA 2. 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 Left hydronephrosis ? PALLIATIVE CARE PROVIDER: [] HISTORY OF PRESENT ILLNESS: ? Ms. Choi is a 75-year-old female who was transferred to the main campus of [facility] from [place] emergency room after presenting with 24 hours of left arm discoordination. Of note patient was seen for UTI in early 2017 and a chest x-ray and subsequent CT scan showed a left upper lung mass. A biopsy was recommended but she deferred at that time secondary to concern about complications from the biopsy. ? MRI of the brain on December 10, 2017 showed an enhancing mass lesion in the posterior right frontal lobe likely reflecting metastatic disease. The tumor is 2.3 x 2.3 cm in size. ? CT scan of the chest with contrast on December 13, 2017 showed a lobulated spiculated lesion in the anterior left upper lobe 3.2 x 1.8 cm in size. Moderate emphysema is noted. A few tiny indeterminate nodules are noted that are unchanged from scan performed April 20, 2017. No masses are noted in the bones. Multiple wedge deformities are noted one of which is new since previous exam in April in the midthoracic spine. No definite lytic or sclerotic lesions. ? CT scan of the abdomen and pelvis with contrast on December 13, 2017 shows a 6 cm infrarenal AAA. Moderate left hydronephrosis with abrupt ureteral caliber change at the UPJ is noted in similar from previous. The AAA is stable from April. Additional left common iliac artery aneurysm measures 2.3 cm and is unchanged. ? CT-guided biopsy of the left upper lung on December 20, 2017 showed adenocarcinoma with extensive necrosis. Overall the patient is sedentary from her COPD but denies any constitutional symptoms at this time. No cough or hemoptysis. No bony pains. ? PAST MEDICAL HISTORY: Hypertension Dyslipidemia COPD 2 L nasal cannula at home Glaucoma ? PAST SURGICAL HISTORY: None ? ALLERGIES:Reviewed and updated in the electronic medical record ? MEDICATIONS: Reviewed and updated in the electronic medical record ? SOCIAL HISTORY: Tobbacco: 45-50 pack years ? FAMILY HISTORY: Brother ocular cancer later age no other first or second degree relatives with malignancy REVIEW OF SYSTEMS: Otherwise negative beyond that noted in the interval history ?10 systems ? PHYSICAL EXAM: Per Dr. Lei LABORATORES: ? ASSESSMENT/PLAN: Metastatic lung cancer. At this time only evidence of disease is the left upper lung mass in the brain lesion. I would like to stage things further with a PET CT scan. We may consider bronchoscopy. We are awaiting PDL 1 testing. The patient does have comorbidities and is somewhat frail. I believe nisqually doublet would be reasonable but with some risk and we will have to weigh the pros and cons of this together how once further evaluation is available. Patient will be proceeding with gamma knife in the near future. I will see her back after PET scan for further discussions. ? ? Enzo Brand MD Cc: Rebecca Dorman, PAC - (Inactive), In Basket (Inactive) - User (Inactive) [address] [place] [id number] () CNOVSP Observed: 12/22/2017 Status: COMPLETED Source: [place] 1:00 PM [facility] REPOSITORY Visit (SP) Office ([facility]) DEBBIE CHOI ([id number]) 1940 F Date Time Provider Department 12/22/17 1:00 PM ENZO BRAND [facility] During your visit today, we recorded the following information about you: Temperature Pulse Respiration Blood pressure 97.8 degrees 82/minute 16/minute 136/67 Weight Height 61.5 kg 1.519 m Aguila Lei MD 12/22/2017 9:22 PM Signed NEW PATIENT PULMONARY ONCOLOGY CLINIC NOTE CANCER DIAGNOSIS: (oligo ?)metastatic left lung adenocarcinoma STAGE: T2a N0 M1b CURRENT TREATMENT REGIMEN: none PRIOR TREATMENT REGIMENS: none ONCOLOGIC HISTORY: 77 year old lady who initially presented for management of a UTI and was incidentally found to have a lefty upper lobe mass. She had then refused to have a biopsy of the lesion. (reportedly because she was fearful of the procedure) November 2017: she presented with left hand incoordination, underwent a CT brain in [facility] which showed 1.8 cm maximum dimension ovoid focus w/ associated small hemorrhage and adjacent vasogenic edema within the periphery of the posterior right front lobe. No midline shift. Differential consideration include hemorrhage with a neoplasm versus hemorrhage involving an underlying vascular malformation and - MRI showed a peripherally enhancing mass lesion present within the posterior right frontal lobe measuring 2.3cm AP x 2.3cm transverse with mixed internal signal intensity and a moderate degree of surrounding vasogenic edema. ?No gross leptomeningeal suggestive of enhancing mass lesion posterior right frontal lobe likely reflecting metastatic disease. ? The pt has refused major surgery and her children off whom Ritu Herrera is her POA. 12/20/2017: underwent FNA of the lung lesion which showed adenocarcinoma. Her tumor is ALK negative (8%), PD-L1 pending. Today's visit: Patient is a 77 year old y/o female who is here for evaluation of possible treatment options. She reports feeling generally well other than her focal weakness in the left upper extremity. She has chronic SOB which is unchanged, no cough or unintended weight loss. REVIEW OF SYSTEMS: CONSTITUTIONAL: No fevers, chills, nightsweats, unintended weight loss HEENT: Denies frequent or severe headaches, nasal congestion/sinus symptoms, problematic allergy problems. CARDIOVASCULAR: No chest pain, dyspnea, palpitations, ankle edema. PULM: No dyspnea. GI: No dysphagia, constipation, diarrhea, changes in stool habits, hematochezia, melena. : No new urinary complaints, including dysuria, gross hematuria or pyuria. NEURO: No new balance problems. MUSC-SKEL: No new joint pain, swelling, or erythema. INTEGUMENTARY: No new skin changes (rash, new or changing mole, new growth) 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 - Dilatation of thoracic aorta: mild aneurismal dilatation of the descending aorta - Diverticulosis - Duodenal diverticulum - Hepatic steatosis - Hiatal hernia - CHICKEN RANCH (hard of hearing) - HTN (hypertension) - Hydronephrosis - Hypercholesterolemia - Lung cancer - Smoker: for 45-50 years 1PPD PSH: PAST SURGICAL HISTORY Procedure Laterality Date - Hysterectomy 1996 Social History: - Marital status: - Has 5 children off whom 4 live relatively nearby and 1 lives out of state - lives alone and until her recent neurological issues has been independent, even driving to get her own groceries. Personal History: - stopped smoking approx 2 weeks back has been using a nicotine patch - previously smoked 1ppd for 45-50 years - never used smokeless tobacco Family History: No FMH of cancer - paternal h/o AAA and aneurysm in the brother - brother had cancer in the eye in the 80s for which his eye was removed. CURRENT MEDICATIONS: Current Outpatient Prescriptions: pantoprazole DR (PROTONIX) 40 mg tablet Take 1 tablet by mouth DAILY (6 AM). Disp: 30 tablet Rfl: 0 dexamethasone (DECADRON) 4 mg tablet Take 1 tablet by mouth twice daily with meals for 8 days. Disp: 16 tablet Rfl: 0 mirtazapine (REMERON) 15 mg tablet Take 15 mg by mouth daily at bedtime. Disp: Rfl: latanoprost (XALATAN) 0.005 % ophthalmic solution INSTILL 1 DROP INTO BOTH EYES AT BEDTIME DIRECTED Disp: Rfl: 3 lisinopril-hydrochlorothiazide (PRINZIDE,ZESTORETIC) 20-12.5 mg per tablet Take 1 tablet by mouth once daily. Disp: Rfl: 3 pravastatin (PRAVACHOL) 40 mg tablet once daily. Disp: Rfl: 3 ADVAIR DISKUS 250-50 mcg/dose dsdv once daily. Disp: Rfl: 3 PROAIR HFA 90 mcg/actuation inhaler INHALE 2 (TWO) PUFFS EVERY 4-6 HOURS NEEDED Disp: Rfl: 3 ipratropium-albuterol (DUONEB) 0.5 mg-3 mg(2.5 mg base)/3 mL nebu USE ONE VIAL VIA NEBULIZER EVERY 4 TO 6 HOURS NEEDED Disp: Rfl: 3 multivitamin tablet Take 1 tablet by mouth once daily. Disp: Rfl: CHOLECALCIFEROL, VITAMIN D3, ORAL Take by mouth once daily. Disp: Rfl: VITAMIN E ORAL Take by mouth once daily. Disp: Rfl: No current facility-administered medications for this visit. PHYSICAL EXAMINATION: BP 136/67 Pulse 82 Temp 36.6 ?C (97.8 ?F) (Oral) Resp 16 Ht 151.9 cm (4' 11.8) Wt 61.5 kg (135 lb 8 oz) SpO2 95% BMI 26.64 kg/m? General appearance: Well appearing, alert, in no acute distress, well-hydrated, moderately nourished. Neck: Supple, no adenopathy. Lungs: Lungs clear to auscultation. No wheezing, rhonchi, rales Heart: RRR without gallop, or rubs. Systolic murmur in the LLSB. Abdomen: Normal abdominal exam, Abdomen soft, non-tender. Bowel sounds normal. No masses, organomegaly Extremities: No deformities, edema, skin discoloration, clubbing or cyanosis. Good capillary refill. Neuro: Pt in wheelchair by choice, is able to walk a few meters without getting SOB. Weakness and incoordination in the left hand. No other focal deficits. LABORATORY: Normal creat and LFTs. CBC is also WNL. PATHOLOGY: Adenocarcinoma with extensive necrosis. ALK Rearrangement 8%?(0-14%) RADIOGRAPHIC DATA: CT abd pel: 12/13/2017 No evidence of metastatic disease in the abd, but she does have a 6cm infrarenal abdominal aneurysm. In addition also left hydronephrosis with abrupt caliber change at left UPJ. CT Chest 12/13/2017: SPICULATED LOBULATED NODULE MEASURING APPROXIMATELY 3.2 X 1.8 CM IN THE ANTERIOR LEFT UPPER LOBE. ?THIS DEMONSTRATES SOME CHANGE IN ORIENTATION AND CONFIGURATION SINCE THE PREVIOUS EXAM. ?MINIMAL OVERALL DECREASE IN SIZE IS NOT EXCLUDED. ?THE FINDINGS MAY REPRESENT NEOPLASTIC PROCESS UNDERGOING TREATMENT OR NECROTIC CHANGES. ? MRI brain 12/10/2017: Enhancing mass lesion posterior right frontal lobe likely reflecting metastatic disease. ?Chronic changes. IMPRESSION: Debbie Choi is a 77 year old female with a new diagnosis of (?oligo) metastatic NSCLC (adenocarcinoma) of the left lung. She is treatment naive and ALK negative. She has multiple other medical conditions at baseline and maybe classified as an ECOG 3. She has elected not to have major surgery but we have yet to recommend this. Her options would include a combination of radiation (gamma knife and SBRT to the lung lesion), chemo (pemetrexed +/- carboplatin, she would not be a candidate for cisplatin) and immunotherapy (pembrolizumab [pending PD-L1 status]). Before going into discussions about treatment options, we would need to get further information about her tumor PD-L1 status which has already been ordered. We will need to complete staging work up with first a PET scan then an EBUS. PLAN: Our recommendations are as follows: # continue evaluation with RT and neurosurgery about the plan for gamma knife # PET scan followed thereafter by EBUS if indicated. If surgery is not planned then we will not recommend a mediastinoscopy. # PD-L1 testing # whether she will tolerate carboplatin remains unclear and will warrant a detailed discussion of her goals of care. The patient was seen and discussed with . Attending addendum to follow. Aguila Lei MD Fellow, [facility] December 22, 2017 1:00 PM Pager: [phone] Zoë Vazquez RN, RN 12/22/2017 2:14 PM Signed Additional intake questions: Has the patient had nausea, vomiting, diarrhea, constipation, fatigue for > 1 week? Fatigue, Yes, MD Notified Does the patient have a decreased appetite? No Does patient want to see a Wood Panel Inspector? No (yes to any of above refer patient to schedulers for dietitian appointment) ) Does patient have any new or increased numbness or tingling of extremities? No Is patient interested in fertility information? No Does patient need any prescription refills? No Electronically Signed By: LEYDA Bernal MD 12/27/2017 4:45 PM Signed Staff Oncology Note I have reviewed the progress note obtained and documented by Dr. Lei and I personally participated in the brito components of care. The following comments revise or confirm relevant brito components of the note. NEW PATIENT EVALUATION ? REASON FOR EVALUATION: Request for medical oncology opinion by DOMINGA GomezH for lung cancer ? 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 BIOMARKERS: EGFR pending ALK negative KRAS pending PDL-1 pending ? STAGE (AJCC 8): [id number] - Stage IV (solitary brain metastasis) ? PRIOR THERAPY: None ? CURRENT THERAPY: GK Brain Pending ? NUMBER OF PLANNED CYCLES: N/A ? SPECIAL MEDICAL ISSUES: 1. 6.5 cm AAA 2. 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 Left hydronephrosis ? PALLIATIVE CARE PROVIDER: [] HISTORY OF PRESENT ILLNESS: ? Ms. Choi is a 75-year-old female who was transferred to the main [facility] from [place] emergency room after presenting with 24 hours of left arm discoordination. Of note patient was seen for UTI in early 2017 and a chest x-ray and subsequent CT scan showed a left upper lung mass. A biopsy was recommended but she deferred at that time secondary to concern about complications from the biopsy. ? MRI of the brain on December 10, 2017 showed an enhancing mass lesion in the posterior right frontal lobe likely reflecting metastatic disease. The tumor is 2.3 x 2.3 cm in size. ? CT scan of the chest with contrast on December 13, 2017 showed a lobulated spiculated lesion in the anterior left upper lobe 3.2 x 1.8 cm in size. Moderate emphysema is noted. A few tiny indeterminate nodules are noted that are unchanged from scan performed April 20, 2017. No masses are noted in the bones. Multiple wedge deformities are noted one of which is new since previous exam in April in the midthoracic spine. No definite lytic or sclerotic lesions. ? CT scan of the abdomen and pelvis with contrast on December 13, 2017 shows a 6 cm infrarenal AAA. Moderate left hydronephrosis with abrupt ureteral caliber change at the UPJ is noted in similar from previous. The AAA is stable from April. Additional left common iliac artery aneurysm measures 2.3 cm and is unchanged. ? CT-guided biopsy of the left upper lung on December 20, 2017 showed adenocarcinoma with extensive necrosis. Overall the patient is sedentary from her COPD but denies any constitutional symptoms at this time. No cough or hemoptysis. No bony pains. ? PAST MEDICAL HISTORY: Hypertension Dyslipidemia COPD 2 L nasal cannula at home Glaucoma ? PAST SURGICAL HISTORY: None ? ALLERGIES:Reviewed and updated in the electronic medical record ? MEDICATIONS: Reviewed and updated in the electronic medical record ? SOCIAL HISTORY: Tobbacco: 45-50 pack years ? FAMILY HISTORY: Brother ocular cancer later age no other first or second degree relatives with malignancy REVIEW OF SYSTEMS: Otherwise negative beyond that noted in the interval history ?10 systems ? PHYSICAL EXAM: Per Dr. Lei LABORATORES: ? ASSESSMENT/PLAN: Metastatic lung cancer. At this time only evidence of disease is the left upper lung mass in the brain lesion. I would like to stage things further with a PET CT scan. We may consider bronchoscopy. We are awaiting PDL 1 testing. The patient does have comorbidities and is somewhat frail. I believe nisqually doublet would be reasonable but with some risk and we will have to weigh the pros and cons of this together how once further evaluation is available. Patient will be proceeding with gamma knife in the near future. I will see her back after PET scan for further discussions. ? ? Enzo Brand MD Cc: Rebecca Dorman, PAC - (Inactive), In Basket (Inactive) - User (Inactive) [address] [place] [id number] () Enzo Brand MD 12/22/2017 2:58 PM Signed Please schedule CT OTHER: few days before brand visit CT SCHEDULING QUESTIONNAIRE Is the patient 60 or older or does the patient have diabetes or a history of kidney disease other than stones? Yes, a Creatinine level is required. WIll this be ready at time of exam? No - patient needs level drawn at time of exam Hydration: No Is the associated diagnosis or reason for exam Peritoneal Dialysis, Prerenal Transplant, Triphasic Liver or AAA (Abdominal Aoritc Aneurism) or anything with Adrenals or does the order indicate Liver Exam, Kidney Exam or Urogram? No Is there any possibility the patient may be ? No Referring Provider: KRZYSZTOF CHU) [[id number]] Allergies As of Date: 12/22/2017 (No Known Allergies) Date Reviewed: 12/22/2017 Reviewed by: Zoë (Rn) LEYDA Vazquez - Fully Assessed Reason for Visit: Consult [173] Primary Visit Diagnosis:Primary lung cancer with metastasis from lung to other site, right (HCC) [C34.91] Order(s):NM PET/CT SKULL-THIGH [[id number]] Order #: [id number] FUTURE CREATININE BLD [SQCRET] Order #: [id number] FUTURE Disposition: Return in about 7 days (around 12/29/2017), or 4PM please.. Follow-up and Disposition History Recorded Prescriptions as of 12/22/2017 Sig: DEXAMETHASONE 4 MG TABLET Take 1 tablet by mouth twice * X PANTOPRAZOLE 40 MG TABLET,DEL* Take 1 tablet by mouth DAILY * MIRTAZAPINE 15 MG TABLET Take 15 mg by mouth daily at * LATANOPROST 0.005 % EYE DROPS INSTILL 1 DROP INTO BOTH EYES* LISINOPRIL 20 MG-HYDROCHLOROT* Take 1 tablet by mouth once d* PRAVASTATIN 40 MG TABLET once daily. ADVAIR DISKUS 250 MCG-50 MCG/* once daily. PROAIR HFA 90 MCG/ACTUATION A* INHALE 2 (TWO) PUFFS EVERY 4-* IPRATROPIUM-ALBUTEROL 0.5 MG-* USE ONE VIAL VIA NEBULIZER EV* MULTIVITAMIN TABLET Take 1 tablet by mouth once d* CHOLECALCIFEROL (VITAMIN D3) * Take by mouth once daily. VITAMIN E ORAL Take by mouth once daily. Problem List As Of Date 12/22/2017 Noted Resolved Thoracoabdominal aortic aneurysm (TAAA) without*INVALID FOR* Stroke (HCC) [I63.9] INVALID FOR* Nicotine use disorder, F17.2 [F17.200] INVALID FOR* Brain mass [G93.9] INVALID FOR* Lung mass [R91.8] INVALID FOR* Other instructions from your clinician: Please schedule CT OTHER: few days before brand visit CT SCHEDULING QUESTIONNAIRE Is the patient 60 or older or does the patient have diabetes or a history of kidney disease other than stones? Yes, a Creatinine level is required. WIll this be ready at time of exam? No - patient needs level drawn at time of exam Hydration: No Is the associated diagnosis or reason for exam Peritoneal Dialysis, Prerenal Transplant, Triphasic Liver or AAA (Abdominal Aoritc Aneurism) or anything with Adrenals or does the order indicate Liver Exam, Kidney Exam or Urogram? No Is there any possibility the patient may be ? No Visit Notes: >> Zoë (Leyda) LEYDA Vazquez WedDec 22, 2017 1:20 PM Status: Signed Additional intake questions: Has the patient had nausea, vomiting, diarrhea, constipation, fatigue for > 1 week? Fatigue, Yes, Notified Does the patient have a decreased appetite? No Does patient want to see a Wood Panel Inspector? No (yes to any of above refer patient to schedulers for dietitian appointment) ) Does patient have any new or increased numbness or tingling of extremities? No Is patient interested in fertility information? No Does patient need any prescription refills? No CARRI Observed: 12/22/2017 Status: COMPLETED Source: [place] 11:30 AM [facility] REPOSITORY Office Visit (RADTMN) DEBBIE CHOI ([id number]) 1940 F Date Time Provider Department 12/22/17 11:30 AM JANETH SANTIAGO During your visit today, we recorded the following information about you: Craig Bean Ms 12/22/2017 3:12 PM Signed Radiation Oncology - New Patient/Consult Note PATIENT NAME: Debbie Choi PATIENT REQUESTING PROVIDER: Krzysztof Chu MD. DIAGNOSIS: 77 year old female with lung SIMRNA adenocarcinoma and metastasis to R frontal cortex, Stage GEOFFREY, [id number] HPI: The patient is a 77 year old right-handed woman with lung SIMRAN adenocarcinoma, Stage GEOFFREY, [id number], and metastasis to R frontal cortex here to discuss radiation therapy to brain metastasis Apr 2017 CT chest for PE workup showed spiculated SIMRAN mass 3.1 x 2.2cm and 4mm noncalcified SIMRAN nodule. No additional masses noted on CT C/A/P. She declined biopsy or treatment at that time, saying that given her age she does not want invasive workup and treatment of the lung mass. 12/10/17 She initially presented with 1 day of L handed discoordination. She had a CT done at [facility] which showed R frontal cortical hemorrhage measuring 1.4x1.1 cm with moderate associated edema. MRI at [facility] showed 2.3x2.3 cm posterior R frontal lobe enhancing lesion with moderate degree of surrounding vasogenic edema. 12/13/17 CT C/A/P redemonstrated spiculated SIMRAN mass, measuring 3.2x1.8 cm, and showed no other metastatic sites 12/14/17 Image guided biopsy lung showed adenocarcinoma with extensive necrosis Today, she reports continued worsening of discoordination in L hand as well as weakness. The patient plans to meet with Dr. Mays in Neurosurgery and Dr. Brand in medical oncology later today. ALLERGIES No Known Allergies MEDICATIONS: pantoprazole DR (PROTONIX) 40 mg tablet Take 1 tablet by mouth DAILY (6 AM). dexamethasone (DECADRON) 4 mg tablet Take 1 tablet by mouth twice daily with meals for 8 days. mirtazapine (REMERON) 15 mg tablet Take 15 mg by mouth daily at bedtime. latanoprost (XALATAN) 0.005 % ophthalmic solution INSTILL 1 DROP INTO BOTH EYES AT BEDTIME DIRECTED lisinopril-hydrochlorothiazide (PRINZIDE,ZESTORETIC) 20-12.5 mg per tablet Take 1 tablet by mouth once daily. pravastatin (PRAVACHOL) 40 mg tablet once daily. ADVAIR DISKUS 250-50 mcg/dose dsdv once daily. PROAIR HFA 90 mcg/actuation inhaler INHALE 2 (TWO) PUFFS EVERY 4-6 HOURS NEEDED ipratropium-albuterol (DUONEB) 0.5 mg-3 mg(2.5 mg base)/3 mL nebu USE ONE VIAL VIA NEBULIZER EVERY 4 TO 6 HOURS NEEDED multivitamin tablet Take 1 tablet by mouth once daily. CHOLECALCIFEROL, VITAMIN D3, ORAL Take by mouth once daily. VITAMIN E ORAL Take by mouth once daily. PAST MEDICAL HISTORY Diagnosis Date - AAA (abdominal aortic aneurysm) without rupture (HCC) - Bladder infection - COPD (chronic obstructive pulmonary disease) (HCC) - Dilatation of thoracic aorta (HCC) mild aneurismal dilatation of the descending aorta - Diverticulosis - Duodenal diverticulum large - Emphysema lung (HCC) Advanced - Hepatic steatosis - Hiatal hernia small - [place] (hard of hearing) - HTN (hypertension) - Hydronephrosis - Hypercholesterolemia - Lung mass - Pelviectasis left - Smoker Prior radiation therapy, collagen vascular disease, or inflammatory bowel disease: No status: Naturally post-menopausal. 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 RESPIRATORY: Negative, except for productive cough CARDIAC: Negative for chest pain, palpitations, murmurs, or syncopal episodes. GI: Negative for nausea, vomiting, diarrhea, constipation, blood per rectum, or melena. : Negative, except for urgent incontinence MUSCULOSKELETAL: Negative for limitations in movement, pain, or swelling. HEMATOLOGIC: Negative, except for bruises from IV at Hospital visit on 12/10/17 SKIN: Negative for rashes or other skin changes. Neuro detailed: Headache: No Pain: No Pain interventions: none required Fatigue: none Decreased visual acuity: No Diplopia: No Visual Field Changes: No Tinnitus: No Hearing loss: mild Dysphagia: No Decreased balance: none Arm/leg numbness: No Focal weakness: Yes Limb discoordination: Yes Disorientation: none Decreased concentration: none Memory changes: none Word finding difficulty: none Dysarthria: none Seizures: No PHYSICAL EXAM: VS: There were no vitals taken for this visit. KPS: 80 Neuro function score (NFS): NFS 2 General Appearance: Alert and oriented. No acute distress. HEENT: Normal ROM. No palpable cervical or supraclavicular adenopathy. Dentures present in top and bottom of mouth. Chest: No respiratory distress. Lungs clear to auscultation bilaterally. Heart: Regular rate and rhythm. Abdomen: Soft. Nontender. Nondistended. Musculoskeletal: No edema. Normal ROM in extremities. No bone or spine tenderness. Neuro: Speech fluent. CN II-XII intact. Able to recite zipcode backwards. Strength intact except for 4/5 in L arm and L hip flexion. Sensation intact to light touch. Reflexes 2+/4 and symmetric. Normal gait. VISHAL and FNF intact. Negative Romberg. No pronator drift. Dysdiadochokinesia present in left hand. Tandem gait intact. No other focal deficits. Skin: No rashes noted Lymphatics: No palpable lymphadenopathy. RADIOLOGY/LABORATORY DATA: see HPI ASSESSMENT AND PLAN: The patient is a 77 year old right-handed woman with lung SIMRAN adenocarcinoma, Stage GEOFFREY, [id number], and metastasis to R frontal cortex here to discuss radiation therapy to brain metastasis. GKBMET: Primary disease controlled:No, Extracranial disease:Yes, Prior systemic therapy for metastasis:No, # of brain metastases: 1, GTR of brain metastasis:No, Prior WBRT:No, Planned dose (use highest dose for multiple lesions): 18 Gy (per RTOG 9005) We had a long and detailed discussion with the patient and her family today regarding her diagnosis. We discussed in detail the potential risks, benefits, side effects, and alternatives to radiation therapy. All questions were addressed. The patient consents to the recommended plan. Head frame will be used. Radiosurgery will be done in a single fraction using the Gamma Knife Perfexion system, which uses up to 192 beams of radiation. A head CT and brain MRI will be performed the day of the procedure. The images will be co registered for target contouring and treatment planning. The CT scan is necessary to correct for the spatial distortion of the MRI. Both scans will be evaluated by a radiologist and the results will be discussed with the patient. We are awaiting the results of genetic analysis. The patient plans to meet with Dr. Mays in Neurosurgery and Dr. Brand in medical oncology later today to discuss other treatment options. Signed by: Craig Bean, MS4 Staff addendum: Patient was seen and examined with 77 year old right-handed woman with lung SIMRAN adenocarcinoma, Stage GEOFFREY, [id number], and metastasis to R frontal cortex. All parts of the history and PE were confirmed by me. I have reviewed the medical student's note and agree with its content. In summary, this is a 77 year old right-handed woman with lung SIMRAN adenocarcinoma, Stage GEOFFREY, [id number], and metastasis to R frontal cortex. She is being seen at the request of Dr. Chu. PMH, PSH, allergies, medications, social, family history and ROS were reviewed and confirmed by me. A/P: 77 year old right-handed woman with lung SIMRAN adenocarcinoma, Stage GEOFFREY, [id number], and metastasis to R frontal cortex The natural history and treatment options for brain metastases were fully discussed with the patient and family. I reviewed the various treatment options including Gamma Knife radiosurgery. The rationale, risks, benefits, alternatives, consent and personnel of treatment were fully discussed with the patient and family who voiced understanding. All questions were answered. Given size of her metastasis, we may proceed with staged radiosurgery. The patient has given consent to proceed and has signed informed consent. Signed by: [facility] Dept. of Radiation Oncology, [id number] [place] [address] cc: Rebecca Dorman, PAC [address] [place] [address] [place] [id number] [place] [address] Dr. Monalisa Brand, [facility] Dr. Adin Mays, CC Referring Provider: KRZYSZTOF CHU () [[id number]] Allergies As of Date: 12/22/2017 (No Known Allergies) Date Reviewed: 12/22/2017 Reviewed by: Zoë (Rn) LEYDA Vazquez - Fully Assessed Reason for Visit: Brain Tumor [518] Primary Visit Diagnosis:Lung mass [R91.8] Other Visit Diagnosis:Brain metastases (HCC) [C79.31] Prescriptions as of 12/22/2017 Sig: DEXAMETHASONE 4 MG TABLET Take 1 tablet by mouth twice * X PANTOPRAZOLE 40 MG TABLET,DEL* Take 1 tablet by mouth DAILY * MIRTAZAPINE 15 MG TABLET Take 15 mg by mouth daily at * X TYLENOL EX STR ARTHRITIS PAIN* Take 650 mg by mouth four ellen* LATANOPROST 0.005 % EYE DROPS INSTILL 1 DROP INTO BOTH EYES* LISINOPRIL 20 MG-HYDROCHLOROT* Take 1 tablet by mouth once d* PRAVASTATIN 40 MG TABLET once daily. ADVAIR DISKUS 250 MCG-50 MCG/* once daily. PROAIR HFA 90 MCG/ACTUATION A* INHALE 2 (TWO) PUFFS EVERY 4-* IPRATROPIUM-ALBUTEROL 0.5 MG-* USE ONE VIAL VIA NEBULIZER EV* MULTIVITAMIN TABLET Take 1 tablet by mouth once d* CHOLECALCIFEROL (VITAMIN D3) * Take by mouth once daily. VITAMIN E ORAL Take by mouth once daily. Problem List As Of Date 12/22/2017 Noted Resolved Thoracoabdominal aortic aneurysm (TAAA) without*INVALID FOR* Stroke (HCC) [I63.9] INVALID FOR* Nicotine use disorder, F17.2 [F17.200] INVALID FOR* Brain mass [G93.9] INVALID FOR* Lung mass [R91.8] INVALID FOR* Encounter Status:Closed by JANETH SANTIAGO MD on 12/23/17 PROGRESS Observed: 12/21/2017 Status: COMPLETED Source: [place] 10:53 AM [facility] REPOSITORY HNO ID: [id number] Author: Aguila Lei (Fel) Service: (none) Author Type: Fellow Type: Progress Notes Filed: 12/22/2017 9:22 PM Note Text: NEW PATIENT PULMONARY ONCOLOGY CLINIC NOTE CANCER DIAGNOSIS: (oligo ?)metastatic left lung adenocarcinoma STAGE: T2a N0 M1b CURRENT TREATMENT REGIMEN: none PRIOR TREATMENT REGIMENS: none ONCOLOGIC HISTORY: 77 year old lady who initially presented for management of a UTI and was incidentally found to have a lefty upper lobe mass. She had then refused to have a biopsy of the lesion. (reportedly because she was fearful of the procedure) November 2017: she presented with left hand incoordination, underwent a CT brain in [facility] which showed 1.8 cm maximum dimension ovoid focus w/ associated small hemorrhage and adjacent vasogenic edema within the periphery of the posterior right front lobe. No midline shift. Differential consideration include hemorrhage with a neoplasm versus hemorrhage involving an underlying vascular malformation and - MRI showed a peripherally enhancing mass lesion present within the posterior right frontal lobe measuring 2.3cm AP x 2.3cm transverse with mixed internal signal intensity and a moderate degree of surrounding vasogenic edema. ?No gross leptomeningeal suggestive of enhancing mass lesion posterior right frontal lobe likely reflecting metastatic disease. ? The pt has refused major surgery and her children off whom Ritu Herrera is her POA. 12/20/2017: underwent FNA of the lung lesion which showed adenocarcinoma. Her tumor is ALK negative (8%), PD-L1 pending. Today's visit: Patient is a 77 year old y/o female who is here for evaluation of possible treatment options. She reports feeling generally well other than her focal weakness in the left upper extremity. She has chronic SOB which is unchanged, no cough or unintended weight loss. REVIEW OF SYSTEMS: CONSTITUTIONAL: No fevers, chills, nightsweats, unintended weight loss HEENT: Denies frequent or severe headaches, nasal congestion/sinus symptoms, problematic allergy problems. CARDIOVASCULAR: No chest pain, dyspnea, palpitations, ankle edema. PULM: No dyspnea. GI: No dysphagia, constipation, diarrhea, changes in stool habits, hematochezia, melena. : No new urinary complaints, including dysuria, gross hematuria or pyuria. NEURO: No new balance problems. MUSC-SKEL: No new joint pain, swelling, or erythema. INTEGUMENTARY: No new skin changes (rash, new or changing mole, new growth) 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 - Dilatation of thoracic aorta: mild aneurismal dilatation of the descending aorta - Diverticulosis - Duodenal diverticulum - Hepatic steatosis - Hiatal hernia - [place] (hard of hearing) - HTN (hypertension) - Hydronephrosis - Hypercholesterolemia - Lung cancer - Smoker: for 45-50 years 1PPD PSH: PAST SURGICAL HISTORY Procedure Laterality Date - Hysterectomy 1996 Social History: - Marital status: - Has 5 children off whom 4 live relatively nearby and 1 lives out of state - lives alone and until her recent neurological issues has been independent, even driving to get her own groceries. Personal History: - stopped smoking approx 2 weeks back has been using a nicotine patch - previously smoked 1ppd for 45-50 years - never used smokeless tobacco Family History: No FMH of cancer - paternal h/o AAA and aneurysm in the brother - brother had cancer in the eye in the 80s for which his eye was removed. CURRENT MEDICATIONS: Current Outpatient Prescriptions: pantoprazole DR (PROTONIX) 40 mg tablet Take 1 tablet by mouth DAILY (6 AM). Disp: 30 tablet Rfl: 0 dexamethasone (DECADRON) 4 mg tablet Take 1 tablet by mouth twice daily with meals for 8 days. Disp: 16 tablet Rfl: 0 mirtazapine (REMERON) 15 mg tablet Take 15 mg by mouth daily at bedtime. Disp: Rfl: latanoprost (XALATAN) 0.005 % ophthalmic solution INSTILL 1 DROP INTO BOTH EYES AT BEDTIME DIRECTED Disp: Rfl: 3 lisinopril-hydrochlorothiazide (PRINZIDE,ZESTORETIC) 20-12.5 mg per tablet Take 1 tablet by mouth once daily. Disp: Rfl: 3 pravastatin (PRAVACHOL) 40 mg tablet once daily. Disp: Rfl: 3 ADVAIR DISKUS 250-50 mcg/dose dsdv once daily. Disp: Rfl: 3 PROAIR HFA 90 mcg/actuation inhaler INHALE 2 (TWO) PUFFS EVERY 4-6 HOURS NEEDED Disp: Rfl: 3 ipratropium-albuterol (DUONEB) 0.5 mg-3 mg(2.5 mg base)/3 mL nebu USE ONE VIAL VIA NEBULIZER EVERY 4 TO 6 HOURS NEEDED Disp: Rfl: 3 multivitamin tablet Take 1 tablet by mouth once daily. Disp: Rfl: CHOLECALCIFEROL, VITAMIN D3, ORAL Take by mouth once daily. Disp: Rfl: VITAMIN E ORAL Take by mouth once daily. Disp: Rfl: No current facility-administered medications for this visit. PHYSICAL EXAMINATION: BP 136/67 Pulse 82 Temp 36.6 ?C (97.8 ?F) (Oral) Resp 16 Ht 151.9 cm (4' 11.8) Wt 61.5 kg (135 lb 8 oz) SpO2 95% BMI 26.64 kg/m? General appearance: Well appearing, alert, in no acute distress, well-hydrated, moderately nourished. Neck: Supple, no adenopathy. Lungs: Lungs clear to auscultation. No wheezing, rhonchi, rales Heart: RRR without gallop, or rubs. Systolic murmur in the LLSB. Abdomen: Normal abdominal exam, Abdomen soft, non-tender. Bowel sounds normal. No masses, organomegaly Extremities: No deformities, edema, skin discoloration, clubbing or cyanosis. Good capillary refill. Neuro: Pt in wheelchair by choice, is able to walk a few meters without getting SOB. Weakness and incoordination in the left hand. No other focal deficits. LABORATORY: Normal creat and LFTs. CBC is also WNL. PATHOLOGY: Adenocarcinoma with extensive necrosis. ALK Rearrangement 8%?(0-14%) RADIOGRAPHIC DATA: CT abd pel: 12/13/2017 No evidence of metastatic disease in the abd, but she does have a 6cm infrarenal abdominal aneurysm. In addition also left hydronephrosis with abrupt caliber change at left UPJ. CT Chest 12/13/2017: SPICULATED LOBULATED NODULE MEASURING APPROXIMATELY 3.2 X 1.8 CM IN THE ANTERIOR LEFT UPPER LOBE. ?THIS DEMONSTRATES SOME CHANGE IN ORIENTATION AND CONFIGURATION SINCE THE PREVIOUS EXAM. ?MINIMAL OVERALL DECREASE IN SIZE IS NOT EXCLUDED. ?THE FINDINGS MAY REPRESENT NEOPLASTIC PROCESS UNDERGOING TREATMENT OR NECROTIC CHANGES. ? MRI brain 12/10/2017: Enhancing mass lesion posterior right frontal lobe likely reflecting metastatic disease. ?Chronic changes. IMPRESSION: Debbie Choi is a 77 year old female with a new diagnosis of (?oligo) metastatic NSCLC (adenocarcinoma) of the left lung. She is treatment naive and ALK negative. She has multiple other medical conditions at baseline and maybe classified as an ECOG 3. She has elected not to have major surgery but we have yet to recommend this. Her options would include a combination of radiation (gamma knife and SBRT to the lung lesion), chemo (pemetrexed +/- carboplatin, she would not be a candidate for cisplatin) and immunotherapy (pembrolizumab [pending PD-L1 status]). Before going into discussions about treatment options, we would need to get further information about her tumor PD-L1 status which has already been ordered. We will need to complete staging work up with first a PET scan then an EBUS. PLAN: Our recommendations are as follows: # continue evaluation with RT and neurosurgery about the plan for gamma knife # PET scan followed thereafter by EBUS if indicated. If surgery is not planned then we will not recommend a mediastinoscopy. # PD-L1 testing # whether she will tolerate carboplatin remains unclear and will warrant a detailed discussion of her goals of care. The patient was seen and discussed with . Attending addendum to follow. Aguila Lei MD Fellow, Hematology-[facility] December 22, 2017 1:00 PM Pager: [phone] NURSING PROG Observed: 12/15/2017 Status: COMPLETED Source: [place] 1:11 PM [facility] REPOSITORY HNO ID: [id number] Author: Mariana Eric RN Service: (none) Author Type: Registered Nurse Type: Nursing Progress Note Filed: 12/15/2017 1:12 PM Note Text: Admission/Transfer Note PATIENT NAME: Debbie Choi Patient transferred to home via wheelchair in stable condition. Actions taken: The patient has been instructed . Patient belongings with patient. No futher actions taken at this time. Will continue to monitor and check with patient. This note was completed by: Mariana Eric RN CASE MANAGEM Observed: 12/15/2017 Status: COMPLETED Source: [place] 1:03 PM [facility] REPOSITORY HNO ID: [id number] Author: Kelli Aparicio (Asst) Service: Care Management Author Type: Resource Center Sign Fabricator Type: Care Mgt Progress Note Filed: 12/15/2017 1:04 PM Note Text: CARE MANAGEMENT PROGRESS NOTE SERVICE DATE: 12/15/2017 SERVICE TIME: 12:40 LOS: 5 days IM letter given to patient on 12/15/17. SIGNATURE: Asst Mariam PATIENT NAME: Debbie Choi DATE: December 15, 2017 TIME: 1:04 PM PAGER/CONTACT #: [phone] CBC Collected: 12/15/2017 Status: F Source: [place] 4:29 AM [facility] REPOSITORY TYPE CODE TESTS RESULT OUT OF REFERENCE UNITS RANGE LAB WBC 3.70-11.00 k/uL WBC 7.81 LAB RBC 3.90-5.20 m/uL RBC 4.45 LAB HGB 11.5-15.5 g/dL Hemoglobin 14.2 LAB HCT 36.0-46.0 % Hematocrit 43.8 LAB MCV 80.0-100.0 fL MCV 98.4 LAB MCH 26.0-34.0 pG MCH 31.9 LAB MCHC 30.5-36.0 g/dL MCHC 32.4 LAB RDWCV 11.5-15.0 % RDW-CV 12.7 LAB PLTCT 150-400 k/uL Platelet Count 281 LAB MPV 9.0-12.7 fL MPV 9.5 LAB ABSNUC <0.01 k/uL Absolute nRBC <0.01 Performed By: #### CBC, CMP #### [facility] [address] [address] COMP METABOLIC PANEL Collected: 12/15/2017 Status: F Source: [place] 4:29 AM [facility] REPOSITORY TYPE CODE TESTS RESULT OUT OF REFERENCE UNITS RANGE LAB TP 6.3-8.0 g/dL Protein, Total 6.4 LAB ALB 3.9-4.9 g/dL Low Albumin 3.7 LAB CA 8.5-10.2 mg/dL Calcium, Total 9.5 LAB TBIL 0.2-1.3 mg/dL Bilirubin, Total 0.3 LAB ALKP 34-123 U/L Alkaline Phosphatase 66 LAB AST 13-35 U/L AST 15 LAB GLU 74-99 mg/dL Glucose High 118 Result Comment: The [place] Diabetes Association (ADA) provides guidance for cutoff values for fasting glucose and random glucose. The ADA defines fasting as no caloric intake for at least 8 hours. Fas ting plasma glucose results between 100 to 125 mg/dL indicate increased risk for diabetes (prediabetes). Fasting plasma glucose results greater than or equal to 126 mg/dL meet the criteria for diagnosis of diabetes. In the absence of unequivocal hyperglycemia, results should be confirmed by repeat testing. In a patient with classic symptoms of hyperglycemia or hyperglycemic crisis, random plasma glucose results greater than or equal to 200 mg/dL meet the criteria for diagnosis of diabetes. Reference: Standards of Medical Care in Diabetes 2016, [place] Diabetes Association. Diabetes Care. 2016.39(Suppl 1). LAB BUN 7-21 mg/dL BUN High 22 LAB CRET 0.58-0.96 mg/dL Creatinine 0.77 LAB NA 136-144 mmol/L Sodium 142 LAB K 3.7-5.1 mmol/L Potassium 4.0 LAB CL 97-105 mmol/L Chloride 97 LAB CO2 22-30 mmol/L CO2 High 32 LAB AGAP 9-18 mmol/L Anion Gap 13 LAB ALT 7-38 U/L ALT 13 LAB GFRAA eGFR- Amer. >60 LAB GFRNAA . eGFR-All Other Races >60 Result Comment: eGFR (Estimated GFR) Units of measure: mL/min/1.73 meters squared eGFR is derived from the reexpressed MDRD Study equation using the following parameters: serum creatinine, age, gender and race. The creatinine assay has been calibrated to be traceable to IDMS. An eGFR <60 mL/min/1.73m2 for >3 months is consistent with chronic kidney disease. Refer to KDOQI guidelines for clinical interpretation. In patients with unstable renal function, e.g. those with acute kidney injury, the eGFR may not accurately reflect actual GFR. Performed By: #### CBC, CMP #### [facility] [address] [address] [facility] SEND OUT TEST Collected: 12/14/2017 Status: F Source: [place] 8:28 PM [facility] REPOSITORY TYPE CODE TESTS RESULT OUT OF REFERENCE UNITS RANGE LAB NAME1 PDL1 22C3 by IHC Test with Interpretation LAB RESU1 View results in Test Scanned Documents Results link when available. Performed By: #### [id number] #### [facility] [address] [place], [place] [address] CT BIOPSY LUNG Observed: 12/14/2017 Status: F Source: [place] 4:02 PM [facility] REPOSITORY * * *Final Report* * * DATE OF EXAM: Dec 14 2017 4:02PM [facility] [place] BIOPSY LUNG / PROCEDURE REASON: Lung (Pulmonary) mass * * * * Physician Interpretation * * * * CT-GUIDED PERCUTANEOUS LUNG BIOPSY CLINICAL INFORMATION: Indeterminate left upper lobe nodule. Risks versus benefits and diagnostic alternatives to percutaneous FNAB were explained to the patient. She voiced understanding and consent. PROCEDURE: Patient placed in the supine position on the scanning table. Indeterminate left upper lobe nodule localized by CT. Audible time out was performed. Sterile prep/drape. Satisfactory local anesthesia. Under CT-fluoroscopic guidance, a 21-g PercuCut needle was advanced into the left upper lobe nodule via an anterior intercostal approach. Single pass made. Specimen hand submitted to Cytology. Patient tolerated the procedure well. Follow-up chest x-ray discloses no pneumothorax. Dr. Lucía Purcell performed the procedure without assistance. Procedure start time: 1536 Procedure end time: 1548 The biopsy was performed without conscious sedation. DLP: 160 mGy*cm IMPRESSION: Technically satisfactory CT guided FNAB of a left upper lobe indeterminate nodule. Charging Operator: PSCB Transcribe Date/Time: Dec 14 2017 5:01P Dictated by : LUCÍA PURCELL MD This examination was interpreted and the report reviewed and electronically signed by: LUÍCA PURCELL MD on Dec 14 2017 5:04PM EST [id number] [id number] POST Observed: 12/14/2017 Status: COMPLETED Source: [place] 3:54 PM [facility] REPOSITORY HNO ID: [id number] Author: Lucía Purcell Service: Radiology Author Type: Physician Type: Anesthesia PostOp Filed: 12/14/2017 3:56 PM Note Text: BRIEF OPERATIVE / PROCEDURE NOTE LOG ID: [id number] SURGERY/PROCEDURE DATE: 12/14/2017 INCISION/PROCEDURE START TIME: 3:36 PM INCISION CLOSE/PROCEDURE END TIME: 3:48 PM SURGEON(S)/PROCEDURALIST(S) AND DOCUMENTUM CONSULTANT(S): Surgeon(s) and Role: * Lucía Purcell - Primary No Additional Staff SURGERY/PROCEDURE(S): Percutaneous FNAB of a SIMRAN indeterminant lung nodule ANESTHESIA: Procedural Sedation FINDINGS: SIMRAN indeterminant lung nodule ESTIMATED BLOOD LOSS: 0 ml SPECIMENS: Fine needle aspirate in Cytolyte and on slides COMPLICATIONS: None PRE-OP/PRE-PROCEDURE DIAGNOSIS: SIMRAN indeterminant lung nodule POST-OP/POST-PROCEDURE DIAGNOSIS: Same SIGNATURE: Lucía Purcell MD PATIENT NAME: Debbie Choi DATE: December 14, 2017 TIME: 3:54 PM PAGER/CONTACT #: [phone] PROGRESS Observed: 12/14/2017 Status: COMPLETED Source: [place] 3:41 PM [facility] REPOSITORY HNO ID: [id number] Author: Gold Oliveira (Ct) Service: Radiology Author Type: Clinical Blast Furnace Keeper Helper Type: Progress Notes Filed: 12/14/2017 3:42 PM Note Text: Radiology Service Progress Note PATIENT NAME: Debbie Choi DATE OF SERVICE: December 14, 2017 TIME: 3:41 PM PATIENT IDENTITY VERIFICATION COMPLETED USING TWO (2) METHODS: Patient confirmed name verbally and ID band matches.. PATIENT GENDER DATA: Female. status: : No status: NO. PATIENT RELEVANT IMPLANT DATA REVIEWED: Yes RADIOLOGY DEPARTMENT: Biopsy PERIPHERAL IV DATA: Not applicable SIGNED BY: KAYLA Oliveira December 14, 2017 3:41 PM PT ED Observed: 12/14/2017 Status: COMPLETED Source: [place] 3:10 PM [facility] REPOSITORY HNO ID: [id number] Author: Mabel Perez RN Service: (none) Author Type: Registered Nurse Type: Patient Education Filed: 12/14/2017 5:23 PM Note Text: AMBULATORY PATIENT EDUCATION NOTE TOPIC: HEALTH PROMOTION: Complication prevention READINESS TO LEARN COGNITIVE ABILITY: Alert and oriented MOTIVATION TO LEARN: Interested FAMILY SUPPORT: Unable to assess - Family not present INSTRUCTION PROVIDED TO: Patient PATIENT LEARNS BEST BY: Individual Instruction FACTORS AFFECTING LEARNING: None PHYSICAL LIMITATIONS AFFECTING LEARNING: None LEARNING RESPONSE DIAGNOSIS: Left upper lobe lung nodule METHOD OF INSTRUCTION: Individual instruction PATIENT / FAMILY RESPONSE: Verbalizes understanding of: POST-PROCEDURE INSTRUCTIONS-Correct actions to take to reduce post procedure complications FOLLOW-UP PLAN: Complete - No need for follow-up SUPPLEMENTAL MATERIAL: None REFERRAL (RECOMMENDATION): None Electronically Signed By: Mabel Dorsey In Department: HOSP MAIN [id number] CYTOLOGY Observed: 12/14/2017 Status: C Source: [place] 3:03 PM [facility] REPOSITORY ADDITIONAL PROCEDURES PRESENT Specimen originated from [facility] Specimen #: [id number] Submitting Physician: LUCÍA PURCELL (Hb6) SPECIMEN SUBMITTED A: LEFT UPPER LOBE, LUNG, FINE NEEDLE ASPIRATE (THINPREP, SMEARS, AND CELLBLOCK) FINAL DIAGNOSIS A. LEFT UPPER LOBE, LUNG, FINE NEEDLE ASPIRATE (THINPREP, SMEARS, AND CELLBLOCK) Positive for malignant cells. Adenocarcinoma with extensive necrosis. Comment: The results of genetic and cytogenetic testing will be reported separately. [place] M.D. (Electronic Signature) ADDITIONAL PROCEDURE(S) LUNG CANCER HOTSPOT GENE PANEL Date Ordered: 12/16/2017 Date Reported: 12/24/2017 Procedure Results and Interpretation Specimen type: FNA [id number] A % Malignant cells in sample: 70 RESULT: BRAF No variant detected [Reference Sequence: ([id number])]. EGFR - No variant detected [Reference Sequence: ([id number])]. HER2 (ERBB2) - No variant detected [Reference sequence: ([id number])]. KRAS - No variant detected [Reference Sequence: ([id number])]. MET- No variant detected [Reference Sequence: ([id number])] INTERPRETATION: No cancer-related sequence changes were identified in mutation hotspots within the BRAF, EGFR, KRAS, MET and HER2 (ERBB2) genes. These include common therapy-related mutations in BRAF exon 15, including codon 600, EGFR exons 18 21, KRAS exons 2, 3, 4, including codons 12, 13, 61, and others (e.g.117, 146), MET exon 14 splicing site mutations and HER2 (ERBB2) exons 18 21. BRAF (B-Martinez mitali-oncogene, serine/threonine kinase) encodes a serine threonine kinase that is part of the mitogen-activated protein kinase (MAPK) signaling pathway, which promotes cellular growth and survival. Mutations in BRAF codon V600 in exon 15 are present in 1 - 5% of lung adenocarcinomas, and result in constitutive activation of the enzyme. V600E, which describes the substitution of glutamic acid (E) for valine (V) at position 600, represents approximately 50% of V600 mutations in lung cancer, and is associated with light or never smoking women whose tumors have micropapillary histology. BRAF V600 mutations in lung adenocarcinomas may predict responsiveness to BRAF inhibitor therapies such as vemurafinib and debrafenib (Yulia Santamaria et al. J Clin Oncol 2011;29:3574:79; Mikala Scott et al. N Engl J Med 2015;373:726-36). EGFR (epidermal growth factor receptor) encodes a receptor tyrosine kinase that is a member of the ERBB family. Receptor dimerization activates the downstream ALBERT/MARTINEZ/MEK and PI3K/AKT/mTOR pathways, which promote cellular growth and survival. EGFR mutations are identified in approximately 16% of lung adenocarcinomas, are most commonly found in Asians, women and non-smokers. In-frame deletions within exon 19 and the [id number] mutation in exon 21 account for 90% of EGFR mutations. Exon 19 deletions, and mutations in exons 18 and 21 typically predict responsiveness to reversible small molecule EGFR tyrosine kinase inhibitors such as gefitinib and erlotinib, as well as irreversible inhibitors such as neratinib, dacomitinib, and afatinib. Exon 20 insertions and the T790M mutation are associated with resistance to EGFR tyrosine kinase inhibitors. (NCCN Clinical Practice Guidelines in Oncology: Non-Small Cell Lung Cancer, available at NCCN.org; Jamey BURGESS, Hui PT. Mazariegos MB, et al. J Mol Diagn 2013;15:415-53; Vasu Cross Govindan R. Lancet Oncol 2015;16:e342-51; Boolell V, Alamgeer M, Andrews DN, et al. Cancers 2015;7:1815-46; FEBS J 2010;277:301-8; Alondra Lozano. Cancer. Clin Cancer Res 2015;21:2221-6; Guerita C, Dugan TM, Chauncey A, et al. Transl Lung Cancer Res 2015;4:126-41; Yulia A, Garret L, Malatesta S, et al. J Clin Oncol 2011;29:3574-9; Sharon MONGE, Ryne Alvarez, Mervat Trevino. Proc Am Thorac Soc 2009;6:201-5.) HER2, now known as ERBB2 (erb-b2 receptor tyrosine kinase 2), encodes a receptor tyrosine kinase that lacks a known ligand. HER2 receptor dimerization activates downstream signaling through the PI3K/AKT/mTOR and MEK/ERK pathways, promoting cellular proliferation, differentiation, and migration, and mediating sensitivity of EGFR-mutant lung tumors to anti-EGFR therapy. Activating HER2 mutations are found in approximately 2 - 4% of NSCLC patients, occurring most commonly in non-smoking women with adenocarcinoma. HER2 gene mutations in NSCLC typically occur in exons 18 - 21, with an in-frame insertion in exon 20 most frequently identified, and result in constitutive activation of the enzyme. They are typically mutually exclusive with EGFR, KRAS, and ALK mutations, and may predict response to anti-HER2 inhibitor therapies such as traztuzumab or afatinib (Catina J, et al. J Clin Oncol 2013;31:8827-3345; Peters S, Marquez S. Sabra Oncol 2012;23(October (Suppl. 10)):b675-9360. Rachel Samuel. Lancet Oncol 2011;12:175-80) refs 16, 22.). KRAS (Rina rat sarcoma viral oncogene homolog) encodes a small self-inactivating GTP-ase that is a member of the ALBERT family of oncogenes, and serves as a signal transducer in response to stimuli from upstream cell-surface receptors. Activating mutations in KRAS are identified in 20 25% of lung adenocarcinomas. The majority of KRAS mutations in lung cancer are found in codons 12 and 13 in exon 2, and less frequently in codon 61 in exon 3. KRAS mutations are more often found in smokers, and less commonly in Asians. Mutations in KRAS are rarely found in combination with other racecar driver mutations such as EGFR, BRAF, HER2, ALK and ROS1 rearrangements. Activating KRAS mutations may be an adverse prognostic marker in lung adenocarcinoma, and appear to predict non-responsiveness to anti-EGFR tyrosine kinase inhibitors. (NCCN Clinical Practice Guidelines in Oncology: Non-Small Cell Lung Cancer, available at NCCN.org; Jamey NI, Hui PT. Mazariegosstacy GANNON, et al. J Mol Diagn 2013;15:415-53; Samantha S, Vasu Casillas, Jose Stephens. Lancet Oncol 2015;16:e342-51; Boolell V, Alaeer M, Andrews DN, et al. Cancers 2015;7:1815-46; FEBS J 2010;277:301-8; Alondra Lozano. Cancer. Clin Cancer Res 2015;21:2221-6; Guerita C, Ritchie TM, Chauncey A, et al. Transl Lung Cancer Res 2015;4:126-41; Yulia A, Garret L, Malatesta S, et al. J Clin Oncol 2011;29:3574-9; Sharon MONGE, Ryne J, Mervat W. Proc Am Thorac Soc 2009;6:201-5.) MET (MET Mitali-Oncogene) encodes a receptor tyrosine kinase (RTK) and may be activated via the binding of its ligand hepatocyte growth factor (HGF). Activated MET phosphorylates its substrates and results in the activation of multiple signaling pathways, including the GY2T-UDJ-gTDZ (cell survival) and the PDL-YSH-VFT-ERK (cell proliferation) and FAK (cell adhesion and migration) mediated pathways. Nonsynonymous mutations in MET have been reported at low frequencies in NSCLC (Pat et al., 2006) and small cell lung cancer (Robson et al., 2003). Conversely, amplification of MET occurs in 2 - 4% of previously untreated NSCLC and in 5 - 20% of patients with EGFR-mutant tumors and acquired resistance to EGFR inhibitors (Jordan et.al, 2009; Mychal et al., 2007). METHOD: Following extraction of tumor DNA from microdissected FFPE, FNA, and CB specimens and library construction utilizing the custom Cancer Hotspot Panel v.1 ([employer], [place], [place]), DNA sequencing of gene mutation hotspot regions was performed on the MiSeq instrument ([employer], [place], [place]). Mytopia software ([employer], [place], [place]) was used to analyze FASTQ files to identify hotspot mutations in requested genes. LIMITATIONS: Sequence changes outside the analyzed mutation hotspots, including intronic, non-coding, and splicing site variants, will not be identified in this test. Insertions and deletions larger than 20 and 40 bp, respectively, may not be identified in this test. The lower limit of detection of this assay is approximately 5% allele proportion. Variants below 5% allele proportion may be reported at the discretion of the molecular pathology professional staff if the technical quality of the sequencing is sufficient at that location and the call is unequivocal. Negative results from specimens for which the percentage of tumor cells is 10% or less should be interpreted with caution. A minimum coverage depth of 100 reads is required across the entire region of interest. Any region below this minimum will not be resulted, and a list of low coverage areas will be included in the report as applicable. Fixation in neutral buffered formalin is preferred. Decalcification agents and fixation agents containing heavy metals (e.g., B5) or harsh acid or base components (e.g., Bouin's solution) can in inhibit PCR reactions. ANALYTE SPECIFIC REAGENT (ASR) DISCLAIMER: This test was developed and its performace characteristics determined by [facility] [place] ([facility]). It has not been cleared or approved by the FDA. -[facility] is regulated under CLIA as qualified to perform high-complexity testing. This test is used for clincial purposes. It should not be regarded as investigational or for research. As reviewed by: Eric Barber M.D. [facility]/ 12/23/2017 Lung Part (A) Procedure Pathologist: Eric Barber M.D. Electronic Signature FISH FOR ALK (2P23) THINPREP NSCLC Date Ordered: 12/16/2017 Date Reported: 12/20/2017 Procedure Results and Interpretation FISH for ALK Rearrangement ThinPrep Method Specimen type/Block #: Left upper lobe lung FNA (A) INTERPRETATION: ALK rearrangement NOT DETECTED RESULT: Anomaly Result Reference Range ALK Rearrangement 8% (0-14%) [employer] Seller interpretation: Pearl Hooker, PhD Pathologist Interpretation: David Marc MD METHODOLOGY: The dual color ALK break apart format FISH Probe Kit ([employer], [place], [place]), approved for formalin fixed paraffin embedded tissue by the U.S. FDA for selection of locally advanced or metastatic non-small cell lung cancer patients for treatment with crizotinib (Xalkori), was modified for use with ThinPrep cytopathology slides as a laboratory validated assay. The probe consists of a mixture of two fluorescently labeled DNA probes hybridizing to the centromeric and telomeric segments flanking the ALK (2p23) gene, and was used in this interphase FISH assay to detect the presence of a rearrangement involving ALK (2p23). 50 interphase cancer cells were analyzed. REFERENCES: 1. Jeremías EL, Tra Y-J, Aram JUNG, et al. Anaplastic Lymphoma Kinase Inhibition in NonSmall-Cell Lung Cancer. N Engl J Med 2010;363:9756-8506. 2. Jamey NI, Hui PT, Yair MB, et al. Molecular Testing Guideline for the Selection of Lung Cancer Patients for EGFR and ALK Tyrosine Kinase Inhibitors: Guideline from the College of Japanese Pathologists, International Association for the Study of Lung Cancer, and Association for Molecular Pathology. J Mol Diagn 2013;15:415-53. 3. NCCN Clinical Practice Guidelines in Oncology: Non-Small Cell Lung Cancer, National Comprehensive Cancer Network, Inc. Available at NCCN.org. 4. Bonilla SJ, Yulissa M, La S, et al. Unique clinicopathologic features characterize ALK-rearranged lung adenocarcinoma in the western population. Clin Cancer Res 2009;15:7558-1087. LIMITATIONS: This test will not identify all rearrangements in ALK. Rare, cryptic abnormalities may be below the resolution of the assay, or may otherwise be undetected. Specimen size, quality or representativeness can affect the quality of the results. This test was developed and its performance characteristics determined by the [facility]'s [facility] [place] ([facility]). It has not been cleared or approved by the FDA. [facility] is regulated under CLIA as qualified to perform high-complexity testing. This test is used for clinical purposes. It should not be regarded as investigational or for research. MW/lb 12.20.2017 Procedure Pathologist: David Marc M.D.. Electronic Signature SEND OUT TESTING Date Ordered: 01/05/2018 Date Reported: 01/29/2018 Procedure Results and Interpretation At the request of Dr. Enzo Brand, the block of this case was sent to [facility] for PDL-1 testing. The result will be reported in the patient's EMR. CB/josef/01/05/18 Procedure Pathologist: [place] M.D. Electronic Signature CLINICAL DATA SIMRAN indeterminant lung nodule GROSS DESCRIPTION 30cc hazy light pink CytoLyt with particles with 2 smears STAINS A: LEFT UPPER LOBE, LUNG, FINE NEEDLE ASPIRATE (THINPREP, SMEARS, AND CELLBLOCK) SMEARS RECEIVED x 2, THIN PREP Non-Golf Ball Winder, CELL BLOCK, H&E, Initial Date of Report: 12/15/2017 Date of Procedure: 12/14/2017 Date of Receipt: 12/15/2017 Submitted by: LUCÍA PURCELL (Hb6) Location: A30 Diagnostic interpretation performed at [facility], [address] [place] [address]. HISTORY PHYSICAL Observed: 12/14/2017 Status: COMPLETED Source: [place] 2:59 PM [facility] REPOSITORY HNO ID: [id number] Author: Lucía Purcell Service: Radiology Author Type: Physician Type: HANDP Filed: 12/14/2017 3:02 PM Note Text: UPDATED PROCEDURAL SEDATION HISTORY AND PHYSICAL EXAMINATION SERVICE DATE: 12/14/2017 SERVICE TIME: 2:59 PM PHYSICAL EXAM MUST BE COMPLETED ON ADMISSION PROCEDURE SCHEDULED: Procedure(s): BIOPSY LUNG OR MEDIASTINUM PERCUTANEOUS NEEDLE (N/A) RADIOLOGY ORDER PLACED: Radiology (1440h ago through future) Start Ordered 12/12/17 1615 IMAGING GUIDED BIOPSY LUNG ONCE, Routine 12/12/17 1602 12/11/17 1430 IMAGING GUIDED BIOPSY LUNG ONCE, Routine 12/11/17 1416 The History and Physical (completed in the past 30 days) has been reviewed and the patient has been examined. The contents accurately reflect the patient's condition with the following additions or revisions since the HANDP was completed. ASA Class: ASA Class:: Patient with mild systemic disease Examination indicates no changes. AIRWAY: Airway Visualization of Uvula: Yes Mouth opening greater than 2 fingerbreadths: Yes Neck Full Range of Motion: Yes LUNGS: Lungs clear to auscultation, Good diaphragmatic excursion CARDIAC: Normal S1 and S2; no rubs, murmurs, or gallops Provisional Diagnosis/Treatment Plan: Percutaneous FNAB of a SIMRAN indeterminant lung nodule SEDATION GOAL: Moderate This HANDP can be found in the Electronic Medical Record dated 12/10/2017. SIGNATURE: Lucía Purcell MD PATIENT NAME: Debbie Choi DATE: December 14, 2017 TIME: 2:59 PM PAGER: [phone] NURSING PROG Observed: 12/14/2017 Status: COMPLETED Source: [place] 1:46 PM [facility] REPOSITORY HNO ID: [id number] Author: Neli Acosta (Rn) LEYDA Knight Service: (none) Author Type: Registered Nurse Type: Nursing Progress Note Filed: 12/14/2017 1:48 PM Note Text: Called floor RN for updated handoff prior to bringing patient down to radiology for lung biopsy. Updated handoff received. Last documented respiratory rate in Epic questioned, (per floor RN) rate was pulled from telemetry, not accurate. Per RN, patient's VSS, okay to travel down for biopsy. CBC Collected: 12/14/2017 Status: F Source: [place] 11:15 AM [facility] REPOSITORY TYPE CODE TESTS RESULT OUT OF REFERENCE UNITS RANGE LAB WBC 3.70-11.00 k/uL WBC 9.25 LAB RBC 3.90-5.20 m/uL RBC 4.61 LAB HGB 11.5-15.5 g/dL Hemoglobin 14.3 LAB HCT 36.0-46.0 % Hematocrit 44.9 LAB MCV 80.0-100.0 fL MCV 97.4 LAB MCH 26.0-34.0 pG MCH 31.0 LAB MCHC 30.5-36.0 g/dL MCHC 31.8 LAB RDWCV 11.5-15.0 % RDW-CV 12.8 LAB PLTCT 150-400 k/uL Platelet Count 278 LAB MPV 9.0-12.7 fL MPV 9.4 LAB ABSNUC <0.01 k/uL Absolute nRBC <0.01 Performed By: #### CBC, CMP #### [facility] [address] [place], [place] [address] COMP METABOLIC PANEL Collected: 12/14/2017 Status: F Source: [place] 11:15 AM [facility] REPOSITORY TYPE CODE TESTS RESULT OUT OF REFERENCE UNITS RANGE LAB TP 6.3-8.0 g/dL Protein, Total 6.5 LAB ALB 3.9-4.9 g/dL Albumin 3.9 LAB CA 8.5-10.2 mg/dL Calcium, Total 9.5 LAB TBIL 0.2-1.3 mg/dL Bilirubin, Total 0.4 LAB ALKP 34-123 U/L Alkaline Phosphatase 69 LAB AST 13-35 U/L AST 16 LAB GLU 74-99 mg/dL Glucose 84 Result Comment: The [place] Diabetes Association (ADA) provides guidance for cutoff values for fasting glucose and random glucose. The ADA defines fasting as no caloric intake for at least 8 hours. Fas ting plasma glucose results between 100 to 125 mg/dL indicate increased risk for diabetes (prediabetes). Fasting plasma glucose results greater than or equal to 126 mg/dL meet the criteria for diagnosis of diabetes. In the absence of unequivocal hyperglycemia, results should be confirmed by repeat testing. In a patient with classic symptoms of hyperglycemia or hyperglycemic crisis, random plasma glucose results greater than or equal to 200 mg/dL meet the criteria for diagnosis of diabetes. Reference: Standards of Medical Care in Diabetes 2016, [place] Diabetes Association. Diabetes Care. 2016.39(Suppl 1). LAB BUN 7-21 mg/dL BUN 18 LAB CRET 0.58-0.96 mg/dL Creatinine 0.69 LAB NA 136-144 mmol/L Sodium 140 LAB K 3.7-5.1 mmol/L Potassium 4.0 LAB CL 97-105 mmol/L Low Chloride 96 LAB CO2 22-30 mmol/L CO2 High 31 LAB AGAP 9-18 mmol/L Anion Gap 13 LAB ALT 7-38 U/L ALT 13 LAB GFRAA eGFR- Amer. >60 LAB GFRNAA . eGFR-All Other Races >60 Result Comment: eGFR (Estimated GFR) Units of measure: mL/min/1.73 meters squared eGFR is derived from the reexpressed MDRD Study equation using the following parameters: serum creatinine, age, gender and race. The creatinine assay has been calibrated to be traceable to IDMS. An eGFR <60 mL/min/1.73m2 for >3 months is consistent with chronic kidney disease. Refer to KDOQI guidelines for clinical interpretation. In patients with unstable renal function, e.g. those with acute kidney injury, the eGFR may not accurately reflect actual GFR. Performed By: #### CBC, CMP #### [facility] [address] [place], [place] [address] CT CHEST W IVCON Observed: 12/13/2017 Status: F Source: [place] 7:59 PM [facility] REPOSITORY * * *Final Report* * * DATE OF EXAM: Dec 13 2017 7:59PM [facility] [place] CHEST W IVCON / PROCEDURE REASON: Lung nodule(s) * * * * Physician Interpretation * * * * EXAMINATION: CHEST CT WITH CONTRAST Indication: Lung nodule(s) Technique: Spiral CT acquisition of the chest from the thoracic inlet to the upper abdomen following IV contrast. MQ: CTCW_4 Contrast: 120 mL Omnipaque [address] Dose-Length Product: 486 mGy*cm CT Dose Reduction Employed: Automated exposure control (AEC) Comparison: 04/20/2017 RESULT: Limitations: None. Lines, tubes, and devices: None. Lung parenchyma and pleura: Lobulated spiculated lesion in the anterior left upper lobe demonstrates change in configuration and orientation-image 46. Comparing the measurements is difficult but overall, the lesion is not significantly changed in size to minimally decreased, measuring approximately 3.2 x 1.8 cm. The lobulations along the medial aspect of the lesion around image 46 are less prominent on the current exam, although the lobulations along the inferior aspect of the lesion about image 50 are more prominent. The changes may represent neoplastic process undergoing treatment or necrotic changes. Further workup is recommended. PET CT would BE helpful in assessing the metabolic activity of the lesion. Moderate to severe emphysematous changes are again seen with predominant involvement in the upper lung zones. Inflammatory airway thickening is seen mostly in the mid to lower lungs. Superimposed peribronchial interstitial edema is not excluded. Segmental atelectatic changes are seen at the bases. There are findings compatible with remote granulomatous infection in the chest. [ ] Few tiny indeterminate nodules remain unchanged, for example left upper lobe image 48, left lower lobe-image 159, right lower lobe image 99 and mid right lung-image 94. Follow-up is recommended. Thoracic inlet, heart, and mediastinum: Heart remains within normal. No pericardial effusion. Atherosclerotic calcifications are in the coronary arteries and aorta. [ ] The ascending thoracic aorta is within normal in diameter. Descending thoracic aorta is ectatic with mural irregularity suggesting significant atherosclerotic plaques with ulcerations. Main pulmonary artery is borderline. There is a small hiatal hernia with nonspecific thickening of the distal esophagus. Visualized aspect of the thyroid is unremarkable. Central airways are patent.. Bones and soft tissues: No mass, fluid collection or axillary adenopathy. There is generalized osteopenia. Multiple wedge deformities are noted, one of which is new since previous exam in the mid thoracic spine. No definite lytic or sclerotic osseous lesion. Upper abdomen: Dictated separately IMPRESSION: SPICULATED LOBULATED NODULE MEASURING APPROXIMATELY 3.2 X 1.8 CM IN THE ANTERIOR LEFT UPPER LOBE. THIS DEMONSTRATES SOME CHANGE IN ORIENTATION AND CONFIGURATION SINCE THE PREVIOUS EXAM. MINIMAL OVERALL DECREASE IN SIZE IS NOT EXCLUDED. THE FINDINGS MAY REPRESENT NEOPLASTIC PROCESS UNDERGOING TREATMENT OR NECROTIC CHANGES. FURTHER WORKUP IS RECOMMENDED. PET/CT WOULD BE HELPFUL IN ASSESSING THE METABOLIC ACTIVITY. STABLE INDETERMINATE PULMONARY NODULES. FOLLOW-UP IS RECOMMENDED. Charging Operator: PSCB Transcribe Date/Time: Dec 13 2017 8:50P Dictated by : ANURAG MOTTA MD This examination was interpreted and the report reviewed and electronically signed by: ANURAG MOTTA MD on Dec 13 2017 9:15PM EST [id number] CT ABD/PEL W IVCON Observed: 12/13/2017 Status: F Source: [place] 7:59 PM [facility] REPOSITORY * * *Final Report* * * DATE OF EXAM: Dec 13 2017 7:59PM [facility] [place] ABD/PEL W IVCON / PROCEDURE REASON: Lung nodule(s) * * * * Physician Interpretation * * * * EXAMINATION: CT ABDOMEN AND PELVIS WITH IV CONTRAST CLINICAL HISTORY: Left apical lung mass, lung nodules, AAA. TECHNIQUE: CT of the abdomen and pelvis was performed using standard technique, scanning from just above the dome of the diaphragm to the symphysis pubis. MQ: CTAP_3 Contrast: IV: 120 ml of Omnipaque 300 Oral: 900 ml of 50ML Omnipaque [address] Radiation dose: Integrated Dose-length product (DLP) for this visit = 486 mGy*cm. CT Dose Reduction Employed: Automated exposure control (AEC) COMPARISON: Outside CT 04/07/2017. RESULT: Liver: Few subcentimeter hypoattenuating hepatic lesions which are too small to characterize but stable and likely benign. Biliary: No bile duct dilation. Gallbladder is unremarkable. Spleen: No mass. No splenomegaly. Pancreas: No mass or duct dilation. Adrenals: No mass. Kidneys: Moderate left hydronephrosis with abrupt caliber change at the UPJ, unchanged. Mild right pelvocaliectasis without gross hydronephrosis. Few subcentimeter hypoattenuating renal lesions which are too small to characterize but likely benign. Punctate left calyceal calculus. GI tract: No dilation or wall thickening. Normal appendix. Extensive descending and sigmoid colon predominant diverticulosis without diverticulitis. Large periampullary duodenal diverticulum noted. Small hiatal hernia. Lymph nodes: No abdominal or pelvic lymphadenopathy. Mesentery/Peritoneum: No ascites or loculated collection. Retroperitoneum: No mass. Vasculature: The celiac axis and SMA are patent. The portal vein and branches, splenic vein, SMV, and hepatic veins are patent. Moderate atherosclerotic disease of the abdominal aorta and iliac arteries with infrarenal abdominal aortic aneurysm measuring up to 6.1 cm, similar to prior (2:31). 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 Pelvis: Partially decompressed urinary bladder is unremarkable. No loculated collection. Bones/Soft Tissues: No destructive osseous lesions. Multilevel thoracolumbar spine degenerative arthropathy and vertebral body compression deformities. Lower thorax: A chest CT performed will be reported separately. IMPRESSION: NO METASTATIC DISEASE IN THE ABDOMEN OR PELVIS. 6 CM INFRARENAL ABDOMINAL AORTIC ANEURYSM. MODERATE LEFT HYDRONEPHROSIS WITH ABRUPT URETERAL CALIBER CHANGE AT THE UPJ, SIMILAR TO PRIOR. Charging Operator: PSCB Transcribe Date/Time: Dec 13 2017 9:31P Dictated by : JAIRON OCONNOR DO This examination was interpreted and the report reviewed and electronically signed by: JAIRON OCONNOR DO on Dec 13 2017 9:52PM EST [id number] PROGRESS Observed: 12/13/2017 Status: COMPLETED Source: [place] 7:55 PM [facility] REPOSITORY HNO ID: [id number] Author: Gisele Casillas (Rn) LEYDA Whaley Service: Radiology Author Type: Registered Nurse Type: Progress Notes Filed: 12/13/2017 7:55 PM Note Text: Radiology Service Progress Note PATIENT NAME: Debbie Choi DATE OF SERVICE: December 13, 2017 TIME: 7:55 PM PATIENT WEIGHT: 132 LBS PATIENT IDENTITY VERIFICATION COMPLETED USING TWO (2) METHODS: Patient confirmed name verbally and ID band matches.. PATIENT GENDER DATA: Female. status: : No status: NO. CONTRAST INDUCED NEPHROPATHY RISK FACTORS: Patient age > 60 years CREATININE: Creatinine Date Value Ref Range Status 12/12/2017 0.70 0.58 - 0.96 mg/dL Final 12/11/2017 0.84 0.58 - 0.96 mg/dL Final 12/10/2017 1.06 (H) 0.58 - 0.96 mg/dL Final eGFR-All Other Races Date Value Ref Range Status 12/12/2017 >60 . Final Comment: eGFR (Estimated GFR) Units of measure: mL/min/1.73 meters squared eGFR is derived from the reexpressed MDRD Study equation using the following parameters: serum creatinine, age, gender and race. The creatinine assay has been calibrated to be traceable to IDMS. An eGFR <60 mL/min/1.73m2 for >3 months is consistent with chronic kidney disease. Refer to KDOQI guidelines for clinical interpretation. In patients with unstable renal function, e.g. those with acute kidney injury, the eGFR may not accurately reflect actual GFR. eGFR- Date Value Ref Range Status 12/12/2017 >60 Final P.O.C.T. RESULTS: POC done: Yes, See Lab Tab December 13, 2017 TREATMENT: No Hydration needed. ALLERGIES: Reviewed and unchanged CONTRAST ALLERGY: NO. IV SITE: Inpatient - refer to LDA documentation IV SITE APPEARANCE: Clean,Dry and Intact SIGNED BY: Gisele Whaley RN December 13, 2017 7:55 PM PROGRESS Observed: 12/13/2017 Status: COMPLETED Source: [place] 7:50 PM [facility] REPOSITORY HNO ID: [id number] Author: Ximena Edwards Service: (none) Author Type: (none) Type: Progress Notes Filed: 12/13/2017 7:51 PM Note Text: Radiology Service Progress Note PATIENT NAME: Debbie Choi DATE OF SERVICE: December 13, 2017 TIME: 7:50 PM PATIENT IDENTITY VERIFICATION COMPLETED USING TWO (2) METHODS: Patient confirmed name verbally and ID band matches.. PATIENT GENDER DATA: Female. status: : No status: NO. PATIENT RELEVANT IMPLANT DATA REVIEWED: Yes RADIOLOGY DEPARTMENT: CT; Exam(s) Completed: Chest Abdomen Pelvis PERIPHERAL IV DATA: Inpatient: see LDA documentation SIGNED BY: Ximena Edwards December 13, 2017 7:50 PM [facility] Observed: 12/13/2017 Status: COMPLETED Source: [place] 3:45 PM [facility] REPOSITORY [facility] ID: [id number] Author: Racquel Vega Service: Art Therapy Author Type: Art Therapist Type: Allied Health Filed: 12/13/2017 3:51 PM Note Text: ART THERAPY NOTE SERVICE DATE: 12/13/2017 SERVICE TIME: 1450 H62-3 Referred By: Resident / fellow Reason for Referral: Relaxation COMMENTS: Consult received and appreciated. Pt appeared sitting up in bed talking with daughter upon arrival to room. Introduction of self and service offered. Pt displayed neutral affect and mood as she politely declined interest in art therapy or anticipated need. Pt's daughter affirmed pt's choice. No other needs identified at this time. AT will follow up upon request. SIGNATURE: Racquel Vega, Art Therapist PATIENT NAME: Debbie Choi DATE: December 13, 2017 TIME: 3:45 PM PAGER/CONTACT #: [phone] LEAD ELECTROCARDIOGRAM Observed: 12/13/2017 Status: F Source: [place] 3:07 PM [facility] [place] [facility] [place] [facility] [address] [place] [address]30 12 Lead EKG 12/10/17 1119 MR#: [id number] Acct: [id number] Name: DEBBIE CHOI Rep #: [id number] : 1940 77 From: Tito Jernigan MD Attending Dr: Status: DEP ER Ordering Dr: Marivel Alvarez DO Date: 12/10/17 Location: ED Sex: F C Admitted: Test Reason : SOB Blood Pressure : / mmHG Vent. Rate : 089 BPM Atrial Rate : 089 BPM P-R Int : 156 ms QRS Dur : 078 ms QT Int : 364 ms P-R-T Axes : 041 -25 069 degrees QTc Int : 442 ms Normal sinus rhythm Inferior infarct , age undetermined Cannot rule out Anterior infarct , age undetermined Abnormal ECG Confirmed by TITO JERNIGAN MD ([id number]), electronic news gathering editor LAVERNE HEMPHILL ([id number]) on 12/13/2017 3:06:59 PM Referred By: LITA Confirmed By:TITO JERNIGAN MD 12/13/17 1507 Date Tito Jernigan MD CC: CHALO DORMAN; Marivel Alvarez DO Signed CASE MGT INIT Observed: 12/13/2017 Status: COMPLETED Source: [facility] 2:43 PM [facility] REPOSITORY HNO ID: [id number] Author: Jasiel Salgado (Sw) Service: Care Management Author Type: Payroll Tax Analyst Type: Care Mgt Initial Assessment Filed: 12/13/2017 4:55 PM Note Text: CARE MANAGEMENT: ASSESSMENT AND DISCHARGE PLAN SERVICE DATE: 12/13/2017 SERVICE TIME: 2:44 PM PRIMARY CARE PHYSICIAN: CHRIS Nelson ADMISSION STATUS: Inpatient 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 No Advance Directive: Case mgmt will provide education. Health Literacy: 1. How often do you need to have someone help you when you read instructions, pamphlets, or other written material from your doctor or pharmacy? Never - 1 2. How confident are you filling out medical forms by yourself? Extremely - 1 If Patient scores > 3 on either question, the following interventions were put into place: Patient did not score > 3 FUNCTIONAL AND COGNITIVE/BEHAVIORAL PRIOR TO ADMISSION: Baseline Mental Status: Alert AND Oriented, Person, Place , Time and Situation Functional Status: Independent Does Patient Currently Receive Any Community Services or Home Care? None Equipment Prior to Admission: None Has the Patient Been in a Fpc Facility in the Past 30 days? No SOCIAL: Living Arrangement: Home Lives With: Alone Financial Resources: Retired Primary Contact: Extended Emergency Contact Information Primary Emergency Contact: Ritu Candelaria Mobile Relation: Daughter Supportive: Yes Other Important Patient Contacts: None Caregiver Assessment: Caregiver is ready, willing and able to meet the patient's needs as recommended by the inter-professional team? Yes Patient's transition needs and plan for meeting these needs: TBD Does the patient have an acute stroke diagnosis, or has the patient had a stroke during this admission? No Medication Adherence: I am convinced of the importance of my prescription medication: Agree completely - 0 I worry that my prescription medication will do more harm than good to me Disagree completely - 0 I feel financially burdened by my flb-ag-vhtcsd expenses for my prescription medication: Disagree completely - 0 Patient is categorized as low risk < 2 Are you interested in bedside delivery of your medications? No Food Concerns: In the Last Month, Have You had Trouble Getting Food? No trouble getting food During the Last Month, Have You Worried Whether Your Food Would Run Out Before You Had Enough Money to Buy More? No Is the Patient Psychosocially Complex? No ASSESSMENT AND PLAN: Medical Needs: 2 or more chronic diseases and Cancer - active treatment/follow up Psychosocial Needs: None FREEDOM OF CHOICE EXPLAINED: N/A POTENTIAL TRANSITION PLANS To Be Determined Pt admitted for tumor workup. Pt awaiting biopsy. POC and PAC needs TBD pending biopsy. For any questions and concerns please follow up w/ case mgmt. SIGNATURE: CHIDI ANDREWS, STUDENT PATIENT NAME: Debbie Choi DATE: December 13, 2017 TIME: 2:44 PM PAGER/CONTACT #: [phone] CNDS Observed: 12/13/2017 Status: COMPLETED Source: [place] 2:37 PM [facility] REPOSITORY HNO ID: [id number] Author: Robin Yee Ms Service: (none) Author Type: (none) Type: Discharge Summaries Filed: 12/16/2017 6:40 PM Note Text: Attestation signed by Krzysztof Chu at 12/16/2017 6:43 PM ATTENDING PHYSICIAN: Patient seen and evaluated today Brito elements of history and physical examination of the patient were confirmed. The assessment and plan were formulated and discussed with the team on Rounds. I reviewed the Medical student's note, examined the patient and agree with the documented findings and plan of care. had lung biopsy IR imaging guided- no problem after that - chest exam- equal air entry Discharged with Hem/Onc Follow -up Discussed discharge planning with the Medical Student and residents Krzysztof Chu MD [place]- [phone] ?? DISCHARGE SUMMARY PATIENT NAME: Debbie Choi ADMISSION DATE: 12/10/2017 DISCHARGE DATE: 12/15/17 ATTENDING PHYSICIAN: Krzysztof Chu Code Status: Full Code Highest Readmission Risk Score: 8 The 30 day readmissions risk score is derived from an internally validated risk model which evaluates patient level characteristics, utilization history, medication orders and lab results up until the day of discharge. Patients with a score of 40 or above are considered highest risk for readmission. Specific patient level drivers will be listed at the bottom of the summary. REASON FOR HOSPITALIZATION: Left arm discoordination DIAGNOSIS: Active Problems: Nicotine use disorder, F17.2 Brain mass Lung mass Resolved Problems: * No resolved hospital problems. * Ruled Out OPERATIONS DURING HOSPITALIZATION: None PROCEDURES DURING HOSPITALIZATION: Biopsy: Lung mass (L apical) HOSPITAL COURSE: Debbie Choi presented to [facility] with left arm discoordination for ~24 hours from [facility] ED. Earlier on 12/10, she had called her PCP for L arm discoordination present since the prior evening who told her to go to the ED in [place]. There, CT imaging revealed a hemorrhagic lesion on the posterior R frontal lobe with vasogenic edema concerning for metastasis vs AVM. She was sent to [facility] because a [facility] ([facility] did not have neurosurgery available. On arrival to [facility], she had discoordination with left rapid hand movements and normal right rapid hand movements, normal dzfoqp-oa-gvbz intact bilaterally, wywo-en-qrsr exam normal bilaterally, cranial nerve II-XII intact, normal DTRs biceps and patellar tendons, UE/LE sensation and strength intact with Rt slightly stronger than Left in the context of right-handedness. She was seen by neurosurgery, who determined that no immediate surgical intervention was needed. She was started on dexamethosone 4mg BID for vasogenic edema. Home medications were continued for COPD, HTN, Hyperlipidemia, and appetite stimulus. MRI revealed Enhancing mass lesion posterior right frontal lobe likely reflecting metastatic disease and chronic changes. This brain lesion is in the context of a chest CT in April which revealed newly detected left apical lung mass measuring 3.4 x 2.5 x 2.5 highly suspicious for malignancy. At that time, Debbie Choi had declined biopsy because she did not want to pursue treatment if results were consistent with malignancy. During her admission, she expressed her wishes to minimize functional deficits. To appropriately diagnose and treat the brain lesion, CT-guided biopsy of the lung mass was recommended and performed by interventional radiology. This case was discussed with radiation oncology, who offered to see Ms. Choi inpatient with the understanding that they could not recommend treatment without biopsy results. Debbie Choi preferred to follow up outpatient after pathology results came in. Debbie Choi was discharged with follow up with Radiation Oncology, Oncology, and her PCP. During her stay, CT with and without contrast of the abdomen, pelvis, and chest were done. CT A/P showed no signs of metastasis, AAA 6 cm w/ moderate L hydronephrosis, same as prior. CT of the chest showed SPICULATED LOBULATED NODULE MEASURING APPROXIMATELY 3.2 X 1.8 CM IN THE ANTERIOR LEFT UPPER LOBE. ?THIS DEMONSTRATES SOME CHANGE IN ORIENTATION AND CONFIGURATION SINCE THE PREVIOUS EXAM. CT in April had previously revealed newly detected left apical lung mass measuring 3.4 x 2.5 x 2.5 highly suspicious for malignancy ? Debbie Choi's PMH was also notable for AAA. CT on 04/07/17 showed 6.5 cm x 5.7 cm infrarenal aneurysm of the aorta/ with no evidence of rupture + with tortuosity and suspected mass effect upon the left kidney causing mild to moderate hydronephrosis + narrowing of the lumen at the origin of the superior mesenteric artery. She had previously seen vascular surgery at [facility], who had discussed with the patient that a procedure would be very high-risk. Debbie Choi decided not to pursue further treatment. A vascular surgery consult was discussed with the patient and with the team and felt not to be appropriate during this hospitalization. Transitions of Care Critical Issues: BRITO MEDICATION CHANGES: Dexamethasone 4 mg BID for vasogenic edema LABS AND PROCEDURES PENDING AT DISCHARGE: Biopsy Results (Lung) CONSULTING TEAMS DURING HOSPITALIZATION: Neurosurgery: Dr. Love Interventional Radiology: Dr. Lucía Purcell PATIENT CONDITION AT DISCHARGE: Stable DISCHARGE DISPOSITION: Home/Self Care Discharge Physical Exam: VITAL SIGNS: BP 141/71 Pulse 82 Temp 36.8 ?C (98.3 ?F) Resp 16 Ht 152.4 cm (5') Wt 59 kg (130 lb 1.1 oz) SpO2 98% BMI 25.40 kg/m? GENERAL: Alert, no distress, cooperative, Cooperative SKIN: Skin color, texture, turgor normal. No rashes or lesions. HEAD/SINUSES: No significant findings. No masses. No supraclavicular lymphadenopathy. EYES: PERRLA, EOMI EARS: External ears normal, canals clear. NOSE: Nares normal. Septum midline. OROPHARYNX: Lips, mucosa, and tongue normal. Teeth and gums normal. Oropharynx normal. NECK: No jugulovenous distention, Carotid pulse normal contour, Supple BACK: Back symmetric, Normal curvature, ROM normal, No CVAT. LUNGS: Decreased breath sounds over Left anterior upper lobe, Good diaphragmatic excursion CARDIAC: Normal S1 and S2; no rubs, murmurs, or gallops ABDOMEN: Abdomen soft, non-tender, BS normal, No masses or organomegaly. Nondistended. EXTREMITIES: Extremities normal, no deformities, edema, clubbing or skin discoloration. No axillary lymphadenopathy. Good capillary refill., No ulcers NEURO: discoordination with left rapid hand movements and normal right rapid hand movements, normal rtdzzg-ja-vlcd intact bilaterally, xciw-vh-ywkg exam normal bilaterally, cranial nerve II-XII intact, normal DTRs biceps and patellar tendons, UE/LE sensation and strength intact with Rt slightly stronger than Left in the context of right-handedness PULSES: 2+ radial INFORMATION PROVIDED TO PATIENT: (To pull info documented from the DC Instruct Orderset Complete O/S First): Call doctor if changes in left hand discoordination or neurological status Advised to quit smoking DIET: Resume pre-hospital diet ACTIVITY: Resume pre-hospital activity WOUND/SURGICAL SITE CARE: None ALLERGIES No Known Allergies DISCHARGE MEDICATION: Discharge Medication List as of 12/15/2017 12:23 PM START taking these medications pantoprazole DR (PROTONIX) 40 mg tablet Take 1 tablet by mouth DAILY (6 AM). Print RX, Disp-30 tablet, R-0, Long-term dexamethasone (DECADRON) 4 mg tablet Take 1 tablet by mouth twice daily with meals for 8 days. Print RX, Disp-16 tablet, R-0 CONTINUE these medications which have NOT CHANGED mirtazapine (REMERON) 15 mg tablet Take 15 mg by mouth daily at bedtime. Historical Med, Long-term acetaminophen (TYLENOL EX STR ARTHRITIS PAIN ORAL) Take 650 mg by mouth four times daily as needed. Historical Med latanoprost (XALATAN) 0.005 % ophthalmic solution INSTILL 1 DROP INTO BOTH EYES AT BEDTIME DIRECTED Historical Med, R-3, Long-term lisinopril-hydrochlorothiazide (PRINZIDE,ZESTORETIC) 20-12.5 mg per tablet Take 1 tablet by mouth once daily. Historical Med, R-3, Long-term pravastatin (PRAVACHOL) 40 mg tablet once daily. Historical Med, R-3, Long-term ADVAIR DISKUS 250-50 mcg/dose dsdv once daily. Historical Med, R-3, DASHAWN, Long-term PROAIR HFA 90 mcg/actuation inhaler INHALE 2 (TWO) PUFFS EVERY 4-6 HOURS NEEDED Historical Med, R-3, DASHAWN, Long-term ipratropium-albuterol (DUONEB) 0.5 mg-3 mg(2.5 mg base)/3 mL nebu USE ONE VIAL VIA NEBULIZER EVERY 4 TO 6 HOURS NEEDED Historical Med, R-3, Long-term multivitamin tablet Take 1 tablet by mouth once daily. Historical Med, Long-term CHOLECALCIFEROL, VITAMIN D3, ORAL Take by mouth once daily. Historical Med, Long-term VITAMIN E ORAL Take by mouth once daily. Historical Med, Long-term FUTURE APPOINTMENTS: Follow Up with PCP (pt scheduled this): Rebecca Dorman, PAC Future Appointments Date Time Provider Department Center 12/22/2017 11:30 AM Janeth CORTEZUMER [facility] 12/22/2017 1:00 PM Enzo Santamaria Meme [id number] [facility] 12/22/2017 2:10 PM Kerri Mays [facility] The patient's risk for 30-day readmission is determined using the following contributing factors: Pt variables contributing to increased readmission risk: 17 Most Recent BUN Result 13 Active Medication Orders 9.8 First Resulted Calcium During Admission 1 Insurance - Medicare TIME OF CARE: Discharge Management: I personally spent greater than 30 minutes involved in the discharge management of this patient. SIGNATURE: Robin Yee Il PAGER/CONTACT #: [phone] DATE: December 13, 2017 TIME: 2:37 PM CASE MANAGEM Observed: 12/13/2017 Status: COMPLETED Source: [place] 2:05 PM [facility] REPOSITORY HNO ID: [id number] Author: Adore CamargoRn) LEYDA Germain Service: Care Management Author Type: Registered Nurse Type: Care Mgt Progress Note Filed: 12/13/2017 2:06 PM Note Text: CARE MANAGEMENT PROGRESS NOTE SERVICE DATE: 12/13/2017 SERVICE TIME: 2:05 PM LOS: 3 days [place] [facility] Director Note Not Attributed Census List Admission Date: 12/13/2017 [place] [facility] Opportunities; Pharmacotherapy Mgmt of COPD Exacerbation Osteoporosis Mgmt (OMW) -Women with Fracture Controlling High Blood Pressure SIGNATURE: Adore Germain RN PATIENT NAME: Debbie Choi DATE: December 13, 2017 TIME: 2:05 PM PAGER/CONTACT #: [phone] [facility] Observed: 12/13/2017 Status: COMPLETED Source: [place] 10:45 AM [facility] REPOSITORY HNO ID: [id number] Author: Hayley CamargoRn) LEYDA Raymundo Service: Healing Service Author Type: Registered Nurse Type: Allied Health Filed: 12/13/2017 12:34 PM Note Text: HEALING SERVICES THERAPY NOTE SERVICE DATE: 12/13/2017 SERVICE TIME: 1045 INTERVENTIONAL FOCUS: Relaxation Visit With: Patient and Family x3 Urgency of Visit: Routine Type of Visit: Introductory Visit Patient introduced to Healing Services available to them. Provided supportive community for pt. Created an environment of peace and calm using slow, soothing speech and a quiet, gentle, accepting presence to promote pt's healing. She shared the reasons for her admission and talked about her stay and experience in the [facility] [place]. She shared about her difficulty sleeping. Empathetic, active listening and therapeutic presence provided, allowing the patient to express her feelings. Suggested aromatherapy could help provide some relief. Pt chose lavender aromatherapy inhaler for sleep and relaxation. No allergies to nuts, trees, polanco, fruits or spices noted. Provided instruction on use of aromatherapy inhaler along with a 3-minute intentional relaxation breathing exercise, explaining it usually takes just 3 minutes of slow, deep breathing with intention to stop the stress response and instead promote a relaxation response. Pt chose to consciously focus on the word peace while inhaling and gave it the color of white light. All questions answered and materials left at bedside. Re-visit from Healing Services Team: Yes. If requested. SIGNATURE: Hayley Raymundo RN PATIENT NAME: Debbie Choi DATE: December 13, 2017 TIME: 12:31 PM PAGER/CONTACT #: [phone] [facility] Observed: 12/13/2017 Status: COMPLETED Source: [place] 9:50 AM [facility] REPOSITORY HNO ID: [id number] Author: Hayley Raymundo RN Service: Healing Service Author Type: Registered Nurse Type: Allied Health Filed: 12/13/2017 12:31 PM Note Text: HEALING SERVICES THERAPY NOTE SERVICE DATE: 12/13/2017 SERVICE TIME: 0950 INTERVENTIONAL FOCUS: Relaxation Visit With: Patient and Family Urgency of Visit: Routine Type of Visit: Introductory Visit Patient and/or Family currently not available to speak with. Left materials and contact information at bedside. SIGNATURE: Hayley Raymundo RN PATIENT NAME: Debbie Choi DATE: December 13, 2017 TIME: 12:30 PM PAGER/CONTACT #: [phone] PROGRESS Observed: 12/13/2017 Status: COMPLETED Source: [place] 7:02 AM [facility] REPOSITORY HNO ID: [id number] Author: Robin Reyesgoldielolly Ms Service: (none) Author Type: (none) Type: Progress Notes Filed: 12/13/2017 1:26 PM Note Text: MEDICAL STUDENT PROGRESS NOTE INTERNAL MEDICINE SERVICE DATE: 12/13/2017 SERVICE TIME: 7:03 AM Attending Note This note was generated by a MEDICAL STUDENT working under the supervision of an Attending Physician and is not authenticated until addended and cosigned by the Attending Physician at the beginning of this note. SUBJECTIVE INTERVAL HPI: VSS. AOx3. No overnight events. [place] restless over biopsy today. Medications: Current hospital medications: fluticasone-salmeterol 250-50 mcg/dose 1 Puff (ADVAIR) 1 Puff INHALATION BID pantoprazole DR 40 mg tab(s) (PROTONIX) 40 mg ORAL DAILY (6 AM) albuterol HFA 90 mcg/actuation 2 Puff (PROVENTIL HFA, VENTOLIN HFA) 2 Puff INHALATION q 4 H PRN ipratropium-albuterol 3 mL nebulizer solution (DUONEB) 3 mL INHALATION q 4 H PRN latanoprost 0.005 % 1 Drop (XALATAN) 1 Drop BOTH EYES AT BEDTIME lisinopril 20 mg tab(s) (ZESTRIL, PRINIVIL) 20 mg ORAL DAILY pravastatin 40 mg tab(s) (PRAVACHOL) 40 mg ORAL DAILY therapeutic multivitamin 1 tablet tab(s) (THERA VITAMIN) 1 tablet ORAL DAILY mirtazapine 15 mg (REMERON) 15 mg ORAL AT BEDTIME 0.9% NaCl 3-5 mL 3-5 mL INTRAVENOUS q 12 H hydroCHLOROthiazide 12.5 mg tab(s) (HYDRODIURIL, ESIDRIX) 12.5 mg ORAL DAILY nicotine 21 mg/24 hr 1 Patch (NICODERM) 1 Patch TRANSDERMAL DAILY nicotine -- REMOVE patch OTHER DAILY nicotine - verify patch OTHER q 8 H dexamethasone 4 mg tab(s) (DECADRON) 4 mg ORAL BID w MEALS OBJECTIVE BP 148/65 Pulse 66 Temp 36.6 ?C (97.9 ?F) (Oral) Resp 19 Ht 152.4 cm (5') Wt 59.9 kg (132 lb 0.9 oz) SpO2 97% BMI 25.79 kg/m? PHYSICAL EXAM: Cardiac: RRR Pulm: dec breath sounds anterior left apex Neuro: alert and oriented, Sensation grossly intact bilaterally, Cranial nerves II-XII intact, 4/5 RUE strength, 4/5 LUE strength. 5/5 LE strength. Dyscoordination of L hand on rapid alternating movement AND NL sbhfps-qp-mfri. DATA: Diagnostic tests reviewed for today's visit: Most recent labs and imaging. ASSESSMENT AND PLAN: L arm discoordination Clinically stable, subacute presentation CT: small areas of chronic blood products with associated vasogenic edema in lesion on posterior R frontal lobe MRI suggestive of possible metastasis, no signs of bleeding progression - dexamethasone 4?mg BID - lung biopsy today - neurosurgery following - consult oncology after biopsy, family on board ? Lung mass Long-term current smoker >30 pack-years CT in April revealed newly detected left apical lung mass measuring 3.4 x 2.5 x 2.5 highly suspicious for malignancy Normocalcemic - bx today ? Infrarenal AAA CT on 04/07/17 showed 6.5 cm x 5.7 cm infrarenal aneurysm of the aorta/ with no evidence of rupture + with tortuosity and suspected mass effect upon the left kidney causing mild to moderate hydronephrosis + narrowing of the lumen at the origin of the superior mesenteric artery No clinical signs of rupture or compression on structures Pt had seen vascular surgeon at [facility] prior to admission, surgery considered too risky - observe ? HTN? - HCTZ 12.5 mg - lisinopril 20 mg ? Hyperlipidemia - pravastatin 40 mg ? COPD 2 L NC at home - albuterol 90 mcg q6 PRN - Duoneb 3mL q6 - fluticasone-vilanterol (100-25 mcg) as formulary substitute for home Advair ? Appetite Stimulus - Mirtazapine 15mg continued from home meds ? Glaucoma - latanoprost ? VTE prophylaxis: SCDs Code status: Full SIGNATURE: Robin Yee Ms PATIENT NAME: Debbie Choi DATE: December 13, 2017 TIME: 7:03 AM PAGER: [phone] NURSING PROG Observed: 12/13/2017 Status: COMPLETED Source: [place] 5:23 AM [facility] REPOSITORY HNO ID: [id number] Author: Melania Harrison (Rn) LEYDA Nova Service: (none) Author Type: Registered Nurse Type: Nursing Progress Note Filed: 12/13/2017 5:30 AM Note Text: Nursing Progress Note Patient Name: Debbie Choi Patient Location: [facility] H062 [id number] pt continues with Lue weakness denies N/T. R pupil larger than L . pt NPO for pending procedure, voices understanding. 0530 no changes noted over night, pt remains free of injury, free of c/o This note was completed by: Melania Nova RN NURSING PROG Observed: 12/12/2017 Status: COMPLETED Source: [place] 5:23 AM [facility] REPOSITORY HNO ID: [id number] Author: Melania Harrison (Rn) LEYDA Nova Service: (none) Author Type: Registered Nurse Type: Nursing Progress Note Filed: 12/12/2017 5:25 AM Note Text: Nursing Progress Note Patient Name: Debbie Choi Patient Location: [facility] [id number] neuro stable over night, pt remains free of injury. continues with SOB upon exertion, 2 L nc remains. pt denies c/o This note was completed by: Melania Nova RN CBC AND DIFFERENTIAL Collected: 12/12/2017 Status: F Source: [place] 3:47 AM [facility] REPOSITORY TYPE CODE TESTS RESULT OUT OF REFERENCE UNITS RANGE LAB WBC 3.70-11.00 k/uL WBC 9.14 LAB RBC 3.90-5.20 m/uL RBC 4.70 LAB HGB 11.5-15.5 g/dL Hemoglobin 14.7 LAB HCT 36.0-46.0 % High Hematocrit 46.6 LAB MCV 80.0-100.0 fL MCV 99.1 LAB MCH 26.0-34.0 pG MCH 31.3 LAB MCHC 30.5-36.0 g/dL MCHC 31.5 LAB RDWCV 11.5-15.0 % RDW-CV 12.5 LAB PLTCT 150-400 k/uL Platelet Count 296 LAB MPV 9.0-12.7 fL MPV 9.3 LAB ANEUT % Neut% 81.0 LAB AANEUT 1.45-7.50 k/uL Abs Neut 7.40 LAB ALYMP % Lymph% 11.8 LAB AALYMP 1.00-4.00 k/uL Abs Lymph 1.08 LAB AMONO % [place]% 7.1 LAB AAMONO <0.87 k/uL Abs [place] 0.65 LAB AEOS % Eosin% 0.0 LAB AAEOS <0.46 k/uL Abs Eosin <0.03 LAB ABASO % Baso% 0.1 LAB AABASO <0.11 k/uL Abs Baso <0.03 LAB AUNRBC 0 /100 WBC NRBCs 0.0 LAB ABNRBC <0.01 k/uL Absolute nRBC <0.01 LAB DTYP DTYPE Auto Diff Performed By: #### CBCDIF, BMP #### [facility] [address] [place], [place] [address] BASIC METABOLIC PANL Collected: 12/12/2017 Status: F Source: [place] 3:47 AM [facility] REPOSITORY TYPE CODE TESTS RESULT OUT OF REFERENCE UNITS RANGE LAB GLU 74-99 mg/dL High Glucose 126 Result Comment: The [place] Diabetes Association (ADA) provides guidance for cutoff values for fasting glucose and random glucose. The ADA defines fasting as no caloric intake for at least 8 hours. Fas ting plasma glucose results between 100 to 125 mg/dL indicate increased risk for diabetes (prediabetes). Fasting plasma glucose results greater than or equal to 126 mg/dL meet the criteria for diagnosis of diabetes. In the absence of unequivocal hyperglycemia, results should be confirmed by repeat testing. In a patient with classic symptoms of hyperglycemia or hyperglycemic crisis, random plasma glucose results greater than or equal to 200 mg/dL meet the criteria for diagnosis of diabetes. Reference: Standards of Medical Care in Diabetes 2016, [place] Diabetes Association. Diabetes Care. 2016.39(Suppl 1). LAB BUN 7-21 mg/dL BUN 17 LAB CRET 0.58-0.96 mg/dL Creatinine 0.70 LAB NA 136-144 mmol/L Sodium 142 LAB K 3.7-5.1 mmol/L Potassium 4.3 LAB CL 97-105 mmol/L Chloride 99 LAB CO2 22-30 mmol/L CO2 30 LAB AGAP 9-18 mmol/L Anion Gap 13 LAB CA 8.5-10.2 mg/dL Calcium, Total 9.9 LAB GFRAA eGFR- Amer. >60 LAB GFRNAA . eGFR-All Other Races >60 Result Comment: eGFR (Estimated GFR) Units of measure: mL/min/1.73 meters squared eGFR is derived from the reexpressed MDRD Study equation using the following parameters: serum creatinine, age, gender and race. The creatinine assay has been calibrated to be traceable to IDMS. An eGFR <60 mL/min/1.73m2 for >3 months is consistent with chronic kidney disease. Refer to KDOQI guidelines for clinical interpretation. In patients with unstable renal function, e.g. those with acute kidney injury, the eGFR may not accurately reflect actual GFR. Performed By: #### CBCDIF, BMP #### [facility] [address] [place] [id number] PROGRESS Observed: 12/11/2017 Status: COMPLETED Source: [place] 4:35 PM [facility] REPOSITORY HNO ID: [id number] Author: Krzysztof Chu Service: General Internal Medicine Author Type: Physician Type: Progress Notes Filed: 12/12/2017 5:18 PM Note Text: Internal Medicine - Tucker Santamaria Progress Note SERVICE DATE: 12/12/2017 SERVICE TIME: 8:00 AM Assessment AND Plan 77 y.o. Female current smoker w/ pmhx of Lung mass (dgx 04/2017), Thoracic and AAA, COPD, HTN, who presented to presented to OSH for left arm weakness/discoordination for several days duration. CT Head in ED showed a hemorrhagic lesion in periphery of the posterior R frontal lobe concerning for metastasis. CT head was repeated as well as MRI of head that did not show any enlargement of bleed but did show vasogenic edema. Patient had been refusing any biopsies or treatment. Pt was placed on steroids and seen by neurosurgery who did not feel any acute neurosurgical intervention was needed at that time. #L arm discoordination Clinically stable, subacute presentation CT Head in ED showed a hemorrhagic lesion in periphery of the posterior R frontal lobe concerning for metastasis. CT head was repeated as well as MRI of head that did not show any enlargement of bleed but did show vasogenic edema Plan: - dexamethasone 4?mg BID - Follow neurosurgery recs - Reconsult oncology on Biopsy results come back ? #Lung mass Long-term current smoker >30 pack-years CT in April revealed newly detected left apical lung mass measuring 3.4 x 2.5 x 2.5 highly suspicious for malignancy Pt has denied lung biopsy In the past, although she has recently agreed. Plan: Plan for Biopsy on Wednesday (ordered) ? #Infrarenal AAA CT on 04/07/17 showed 6.5 cm x 5.7 cm infrarenal aneurysm of the aorta/ with no evidence of rupture No signs of rupture or compression on structures Pt has declined surgical intervention to date, has seen vascular surgeon prior to admission - observe ? #HTN? - HCTZ 12.5 mg - lisinopril 20 mg ? #Hyperlipidemia - pravastatin 40 mg ? #COPD 2 L NC at home - albuterol 90 mcg q6 PRN - Duoneb 3mL q6 - fluticasone-vilanterol (100-25 mcg) as formulary substitute for home Advair ? #Appetite Stimulus - Mirtazapine 15mg continued from home meds ? #Glaucoma - latanoprost ? VTE prophylaxis: heparin 5k BID Code status: Full Plan for the day: - Plan for Biopsy of Lung lesion on Wednesday, keep NPO overnight tonight Interval HPI: - Spoke with Neurosurgery and placed patient on VTE prophylaxis with Lovenox - Pt agreed to Biopsy of Lung lesion - VSS, HDS, NAEO, Afebrile - Today patient States She is feeling good - She continues to experience left arm weakness and discoordination - Denies any CP, SOB, Cough, Fevers, Pain in legs, swelling, palpitations, Has, changes in vision or hearing, new weakness. Vital Signs BP 140/67 Pulse 69 Temp 36.3 ?C (97.4 ?F) (Oral) Resp 24 Ht 152.4 cm (5') Wt 59.3 kg (130 lb 11.7 oz) SpO2 97% BMI 25.53 kg/m? PHYSICAL EXAMINATION: General - no distress, alert X oriented x3 Lungs - RLL crackles and Wheezing Cardio ? regular rate and rhythm, normal S1 and S2, no murmur Abdomen ? no abdominal distention, soft, no tenderness on palpation Extremities ? no edema in the b/l LEs and UEs Skin ? no rashes or lesions Neuro ? alert and oriented, Sensation grossly intact bilaterally, Cranial nerves II-XII intact, 4/5 RUE strength, 4/5 LUE strength. 5/5 LE strength. Dyscoordination of L hand on rapid alternating movement AND NL [id number]-[id number]. Laboratory Values CBC, Coags, BMP, Mg, Phos Recent Labs 12/12/17 0347 12/11/17 0435 12/10/17 2320 12/10/17 2309 WBC 9.14 4.99 9.85 Account Credited HB 14.7 15.4 14.4 Account Credited HCT 46.6* 48.2* 44.4 Account Credited PLT [phone] Account Credited INR -- -- -- 1.0 APTT -- -- -- 29.6 NA 142 139 -- 139 K 4.3 4.1 -- 3.8 CHLOR 99 100 -- 96* CO2 30 25 -- 33* BUN 17 15 -- 16 CREAT 0.70 0.84 -- 1.06* GLUC 126* 150* -- 110* CA 9.9 9.6 -- 9.8 MG -- -- -- 2.1 P -- -- -- 3.3 Liver Function, Amylase, AND Lipase Recent Labs 12/10/17 2309 TPROT 6.9 ALB 4.1 ALT 8 AST 14 ALKPHOS 79 TBILI 0.4 Cardiac Enzymes Estimated Creatinine Clearance: 53.3 mL/min (based on SCr of 0.7 mg/dL). Imaging Intake/Output Intake/Output Summary (Last 24 hours) at 12/12/17 0704 Last data filed at 12/12/17 0600 Gross per 24 hour Intake 820 ml Output 0 ml Net 820 ml ALLERGIES: ALLERGIES No Known Allergies MEDICATIONS: Current hospital medications: fluticasone-salmeterol 250-50 mcg/dose 1 Puff (ADVAIR) 1 Puff INHALATION BID pantoprazole DR 40 mg tab(s) (PROTONIX) 40 mg ORAL DAILY (6 AM) albuterol HFA 90 mcg/actuation 2 Puff (PROVENTIL HFA, VENTOLIN HFA) 2 Puff INHALATION q 4 H PRN ipratropium-albuterol 3 mL nebulizer solution (DUONEB) 3 mL INHALATION q 4 H PRN latanoprost 0.005 % 1 Drop (XALATAN) 1 Drop BOTH EYES AT BEDTIME lisinopril 20 mg tab(s) (ZESTRIL, PRINIVIL) 20 mg ORAL DAILY pravastatin 40 mg tab(s) (PRAVACHOL) 40 mg ORAL DAILY therapeutic multivitamin 1 tablet tab(s) (THERA VITAMIN) 1 tablet ORAL DAILY mirtazapine 15 mg (REMERON) 15 mg ORAL AT BEDTIME 0.9% NaCl 3-5 mL 3-5 mL INTRAVENOUS q 12 H hydroCHLOROthiazide 12.5 mg tab(s) (HYDRODIURIL, ESIDRIX) 12.5 mg ORAL DAILY nicotine 21 mg/24 hr 1 Patch (NICODERM) 1 Patch TRANSDERMAL DAILY nicotine -- REMOVE patch OTHER DAILY nicotine - verify patch OTHER q 8 H dexamethasone 4 mg tab(s) (DECADRON) 4 mg ORAL BID w MEALS SIGNATURE: Rio Jeff MD, PGY-1 PATIENT NAME: Debbie Choi DATE: December 12, 2017 TIME: 8:00 AM Pager: [phone] ATTENDING PHYSICIAN: Patient seen and evaluated today Brito elements of history and physical examination of the patient were confirmed. The assessment and plan were formulated and discussed with the team on Rounds. I reviewed the resident's note, examined the patient and agree with the documented findings and plan of care. Krzysztof Chu MD [place]- [phone] ?? CONSULT PROG Observed: 12/11/2017 Status: COMPLETED Source: [place] 11:39 AM [facility] REPOSITORY HNO ID: [id number] Author: Geovanni Lindsey Service: Neurosurgery Author Type: Resident Type: Consult Progress Note Filed: 12/11/2017 11:41 AM Note Text: Neurosurgery Inpatient Progress Note Interval HPI: No acute events overnight Objective: 12/11/17 0200 12/11/17 0400 12/11/17 0600 12/11/17 0800 BP: 102/51 110/58 118/62 Pulse: 79 82 79 Resp: 18 23 15 Temp: 36.4 ?C (97.5 ?F) 36.7 ?C (98.1 ?F) TempSrc: Oral Oral SpO2: 99% 94% 93% Weight: Height: EXAM: AOx3, NAD PERRL, EOMI FS, TM FSILT No drift BUE 5/5 except L hand frame sample and pattern supervisor 4+/5 BLE 5/5 SILT A/P: R frontal cortical metastasis - neuro stable - no need for neurosurgery at this time - steroids per primary - no role for prophylactic antiepileptics in patients with newly diagnosed brain tumors with no definitive history of seizures (PMID: [id number], [id number]) - recommend rad onc consult for possible GK - pathology via lung mass per primary - okay for dvt chemo ppx if needed - will be available if further neurosurgical needs arise, page with additional questions Geovanni Lindsey MD PGY-4, Neurological Surgery Pager # [phone] December 11, 2017 Please page [phone] after 6 PM and on weekends PROGRESS Observed: 12/11/2017 Status: COMPLETED Source: [place] 10:09 AM [facility] REPOSITORY HNO ID: [id number] Author: Gilberto Marroquin Service: (none) Author Type: Physician Type: Progress Notes Filed: 12/11/2017 10:10 AM Note Text: [facility] STAFF PHYSICIAN NOTE OF PERSONAL INVOLVEMENT IN CARE I have reviewed the progress note obtained and documented by the resident and I personally participated in the brito components. I have discussed the case and management of the patient's care. The following comments revise or confirm relevant brito components of the note. No surgical intervention at this point. Needle biopsy lung mass and possible GammaKnife for brain lesion. Gilberto Magaña MD CBC AND DIFFERENTIAL Collected: 12/11/2017 Status: F Source: [place] 4:35 AM [facility] REPOSITORY TYPE CODE TESTS RESULT OUT OF REFERENCE UNITS RANGE LAB WBC 3.70-11.00 k/uL WBC 4.99 LAB RBC 3.90-5.20 m/uL RBC 4.94 LAB HGB 11.5-15.5 g/dL Hemoglobin 15.4 LAB HCT 36.0-46.0 % High Hematocrit 48.2 LAB MCV 80.0-100.0 fL MCV 97.6 LAB MCH 26.0-34.0 pG MCH 31.2 LAB MCHC 30.5-36.0 g/dL MCHC 32.0 LAB RDWCV 11.5-15.0 % RDW-CV 12.7 LAB PLTCT 150-400 k/uL Platelet Count 289 LAB MPV 9.0-12.7 fL MPV 9.2 LAB ANEUT % Neut% 84.2 LAB AANEUT 1.45-7.50 k/uL Abs Neut 4.18 LAB ALYMP % Lymph% 14.8 LAB AALYMP 1.00-4.00 k/uL Low Abs Lymph 0.74 LAB AMONO % [place]% 1.0 LAB AAMONO <0.87 k/uL Abs [place] 0.05 LAB AEOS % Eosin% 0.0 LAB AAEOS <0.46 k/uL Abs Eosin <0.03 LAB ABASO % Baso% 0.0 LAB AABASO <0.11 k/uL Abs Baso <0.03 LAB AUNRBC 0 /100 WBC NRBCs 0.0 LAB ABNRBC <0.01 k/uL Absolute nRBC <0.01 LAB DTYP DTYPE Auto Diff Performed By: #### CBCDIF, BMP #### [facility] [address] [place] [id number] BASIC METABOLIC PANL Collected: 12/11/2017 Status: F Source: [place] 4:35 AM [facility] REPOSITORY TYPE CODE TESTS RESULT OUT OF REFERENCE UNITS RANGE LAB GLU 74-99 mg/dL High Glucose 150 Result Comment: The [place] Diabetes Association (ADA) provides guidance for cutoff values for fasting glucose and random glucose. The ADA defines fasting as no caloric intake for at least 8 hours. Fas ting plasma glucose results between 100 to 125 mg/dL indicate increased risk for diabetes (prediabetes). Fasting plasma glucose results greater than or equal to 126 mg/dL meet the criteria for diagnosis of diabetes. In the absence of unequivocal hyperglycemia, results should be confirmed by repeat testing. In a patient with classic symptoms of hyperglycemia or hyperglycemic crisis, random plasma glucose results greater than or equal to 200 mg/dL meet the criteria for diagnosis of diabetes. Reference: Standards of Medical Care in Diabetes 2016, [place] Diabetes Association. Diabetes Care. 2016.39(Suppl 1). LAB BUN 7-21 mg/dL BUN 15 LAB CRET 0.58-0.96 mg/dL Creatinine 0.84 LAB NA 136-144 mmol/L Sodium 139 LAB K 3.7-5.1 mmol/L Potassium 4.1 LAB CL 97-105 mmol/L Chloride 100 LAB CO2 22-30 mmol/L CO2 25 LAB AGAP 9-18 mmol/L Anion Gap 14 LAB CA 8.5-10.2 mg/dL Calcium, Total 9.6 LAB GFRAA eGFR- Amer. >60 LAB GFRNAA . eGFR-All Other Races >60 Result Comment: eGFR (Estimated GFR) Units of measure: mL/min/1.73 meters squared eGFR is derived from the reexpressed MDRD Study equation using the following parameters: serum creatinine, age, gender and race. The creatinine assay has been calibrated to be traceable to IDMS. An eGFR <60 mL/min/1.73m2 for >3 months is consistent with chronic kidney disease. Refer to KDOQI guidelines for clinical interpretation. In patients with unstable renal function, e.g. those with acute kidney injury, the eGFR may not accurately reflect actual GFR. Performed By: #### CBCDIF, BMP #### [facility] [address] [place] [address] STAFF REV W CBCDIF Collected: 12/10/2017 Status: F Source: [place] 11:20 PM [facility] REPOSITORY TYPE CODE TESTS RESULT OUT OF REFERENCE UNITS RANGE LAB WBC 3.70-11.00 k/uL WBC 9.85 LAB RBC 3.90-5.20 m/uL RBC 4.56 LAB HGB 11.5-15.5 g/dL Hemoglobin 14.4 LAB HCT 36.0-46.0 % Hematocrit 44.4 LAB MCV 80.0-100.0 fL MCV 97.4 LAB MCH 26.0-34.0 pG MCH 31.6 LAB MCHC 30.5-36.0 g/dL MCHC 32.4 LAB RDWCV 11.5-15.0 % RDW-CV 12.9 LAB PLTCT 150-400 k/uL Platelet Count 274 LAB MPV 9.0-12.7 fL MPV 9.1 LAB ANEUT % Neut% 74.9 LAB AANEUT 1.45-7.50 k/uL Abs Neut 7.35 LAB ALYMP % Lymph% 15.7 LAB AALYMP 1.00-4.00 k/uL Abs Lymph 1.55 LAB AMONO % [place]% 8.0 LAB AAMONO <0.87 k/uL Abs [place] 0.79 LAB AEOS % Eosin% 1.1 LAB AAEOS <0.46 k/uL Abs Eosin 0.11 LAB ABASO % Baso% 0.3 LAB AABASO <0.11 k/uL Abs Baso 0.03 LAB AUNRBC 0 /100 WBC NRBCs 0.0 LAB ABNRBC <0.01 k/uL Absolute nRBC <0.01 LAB DTYP DTYPE Auto Diff LAB SREVW Staff Review SEE COMMENT Result Comment: The Staff Review on this sample was cancelled because the hematology analyzer did not flag any parameters as requiring manual review. If there is a specific clinical concern for which yo u would like a staff pathologist to review the blood smear, please call Lab Client Services within 28 days. Account Credited LAB SRPATH Pathologist The Staff Review on this sample was cancelled because the hematology analyzer did not flag any parameters as requiring manual review. If there is a specific clinical concern for which you would like a staff pathologist to review the blood smear, please call Lab Client Services within 28 days. Result Comment: Account Credited Performed By: #### STREV #### [facility] [address] [place], [place] [address] PROTIME Collected: 12/10/2017 Status: F Source: [place] 11:09 PM [facility] REPOSITORY TYPE CODE TESTS RESULT OUT OF RANGE REFERENCE UNITS LAB PSEC 9.7-13.0 sec PT Sec 10.4 LAB INR 0.9-1.3 PT INR 1.0 Result Comment: Vitamin K Antagonist (VKA) Therapeutic Range: INR 2 to 3 (Target INR of 2.5) Note: For patients treated with VKA drugs, such as warfarin, the [place] College [employer]icians 2012 Guideline recommends a therapeutic INR range of 2 to 3 (target INR of 2.5). This recommendation includes high-risk patients with antiphospholipid syndrome with previous arterial or venous thromboembolism, current-generation mechanical or bioprosthetic aortic heart valve replacement. Note: Patients with mechanical aortic valve replacement and additional risk factors for thromboembolic events (atrial fibrillation, previous thromboembolism, LV dysfunction, hypercoagulable conditions) or an older generation mechanical AVR (i.e., ball in-Cage) or any mechanical MVR should have a INR therapeutic range of 2.5 to 3.5 (target INR of 3). Scar ALONZO, et al. Chest 2012, 141:7S-47S Dandy RA, et al. [facility] 2017, 70: 252-289 Performed By: #### PT, PTT, CMP, MG1, PHOS, CBCDIF #### [facility] [address], [place] [address] APTT Collected: 12/10/2017 Status: F Source: [place] 11:09 [facility] REPOSITORY TYPE CODE TESTS RESULT OUT OF RANGE REFERENCE UNITS LAB APTT 23.0-32.4 sec APTT 29.6 Result Comment: Unfractionated Heparin Therapeutic Ranges: Standard Heparin Nomogram: 53 to 78 seconds (anti-Xa level of 0.3 to 0.7 U/ml) Low Dose/ACS Nomogram: 49 to 67 seconds (anti-Xa level of 0.2 to 0.5 U/ml) Stroke Treatment Nomogram: 49 to 67 seconds (anti-Xa level of 0.2 to 0.5 U/ml) Note: The APTT therapeutic range has been determined for the current lot of laboratory APTT reagent in use throughout the [facility]. Performed By: #### PT, PTT, CMP, MG1, PHOS, CBCDIF #### [facility] [address] [place], [place] [address] COMP METABOLIC PANEL Collected: 12/10/2017 Status: F Source: [place] 11:09 [facility] REPOSITORY TYPE CODE TESTS RESULT OUT OF REFERENCE UNITS RANGE LAB TP 6.3-8.0 g/dL Protein, Total 6.9 LAB ALB 3.9-4.9 g/dL Albumin 4.1 LAB CA 8.5-10.2 mg/dL Calcium, Total 9.8 LAB TBIL 0.2-1.3 mg/dL Bilirubin, Total 0.4 LAB ALKP 34-123 U/L Alkaline Phosphatase 79 LAB AST 13-35 U/L AST 14 LAB GLU 74-99 mg/dL Glucose High 110 Result Comment: The [place] Diabetes Association (ADA) provides guidance for cutoff values for fasting glucose and random glucose. The ADA defines fasting as no caloric intake for at least 8 hours. Fas ting plasma glucose results between 100 to 125 mg/dL indicate increased risk for diabetes (prediabetes). Fasting plasma glucose results greater than or equal to 126 mg/dL meet the criteria for diagnosis of diabetes. In the absence of unequivocal hyperglycemia, results should be confirmed by repeat testing. In a patient with classic symptoms of hyperglycemia or hyperglycemic crisis, random plasma glucose results greater than or equal to 200 mg/dL meet the criteria for diagnosis of diabetes. Reference: Standards of Medical Care in Diabetes 2016, [place] Diabetes Association. Diabetes Care. 2016.39(Suppl 1). LAB BUN 7-21 mg/dL BUN 16 LAB CRET 0.58-0.96 mg/dL Creatinine High 1.06 LAB NA 136-144 mmol/L Sodium 139 LAB K 3.7-5.1 mmol/L Potassium 3.8 LAB CL 97-105 mmol/L Low Chloride 96 LAB CO2 22-30 mmol/L CO2 High 33 LAB AGAP 9-18 mmol/L Anion Gap 10 LAB ALT 7-38 U/L ALT 8 LAB GFRAA eGFR- Amer. >60 LAB GFRNAA . eGFR-All Other Races 50 Result Comment: eGFR (Estimated GFR) Units of measure: mL/min/1.73 meters squared eGFR is derived from the reexpressed MDRD Study equation using the following parameters: serum creatinine, age, gender and race. The creatinine assay has been calibrated to be traceable to IDMS. An eGFR <60 mL/min/1.73m2 for >3 months is consistent with chronic kidney disease. Refer to KDOQI guidelines for clinical interpretation. In patients with unstable renal function, e.g. those with acute kidney injury, the eGFR may not accurately reflect actual GFR. Performed By: #### PT, PTT, CMP, MG1, PHOS, CBCDIF #### [facility] [address] [place] [phone] MAGNESIUM Collected: 12/10/2017 Status: F Source: [place] 11:09 PM [facility] REPOSITORY TYPE CODE TESTS RESULT OUT OF REFERENCE UNITS RANGE LAB MG 1.7-2.3 mg/dL Magnesium 2.1 Performed By: #### PT, PTT, CMP, MG1, PHOS, CBCDIF #### [facility] [address] [place], [place] [address] PHOSPHORUS Collected: 12/10/2017 Status: F Source: [place] 11:09 PM [facility] REPOSITORY TYPE CODE TESTS RESULT OUT OF REFERENCE UNITS RANGE LAB PHOS 2.7-4.8 mg/dL Phosphorus 3.3 Performed By: #### PT, PTT, CMP, MG1, PHOS, CBCDIF #### [facility] [address] [place], [place] [address] CBC AND DIFFERENTIAL Collected: 12/10/2017 Status: F Source: [place] 11:09 PM [facility] REPOSITORY TYPE CODE TESTS RESULT OUT OF REFERENCE UNITS RANGE LAB WBC 3.70-11.00 k/uL WBC Account Credited Result Comment: Sample will be recollected per treating engineer Annie Powell 12.10.[address] [place] [address] LAB RBC 3.90-5.20 m/uL Account RBC Credited Result Comment: Sample will be recollected per treating engineer Annie Powell 12.10.[address] [place] [address] LAB HGB 11.5-15.5 g/dL Hemoglobin Account Credited Result Comment: Sample will be recollected per treating engineer Annie Powell 12.10.[address] [place] [address] LAB HCT 36.0-46.0 % Hematocrit Account Credited Result Comment: Sample will be recollected per treating engineer Annie Powell 12.10.[address] [place] [address] LAB MCV 80.0-100.0 fL Account MCV Credited Result Comment: Sample will be recollected per treating engineer Annie Powell 12.10.[address] [place] [address] LAB MCH 26.0-34.0 pG Account MCH Credited Result Comment: Sample will be recollected per treating engineer Annie Powell 12.10.[address] [place] [address] LAB MCHC 30.5-36.0 g/dL Account MCHC Credited Result Comment: Sample will be recollected per treating engineer Annie Powell 12.10.17 [facility] [place] LAB RDWCV 11.5-15.0 % Account RDW-CV Credited Result Comment: Sample will be recollected per treating engineer Annie Powell 12.10.[address] [facility] [place] LAB PLTCT 150-400 k/uL Platelet Count Account Credited Result Comment: Sample will be recollected per treating engineer Annie Powell 12.10.17 [facility] LAB MPV 9.0-12.7 fL Account MPV Credited Result Comment: Sample will be recollected per treating engineer Annie Powell 12.10.17 [facility] LAB BENITEZ Recheck Account Credited Result Comment: Sample will be recollected per treating engineer Annie Powell 12.10.17 [facility] LAB ANEUT % Neut% Account Credited LAB AANEUT 1.45-7.5 k/uL 0 Abs Account Neut Credited LAB ALYMP % Account Lymph% Credited LAB AALYMP 1.00-4.0 k/uL 0 Abs Account Lymph Credited LAB AMONO % [place]% Account Credited LAB AAMONO <0.87 k/uL Abs Account [place] Credited LAB AEOS % Account Eosin% Credited LAB AAEOS <0.46 k/uL Abs Account Eosin Credited LAB ABASO % Baso% Account Credited LAB AABASO <0.11 k/uL Abs Account Baso Credited LAB REVW Account Review Credited Result Comment: Sample will be recollected per treating engineer Annie Powell 12.10.17 [facility] [place] LAB CBCCOM Comment Account Credited Result Comment: Sample will be recollected per treating engineer Annie Powell 12.10.17 [facility] Performed By: #### PT, PTT, CMP, MG1, PHOS, CBCDIF #### [facility] [address] [place], [place] [address] MRI BRAIN WO/W Observed: 12/10/2017 Status: F Source: [facility] 10:21 PM [facility] REPOSITORY * * *Final Report* * * DATE OF EXAM: Dec 10 2017 10:21PM [facility] 0295 - MRI BRAIN WO/W IVCON / PROCEDURE REASON: Intracranial hemorrhage * * * * Physician Interpretation * * * * EXAMINATION: MRI BRAIN WO/W IVCON CLINICAL HISTORY: Intracranial hemorrhage. TECHNIQUE: Routine brain MRI protocol without and with contrast including diffusion images. MQ: [id number] Contrast: 11 mL Dotarem IV COMPARISON: None. RESULT: Acute Change: There is no evidence of restricted diffusion to suggest an acute infarct. Hemorrhage: Remote blood degradation byproducts within the mass lesion which is detailed below. Mass Lesion/ Mass Effect: Peripherally enhancing mass lesion present within the posterior right frontal lobe measuring 2.3 AP by 2.3 transverse centimeters with mixed internal signal intensity and a moderate degree of surrounding vasogenic edema. No gross leptomeningeal extension of disease. No additional area of abnormal enhancement. Chronic Change: Multiple foci of increased T2 and FLAIR signal intensity are present throughout the periventricular white matter of both cerebral hemispheres which is a nonspecific finding but likely the sequelae of chronic small vessel ischemia. Parenchyma: Ventricles and cortical sulci are prominent suggesting volume loss. The brain parenchyma is otherwise within normal limits of signal intensity and morphology. Ventricles: Ventriculomegaly corresponds to the degree of parenchymal volume loss. Skull Base: Hypothalamic and pituitary region are grossly normal. Craniocervical junction is normal. No significant marrow replacement process. Vasculature: Major intracranial arterial structures, and dural venous sinuses show typical flow void, suggesting patency by spin echo criteria. Other: Minimal mucosal thickening present within the imaged paranasal sinuses. Postoperative changes involve the left globe. IMPRESSION: Enhancing mass lesion posterior right frontal lobe likely reflecting metastatic disease. Chronic changes. Charging Operator: BRIAN Transcribe Date/Time: Dec 10 2017 10:39P Dictated by : NAY BHANDARI MD This examination was interpreted and the report reviewed and electronically signed by: NAY BHANDARI MD on Dec 10 2017 10:44PM EST [id number] ALLIED HEALTH Observed: 12/10/2017 Status: COMPLETED Source: [place] 10:03 PM [facility] REPOSITORY HNO ID: [id number] Author: Oh Hamilton Rt Service: (none) Author Type: (none) Type: Allied Health Filed: 12/10/2017 10:29 PM Note Text: Radiology Service Progress Note PATIENT NAME: Debbie Choi DATE OF SERVICE: December 10, 2017 TIME: 10:03 PM PATIENT IDENTITY VERIFICATION COMPLETED USING TWO (2) METHODS: Patient confirmed name verbally and ID band matches.. PATIENT GENDER DATA: Female. status: : No status: NO. PATIENT RELEVANT IMPLANT DATA REVIEWED: Yes RADIOLOGY DEPARTMENT: MR; Exam(s) Completed: Head: Routine Brain PERIPHERAL IV DATA: Inpatient: see LDA documentation SIGNED BY: HENRI/ Oh Hamilton Rt December 10, 2017 10:03 PM ECG COMPLETE W Observed: 12/10/2017 Status: F Source: [place] INTERPRETATION 9:00 PM [facility] REPOSITORY NAME : DEBBIE CHOI PID : [id number] : 1940 Gender : Female Race : ORD : [id number] Procedure Date : Dec 10 2017 21:00:27 Edit Date : Dec 14 2017 11:13:25 Diagnosis:NORMAL SINUS RHYTHM LOW VOLTAGE QRS, CONSIDER PULMONARY DISEASE, PERICARDIAL EFFUSION, OR NORMAL VARIANT INFERIOR MYOCARDIAL INFARCTION , AGE UNDETERMINED CANNOT EXCLUDE ANTERIOR MYOCARDIAL INFARCTION , AGE UNDETERMINED ABNORMAL ECG Confirmed by JANETH DORSEY M.D. ([id number]) on 12/14/2017 11:13:22 AM Ventricular Rate : 91 BPM Atrial Rate : 91 BPM P-R Interval : 158 ms QRS Duration : 80 ms Q-T Interval : 372 ms QTC Calculation(Bezet) : 457 ms P [place] : 38 degrees R [place] : 14 degrees T [place] : 64 degrees Test Reason : Location : : [facility] Overread By : JANETH DORSEY M.D. Edited By : JANETH DORSEY M.D. Referred By : , Acquired by : BREANNA JONES CONSULT Observed: 12/10/2017 Status: COMPLETED Source: [place] 7:08 PM [facility] REPOSITORY HNO ID: [id number] Author: Chilo Moralez Service: Neurosurgery Author Type: Resident Type: Consults Filed: 12/10/2017 9:00 PM Note Text: NEUROSURGERY CONSULT Patient Name: Debbie Choi CONSULTED BY: Medicine CONSULTED FOR: RF ICH with edema CHIEF COMPLAINT: L hand dyscoordination HPI: 77 year old RH female w/ PMH significant for tobacco use, COPD, HTN, AAA, recently discovered spiculated SIMARN lung mass p/w 1d L arm dyscoordination, found to have R frontal coritcal ICH 1.4x1.1cm with moderate associated edema. Patient has had 1 day of dyscoordination in LUE characterized by difficulty grasping items. She had CT w/o done at [facility] today which revealed the ICH as above. Notably the patietn was found Apr [address] chest for PE workup to have spiculated SIMRAN mass 3.1 x 2.2cm as well as additional 4mm noncalcified SIMRAN nodule. Subsequent CT C/A/P revealed no additional masses. She declined biopsy or treatment at that time, saying that given her age she does not want invasive workup and treatment of the lung mass. Denies MIMS, N/V, numbness/tingling, weakness, changes in vision/hearing, new episodes of bowel/bladder incontinence, fever/chills, hx of seizures/migraines, any recent traumas/falls, chest pain/SOB, and abdominal pain. Denies A/P/C PAST MEDICAL HISTORY: PAST MEDICAL HISTORY Diagnosis Date - AAA (abdominal aortic aneurysm) without rupture (HCC) - Bladder infection - COPD (chronic obstructive pulmonary disease) (HCC) - Dilatation of thoracic aorta (HCC) mild aneurismal dilatation of the descending aorta - Diverticulosis - Duodenal diverticulum large - Emphysema lung (HCC) Advanced - Hepatic steatosis - Hiatal hernia small - [place] (hard of hearing) - HTN (hypertension) - Hydronephrosis - Hypercholesterolemia - Lung mass - Pelviectasis left - Smoker PAST SURGICAL HISTORY: PAST SURGICAL HISTORY Procedure Laterality Date - PAST SURGICAL HISTORY OF 1996 Hysterectomy FAMILY HISTORY: FAMILY HISTORY Problem Relation Age of Onset - other (AAA) Father - other (cerebral aneurysm) Brother SOCIAL HISTORY: Social History Marital status: Spouse name: Years of education: Number of children: Social History Main Topics Smoking status: Current Every Day Smoker Packs/day: 1.00 Years: 0.00 Types: Cigarettes Smokeless tobacco: Never Used MEDICATIONS: mirtazapine (REMERON) 15 mg tablet Take 15 mg by mouth daily at bedtime. acetaminophen (TYLENOL EX STR ARTHRITIS PAIN ORAL) Take 650 mg by mouth four times daily as needed. latanoprost (XALATAN) 0.005 % ophthalmic solution INSTILL 1 DROP INTO BOTH EYES AT BEDTIME DIRECTED lisinopril-hydrochlorothiazide (PRINZIDE,ZESTORETIC) 20-12.5 mg per tablet Take 1 tablet by mouth once daily. pravastatin (PRAVACHOL) 40 mg tablet once daily. ADVAIR DISKUS 250-50 mcg/dose dsdv once daily. PROAIR HFA 90 mcg/actuation inhaler INHALE 2 (TWO) PUFFS EVERY 4-6 HOURS NEEDED ipratropium-albuterol (DUONEB) 0.5 mg-3 mg(2.5 mg base)/3 mL nebu USE ONE VIAL VIA NEBULIZER EVERY 4 TO 6 HOURS NEEDED multivitamin tablet Take 1 tablet by mouth once daily. CHOLECALCIFEROL, VITAMIN D3, ORAL Take by mouth once daily. VITAMIN E ORAL Take by mouth once daily. Current hospital medications: latanoprost 0.005 % 1 Drop (XALATAN) 1 Drop BOTH EYES AT BEDTIME [START ON 12/11/2017] lisinopril 20 mg tab(s) (ZESTRIL, PRINIVIL) 20 mg ORAL DAILY [START ON 12/11/2017] pravastatin 40 mg tab(s) (PRAVACHOL) 40 mg ORAL DAILY [START ON 12/11/2017] fluticasone-vilanterol 100-25 mcg/dose 1 Inhalation (BREO ELLIPTA) 1 Inhalation INHALATION DAILY albuterol HFA 90 mcg/actuation 2 Puff (PROVENTIL HFA, VENTOLIN HFA) 2 Puff INHALATION q 6 H PRN ipratropium-albuterol 3 mL nebulizer solution (DUONEB) 3 mL INHALATION q 6 H PRN [START ON 12/11/2017] therapeutic multivitamin 1 tablet tab(s) (THERA VITAMIN) 1 tablet ORAL DAILY mirtazapine 15 mg (REMERON) 15 mg ORAL AT BEDTIME 0.9% NaCl 3-5 mL 3-5 mL INTRAVENOUS q 12 H [START ON 12/11/2017] hydroCHLOROthiazide 12.5 mg tab(s) (HYDRODIURIL, ESIDRIX) 12.5 mg ORAL DAILY dexamethasone 8 mg tab(s) (DECADRON) 8 mg ORAL q 6 H ALLERGIES: ALLERGIES No Known Allergies COMPLETE REVIEW OF SYSTEMS: See HPI PHYSICAL EXAM: GCS: E4 V5 M6 AAO x 3, NAD Naming 3/3, repetition 2/2 ? PERRL, EOMI VF intact FS, TM Facial sensation intact bilaterally ? No drift RUE 5/5 RLE 5/5 LUE 5/5 LLE 5/5 SILT ? No dysmetria + Dysdiadokinesia in LUE DATA: Radiology: As per HPI Laboratory: CBC, Coags, BMP, Mg, Phos ASSESSMENT AND PLAN: 77 year old RH female w/ PMH significant for tobacco use, COPD, HTN, AAA, recently discovered spiculated SIMRAN lung mass p/w L arm dyscoordination, found to have R frontal coritcal ICH 1.4x1.1cm with moderate associated edema. - Medicine primary, would transfer to Neuro SDU H62,H63 for closer neuro monitoring - CTH 6 hours from prior to assess for hemorrhage stability - Dexamethasone 4 BID given symptomatic edema - MRI brain with/without contrast, tumor protocol - Update CT C/A/P - oncology consult - Patient says she would want to have a discussion about treatment options after imaging complete, unsure if she would agree to invasive treatment if this is a brain metastasis - No acute surgical intervention warranted at this time, future surgical management pending above workup Above plan discussed with chief Alvarez and (Staff) Dr. Love. SIGNATURE: Chilo Moralez MD PGY-2, Neurological Surgery Pager: [phone] Please page [phone] on weekends and after 6pm HISTORY PHYSICAL Observed: 12/10/2017 Status: COMPLETED Source: [place] 6:10 PM [facility] HNO ID: [id number] Author: Krzysztof Saba) Kimberley Service: General Internal Medicine Author Type: Physician Type: HANDP Filed: 12/11/2017 3:09 PM Note Text: MEDICAL STUDENT HANDP INTERNAL MEDICINE SERVICE DATE: 12/10/2017 SERVICE TIME: 6:11 PM Attending Note This note was generated by a medical student working under the supervision of an Attending Physician. As applicable, the findings, conclusions, and assessment of risk have been confirmed by a qualified provider. The note is NOTconsidered authenticated until addended and co-signed by the Attending Physician at the beginning of this note. SUBJECTIVE CHIEF COMPLAINT: L arm weakness HPI: Debbie Choi is a 77 year old female with lung mass, ectatic thoracic aorta and AAA, COPD, and HTN who presented to the ED at [facility] today for L arm weakness for the past several days. Her PCP recommended she go to the ED. In the ED, NIH Stroke Scale was 0. In the ED, CT w/o contrast revealed a hemorrhagic lesion and associated vasogenic edema at the periphery of the posterior R frontal lobe concerning for metastasis vs AVM with Hemorrhage. MRI and neurosurgical consult was recommended. She was originally planned to be transferred to [facility] in [place] however they did not have neurosurgery available today and she was admitted to [facility]. In the ED, UA was normal, CBC was unremarkable, and CMP was normal. Troponin-I was not elevated (<0.015). CXR in the ED revealed fibrotic densities and granulomatous calcifications of the lungs, no demonstrated pleural abnormality, mild cardiac enlargement, normal mediastinum and naida. On April 08, 2017, she had CT imaging of the chest which revealed newly detected left apical lung mass measuring 3.4 x 2.5 x 2.5 highly suspicious for malignancy. She is a long-term cigarette smoker and continues to smoke 1-2 packs a day for 30+ years. CT of the abdomen on 04/07/17 showed 6.5 cm x 5.7 cm infrarenal aneurysm of the aorta/ with no evidence of rupture. According to OSH records, she was adamant about not having a CT-guided biopsy of her lung mass in April 2017. This mass was found incidentally while she was receiving a CTA of the chest for work up of pulmonary embolism after presenting with SOB. There was no evidence of PE. Last night, Debbie Choi noticed difficulty reaching for an object with her left arm. There was no recent fall or precipitating event. She denies changes in vision, headache, palpitations, chest pain, weakness in her other extremities, changes in sensation, difficulty ambulating, and incontinence. She endorses SOB but no different than her baseline due to COPD. Upon admission, Debbie Choi still wishes to not have a lung biopsy as she would not pursue treatment. Her family is in agreement with this decision. Debbie Choi lives alone at home and is still able to complete daily activities of living. PAST MEDICAL HISTORY: PAST MEDICAL HISTORY Diagnosis Date - AAA (abdominal aortic aneurysm) without rupture (HCC) - Bladder infection - COPD (chronic obstructive pulmonary disease) (HCC) - Dilatation of thoracic aorta (HCC) mild aneurismal dilatation of the descending aorta - Diverticulosis - Duodenal diverticulum large - Emphysema lung (HCC) Advanced - Hepatic steatosis - Hiatal hernia small - [place] (hard of hearing) - HTN (hypertension) - Hydronephrosis - Hypercholesterolemia - Lung mass - Pelviectasis left - Smoker PAST SURGICAL HISTORY: PAST SURGICAL HISTORY Procedure Laterality Date - PAST SURGICAL HISTORY OF 1996 Hysterectomy FAMILY HISTORY: FAMILY HISTORY Problem Relation Age of Onset - other (AAA) Father - other (cerebral aneurysm) Brother SOCIAL HISTORY: Social History Substance Use Topics - Smoking status: Current Every Day Smoker Packs/day: 1.00 Types: Cigarettes - Smokeless tobacco: Never Used - Alcohol use Not on file CURRENT ALLERGIES: ALLERGIES No Known Allergies MEDICATIONS: Prescriptions Prior to Admission: mirtazapine (REMERON) 15 mg tablet Take 15 mg by mouth daily at bedtime. Disp: Rfl: 12/10/2017 at Unknown time acetaminophen (TYLENOL EX STR ARTHRITIS PAIN ORAL) Take 650 mg by mouth four times daily as needed. Disp: Rfl: 12/10/2017 at Unknown time latanoprost (XALATAN) 0.005 % ophthalmic solution INSTILL 1 DROP INTO BOTH EYES AT BEDTIME DIRECTED Disp: Rfl: 3 12/10/2017 at Unknown time lisinopril-hydrochlorothiazide (PRINZIDE,ZESTORETIC) 20-12.5 mg per tablet Take 1 tablet by mouth once daily. Disp: Rfl: 3 12/10/2017 at Unknown time pravastatin (PRAVACHOL) 40 mg tablet once daily. Disp: Rfl: 3 12/10/2017 at Unknown time ADVAIR DISKUS 250-50 mcg/dose dsdv once daily. Disp: Rfl: 3 12/10/2017 at Unknown time PROAIR HFA 90 mcg/actuation inhaler INHALE 2 (TWO) PUFFS EVERY 4-6 HOURS NEEDED Disp: Rfl: 3 12/10/2017 at Unknown time ipratropium-albuterol (DUONEB) 0.5 mg-3 mg(2.5 mg base)/3 mL nebu USE ONE VIAL VIA NEBULIZER EVERY 4 TO 6 HOURS NEEDED Disp: Rfl: 3 12/10/2017 at Unknown time multivitamin tablet Take 1 tablet by mouth once daily. Disp: Rfl: 12/10/2017 at Unknown time CHOLECALCIFEROL, VITAMIN D3, ORAL Take by mouth once daily. Disp: Rfl: 12/10/2017 at Unknown time VITAMIN E ORAL Take by mouth once daily. Disp: Rfl: 12/10/2017 at Unknown time OB History (if relevant): hysterectomy Health Maintenance: smokes 1-2 packs/day for last 30+ years Does not drink alcohol Does not use illicit drugs Not sexually active REVIEW OF SYSTEMS: PAIN ASSESSMENT: Negative for pain, history of chronic pain, or current treatment for a chronic pain condition. GENERAL: No weight loss, malaise or fevers. Has been trying to gain weight but unsuccessful. HEENT: Negative for frequent or significant headaches, No changes in hearing or vision, no nose bleeds or other nasal problems, Eyes Positive for difficulty hearing. NECK: Negative for lumps, goiter, pain and significant neck swelling RESPIRATORY: No cough, hemoptysis, wheezing. Positive for COPD and SOB. CARDIOVASCULAR: Negative for chest pain, leg swelling, hypertension, CHF or palpitations GI: No nausea, vomiting, or diarrhea. No incontinence. : No dysuria. No hematuria. Feels she goes more frequently and with more urgency lately. MUSCULOSKELETAL: Negative for joint pain or swelling, back pain or muscle pain SKIN: Negative for lesions, rash, and itching PSYCH: Negative for sleep disturbance, mood disorder and recent psychosocial stressors HEMATOLOGY/LYMPHOLOGY: Negative for prolonged bleeding, bruising easily or swollen nodes ENDOCRINE: Polydypsia NEURO: No history of headaches, syncope, paralysis, seizures or tremors. No numbness. No tingling. OBJECTIVE PHYSICAL EXAM: BP 138/69 Pulse 85 Temp 36.7 ?C (98 ?F) (Oral) Resp 24 Ht 152.4 cm (5') Wt 58.3 kg (128 lb 8.5 oz) SpO2 96% BMI 25.10 kg/m? GENERAL: Alert, no distress, cooperative, Cooperative SKIN: Skin color, texture, turgor normal. No rashes or lesions. HEAD/SINUSES: No significant findings. No masses. No supraclavicular lymphadenopathy. EYES: PERRLA, EOMI EARS: External ears normal, canals clear. NOSE: Nares normal. Septum midline. OROPHARYNX: Lips, mucosa, and tongue normal. Teeth and gums normal. Oropharynx normal. NECK: No jugulovenous distention, Carotid pulse normal contour, Supple BACK: Back symmetric, Normal curvature, ROM normal, No CVAT. LUNGS: Decreased breath sounds over Left anterior upper lobe, Good diaphragmatic excursion CARDIAC: Normal S1 and S2; no rubs, murmurs, or gallops ABDOMEN: Abdomen soft, non-tender, BS normal, No masses or organomegaly. Nondistended. EXTREMITIES: Extremities normal, no deformities, edema, clubbing or skin discoloration. No axillary lymphadenopathy. Good capillary refill., No ulcers NEURO: Biceps reflexes normal and symmetric. Patellar reflex 1+ on L, 3+ on R. Sensation grossly intact bilaterally, Cranial nerves II-XII intact, 4/5 RUE strength, 4/5 LUE strength. 5/5 LE strength. Dyscoordination of L hand on rapid alternating movement. NL [id number]. PULSES: 2+ radial DATA: Diagnostic tests reviewed for today's visit: CT report from OSH today: CT scan of the brain without contrast showed findings within the periphery of the posterior right frontal lobe with small quantity of hemorrhage and associated vasogenic edema differential consideration include hemorrhage with a neoplasm versus hemorrhage involving an underlying vascular malformation UA, CBC, CMP from OSH WNL IMPRESSION: Debbie Choi is a 77 year old F with L arm weakness for >24 hours in the context of lung mass highly suspicious for malignancy and CT showing small hemorrhagic lesion in R posterior frontal lobe. ASSESSMENT AND PLAN L arm dyscoordination Clinically stable, subacute presentation CT from OSH: small areas of hemorrhage w/ associated vasogenic edema in R posterior frontal lobe Pt would still like w/u for brain lesion - MRI - dexamethasone 4 mg BID - consult neurosurgery Lung mass Long-term current smoker >30 pack-[address] CT in April revealed newly detected left apical lung mass measuring 3.4 x 2.5 x 2.5 highly suspicious for malignancy Pt has denied lung biopsy because pt would not like to pursue chemotherapy Infrarenal AAA CT on 04/07/17 showed 6.5 cm x 5.7 cm infrarenal aneurysm of the aorta/ with no evidence of rupture No signs of rupture or compression on structures Pt has declined surgical intervention to date - observe HTN - HCTZ 12.5 mg - lisinopril 20 mg Hyperlipidemia - pravastatin 40 mg COPD 2 L NC at home - albuterol 90 mcg q6 PRN - Duoneb 3mL q6 Sleep disorder - Mirtazapine 15mg VTE prophylaxis: heparin 5k BID Code status: Full SIGNATURE: Robin Yee Ms PATIENT NAME: Debbie Choi DATE: December 10, 2017 TIME: 6:10 PM PAGER/CONTACT #: see below SENIOR ADDENDUM General Medicine History and Physical Please page [phone] overnight PATIENT NAME: Debbie Choi SERVICE DATE: 12/10/2017 SERVICE TIME: 6:04 PM CHIEF COMPLAINT Left hand discoordination HISTORY OF PRESENTING ILLNESS Ms. Choi is a 77 year old female with a PMHx significant for: - Tobacco use disorder: 50 PY history, current smoker - AAA, diagnosed 04/07/2017: juxtarenal, 5.2 x 6.5cm w/ thrombus in aneurysm and narrowing of SMA, c/b left renal artery mass effect w/ hydronephrosis, declined surgery - Left apical lung mass, 3.4x2.5x2.5 high suspicion of primary lung carcinoma, offered a biopsy which she declined - COPD (reportedly but no PFTs): advair, 2 L at night - HTN: lisinopril, HCTZ - Diverticulosis - Tortuous colon - Right-handed She presents w/ left hand discoordination, found to have hemorrhagic right frontal lobe, mets vs. AV malformation, ongoing for the past several days. She noticed it when she was having a hard time pushing the button on her inhaler with her left arm. She denies fatigue, chills, headache, blurry vision, loss of sensation or weakness in her extremities, chest pain, abdominal pain, n/v/d, or dysuria. She has shortnes of breath at baseline. She also reports light-headedness when she sits up after waking up from naps and in the morning for the past several days w/o dizziness, tinnitus, ear pain/fulllness. She presented to [place] where they did a CT scan of the brain: CT scan of the brain without contrast showed 1.8 cm maximum dimension ovoid focus w/ associated small hemorrhage and adjacent vasogenic edema within the periphery of the posterior right front lobe. No midline shift. Differential consideration include hemorrhage with a neoplasm versus hemorrhage involving an underlying vascular malformation and recommended MRI for further evaluation and neurosurgical consultation. CXR showed fibrotic densities and granulomatous calcifications of the lungs. Mild cardiac enlargement. Normal mediastinum and naida. Normal vislized pulmonary arteries. Artherosclerotic tortuosity of the aortic arch and descending thoracic aorta. She came in 04/20/2017 was found to have a UTI s/p abx. Incidentally was found to have left upper lobe mass. CT findings: CT of the abdomen was obtained demonstrating a 5.2 x 6.5 cm abdominal aortic aneurysm with tortuosity and suspected mass effect upon the left kidney causing mild to moderate hydronephrosis. Great significance however is that there is irregular thrombus within the aneurysm and narrowing of the lumen at the origin of the superior mesenteric artery. There is thrombus heavily involving the wall of the aneurysm at the level of the renals and there is aneurysmal change already at the level of the renals measuring 4.4 x 3.6 cm. additional mention is made of a 5.2 x 6.5 cm duodenal diverticulum. Tortuous colon. Diverticulosis. Small hiatal hernia. In addition unfortunately due to the patient's COPD she has a newly detected left apical lung mass measuring 3.4 x 2.5 x 2.5 which is highly suspicious for malignancy she is a long-term cigarette smoker and she continues to smoke MRI on presentation: Peripherally enhancing mass lesion present (with remote blood degradation products within the mass lesion) within the posterior right frontal lobe measuring 2.3 AP by 2.3 transverse centimeters with mixed internal signal intensity and a moderate degree of surrounding vasogenic edema. ?No gross leptomeningeal extension of disease. ?No additional area of abnormal enhancement. FH of aneuyrsm: father AAA, brother cerebral aneurysm. Medication: albuterol, fluticasone, lisinopril, pravastain, albuterol, vitamin E ASSESSMENT AND PLAN Ms. Choi is a 77 year old female with a lung mass of the left upper lobe now found to have a 2.3 x 2.3 mass lesion with moderate surrounding vasogenic edema within the posterior right frontal lobe and symptoms of left hand discoordination. PLAN: Right frontal lobe lesion with blood degradation and vasogenic edema: neurosurgery consult, state MRI w/wo contrast, decadron 4 mg BID; Given she likely has primary lung cancer with mets to brain, pt may want to reconsider formal diagnosis of lung mass for potential tx of brain w/ palliative RT, transfer to neuro step-down for frequent neurochecks q2 hours COPD: oxygen as needed, Advair (Breo), Albuterol prn, duoneb prn Tobacco use disorder: nicotine patch HTN: lisinopril 20 mg daily, HCTZ 12.5 mg daily Sleep: Remeron HLD: Pravastatin AAA c/b thrombus in aneurysm, hydronephrosis of lt kidney and narrowing of SMA: offered surgery at [place] but surgery at [place] stated it was too high-risk VTE PPx: IPCs, hold heparin in setting of ICH GI PPx: None Code status: Full code Pt expressed that daughter Rtiu Herrera is POA. Paperwork is at home, asked patient to bring in. Otherwise, all of patient's children ( ) are on same page regarding her medical care/wishes. PHYSICAL EXAM BP 138/69 Pulse 85 Temp 36.7 ?C (98 ?F) (Oral) Resp 24 Ht 152.4 cm (5') Wt 58.3 kg (128 lb 8.5 oz) SpO2 96% BMI 25.10 kg/m? General: In no acute distress, AAOx3 HEENT: PERRL, EOMI, anicteric sclera Neck: Supple, no adenopathy; no JVD; thyroid not enlarged, no tracheal deviation. Heart: Regular rate and rhythym, Nl S1 S2, no m/r/g Lungs: Normal breath sounds bilaterally, no rales, rhonchi, or wheezes Abdomen: BS+, Soft, nontender, nondistended abdomen Extremities: No cyanosis, no clubbing or edema Skin: Skin texture, turgor normal. No rashes or lesions Neurological: Discoordination with left rapid hand movements, right rapid hand movements normal [id number] intact bilaterally, [id number] exam normal bilaterally, cranial nerve II-XII intact, normal DTRs biceps and patellar tendons, UE/LE sensation and strength intact with Rt slightly stronger than Left, (Pt is right-handed) SIGNATURE: Rhianna Reynoso MD, PGY-2 PATIENT NAME: Debbie Choi DATE: December 10, 2017 TIME: 6:04 PM PAGER: [phone] Note: These recommendations are not final until staffed by provider ATTENDING PHYSICIAN: Patient seen and evaluated today Brito elements of history and physical examination of the patient were confirmed. The assessment and plan were formulated and discussed with the team on Rounds. I reviewed the resident's note, examined the patient and agree with the documented findings and plan of care. Will consider IR Lung Biopsy if pt agreeable. Krzysztof Chu MD [place]- [phone] ?? PLAN OF CARE Observed: 12/10/2017 Status: COMPLETED Source: [place] 6:04 PM [facility] HNO ID: [id number] Author: Rhianna Reynoso Service: General Internal Medicine Author Type: Resident Type: Plan of Care Filed: 12/11/2017 1:20 AM Note Text: SENIOR ADDENDUM General Medicine History and Physical Please page [phone] overnight PATIENT NAME: Debbie Choi SERVICE DATE: 12/10/2017 SERVICE TIME: 6:04 PM CHIEF COMPLAINT Left hand discoordination HISTORY OF PRESENTING ILLNESS Ms. Choi is a 77 year old female with a PMHx significant for: - Tobacco use disorder: 50 PY history, current smoker - AAA, diagnosed 04/07/2017: juxtarenal, 5.2 x 6.5cm w/ thrombus in aneurysm and narrowing of SMA, c/b left renal artery mass effect w/ hydronephrosis, declined surgery - Left apical lung mass, 3.4x2.5x2.5 high suspicion of primary lung carcinoma, offered a biopsy which she declined - COPD (reportedly but no PFTs): advair, 2 L at night - HTN: lisinopril, HCTZ - Diverticulosis - Tortuous colon - Right-handed She presents w/ left hand discoordination, found to have hemorrhagic right frontal lobe, mets vs. AV malformation, ongoing for the past several days. She noticed it when she was having a hard time pushing the button on her inhaler with her left arm. She denies fatigue, chills, headache, blurry vision, loss of sensation or weakness in her extremities, chest pain, abdominal pain, n/v/d, or dysuria. She has shortnes of breath at baseline. She also reports light-headedness when she sits up after waking up from naps and in the morning for the past several days w/o dizziness, tinnitus, ear pain/fulllness. She presented to [place] where they did a CT scan of the brain: CT scan of the brain without contrast showed 1.8 cm maximum dimension ovoid focus w/ associated small hemorrhage and adjacent vasogenic edema within the periphery of the posterior right front lobe. No midline shift. Differential consideration include hemorrhage with a neoplasm versus hemorrhage involving an underlying vascular malformation and recommended MRI for further evaluation and neurosurgical consultation. CXR showed fibrotic densities and granulomatous calcifications of the lungs. Mild cardiac enlargement. Normal mediastinum and naida. Normal vislized pulmonary arteries. Artherosclerotic tortuosity of the aortic arch and descending thoracic aorta. She came in 04/20/2017 was found to have a UTI s/p abx. Incidentally was found to have left upper lobe mass. CT findings: CT of the abdomen was obtained demonstrating a 5.2 x 6.5 cm abdominal aortic aneurysm with tortuosity and suspected mass effect upon the left kidney causing mild to moderate hydronephrosis. Great significance however is that there is irregular thrombus within the aneurysm and narrowing of the lumen at the origin of the superior mesenteric artery. There is thrombus heavily involving the wall of the aneurysm at the level of the renals and there is aneurysmal change already at the level of the renals measuring 4.4 x 3.6 cm. additional mention is made of a 5.2 x 6.5 cm duodenal diverticulum. Tortuous colon. Diverticulosis. Small hiatal hernia. In addition unfortunately due to the patient's COPD she has a newly detected left apical lung mass measuring 3.4 x 2.5 x 2.5 which is highly suspicious for malignancy she is a long-term cigarette smoker and she continues to smoke MRI: Hemorrhage: ? ?Remote blood degradation byproducts within the mass lesion which is detailed below. Mass Lesion/ Mass Effect: ? ?Peripherally enhancing mass lesion present within the posterior right frontal lobe measuring 2.3 AP by 2.3 transverse centimeters with mixed internal signal intensity and a moderate degree of surrounding vasogenic edema. ?No gross leptomeningeal extension of disease. ?No additional area of abnormal enhancement. IMPRESSION: Enhancing mass lesion posterior right frontal lobe likely reflecting metastatic disease. ?Chronic changes. FH of aneuyrsm: father AAA, brother cerebral aneurysm. Medication: albuterol, fluticasone, lisinopril, prvastain, albuterol, vitamin E ASSESSMENT AND PLAN Ms. Choi is a 77 year old female with a lung mass of the left upper lobe now found to have a 2.3 x 2.3 mass lesion with moderate surrounding vasogenic edema within the posterior right frontal lobe and symptoms of left hand discoordination. PLAN: Right frontal lobe lesion with blood degradation and vasogenic edema: neurosurgery consult, state MRI w/wo contrast, decadron 4 mg BID; Given she likely has primary lung cancer with mets to brain, pt may want to reconsider formal diagnosis of lung mass for potential tx of brain w/ palliative RT, transfer to neuro step-down for frequent neurochecks q2 hours COPD: oxygen as needed, Advair (Breo), Albuterol prn, duoneb prn Tobacco use disorder: nicotine patch HTN: lisinopril 20 mg daily, HCTZ 12.5 mg daily Sleep: Remeron HLD: Pravastatin AAA c/b thrombus in aneurysm, hydronephrosis of lt kidney and narrowing of SMA: offered surgery at [place] but declines, consider VM consult VTE PPx: IPCs, hold heparin in setting of ICH GI PPx: None Code status: Full code Pt expressed that daughter Ritu Herrera is POA. Paperwork is at home, asked patient to bring in. Otherwise, all of patient's children ( ) are on same page regarding her medical care/wishes. PHYSICAL EXAM BP 138/69 Pulse 85 Temp 36.7 ?C (98 ?F) (Oral) Resp 24 Ht 152.4 cm (5') Wt 58.3 kg (128 lb 8.5 oz) SpO2 96% BMI 25.10 kg/m? General: In no acute distress, AAOx3 HEENT: PERRL, EOMI, anicteric sclera Neck: Supple, no adenopathy; no JVD; thyroid not enlarged, no tracheal deviation. Heart: Regular rate and rhythym, Nl S1 S2, no m/r/g Lungs: Normal breath sounds bilaterally, no rales, rhonchi, or wheezes Abdomen: BS+, Soft, nontender, nondistended abdomen Extremities: No cyanosis, no clubbing or edema Skin: Skin texture, turgor normal. No rashes or lesions Neurological: Discoordination with left rapid hand movements, right rapid hand movements normal cqdcuw-ah-lmqr intact bilaterally, sqtv-fm-zzif exam normal bilaterally, cranial nerve II-XII intact, normal DTRs biceps and patellar tendons, UE/LE sensation and strength intact with Rt slightly stronger than Left, (Pt is right-handed) SIGNATURE: Rhianna Reynoso MD, PGY-2 PATIENT NAME: Debbie Choi DATE: December 10, 2017 TIME: 6:04 PM PAGER: [phone] Note: These recommendations are not final until staffed by provider ;boy NURSING PROG Observed: 12/10/2017 Status: COMPLETED Source: [place] 5:44 PM [facility] REPOSITORY O ID: [id number] Author: Priya (Rn) LEYDA Garcia Service: Nursing Author Type: Registered Nurse Type: Nursing Progress Note Filed: 12/10/2017 5:44 PM Note Text: Nursing Progress Note Patient Name: Debbie Choi Patient Location: [place] [address] Transfer Note: Patient transferred into room[facility]unit [facility] condition. Actions taken: No futher actions taken at this time. Will continue to monitor and check with patient. This note was completed by: Priya Garcia RN EMERGENCY DEPARTMENT Observed: 12/10/2017 Status: F Source: [place] SUMMARY 2:48 PM [facility] [place] [facility] Medical Records Department [address] [place] [address] Emergency Department Summary 12/10/17 1444 MR#: [id number] Acct: [id number] Name: DEBBIE CHOI Rep #: [id number] : 1940 77 From: Marivel Alvarez DO PCP: CHALO JURADO Status: REG ER - ER Visit Summary Date of Service: 12/10/17 Chief Complaint: [Left arm weakness] History of Present Illness: The patient is a 77 F [presents the emergency department complaint of left arm weakness that she noticed last night but states that it is possible it may been there for more than several days. Patient states that she noticed a couple of days ago that she was having a hard time pushing the button for her inhaler with her left arm so she started doing everything with her right arm. Patient denies any visual changes. Patient denies any slurred speech. She denies any weakness in her lower extremities. Patient denies headache or recent fall. Patient does have a history of COPD, hypertension, high cholesterol, lung mass and, AAA.] Physical Examination: [HEENT-PERRLA, EOMI. Cranial nerves II through XII grossly intact. TMs clear. Mucous membranes moist. No adenopathy. Cardiovascular-regular rate and rhythm without murmur or ectopy Lungs-clear to auscultation, chest wall stable without crepitus or subcu emphysema Abdomen-normoactive bowel sounds, soft, nontender, no rebound or rigidity, no peritoneal signs. Neuro kvgc-uoirpa-idli and heel fernandez testing within normal limits, negative Romberg, negative pronator drift, fundi benign. NIH stroke scale was 0 as I do not see any objective evidence of weakness. Extremities-intact 4, normal range of motion, normal pulses, atraumatic] Test Results: [CBC with differential obtained showed a white blood cell count 7.9, hemoglobin 15, hematocrit 46, platelets 285. Chemistries unremarkable. Urinalysis was normal. EKG on arrival shows sinus rhythm with a ventricular rate of 89 bpm. Chest x-ray showed nothing acute. CT scan of the brain without contrast showed findings within the periphery of the posterior right frontal lobe with small quantity of hemorrhage and associated vasogenic edema differential consideration include hemorrhage with a neoplasm versus hemorrhage involving an underlying vascular malformation and recommended MRI for further evaluation and neurosurgical consultation.] Emergency Department Course and Treatment: [Case was discussed with patient and family members and since we do not have neurosurgical services at this hospital they request to be transferred to [facility] in [place] however they did not have neurosurgery available today. Patient then requested to go to the [facility] and I spoke with [facility] who accepted transfer of patient] Treatment Plan: [Transfer to [facility] for further workup and definitive care] Disposition: [Transfer] Impression: [Intracranial hemorrhage-metastasis with hemorrhage versus AV malformation with hemorrhage COPD] This note was generated with Buyanihanation software. It may contain incorrect words, spelling, and punctuation that were not noted in review of the chart prior to signing ED Disposition - Plan for ED Patient: Chief Complaint: Weakness Referrals: Rebecca Dorman PA [Primary Care Provider] - What to do if you have Problems For any increased pain, shortness of breath, bleeding, nausea or vomiting, chest pain, or any unexpected problems, contact your Primary Care Provider. Call [facility] ([phone]) or report to the closest Emergency Room. Call 911 if necessary. 12/10/17 1448 <Electronically signed by Marivel Alvarez DO> Date Marivel Alvarez DO Cosigner Signature (If Indicated): Date CC: CHALO DORMAN URINALYSIS, COMPLETE Collected: 12/10/2017 Status: F Source: [place] 12:49 PM [facility] [place] Order Comment: Order Date: 12/10/17 How was Urine Obtained? CLEAN CATCH TYPE CODE TESTS RESULT OUT OF RANGE REFERENCE UNITS LAB L400.3000 Yellow COLOR Normal Yellow LAB L400.3050 Clear Normal CLARITY Clear LAB L400.3200 Normal mg/dl Normal GLUCOSE, UR Normal LAB L400.3300 Negative mg/dL Normal BILIRUBIN URINE Negative LAB L400.3400 Negative mg/dl Normal KETONE UR Negative LAB L400.3465 1.002-1.030 Normal SP.GR. DIPSTX 1.010 LAB L400.3550 5.0 - 8.0 pH UR Normal 7.0 LAB L400.3600 Negative mg/dl PROT Normal DIPSTX Negative LAB L400.3700 Normal mg/dl Normal UROBILI Normal LAB L400.3750 Negative Normal NITRITE UR Negative LAB L400.3780 Negative /ul Normal OCCULT BLOOD-UR Negative LAB L400.3800 Negative /ul LEUK Normal ESTERASE Negative LAB L400.4050 0-5 /hpf WBC 0 Normal SEEN LAB L400.4100 0-5 /hpf 0 Normal RBC-UA SEEN LAB L400.4150 5-10 /hpf SQUAM Normal EPI 0-5 SEEN LAB L400.4300 None Seen /hpf 0 Normal BACTERIA SEEN LAB L400.4350 <or=2+ /hpf 0 Normal MUCUS, URINE SEEN Performed By: #### L400.0001 #### [facility] [address] [place], [place], [id number] CBC W/DIFF, AUTOMATED Collected: 12/10/2017 Status: F Source: [place] 12:27 PM [facility] [place] TYPE CODE TESTS RESULT OUT OF RANGE REFERENCE UNITS LAB L100.1000 4.4-11.0 K/mm3 Normal WBC 7.9 LAB L100.1200 4.2-5.4 M/mm3 Normal RBC 4.75 LAB L100.1300 12.0-15.0 g/dl High HGB 15.2 LAB L100.1400 37-47 % Normal HCT 46.3 LAB L100.1500 81-99 fL Normal MCV 97.5 LAB L100.1600 27.0-32.0 pg Normal MCH 32.0 LAB L100.1700 32-36 g/gl Normal MCHC 32.8 LAB L100.1810 11.6-14.6 % Normal RDW CV 13.3 LAB L100.1820 35.1-43.9 fl High RDW SD 46.9 LAB L100.1900 150-450 K/mm3 Normal PLT 285 LAB L100.2000 6.2-12.0 fl Normal MPV 9.0 LAB L100.2100 47-70 % Normal NEUT% 66.2 LAB L100.2200 19-41 % Normal LY% 24.0 LAB L100.2300 0-10 % Normal MONO% 8.3 LAB L100.2400 0-5 % Normal EO% 1.4 LAB L100.2500 0-1 % Normal BASO% 0.1 LAB L100.2550 0.0-0.9 % Normal IM GRAN % 0.000 Result Comment: IG% - Immature Granulocytes (promyelocytes, myelocytes and metamyelocytes) > 1% indicates that a LEFT SHIFT is Present. LAB L100.2620 2.0-7.7 X10 3/uL Normal Absolute Neut 5.3 LAB L100.2720 0.83-4.51 X10 3/ul Normal Absolute Lymph 1.90 Performed By: #### L100.0100 #### [facility] [address] [place], [place], [id number] BASIC METABOLIC Collected: 12/10/2017 Status: F Source: [place] PROFILE (BMP) 12:27 PM [facility] [place] TYPE CODE TESTS RESULT OUT OF RANGE REFERENCE UNITS LAB L501.0100 74-106 mg/dL Normal GLU 86 Result Comment: Please note revised GLUCOSE reference range effective 2017. LAB L501.1000 7-18 mg/dL Normal BUN 12 LAB L501.1100 0.55-1.02 mg/dL Normal CREAT,SERUM 0.74 Result Comment: The validity of the calculated GFR AND GFRAA in patients over 70 years has not been determined. Clinical correlation is essential. LAB L501.1110 >60 mL/min Normal EST GFR 81 Result Comment: Non- GFR Calc LAB L501.1115 >60 mL/min Normal EST GFR - AA 98 Result Comment: GFR Calc LAB L501.1255 ml/min Normal Estimated CRCL 33.30 LAB L501.1300 10-20 RATIO Normal BUN/CRE 16.3 LAB L501.2200 8.5-10 mg/dL Normal .1 CA 9.3 LAB L501.5300 136-14 mmol/L Normal 5 NA 139 LAB L501.5600 3.5-5. mmol/L Normal 1 K 4.1 LAB L501.5900 98-107 mmol/L Normal CL 101 LAB L501.6100 21.0-3 mmol/L Normal 2.0 CO2 31.0 LAB L501.6200 5-15 Normal GAP 7 Performed By: #### L500.2500, L501.4010 #### [facility] [address] [place], [address] TROPONIN-I Collected: 12/10/2017 Status: F Source: [place] 12:27 PM [facility] [place] TYPE CODE TESTS RESULT OUT OF RANGE REFERENCE UNITS LAB L501.4010 <0.045 ng/mL Normal < 0.015 TROPONIN-I Result Comment: TROPONIN-I EXPECTED VALUES <0.045 Negative 0.045 - 0.590 Consistent with Cardiac Damage > OR = 0.600 Critical Value Not every elevated troponin is indicative of GA. These values should be used with clinical judgement in examining the patient's clinical picture for diagnosis. To establish a diagnosis of GA versus myocardial injury, there must be a demonstrated rise and/or fall in the troponin values, in addition to ischemic symptoms, EKG changes, new regional wall motion abnormality, and/or angiographical evidence. PLEASE NOTE: REFERENCE RANGES EDITED 17 Performed By: #### L500.2500, L501.4010 #### [facility] [address] [place], [address] CHEST 1 VIEW Observed: 12/10/2017 Status: F Source: [place] (PORTABLE) 11:27 AM [facility] [place] [facility] Imaging Services [address] [place] [address] Chest 1 View (Portable) MR#: [id number] Acct: [id number] Name: DEBBIE CHOI Rep #: [id number] : 1940 F 77 From: Neno Marquez MD PCP: CHALO JURADO Status: PRE ER Study: Chest 1 View (Portable) Date of Exam: 12/10/17 Exam# [id number] Ordering Dr: Marivel Alvarez DO STUDY: X-RAY CHEST REASON FOR EXAM: Female, 77 years old. Weakness TECHNIQUE: Single AP portable view of the chest. COMPARISON: April 06, 2017. FINDINGS: There are fibrotic densities and granulomatous calcifications of the lungs. There is no demonstrated pleural abnormality. There is mild cardiac enlargement. Normal mediastinum and naida. Normal visualized pulmonary arteries. There is atherosclerotic tortuosity of the aortic arch and descending thoracic aorta. There is demineralization of the osseous structures. There is scoliosis with degenerative change of the spine. Normal visualized ribs, clavicles, and shoulders. There is no demonstrated abnormality of the visualized soft tissue structures of the upper abdomen. RAD/Chest 1 View (Portable) IMPRESSION: Degenerative changes, as described above. No demonstrated acute cardiopulmonary process. Electronically Signed: Neno Marquez MD at 12:54 EDT , Service support , CC: CHALO DORMAN; Marivel Alvarez DO Charging Operator: Signed BRAIN/HEAD WITHOUT Observed: 12/10/2017 Status: F Source: [place] CONTRAST 11:27 AM [facility] [place] [facility] Imaging Services [address] [place] [address] Brain/Head without Contrast MR#: [id number] Acct: [id number] Name: DEBBIE CHOI Rep #: [id number] : 1940 F 77 From: Mushtaq Woods MD PCP: CHALO JURADO Status: REG ER Study: Brain/Head without Contrast Date of Exam: 12/10/17 Exam# [id number] Ordering Dr: Marivel Alvarez DO STUDY: CT BRAIN WITHOUT CONTRAST REASON FOR EXAM: Female, 77 years old. Left arm weakness. RADIATION DOSAGE (If Supplied By Facility): CTDIvol = ( 44.99 ) mGy, DLP = ( 745.49 ) mGycm TECHNIQUE: Transaxial CT imaging of the brain was performed without administration of intravenous contrast material. Individualized dose optimization techniques were used for this CT. COMPARISON: None. FINDINGS: Normal soft tissue structures. Normal calvarium. There is an approximately 1.8 cm maximum dimension ovoid focus with associated small hemorrhage and adjacent vasogenic edema within the periphery of the posterior right frontal lobe. This finding is seen best on sequence 2, image 31, sequence 602, image 21 and sequence 601 image 48. There is no midline shift. There is local mass effect manifested by effacement over overlying cortical sulci. Normal size ventricles and extra-axial spaces for the patient's age. Normal basal ganglia and thalami. Normal brainstem. Normal cerebellum. There is no large vessel territory ischemia/edema. Normal visualized paranasal sinuses. CT/Brain/Head without Contrast IMPRESSION: Finding within the periphery of the posterior right frontal lobe with small quantity of hemorrhage and associated vasogenic edema. Differential considerations include hemorrhage within a neoplasm versus hemorrhage involving an underlying vascular malformation. Recommend better characterization with pre and postcontrast brain MRI. Neurosurgical consultation is also recommended. N.B. : The above information has been verbally conveyed by Mushtaq Woods MD to Marivel Alvarez MD, on 12/10/2017 13:05:23 (ET). Electronically Signed: Mushtaq Woods MD at 13:05 EDT , Service support , CC: CHALO DORMAN; Marivel Alvarez DO Charging Operator: Signed CR-CHEST 1 VIEW Observed: 12/10/2017 Status: F Source: [place] (PORTABLE) IMPORT 12:00 AM [facility] REPOSITORY Images were obtained outside of [facility] [id number] CR-CHEST 1 VIEW Observed: 12/10/2017 Status: F Source: [place] (PORTABLE) IMPORT 12:00 AM [facility] REPOSITORY Images were obtained outside of [facility] [id number] SR-BRAIN/HEAD WITHOUT Observed: 12/10/2017 Status: F Source: [place] CONTRAST IMPORT 12:00 AM [facility] REPOSITORY Images were obtained outside of [facility] [id number] SR-BRAIN/HEAD WITHOUT Observed: 12/10/2017 Status: F Source: [place] CONTRAST IMPORT 12:00 AM [facility] REPOSITORY Images were obtained outside of [facility] [id number] CR-CHEST 1 VIEW Observed: 12/10/2017 Status: F Source: [place] (PORTABLE) IMPORT 12:00 AM [facility] REPOSITORY Images were obtained outside of [facility] [id number] HOSP Observed: 12/10/2017 Status: COMPLETED Source: [place] 12:00 AM [facility] REPOSITORY Patient:Debbie Choi MRN: <[id number]> Height:5' 0(1.524 m) Weight:130 lb 1.1 oz (59 kg) Outpatient Medications as of 12/14/17: mirtazapine (REMERON) 15 mg tablet acetaminophen (TYLENOL EX STR ARTHRITIS PAIN ORAL) latanoprost (XALATAN) 0.005 % ophthalmic solution lisinopril-hydrochlorothiazide (PRINZIDE,ZESTORETIC) 20-12.5 mg per tablet pravastatin (PRAVACHOL) 40 mg tablet ADVAIR DISKUS 250-50 mcg/dose dsdv PROAIR HFA 90 mcg/actuation inhaler ipratropium-albuterol (DUONEB) 0.5 mg-3 mg(2.5 mg base)/3 mL nebu multivitamin tablet CHOLECALCIFEROL, VITAMIN D3, ORAL VITAMIN E ORAL Admission/Clinic Administered Medications as of 12/14/17: guaiFENesin-dextromethorphan 100-10 mg/5 mL 10 mL oral liquid (ROBITUSSIN DM) enteric contrast (radiology procedure) dextrose 5% in NaCl 0.9% iv infusion fluticasone-salmeterol 250-50 mcg/dose 1 Puff (ADVAIR) pantoprazole DR 40 mg tab(s) (PROTONIX) albuterol HFA 90 mcg/actuation 2 Puff (PROVENTIL HFA, VENTOLIN HFA) ipratropium-albuterol 3 mL nebulizer solution (DUONEB) latanoprost 0.005 % 1 Drop (XALATAN) lisinopril 20 mg tab(s) (ZESTRIL, PRINIVIL) pravastatin 40 mg tab(s) (PRAVACHOL) therapeutic multivitamin 1 tablet tab(s) (THERA VITAMIN) mirtazapine 15 mg (REMERON) 0.9% NaCl 3-5 mL hydroCHLOROthiazide 12.5 mg tab(s) (HYDRODIURIL, ESIDRIX) nicotine 21 mg/24 hr 1 Patch (NICODERM) nicotine -- REMOVE patch nicotine - verify patch dexamethasone 4 mg tab(s) (DECADRON) Problem List: Thoracoabdominal aortic aneurysm (TAAA) without rupture (HCC) [I71.6] Stroke (HCC) [I63.9] Nicotine use disorder, F17.2 [F17.200] Brain mass [G93.9] Lung mass [R91.8] Allergies: No Known Allergies Date Verified:12/14/17 Lab Values Lab Value Units Date High Low POTA* 4.0 mmol/L 12/14/2017 5.1 3.7 EVELYN* 44.9 % 12/14/2017 46.0 36.0 Progress Notes (): Priya Garcia RN, RN 12/10/2017 5:44 PM Signed Nursing Progress Note Patient Name: Debbie Choi Patient Location: [place] [address] Transfer Note: Patient transferred into room/unit [facility]- in stable condition. Actions taken: No futher actions taken at this time. Will continue to monitor and check with patient. This note was completed by: LEYDA Mckeon MD 12/11/2017 1:20 AM Addendum SENIOR ADDENDUM General Medicine History and Physical Please page [phone] overnight PATIENT NAME: Debbie Choi SERVICE DATE: 12/10/2017 SERVICE TIME: 6:04 PM CHIEF COMPLAINT Left hand discoordination HISTORY OF PRESENTING ILLNESS Ms. Choi is a 77 year old female with a PMHx significant for: - Tobacco use disorder: 50 PY history, current smoker - AAA, diagnosed 04/07/2017: juxtarenal, 5.2 x 6.5cm w/ thrombus in aneurysm and narrowing of SMA, c/b left renal artery mass effect w/ hydronephrosis, declined surgery - Left apical lung mass, 3.4x2.5x2.5 high suspicion of primary lung carcinoma, offered a biopsy which she declined - COPD (reportedly but no PFTs): advair, 2 L at night - HTN: lisinopril, HCTZ - Diverticulosis - Tortuous colon - Right-handed She presents w/ left hand discoordination, found to have hemorrhagic right frontal lobe, mets vs. AV malformation, ongoing for the past several days. She noticed it when she was having a hard time pushing the button on her inhaler with her left arm. She denies fatigue, chills, headache, blurry vision, loss of sensation or weakness in her extremities, chest pain, abdominal pain, n/v/d, or dysuria. She has shortnes of breath at baseline. She also reports light-headedness when she sits up after waking up from naps and in the morning for the past several days w/o dizziness, tinnitus, ear pain/fulllness. She presented to [place] where they did a CT scan of the brain: CT scan of the brain without contrast showed 1.8 cm maximum dimension ovoid focus w/ associated small hemorrhage and adjacent vasogenic edema within the periphery of the posterior right front lobe. No midline shift. Differential consideration include hemorrhage with a neoplasm versus hemorrhage involving an underlying vascular malformation and recommended MRI for further evaluation and neurosurgical consultation. CXR showed fibrotic densities and granulomatous calcifications of the lungs. Mild cardiac enlargement. Normal mediastinum and naida. Normal vislized pulmonary arteries. Artherosclerotic tortuosity of the aortic arch and descending thoracic aorta. She came in 04/20/2017 was found to have a UTI s/p abx. Incidentally was found to have left upper lobe mass. CT findings: CT of the abdomen was obtained demonstrating a 5.2 x 6.5 cm abdominal aortic aneurysm with tortuosity and suspected mass effect upon the left kidney causing mild to moderate hydronephrosis. Great significance however is that there is irregular thrombus within the aneurysm and narrowing of the lumen at the origin of the superior mesenteric artery. There is thrombus heavily involving the wall of the aneurysm at the level of the renals and there is aneurysmal change already at the level of the renals measuring 4.4 x 3.6 cm. additional mention is made of a 5.2 x 6.5 cm duodenal diverticulum. Tortuous colon. Diverticulosis. Small hiatal hernia. In addition unfortunately due to the patient's COPD she has a newly detected left apical lung mass measuring 3.4 x 2.5 x 2.5 which is highly suspicious for malignancy she is a long-term cigarette smoker and she continues to smoke MRI: Hemorrhage: ? ?Remote blood degradation byproducts within the mass lesion which is detailed below. Mass Lesion/ Mass Effect: ? ?Peripherally enhancing mass lesion present within the posterior right frontal lobe measuring 2.3 AP by 2.3 transverse centimeters with mixed internal signal intensity and a moderate degree of surrounding vasogenic edema. ?No gross leptomeningeal extension of disease. ?No additional area of abnormal enhancement. IMPRESSION: Enhancing mass lesion posterior right frontal lobe likely reflecting metastatic disease. ?Chronic changes. FH of aneuyrsm: father AAA, brother cerebral aneurysm. Medication: albuterol, fluticasone, lisinopril, prvastain, albuterol, vitamin E ASSESSMENT AND PLAN Ms. Choi is a 77 year old female with a lung mass of the left upper lobe now found to have a 2.3 x 2.3 mass lesion with moderate surrounding vasogenic edema within the posterior right frontal lobe and symptoms of left hand discoordination. PLAN: Right frontal lobe lesion with blood degradation and vasogenic edema: neurosurgery consult, state MRI w/wo contrast, decadron 4 mg BID; Given she likely has primary lung cancer with mets to brain, pt may want to reconsider formal diagnosis of lung mass for potential tx of brain w/ palliative RT, transfer to neuro step-down for frequent neurochecks q2 hours COPD: oxygen as needed, Advair (Breo), Albuterol prn, duoneb prn Tobacco use disorder: nicotine patch HTN: lisinopril 20 mg daily, HCTZ 12.5 mg daily Sleep: Remeron HLD: Pravastatin AAA c/b thrombus in aneurysm, hydronephrosis of lt kidney and narrowing of SMA: offered surgery at [place] but declines, consider VM consult VTE PPx: IPCs, hold heparin in setting of ICH GI PPx: None Code status: Full code Pt expressed that daughter Ritu Herrera is POA. Paperwork is at home, asked patient to bring in. Otherwise, all of patient's children ( ) are on same page regarding her medical care/wishes. PHYSICAL EXAM BP 138/69 Pulse 85 Temp 36.7 ?C (98 ?F) (Oral) Resp 24 Ht 152.4 cm (5') Wt 58.3 kg (128 lb 8.5 oz) SpO2 96% BMI 25.10 kg/m? General: In no acute distress, AAOx3 HEENT: PERRL, EOMI, anicteric sclera Neck: Supple, no adenopathy; no JVD; thyroid not enlarged, no tracheal deviation. Heart: Regular rate and rhythym, Nl S1 S2, no m/r/g Lungs: Normal breath sounds bilaterally, no rales, rhonchi, or wheezes Abdomen: BS+, Soft, nontender, nondistended abdomen Extremities: No cyanosis, no clubbing or edema Skin: Skin texture, turgor normal. No rashes or lesions Neurological: Discoordination with left rapid hand movements, right rapid hand movements normal trabcd-vc-xdqv intact bilaterally, lchx-gm-stlw exam normal bilaterally, cranial nerve II-XII intact, normal DTRs biceps and patellar tendons, UE/LE sensation and strength intact with Rt slightly stronger than Left, (Pt is right-handed) SIGNATURE: Rhianna Reynoso MD, PGY-2 PATIENT NAME: Debbie Choi DATE: December 10, 2017 TIME: 6:04 PM PAGER: [phone] Note: These recommendations are not final until staffed by provider ;le Previous Version Krzysztof Chu MD 12/11/2017 3:09 PM Signed MEDICAL STUDENT HAND INTERNAL MEDICINE SERVICE DATE: 12/10/2017 SERVICE TIME: 6:11 PM Attending Note This note was generated by a medical student working under the supervision of an Attending Physician. As applicable, the findings, conclusions, and assessment of risk have been confirmed by a qualified provider. The note is NOTconsidered authenticated until addended and co-signed by the Attending Physician at the beginning of this note. SUBJECTIVE CHIEF COMPLAINT: L arm weakness HPI: Debbie Choi is a 77 year old female with lung mass, ectatic thoracic aorta and AAA, COPD, and HTN who presented to the ED at [facility] today for L arm weakness for the past several days. Her PCP recommended she go to the ED. In the ED, NIH Stroke Scale was 0. In the ED, CT w/o contrast revealed a hemorrhagic lesion and associated vasogenic edema at the periphery of the posterior R frontal lobe concerning for metastasis vs AVM with Hemorrhage. MRI and neurosurgical consult was recommended. She was originally planned to be transferred to [facility] in [place] however they did not have neurosurgery available today and she was admitted to [facility]. In the ED, UA was normal, CBC was unremarkable, and CMP was normal. Troponin-I was not elevated (<0.015). CXR in the ED revealed fibrotic densities and granulomatous calcifications of the lungs, no demonstrated pleural abnormality, mild cardiac enlargement, normal mediastinum and naida. On April 08, 2017, she had CT imaging of the chest which revealed newly detected left apical lung mass measuring 3.4 x 2.5 x 2.5 highly suspicious for malignancy. She is a long-term cigarette smoker and continues to smoke 1-2 packs a day for 30+ years. CT of the abdomen on 04/07/17 showed 6.5 cm x 5.7 cm infrarenal aneurysm of the aorta/ with no evidence of rupture. According to OSH records, she was adamant about not having a CT-guided biopsy of her lung mass in April 2017. This mass was found incidentally while she was receiving a CTA of the chest for work up of pulmonary embolism after presenting with SOB. There was no evidence of PE. Last night, Debbie Choi noticed difficulty reaching for an object with her left arm. There was no recent fall or precipitating event. She denies changes in vision, headache, palpitations, chest pain, weakness in her other extremities, changes in sensation, difficulty ambulating, and incontinence. She endorses SOB but no different than her baseline due to COPD. Upon admission, Debbie Choi still wishes to not have a lung biopsy as she would not pursue treatment. Her family is in agreement with this decision. Debbie Choi lives alone at home and is still able to complete daily activities of living. PAST MEDICAL HISTORY: PAST MEDICAL HISTORY Diagnosis Date - AAA (abdominal aortic aneurysm) without rupture (HCC) - Bladder infection - COPD (chronic obstructive pulmonary disease) (HCC) - Dilatation of thoracic aorta (HCC) mild aneurismal dilatation of the descending aorta - Diverticulosis - Duodenal diverticulum large - Emphysema lung (HCC) Advanced - Hepatic steatosis - Hiatal hernia small - CHICKEN RANCH (hard of hearing) - HTN (hypertension) - Hydronephrosis - Hypercholesterolemia - Lung mass - Pelviectasis left - Smoker PAST SURGICAL HISTORY: PAST SURGICAL HISTORY Procedure Laterality Date - PAST SURGICAL HISTORY OF 1997 Hysterectomy FAMILY HISTORY: FAMILY HISTORY Problem Relation Age of Onset - other (AAA) Father - other (cerebral aneurysm) Brother SOCIAL HISTORY: Social History Substance Use Topics - Smoking status: Current Every Day Smoker Packs/day: 1.00 Types: Cigarettes - Smokeless tobacco: Never Used - Alcohol use Not on file CURRENT ALLERGIES: ALLERGIES No Known Allergies MEDICATIONS: Prescriptions Prior to Admission: mirtazapine (REMERON) 15 mg tablet Take 15 mg by mouth daily at bedtime. Disp: Rfl: 12/10/2017 at Unknown time acetaminophen (TYLENOL EX STR ARTHRITIS PAIN ORAL) Take 650 mg by mouth four times daily as needed. Disp: Rfl: 12/10/2017 at Unknown time latanoprost (XALATAN) 0.005 % ophthalmic solution INSTILL 1 DROP INTO BOTH EYES AT BEDTIME DIRECTED Disp: Rfl: 3 12/10/2017 at Unknown time lisinopril-hydrochlorothiazide (PRINZIDE,ZESTORETIC) 20-12.5 mg per tablet Take 1 tablet by mouth once daily. Disp: Rfl: 3 12/10/2017 at Unknown time pravastatin (PRAVACHOL) 40 mg tablet once daily. Disp: Rfl: 3 12/10/2017 at Unknown time ADVAIR DISKUS 250-50 mcg/dose dsdv once daily. Disp: Rfl: 3 12/10/2017 at Unknown time PROAIR HFA 90 mcg/actuation inhaler INHALE 2 (TWO) PUFFS EVERY 4-6 HOURS NEEDED Disp: Rfl: 3 12/10/2017 at Unknown time ipratropium-albuterol (DUONEB) 0.5 mg-3 mg(2.5 mg base)/3 mL nebu USE ONE VIAL VIA NEBULIZER EVERY 4 TO 6 HOURS NEEDED Disp: Rfl: 3 12/10/2017 at Unknown time multivitamin tablet Take 1 tablet by mouth once daily. Disp: Rfl: 12/10/2017 at Unknown time CHOLECALCIFEROL, VITAMIN D3, ORAL Take by mouth once daily. Disp: Rfl: 12/10/2017 at Unknown time VITAMIN E ORAL Take by mouth once daily. Disp: Rfl: 12/10/2017 at Unknown time OB History (if relevant): hysterectomy Health Maintenance: smokes 1-2 packs/day for last 30+ years Does not drink alcohol Does not use illicit drugs Not sexually active REVIEW OF SYSTEMS: PAIN ASSESSMENT: Negative for pain, history of chronic pain, or current treatment for a chronic pain condition. GENERAL: No weight loss, malaise or fevers. Has been trying to gain weight but unsuccessful. HEENT: Negative for frequent or significant headaches, No changes in hearing or vision, no nose bleeds or other nasal problems, Eyes Positive for difficulty hearing. NECK: Negative for lumps, goiter, pain and significant neck swelling RESPIRATORY: No cough, hemoptysis, wheezing. Positive for COPD and SOB. CARDIOVASCULAR: Negative for chest pain, leg swelling, hypertension, CHF or palpitations GI: No nausea, vomiting, or diarrhea. No incontinence. : No dysuria. No hematuria. Feels she goes more frequently and with more urgency lately. MUSCULOSKELETAL: Negative for joint pain or swelling, back pain or muscle pain SKIN: Negative for lesions, rash, and itching PSYCH: Negative for sleep disturbance, mood disorder and recent psychosocial stressors HEMATOLOGY/LYMPHOLOGY: Negative for prolonged bleeding, bruising easily or swollen nodes ENDOCRINE: Polydypsia NEURO: No history of headaches, syncope, paralysis, seizures or tremors. No numbness. No tingling. OBJECTIVE PHYSICAL EXAM: BP 138/69 Pulse 85 Temp 36.7 ?C (98 ?F) (Oral) Resp 24 Ht 152.4 cm (5') Wt 58.3 kg (128 lb 8.5 oz) SpO2 96% BMI 25.10 kg/m? GENERAL: Alert, no distress, cooperative, Cooperative SKIN: Skin color, texture, turgor normal. No rashes or lesions. HEAD/SINUSES: No significant findings. No masses. No supraclavicular lymphadenopathy. EYES: PERRLA, EOMI EARS: External ears normal, canals clear. NOSE: Nares normal. Septum midline. OROPHARYNX: Lips, mucosa, and tongue normal. Teeth and gums normal. Oropharynx normal. NECK: No jugulovenous distention, Carotid pulse normal contour, Supple BACK: Back symmetric, Normal curvature, ROM normal, No CVAT. LUNGS: Decreased breath sounds over Left anterior upper lobe, Good diaphragmatic excursion CARDIAC: Normal S1 and S2; no rubs, murmurs, or gallops ABDOMEN: Abdomen soft, non-tender, BS normal, No masses or organomegaly. Nondistended. EXTREMITIES: Extremities normal, no deformities, edema, clubbing or skin discoloration. No axillary lymphadenopathy. Good capillary refill., No ulcers NEURO: Biceps reflexes normal and symmetric. Patellar reflex 1+ on L, 3+ on R. Sensation grossly intact bilaterally, Cranial nerves II-XII intact, 4/5 RUE strength, 4/5 LUE strength. 5/5 LE strength. Dyscoordination of L hand on rapid alternating movement. NL [id number]. PULSES: 2+ radial DATA: Diagnostic tests reviewed for today's visit: CT report from OSH today: CT scan of the brain without contrast showed findings within the periphery of the posterior right frontal lobe with small quantity of hemorrhage and associated vasogenic edema differential consideration include hemorrhage with a neoplasm versus hemorrhage involving an underlying vascular malformation UA, CBC, CMP from OSH WNL IMPRESSION: Debbie Choi is a 77 year old F with L arm weakness for >24 hours in the context of lung mass highly suspicious for malignancy and CT showing small hemorrhagic lesion in R posterior frontal lobe. ASSESSMENT AND PLAN L arm dyscoordination Clinically stable, subacute presentation CT from OSH: small areas of hemorrhage w/ associated vasogenic edema in R posterior frontal lobe Pt would still like w/u for brain lesion - MRI - dexamethasone 4 mg BID - consult neurosurgery Lung mass Long-term current smoker >30 pack-years CT in April revealed newly detected left apical lung mass measuring 3.4 x 2.5 x 2.5 highly suspicious for malignancy Pt has denied lung biopsy because pt would not like to pursue chemotherapy Infrarenal AAA CT on 04/07/17 showed 6.5 cm x 5.7 cm infrarenal aneurysm of the aorta/ with no evidence of rupture No signs of rupture or compression on structures Pt has declined surgical intervention to date - observe HTN - HCTZ 12.5 mg - lisinopril 20 mg Hyperlipidemia - pravastatin 40 mg COPD 2 L NC at home - albuterol 90 mcg q6 PRN - Duoneb 3mL q6 Sleep disorder - Mirtazapine 15mg VTE prophylaxis: heparin 5k BID Code status: Full SIGNATURE: Robin Yee Ms PATIENT NAME: Debbie Choi DATE: December 10, 2017 TIME: 6:10 PM PAGER/CONTACT #: see below SENIOR ADDENDUM General Medicine History and Physical Please page [phone] overnight PATIENT NAME: Debbie Choi SERVICE DATE: 12/10/2017 SERVICE TIME: 6:04 PM CHIEF COMPLAINT Left hand discoordination HISTORY OF PRESENTING ILLNESS Ms. Choi is a 77 year old female with a PMHx significant for: - Tobacco use disorder: 50 PY history, current smoker - AAA, diagnosed 04/07/2017: juxtarenal, 5.2 x 6.5cm w/ thrombus in aneurysm and narrowing of SMA, c/b left renal artery mass effect w/ hydronephrosis, declined surgery - Left apical lung mass, 3.4x2.5x2.5 high suspicion of primary lung carcinoma, offered a biopsy which she declined - COPD (reportedly but no PFTs): advair, 2 L at night - HTN: lisinopril, HCTZ - Diverticulosis - Tortuous colon - Right-handed She presents w/ left hand discoordination, found to have hemorrhagic right frontal lobe, mets vs. AV malformation, ongoing for the past several days. She noticed it when she was having a hard time pushing the button on her inhaler with her left arm. She denies fatigue, chills, headache, blurry vision, loss of sensation or weakness in her extremities, chest pain, abdominal pain, n/v/d, or dysuria. She has shortnes of breath at baseline. She also reports light-headedness when she sits up after waking up from naps and in the morning for the past several days w/o dizziness, tinnitus, ear pain/fulllness. She presented to [place] where they did a CT scan of the brain: CT scan of the brain without contrast showed 1.8 cm maximum dimension ovoid focus w/ associated small hemorrhage and adjacent vasogenic edema within the periphery of the posterior right front lobe. No midline shift. Differential consideration include hemorrhage with a neoplasm versus hemorrhage involving an underlying vascular malformation and recommended MRI for further evaluation and neurosurgical consultation. CXR showed fibrotic densities and granulomatous calcifications of the lungs. Mild cardiac enlargement. Normal mediastinum and naida. Normal vislized pulmonary arteries. Artherosclerotic tortuosity of the aortic arch and descending thoracic aorta. She came in 04/20/2017 was found to have a UTI s/p abx. Incidentally was found to have left upper lobe mass. CT findings: CT of the abdomen was obtained demonstrating a 5.2 x 6.5 cm abdominal aortic aneurysm with tortuosity and suspected mass effect upon the left kidney causing mild to moderate hydronephrosis. Great significance however is that there is irregular thrombus within the aneurysm and narrowing of the lumen at the origin of the superior mesenteric artery. There is thrombus heavily involving the wall of the aneurysm at the level of the renals and there is aneurysmal change already at the level of the renals measuring 4.4 x 3.6 cm. additional mention is made of a 5.2 x 6.5 cm duodenal diverticulum. Tortuous colon. Diverticulosis. Small hiatal hernia. In addition unfortunately due to the patient's COPD she has a newly detected left apical lung mass measuring 3.4 x 2.5 x 2.5 which is highly suspicious for malignancy she is a long-term cigarette smoker and she continues to smoke MRI on presentation: Peripherally enhancing mass lesion present (with remote blood degradation products within the mass lesion) within the posterior right frontal lobe measuring 2.3 AP by 2.3 transverse centimeters with mixed internal signal intensity and a moderate degree of surrounding vasogenic edema. ?No gross leptomeningeal extension of disease. ?No additional area of abnormal enhancement. FH of aneuyrsm: father AAA, brother cerebral aneurysm. Medication: albuterol, fluticasone, lisinopril, pravastain, albuterol, vitamin E ASSESSMENT AND PLAN Ms. Choi is a 77 year old female with a lung mass of the left upper lobe now found to have a 2.3 x 2.3 mass lesion with moderate surrounding vasogenic edema within the posterior right frontal lobe and symptoms of left hand discoordination. PLAN: Right frontal lobe lesion with blood degradation and vasogenic edema: neurosurgery consult, state MRI w/wo contrast, decadron 4 mg BID; Given she likely has primary lung cancer with mets to brain, pt may want to reconsider formal diagnosis of lung mass for potential tx of brain w/ palliative RT, transfer to neuro step-down for frequent neurochecks q2 hours COPD: oxygen as needed, Advair (Breo), Albuterol prn, duoneb prn Tobacco use disorder: nicotine patch HTN: lisinopril 20 mg daily, HCTZ 12.5 mg daily Sleep: Remeron HLD: Pravastatin AAA c/b thrombus in aneurysm, hydronephrosis of lt kidney and narrowing of SMA: offered surgery at [place] but surgery at [place] stated it was too high-risk VTE PPx: IPCs, hold heparin in setting of ICH GI PPx: None Code status: Full code Pt expressed that daughter Ritu Herrera is POA. Paperwork is at home, asked patient to bring in. Otherwise, all of patient's children ( ) are on same page regarding her medical care/wishes. PHYSICAL EXAM BP 138/69 Pulse 85 Temp 36.7 ?C (98 ?F) (Oral) Resp 24 Ht 152.4 cm (5') Wt 58.3 kg (128 lb 8.5 oz) SpO2 96% BMI 25.10 kg/m? General: In no acute distress, AAOx3 HEENT: PERRL, EOMI, anicteric sclera Neck: Supple, no adenopathy; no JVD; thyroid not enlarged, no tracheal deviation. Heart: Regular rate and rhythym, Nl S1 S2, no m/r/g Lungs: Normal breath sounds bilaterally, no rales, rhonchi, or wheezes Abdomen: BS+, Soft, nontender, nondistended abdomen Extremities: No cyanosis, no clubbing or edema Skin: Skin texture, turgor normal. No rashes or lesions Neurological: Discoordination with left rapid hand movements, right rapid hand movements normal [id number] intact bilaterally, [id number] exam normal bilaterally, cranial nerve II-XII intact, normal DTRs biceps and patellar tendons, UE/LE sensation and strength intact with Rt slightly stronger than Left, (Pt is right-handed) SIGNATURE: Rhianna Reynoso MD, PGY-2 PATIENT NAME: Debbie Choi DATE: December 10, 2017 TIME: 6:04 PM PAGER: [phone] Note: These recommendations are not final until staffed by provider ATTENDING PHYSICIAN: Patient seen and evaluated today Brito elements of history and physical examination of the patient were confirmed. The assessment and plan were formulated and discussed with the team on Rounds. I reviewed the resident's note, examined the patient and agree with the documented findings and plan of care. Will consider IR Lung Biopsy if pt agreeable. Krzysztof Chu MD [employer]- [phone] ?? Previous Version Chilo Moralez MD 12/10/2017 9:00 PM Signed NEUROSURGERY CONSULT Patient Name: Debbie Choi CONSULTED BY: Medicine CONSULTED FOR: RF ICH with edema CHIEF COMPLAINT: L hand dyscoordination HPI: 77 year old RH female w/ PMH significant for tobacco use, COPD, HTN, AAA, recently discovered spiculated SIMRAN lung mass p/w 1d L arm dyscoordination, found to have R frontal coritcal ICH 1.4x1.1cm with moderate associated edema. Patient has had 1 day of dyscoordination in LUE characterized by difficulty grasping items. She had CT w/o done at [facility] today which revealed the ICH as above. Notably the patietn was found Apr [address] chest for PE workup to have spiculated SIMRAN mass 3.1 x 2.2cm as well as additional 4mm noncalcified SIMRAN nodule. Subsequent CT C/A/P revealed no additional masses. She declined biopsy or treatment at that time, saying that given her age she does not want invasive workup and treatment of the lung mass. Denies MIMS, N/V, numbness/tingling, weakness, changes in vision/hearing, new episodes of bowel/bladder incontinence, fever/chills, hx of seizures/migraines, any recent traumas/falls, chest pain/SOB, and abdominal pain. Denies A/P/C PAST MEDICAL HISTORY: PAST MEDICAL HISTORY Diagnosis Date - AAA (abdominal aortic aneurysm) without rupture (HCC) - Bladder infection - COPD (chronic obstructive pulmonary disease) (HCC) - Dilatation of thoracic aorta (HCC) mild aneurismal dilatation of the descending aorta - Diverticulosis - Duodenal diverticulum large - Emphysema lung (HCC) Advanced - Hepatic steatosis - Hiatal hernia small - CHICKEN RANCH (hard of hearing) - HTN (hypertension) - Hydronephrosis - Hypercholesterolemia - Lung mass - Pelviectasis left - Smoker PAST SURGICAL HISTORY: PAST SURGICAL HISTORY Procedure Laterality Date - PAST SURGICAL HISTORY OF 1996 Hysterectomy FAMILY HISTORY: FAMILY HISTORY Problem Relation Age of Onset - other (AAA) Father - other (cerebral aneurysm) Brother SOCIAL HISTORY: Social History Marital status: Spouse name: Years of education: Number of children: Social History Main Topics Smoking status: Current Every Day Smoker Packs/day: 1.00 Years: 0.00 Types: Cigarettes Smokeless tobacco: Never Used MEDICATIONS: mirtazapine (REMERON) 15 mg tablet Take 15 mg by mouth daily at bedtime. acetaminophen (TYLENOL EX STR ARTHRITIS PAIN ORAL) Take 650 mg by mouth four times daily as needed. latanoprost (XALATAN) 0.005 % ophthalmic solution INSTILL 1 DROP INTO BOTH EYES AT BEDTIME DIRECTED lisinopril-hydrochlorothiazide (PRINZIDE,ZESTORETIC) 20-12.5 mg per tablet Take 1 tablet by mouth once daily. pravastatin (PRAVACHOL) 40 mg tablet once daily. ADVAIR DISKUS 250-50 mcg/dose dsdv once daily. PROAIR HFA 90 mcg/actuation inhaler INHALE 2 (TWO) PUFFS EVERY 4-6 HOURS NEEDED ipratropium-albuterol (DUONEB) 0.5 mg-3 mg(2.5 mg base)/3 mL nebu USE ONE VIAL VIA NEBULIZER EVERY 4 TO 6 HOURS NEEDED multivitamin tablet Take 1 tablet by mouth once daily. CHOLECALCIFEROL, VITAMIN D3, ORAL Take by mouth once daily. VITAMIN E ORAL Take by mouth once daily. Current hospital medications: latanoprost 0.005 % 1 Drop (XALATAN) 1 Drop BOTH EYES AT BEDTIME [START ON 12/11/2017] lisinopril 20 mg tab(s) (ZESTRIL, PRINIVIL) 20 mg ORAL DAILY [START ON 12/11/2017] pravastatin 40 mg tab(s) (PRAVACHOL) 40 mg ORAL DAILY [START ON 12/11/2017] fluticasone-vilanterol 100-25 mcg/dose 1 Inhalation (BREO ELLIPTA) 1 Inhalation INHALATION DAILY albuterol HFA 90 mcg/actuation 2 Puff (PROVENTIL HFA, VENTOLIN HFA) 2 Puff INHALATION q 6 H PRN ipratropium-albuterol 3 mL nebulizer solution (DUONEB) 3 mL INHALATION q 6 H PRN [START ON 12/11/2017] therapeutic multivitamin 1 tablet tab(s) (THERA VITAMIN) 1 tablet ORAL DAILY mirtazapine 15 mg (REMERON) 15 mg ORAL AT BEDTIME 0.9% NaCl 3-5 mL 3-5 mL INTRAVENOUS q 12 H [START ON 12/11/2017] hydroCHLOROthiazide 12.5 mg tab(s) (HYDRODIURIL, ESIDRIX) 12.5 mg ORAL DAILY dexamethasone 8 mg tab(s) (DECADRON) 8 mg ORAL q 6 H ALLERGIES: ALLERGIES No Known Allergies COMPLETE REVIEW OF SYSTEMS: See HPI PHYSICAL EXAM: GCS: E4 V5 M6 AAO x 3, NAD Naming 3/3, repetition 2/2 ? PERRL, EOMI VF intact FS, TM Facial sensation intact bilaterally ? No drift RUE 5/5 RLE 5/5 LUE 5/5 LLE 5/5 SILT ? No dysmetria + Dysdiadokinesia in LUE DATA: Radiology: As per HPI Laboratory: CBC, Coags, BMP, Mg, Phos ASSESSMENT AND PLAN: 77 year old RH female w/ PMH significant for tobacco use, COPD, HTN, AAA, recently discovered spiculated SIMRAN lung mass p/w L arm dyscoordination, found to have R frontal coritcal ICH 1.4x1.1cm with moderate associated edema. - Medicine primary, would transfer to Neuro SDU H62,H63 for closer neuro monitoring - CTH 6 hours from prior to assess for hemorrhage stability - Dexamethasone 4 BID given symptomatic edema - MRI brain with/without contrast, tumor protocol - Update CT C/A/P - oncology consult - Patient says she would want to have a discussion about treatment options after imaging complete, unsure if she would agree to invasive treatment if this is a brain metastasis - No acute surgical intervention warranted at this time, future surgical management pending above workup Above plan discussed with chief Alvarez and (Staff) Dr. Love. SIGNATURE: Chilo Moralez MD PGY-2, Neurological Surgery Pager: [phone] Please page [phone] on weekends and after 6pm Previous Version Oh Hamilton Rt 12/10/2017 10:29 PM Signed Radiology Service Progress Note PATIENT NAME: Debbie Choi DATE OF SERVICE: December 10, 2017 TIME: 10:03 PM PATIENT IDENTITY VERIFICATION COMPLETED USING TWO (2) METHODS: Patient confirmed name verbally and ID band matches.. PATIENT GENDER DATA: Female. status: : No status: NO. PATIENT RELEVANT IMPLANT DATA REVIEWED: Yes RADIOLOGY DEPARTMENT: MR; Exam(s) Completed: Head: Routine Brain PERIPHERAL IV DATA: Inpatient: see LDA documentation SIGNED BY: HENRI/ Oh Hamilton Rt December 10, 2017 10:03 PM Robin Yee Ms 12/11/2017 5:47 PM Cosign Needed MEDICAL STUDENT PROGRESS NOTE INTERNAL MEDICINE SERVICE DATE: 12/11/2017 SERVICE TIME: 7:36 AM Attending Note This note was generated by a MEDICAL STUDENT working under the supervision of an Attending Physician and is not authenticated until addended and cosigned by the Attending Physician at the beginning of this note. SUBJECTIVE INTERVAL HPI: No overnight events. VSS. No acute changes in neurological status. 1xUO not documented. Medications: Current hospital medications: latanoprost 0.005 % 1 Drop (XALATAN) 1 Drop BOTH EYES AT BEDTIME lisinopril 20 mg tab(s) (ZESTRIL, PRINIVIL) 20 mg ORAL DAILY pravastatin 40 mg tab(s) (PRAVACHOL) 40 mg ORAL DAILY fluticasone-vilanterol 100-25 mcg/dose 1 Inhalation (BREO ELLIPTA) 1 Inhalation INHALATION DAILY albuterol HFA 90 mcg/actuation 2 Puff (PROVENTIL HFA, VENTOLIN HFA) 2 Puff INHALATION q 6 H PRN ipratropium-albuterol 3 mL nebulizer solution (DUONEB) 3 mL INHALATION q 6 H PRN therapeutic multivitamin 1 tablet tab(s) (THERA VITAMIN) 1 tablet ORAL DAILY mirtazapine 15 mg (REMERON) 15 mg ORAL AT BEDTIME 0.9% NaCl 3-5 mL 3-5 mL INTRAVENOUS q 12 H hydroCHLOROthiazide 12.5 mg tab(s) (HYDRODIURIL, ESIDRIX) 12.5 mg ORAL DAILY iv contrast (radiology procedure) INTRAVENOUS DIRECTED PRN nicotine 21 mg/24 hr 1 Patch (NICODERM) 1 Patch TRANSDERMAL DAILY nicotine -- REMOVE patch OTHER DAILY nicotine - verify patch OTHER q 8 H dexamethasone 4 mg tab(s) (DECADRON) 4 mg ORAL BID w MEALS OBJECTIVE BP 118/62 Pulse 79 Temp 36.7 ?C (98.1 ?F) (Oral) Resp 15 Ht 152.4 cm (5') Wt 58.3 kg (128 lb 8.5 oz) SpO2 93% BMI 25.10 kg/m? PHYSICAL EXAM: General appearance: NAD. Patient sleeping. Cardiac: RRR. Normal S1 S2. Pulm: CTA. DATA: Diagnostic tests reviewed for today's visit: MRI: Enhancing mass lesion posterior right frontal lobe likely reflecting metastatic disease. ?Chronic changes. Most recent labs and imaging. IMPRESSION: Debbie Choi is a 77 year old F with L arm discoordination for >24 hours in the context of lung mass highly suspicious for malignancy and MRI suggestive of possible metastasis. Debbie Choi would like to pursue treatment to minimize functional deficits. ? ASSESSMENT AND PLAN ? L arm discoordination Clinically stable, subacute presentation CT: small areas of chronic blood products with associated vasogenic edema MRI suggestive of possible metastasis - dexamethasone 4 mg BID - family considering lung biopsy - consult neurosurgery - consult oncology, family on board ? Lung mass Long-term current smoker >30 pack-years CT in April revealed newly detected left apical lung mass measuring 3.4 x 2.5 x 2.5 highly suspicious for malignancy Pt has denied lung biopsy in the past because pt would not like to pursue chemotherapy ? Infrarenal AAA CT on 04/07/17 showed 6.5 cm x 5.7 cm infrarenal aneurysm of the aorta/ with no evidence of rupture No signs of rupture Pt had seen vascular surgeon at [facility] prior to admission, surgery considered too risky - observe ? HTN - HCTZ 12.5 mg - lisinopril 20 mg ? Hyperlipidemia - pravastatin 40 mg ? COPD 2 L NC at home - albuterol 90 mcg q6 PRN - Duoneb 3mL q6 - fluticasone-vilanterol (100-25 mcg) as formulary substitute for home Advair ? Appetite Stimulus - Mirtazapine 15mg continued from home meds Glaucoma - latanoprost ? VTE prophylaxis: heparin 5k BID Code status: Full SIGNATURE: Robin Yee Ms PATIENT NAME: Debbie Choi DATE: December 11, 2017 TIME: 7:36 AM PAGER: Previous Version Gilberto Magaña MD 12/11/2017 10:10 AM Signed [facility] STAFF PHYSICIAN NOTE OF PERSONAL INVOLVEMENT IN CARE I have reviewed the progress note obtained and documented by the resident and I personally participated in the brito components. I have discussed the case and management of the patient's care. The following comments revise or confirm relevant brito components of the note. No surgical intervention at this point. Needle biopsy lung mass and possible GammaKnife for brain lesion. MD Geovanni John 12/11/2017 11:41 AM Signed Neurosurgery Inpatient Progress Note Interval HPI: No acute events overnight Objective: 12/11/17 0200 12/11/17 0400 12/11/17 0600 12/11/17 0800 BP: 102/51 110/58 118/62 Pulse: 79 82 79 Resp: 18 23 15 Temp: 36.4 ?C (97.5 ?F) 36.7 ?C (98.1 ?F) TempSrc: Oral Oral SpO2: 99% 94% 93% Weight: Height: EXAM: AOx3, NAD PERRL, EOMI FS, TM FSILT No drift BUE 5/5 except L hand frame sample and pattern supervisor 4+/5 BLE 5/5 SILT A/P: R frontal cortical metastasis - neuro stable - no need for neurosurgery at this time - steroids per primary - no role for prophylactic antiepileptics in patients with newly diagnosed brain tumors with no definitive history of seizures (PMID: [id number], [id number]) - recommend rad onc consult for possible GK - pathology via lung mass per primary - okay for dvt chemo ppx if needed - will be available if further neurosurgical needs arise, page with additional questions Geovanni Lindsey MD PGY-4, Neurological Surgery Pager # [phone] December 11, 2017 Please page [phone] after 6 PM and on weekends Krzysztof Chu MD 12/12/2017 5:18 PM Signed Internal Medicine - Tucker Santamaria Progress Note SERVICE DATE: 12/12/2017 SERVICE TIME: 8:00 AM Assessment AND Plan 77 y.o. Female current smoker w/ pmhx of Lung mass (dgx 04/2017), Thoracic and AAA, COPD, HTN, who presented to presented to OSH for left arm weakness/discoordination for several days duration. CT Head in ED showed a hemorrhagic lesion in periphery of the posterior R frontal lobe concerning for metastasis. CT head was repeated as well as MRI of head that did not show any enlargement of bleed but did show vasogenic edema. Patient had been refusing any biopsies or treatment. Pt was placed on steroids and seen by neurosurgery who did not feel any acute neurosurgical intervention was needed at that time. #L arm discoordination Clinically stable, subacute presentation CT Head in ED showed a hemorrhagic lesion in periphery of the posterior R frontal lobe concerning for metastasis. CT head was repeated as well as MRI of head that did not show any enlargement of bleed but did show vasogenic edema Plan: - dexamethasone 4?mg BID - Follow neurosurgery recs - Reconsult oncology on Biopsy results come back ? #Lung mass Long-term current smoker >30 pack-years CT in April revealed newly detected left apical lung mass measuring 3.4 x 2.5 x 2.5 highly suspicious for malignancy Pt has denied lung biopsy In the past, although she has recently agreed. Plan: Plan for Biopsy on Wednesday (ordered) ? #Infrarenal AAA CT on 04/07/17 showed 6.5 cm x 5.7 cm infrarenal aneurysm of the aorta/ with no evidence of rupture No signs of rupture or compression on structures Pt has declined surgical intervention to date, has seen vascular surgeon prior to admission - observe ? #HTN? - HCTZ 12.5 mg - lisinopril 20 mg ? #Hyperlipidemia - pravastatin 40 mg ? #COPD 2 L NC at home - albuterol 90 mcg q6 PRN - Duoneb 3mL q6 - fluticasone-vilanterol (100-25 mcg) as formulary substitute for home Advair ? #Appetite Stimulus - Mirtazapine 15mg continued from home meds ? #Glaucoma - latanoprost ? VTE prophylaxis: heparin 5k BID Code status: Full Plan for the day: - Plan for Biopsy of Lung lesion on Wednesday, keep NPO overnight tonight Interval HPI: - Spoke with Neurosurgery and placed patient on VTE prophylaxis with Lovenox - Pt agreed to Biopsy of Lung lesion - VSS, HDS, NAEO, Afebrile - Today patient States She is feeling good - She continues to experience left arm weakness and discoordination - Denies any CP, SOB, Cough, Fevers, Pain in legs, swelling, palpitations, Has, changes in vision or hearing, new weakness. Vital Signs BP 140/67 Pulse 69 Temp 36.3 ?C (97.4 ?F) (Oral) Resp 24 Ht 152.4 cm (5') Wt 59.3 kg (130 lb 11.7 oz) SpO2 97% BMI 25.53 kg/m? PHYSICAL EXAMINATION: General - no distress, alert X oriented x3 Lungs - RLL crackles and Wheezing Cardio ? regular rate and rhythm, normal S1 and S2, no murmur Abdomen ? no abdominal distention, soft, no tenderness on palpation Extremities ? no edema in the b/l LEs and UEs Skin ? no rashes or lesions Neuro ? alert and oriented, Sensation grossly intact bilaterally, Cranial nerves II-XII intact, 4/5 RUE strength, 4/5 LUE strength. 5/5 LE strength. Dyscoordination of L hand on rapid alternating movement AND NL [id number]-lysy. Laboratory Values CBC, Coags, BMP, Mg, Phos Recent Labs 12/12/17 0347 12/11/17 0435 12/10/17 2320 12/10/17 2309 WBC 9.14 4.99 9.85 Account Credited HB 14.7 15.4 14.4 Account Credited HCT 46.6* 48.2* 44.4 Account Credited PLT [phone] Account Credited INR -- -- -- 1.0 APTT -- -- -- 29.6 NA 142 139 -- 139 K 4.3 4.1 -- 3.8 CHLOR 99 100 -- 96* CO2 30 25 -- 33* BUN 17 15 -- 16 CREAT 0.70 0.84 -- 1.06* GLUC 126* 150* -- 110* CA 9.9 9.6 -- 9.8 MG -- -- -- 2.1 P -- -- -- 3.3 Liver Function, Amylase, AND Lipase Recent Labs 12/10/17 2309 TPROT 6.9 ALB 4.1 ALT 8 AST 14 ALKPHOS 79 TBILI 0.4 Cardiac Enzymes Estimated Creatinine Clearance: 53.3 mL/min (based on SCr of 0.7 mg/dL). Imaging Intake/Output Intake/Output Summary (Last 24 hours) at 12/12/17 0704 Last data filed at 12/12/17 0600 Gross per 24 hour Intake 820 ml Output 0 ml Net 820 ml ALLERGIES: ALLERGIES No Known Allergies MEDICATIONS: Current hospital medications: fluticasone-salmeterol 250-50 mcg/dose 1 Puff (ADVAIR) 1 Puff INHALATION BID pantoprazole DR 40 mg tab(s) (PROTONIX) 40 mg ORAL DAILY (6 AM) albuterol HFA 90 mcg/actuation 2 Puff (PROVENTIL HFA, VENTOLIN HFA) 2 Puff INHALATION q 4 H PRN ipratropium-albuterol 3 mL nebulizer solution (DUONEB) 3 mL INHALATION q 4 H PRN latanoprost 0.005 % 1 Drop (XALATAN) 1 Drop BOTH EYES AT BEDTIME lisinopril 20 mg tab(s) (ZESTRIL, PRINIVIL) 20 mg ORAL DAILY pravastatin 40 mg tab(s) (PRAVACHOL) 40 mg ORAL DAILY therapeutic multivitamin 1 tablet tab(s) (THERA VITAMIN) 1 tablet ORAL DAILY mirtazapine 15 mg (REMERON) 15 mg ORAL AT BEDTIME 0.9% NaCl 3-5 mL 3-5 mL INTRAVENOUS q 12 H hydroCHLOROthiazide 12.5 mg tab(s) (HYDRODIURIL, ESIDRIX) 12.5 mg ORAL DAILY nicotine 21 mg/24 hr 1 Patch (NICODERM) 1 Patch TRANSDERMAL DAILY nicotine -- REMOVE patch OTHER DAILY nicotine - verify patch OTHER q 8 H dexamethasone 4 mg tab(s) (DECADRON) 4 mg ORAL BID w MEALS SIGNATURE: Rio Jeff MD, PGY-1 PATIENT NAME: Debbie Choi DATE: December 12, 2017 TIME: 8:00 AM Pager: [phone] ATTENDING PHYSICIAN: Patient seen and evaluated today Brito elements of history and physical examination of the patient were confirmed. The assessment and plan were formulated and discussed with the team on Rounds. I reviewed the resident's note, examined the patient and agree with the documented findings and plan of care. Krzysztof Chu MD mobile- [phone] ?? Previous Version Melania Nova, RN, RN 12/12/2017 5:25 AM Signed Nursing Progress Note Patient Name: Debbie Choi Patient Location: H062 003/H062-03 0500 neuro stable over night, pt remains free of injury. continues with SOB upon exertion, 2 L nc remains. pt denies c/o This note was completed by: LEYDA Currie, RN, RN 12/13/2017 5:30 AM Signed Nursing Progress Note Patient Name: Debbie Choi Patient Location: H062 003/H062-03 2400 pt continues with Lue weakness denies N/T. R pupil larger than L . pt NPO for pending procedure, voices understanding. 0530 no changes noted over night, pt remains free of injury, free of c/o This note was completed by: LEYDA Currie Il 12/13/2017 1:26 PM Signed MEDICAL STUDENT PROGRESS NOTE INTERNAL MEDICINE SERVICE DATE: 12/13/2017 SERVICE TIME: 7:03 AM Attending Note This note was generated by a MEDICAL STUDENT working under the supervision of an Attending Physician and is not authenticated until addended and cosigned by the Attending Physician at the beginning of this note. SUBJECTIVE INTERVAL HPI: VSS. AOx3. No overnight events. [place] restless over biopsy today. Medications: Current hospital medications: fluticasone-salmeterol 250-50 mcg/dose 1 Puff (ADVAIR) 1 Puff INHALATION BID pantoprazole DR 40 mg tab(s) (PROTONIX) 40 mg ORAL DAILY (6 AM) albuterol HFA 90 mcg/actuation 2 Puff (PROVENTIL HFA, VENTOLIN HFA) 2 Puff INHALATION q 4 H PRN ipratropium-albuterol 3 mL nebulizer solution (DUONEB) 3 mL INHALATION q 4 H PRN latanoprost 0.005 % 1 Drop (XALATAN) 1 Drop BOTH EYES AT BEDTIME lisinopril 20 mg tab(s) (ZESTRIL, PRINIVIL) 20 mg ORAL DAILY pravastatin 40 mg tab(s) (PRAVACHOL) 40 mg ORAL DAILY therapeutic multivitamin 1 tablet tab(s) (THERA VITAMIN) 1 tablet ORAL DAILY mirtazapine 15 mg (REMERON) 15 mg ORAL AT BEDTIME 0.9% NaCl 3-5 mL 3-5 mL INTRAVENOUS q 12 H hydroCHLOROthiazide 12.5 mg tab(s) (HYDRODIURIL, ESIDRIX) 12.5 mg ORAL DAILY nicotine 21 mg/24 hr 1 Patch (NICODERM) 1 Patch TRANSDERMAL DAILY nicotine -- REMOVE patch OTHER DAILY nicotine - verify patch OTHER q 8 H dexamethasone 4 mg tab(s) (DECADRON) 4 mg ORAL BID w MEALS OBJECTIVE BP 148/65 Pulse 66 Temp 36.6 ?C (97.9 ?F) (Oral) Resp 19 Ht 152.4 cm (5') Wt 59.9 kg (132 lb 0.9 oz) SpO2 97% BMI 25.79 kg/m? PHYSICAL EXAM: Cardiac: RRR Pulm: dec breath sounds anterior left apex Neuro: alert and oriented, Sensation grossly intact bilaterally, Cranial nerves II-XII intact, 4/5 RUE strength, 4/5 LUE strength. 5/5 LE strength. Dyscoordination of L hand on rapid alternating movement AND NL [id number]. DATA: Diagnostic tests reviewed for today's visit: Most recent labs and imaging. ASSESSMENT AND PLAN: L arm discoordination Clinically stable, subacute presentation CT: small areas of chronic blood products with associated vasogenic edema in lesion on posterior R frontal lobe MRI suggestive of possible metastasis, no signs of bleeding progression - dexamethasone 4?mg BID - lung biopsy today - neurosurgery following - consult oncology after biopsy, family on board ? Lung mass Long-term current smoker >30 pack-years CT in April revealed newly detected left apical lung mass measuring 3.4 x 2.5 x 2.5 highly suspicious for malignancy Normocalcemic - bx today ? Infrarenal AAA CT on 04/07/17 showed 6.5 cm x 5.7 cm infrarenal aneurysm of the aorta/ with no evidence of rupture + with tortuosity and suspected mass effect upon the left kidney causing mild to moderate hydronephrosis + narrowing of the lumen at the origin of the superior mesenteric artery No clinical signs of rupture or compression on structures Pt had seen vascular surgeon at [facility] prior to admission, surgery considered too risky - observe ? HTN? - HCTZ 12.5 mg - lisinopril 20 mg ? Hyperlipidemia - pravastatin 40 mg ? COPD 2 L NC at home - albuterol 90 mcg q6 PRN - Duoneb 3mL q6 - fluticasone-vilanterol (100-25 mcg) as formulary substitute for home Advair ? Appetite Stimulus - Mirtazapine 15mg continued from home meds ? Glaucoma - latanoprost ? VTE prophylaxis: SCDs Code status: Full SIGNATURE: Robin Yee Ms PATIENT NAME: Debbie Choi DATE: December 13, 2017 TIME: 7:03 AM PAGER: Previous Version Hayley Raymundo RN, RN 12/13/2017 12:31 PM Signed HEALING SERVICES THERAPY NOTE SERVICE DATE: 12/13/2017 SERVICE TIME: 0950 INTERVENTIONAL FOCUS: Relaxation Visit With: Patient and Family Urgency of Visit: Routine Type of Visit: Introductory Visit Patient and/or Family currently not available to speak with. Left materials and contact information at bedside. SIGNATURE: Hayley Raymundo RN PATIENT NAME: Debbie Choi DATE: December 13, 2017 TIME: 12:30 PM PAGER/CONTACT #: [phone] Hayley Raymundo RN, RN 12/13/2017 12:34 PM Signed HEALING SERVICES THERAPY NOTE SERVICE DATE: 12/13/2017 SERVICE TIME: 1045 INTERVENTIONAL FOCUS: Relaxation Visit With: Patient and Family x3 Urgency of Visit: Routine Type of Visit: Introductory Visit Patient introduced to Healing Services available to them. Provided supportive community for pt. Created an environment of peace and calm using slow, soothing speech and a quiet, gentle, accepting presence to promote pt's healing. She shared the reasons for her admission and talked about her stay and experience in the [facility]. She shared about her difficulty sleeping. Empathetic, active listening and therapeutic presence provided, allowing the patient to express her feelings. Suggested aromatherapy could help provide some relief. Pt chose lavender aromatherapy inhaler for sleep and relaxation. No allergies to nuts, trees, polanco, fruits or spices noted. Provided instruction on use of aromatherapy inhaler along with a 3-minute intentional relaxation breathing exercise, explaining it usually takes just 3 minutes of slow, deep breathing with intention to stop the stress response and instead promote a relaxation response. Pt chose to consciously focus on the word peace while inhaling and gave it the color of white light. All questions answered and materials left at bedside. Re-visit from Healing Services Team: Yes. If requested. SIGNATURE: Hayley Raymundo RN PATIENT NAME: Debbie Choi DATE: December 13, 2017 TIME: 12:31 PM PAGER/CONTACT #: [phone] Adore Germain RN, RN 12/13/2017 2:06 PM Signed CARE MANAGEMENT PROGRESS NOTE SERVICE DATE: 12/13/2017 SERVICE TIME: 2:05 PM LOS: 3 days [place] [facility] Director Note Not Attributed Census List Admission Date: 12/13/2017 [place] [facility] Opportunities; Pharmacotherapy Mgmt of COPD Exacerbation Osteoporosis Mgmt (OMW) -Women with Fracture Controlling High Blood Pressure SIGNATURE: Adore Germain RN PATIENT NAME: Debbie Choi DATE: December 13, 2017 TIME: 2:05 PM PAGER/CONTACT #: [phone] Robin Yee Il 12/13/2017 3:58 PM Incomplete DISCHARGE SUMMARY PATIENT NAME: Debbie Choi ADMISSION DATE: 12/10/2017 DISCHARGE DATE: { :26694} ATTENDING PHYSICIAN: Krzysztof Chu Code Status: Full Code Highest Readmission Risk Score: 8 The 30 day readmissions risk score is derived from an internally validated risk model which evaluates patient level characteristics, utilization history, medication orders and lab results up until the day of discharge. Patients with a score of 40 or above are considered highest risk for readmission. Specific patient level drivers will be listed at the bottom of the summary. REASON FOR HOSPITALIZATION: Left arm discoordination DIAGNOSIS: Active Problems: Nicotine use disorder, F17.2 Brain mass Lung mass Resolved Problems: * No resolved hospital problems. * Ruled Out OPERATIONS DURING HOSPITALIZATION: None PROCEDURES DURING HOSPITALIZATION: Biopsy: Lung mass (L apical) HOSPITAL COURSE: Debbie Choi presented to [facility] with left arm discoordination for ~24 hours from [facility] ED. Earlier on 12/10, she had called her PCP for L arm discoordination present since the prior evening who told her to go to the ED in [place]. There, CT imaging revealed a hemorrhagic lesion on the posterior R frontal lobe with vasogenic edema concerning for metastasis vs AVM. She was sent to [facility] because a closer hospital ([facility]) did not have neurosurgery available. On arrival to [facility], she had discoordination with left rapid hand movements and normal right rapid hand movements, normal mofzma-vs-ezhm intact bilaterally, zjyn-rt-ljvy exam normal bilaterally, cranial nerve II-XII intact, normal DTRs biceps and patellar tendons, UE/LE sensation and strength intact with Rt slightly stronger than Left in the context of right-handedness. She was seen by neurosurgery, who determined that no immediate surgical intervention was needed. She was started on dexamethosone 4mg BID for vasogenic edema. Home medications were continued for COPD, HTN, Hyperlipidemia, and appetite stimulus. MRI revealed Enhancing mass lesion posterior right frontal lobe likely reflecting metastatic disease and chronic changes. This brain lesion is in the context of a chest CT in April which revealed newly detected left apical lung mass measuring 3.4 x 2.5 x 2.5 highly suspicious for malignancy. At that time, Debbie Choi had declined biopsy because she did not want to pursue treatment if results were consistent with malignancy. During her admission, she expressed her wishes to minimize functional deficits. To appropriately diagnose and treat the brain lesion, CT-guided biopsy of the lung mass was recommended and performed by interventional radiology. This case was discussed with radiation oncology, who offered to see Ms. Choi inpatient with the understanding that they could not recommend treatment without biopsy results. Debbie Choi preferred to follow up outpatient after pathology results came in. Debbie Choi was discharged with follow up with Radiation Oncology, Oncology, and her PCP. Debbie Choi's PMH was also notable for AAA. CT on 04/07/17 showed 6.5 cm x 5.7 cm infrarenal aneurysm of the aorta/ with no evidence of rupture + with tortuosity and suspected mass effect upon the left kidney causing mild to moderate hydronephrosis + narrowing of the lumen at the origin of the superior mesenteric artery. She had previously seen vascular surgery at [facility], who had discussed with the patient that a procedure would be very high-risk. Debbie Choi decided not to pursue further treatment. A vascular surgery consult was discussed with the patient and with the team and felt not to be appropriate during this hospitalization. Transitions of Care Critical Issues: {TRANSITIONS OF CARE:5418530} LABS AND PROCEDURES PENDING AT DISCHARGE: { :7532870::No pending results.} CONSULTING TEAMS DURING HOSPITALIZATION: { :9252546::None} PATIENT CONDITION AT DISCHARGE: { :800837::Stable} DISCHARGE DISPOSITION: { :291201} {PHYSICAL EXAM (Choose First Blank if not Last Day Progress Note):1966684} INFORMATION PROVIDED TO PATIENT: (To pull info documented from the DC Instruct Orderset Complete O/S First): { :566150} DIET: { :12510::Resume pre-hospital diet} ACTIVITY: { :19764::Resume pre-hospital activity} WOUND/SURGICAL SITE CARE: { :40434::None} ALLERGIES No Known Allergies DISCHARGE MEDICATION: {(ONLY ACTIVATE WHEN READY TO DISCHARGE) :01636} FUTURE APPOINTMENTS: { :5393181} The patient's risk for 30-day readmission is determined using the following contributing factors: Pt variables contributing to increased readmission risk: 17 Most Recent BUN Result 13 Active Medication Orders 9.8 First Resulted Calcium During Admission 1 Insurance - Medicare {TIME OF CARE (Use first blank if not applicable):3867231} SIGNATURE: Robin Yee Ms PAGER/CONTACT #: DATE: December 13, 2017 TIME: 2:37 PM TIFFANY Sanford 12/13/2017 4:55 PM Signed CARE MANAGEMENT: ASSESSMENT AND DISCHARGE PLAN SERVICE DATE: 12/13/2017 SERVICE TIME: 2:44 PM PRIMARY CARE PHYSICIAN: CHRIS Nelson ADMISSION STATUS: Inpatient MEDICAL: Patient/Orthodontist Stated Goals: To return home to life as it was To be cured/healed Health [facility] Issues Impacting Discharge Plan: lung mass, ectatic thoracic aorta and AAA, COPD, and HTN Last Admission Date: none Is this Within the Past 30 days? No Advance Directive: Case mgmt will provide education. Health Literacy: 1. How often do you need to have someone help you when you read instructions, pamphlets, or other written material from your doctor or pharmacy? Never - 1 2. How confident are you filling out medical forms by yourself? Extremely - 1 If Patient scores > 3 on either question, the following interventions were put into place: Patient did not score > 3 FUNCTIONAL AND COGNITIVE/BEHAVIORAL PRIOR TO ADMISSION: Baseline Mental Status: Alert AND Oriented, Person, Place , Time and Situation Functional Status: Independent Does Patient Currently Receive Any Community Services or Home Care? None Equipment Prior to Admission: None Has the Patient Been in a Fpc Facility in the Past 30 days? No SOCIAL: Living Arrangement: Home Lives With: Alone Financial Resources: Retired Primary Contact: Extended Emergency Contact Information Primary Emergency Contact: Ritu Candelaria Mobile Relation: Daughter Supportive: Yes Other Important Patient Contacts: None Caregiver Assessment: Caregiver is ready, willing and able to meet the patient's needs as recommended by the inter-professional team? Yes Patient's transition needs and plan for meeting these needs: TBD Does the patient have an acute stroke diagnosis, or has the patient had a stroke during this admission? No Medication Adherence: I am convinced of the importance of my prescription medication: Agree completely - 0 I worry that my prescription medication will do more harm than good to me Disagree completely - 0 I feel financially burdened by my [id number] expenses for my prescription medication: Disagree completely - 0 Patient is categorized as low risk < 2 Are you interested in bedside delivery of your medications? No Food Concerns: In the Last Month, Have You had Trouble Getting Food? No trouble getting food During the Last Month, Have You Worried Whether Your Food Would Run Out Before You Had Enough Money to Buy More? No Is the Patient Psychosocially Complex? No ASSESSMENT AND PLAN: Medical Needs: 2 or more chronic diseases and Cancer - active treatment/follow up Psychosocial Needs: None FREEDOM OF CHOICE EXPLAINED: N/A POTENTIAL TRANSITION PLANS To Be Determined Pt admitted for tumor workup. Pt awaiting biopsy. POC and PAC needs TBD pending biopsy. For any questions and concerns please follow up w/ case mgmt. SIGNATURE: MARCELLO LOPEZ PATIENT NAME: Debbie Choi DATE: December 13, 2017 TIME: 2:44 PM PAGER/CONTACT #: [phone] Previous Version Racquel Vega, Art Therapist 12/13/2017 3:51 PM Signed ART THERAPY NOTE SERVICE DATE: 12/13/2017 SERVICE TIME: 1450 H62-3 Referred By: Resident / fellow Reason for Referral: Relaxation COMMENTS: Consult received and appreciated. Pt appeared sitting up in bed talking with daughter upon arrival to room. Introduction of self and service offered. Pt displayed neutral affect and mood as she politely declined interest in art therapy or anticipated need. Pt's daughter affirmed pt's choice. No other needs identified at this time. AT will follow up upon request. SIGNATURE: Racquel Vega Art Therapist PATIENT NAME: Debbie Choi DATE: December 13, 2017 TIME: 3:45 PM PAGER/CONTACT #: [phone] Ximena Edwards 12/13/2017 7:51 PM Signed Radiology Service Progress Note PATIENT NAME: Debbie Choi DATE OF SERVICE: December 13, 2017 TIME: 7:50 PM PATIENT IDENTITY VERIFICATION COMPLETED USING TWO (2) METHODS: Patient confirmed name verbally and ID band matches.. PATIENT GENDER DATA: Female. status: : No status: NO. PATIENT RELEVANT IMPLANT DATA REVIEWED: Yes RADIOLOGY DEPARTMENT: CT; Exam(s) Completed: Chest Abdomen Pelvis PERIPHERAL IV DATA: Inpatient: see LDA documentation SIGNED BY: Ximena Edwards December 13, 2017 7:50 PM Gisele Whaley RN, RN 12/13/2017 7:55 PM Signed Radiology Service Progress Note PATIENT NAME: Debbie Choi DATE OF SERVICE: December 13, 2017 TIME: 7:55 PM PATIENT WEIGHT: 132 LBS PATIENT IDENTITY VERIFICATION COMPLETED USING TWO (2) METHODS: Patient confirmed name verbally and ID band matches.. PATIENT GENDER DATA: Female. status: : No status: NO. CONTRAST INDUCED NEPHROPATHY RISK FACTORS: Patient age > 60 years CREATININE: Creatinine Date Value Ref Range Status 12/12/2017 0.70 0.58 - 0.96 mg/dL Final 12/11/2017 0.84 0.58 - 0.96 mg/dL Final 12/10/2017 1.06 (H) 0.58 - 0.96 mg/dL Final eGFR-All Other Races Date Value Ref Range Status 12/12/2017 >60 . Final Comment: eGFR (Estimated GFR) Units of measure: mL/min/1.73 meters squared eGFR is derived from the reexpressed MDRD Study equation using the following parameters: serum creatinine, age, gender and race. The creatinine assay has been calibrated to be traceable to IDMS. An eGFR <60 mL/min/1.73m2 for >3 months is consistent with chronic kidney disease. Refer to KDOQI guidelines for clinical interpretation. In patients with unstable renal function, e.g. those with acute kidney injury, the eGFR may not accurately reflect actual GFR. eGFR- Date Value Ref Range Status 12/12/2017 >60 Final P.O.C.T. RESULTS: POC done: Yes, See Lab Tab December 13, 2017 TREATMENT: No Hydration needed. ALLERGIES: Reviewed and unchanged CONTRAST ALLERGY: NO. IV SITE: Inpatient - refer to LDA documentation IV SITE APPEARANCE: Clean,Dry and Intact SIGNED BY: Gisele Whaley, LEYDA December 13, 2017 7:55 PM Neli Knight, RN, RN 12/14/2017 1:48 PM Signed Called floor RN for updated handoff prior to bringing patient down to radiology for lung biopsy. Updated handoff received. Last documented respiratory rate in Epic questioned, (per floor RN) rate was pulled from telemetry, not accurate. Per RN, patient's VSS, okay to travel down for biopsy. CHEST 2 VIEWS Observed: 08/24/2017 Status: F Source: [facility] 11:48 AM [place] [id number] Patient: DEBBIE CHOI Phone#: : [phone] Age: 77 Gender: F Pt. Type: Out Account: [id number] Location: [facility] Ordering: REBECCA DORMAN Exam Date: 08/24/2017/11:31 Family Phys: Charge Code: [id number] Physician: Morton Order #: [id number] DLP Dose#: PROCEDURE: X-RAY CHEST 2 VIEWS COMPARISON: [facility], XR, CHEST PA/LAT, 02/13/2015, 13:23. INDICATIONS: Cough with expectoration FINDINGS: LUNGS: Diffuse chronic interstitial changes are present there is no evidence of acute infiltrate. Granulomas are present in the right upper lobe. VASCULATURE: Normal. Unremarkable pulmonary vasculature. CARDIAC: Normal. No cardiac silhouette abnormality or cardiomegaly. MEDIASTINUM: The right hilum is mildly prominent but similar to prior exam. The aorta is ectatic. PLEURA: There is minimal blunting of the posterior right costophrenic angle similar to prior exam. BONES: Bones and spine are osteopenic. There is loss of height of mid and lower thoracic vertebral bodies and at the midthoracic level has progressed since prior exam. OTHER: Negative. CONCLUSION: 1. There is no evidence of acute pulmonary abnormality. 2. There is loss of height of a midthoracic vertebral body. Dictated by: Charlene Perez MD on 08/24/2017 at 11:53 Approved by: Charlene Perez MD on 08/24/2017 at 11:53 PROGRESS Observed: 05/06/2017 Status: COMPLETED Source: [place] 3:00 PM [facility] REPOSITORY O ID: [id number] Author: Nikunj Marshall Service: (none) Author Type: Physician Sign Fabricator Type: Progress Notes Filed: 05/06/2017 3:04 PM Note Text: HANDP was completed in Ren Thompson MD Office visit from 04/20/17. ?? Nikunj Marshall PA-C CTA C/A/P (NONGATED) W Observed: 04/20/2017 Status: F Source: [facility] 12:34 PM [facility] REPOSITORY * * *Final Report* * * DATE OF EXAM: Apr 20 2017 12:34PM [facility] [place] 0131 - CTA C/A/P (NONGATED) W IVCON / PROCEDURE REASON: Abdominal aortic aneurysm, without rupture * * * * Physician Interpretation * * * * Examination: CTA chest, CTA abdomen and pelvis dated 04/20/2017 12:34 PM. Comparison: Outside CT dated 04/07/2017 History: 76 years old Female with abdominal aortic aneurysm here for endovascular stent planning. Technique: Multi-detector CT technology was employed (Siemens Definition Flash dual source scanner ). Spiral imaging was performed following the IV administration of contrast material. In addition, delayed imaging was performed. A low-osmolar contrast agent was used (100 cc of Omnipaque 350). CT Dose-Length Product (DLP): [address] Dose Reduction Employed: Automated exposure control (AEC) For optimization of anatomic evaluation, multiplanar reconstruction, maximum intensity projections, and advanced 3-D off-line postprocessing were performed on a dedicated stand-alone workstation by the interpreting physician. RESULT: Potential study limitations: None. CHEST: The chest wall is unremarkable. There are calcified mediastinal lymph nodes There is no significant adenopathy noted in the axillae, mediastinum, and naida. The pericardium and pulmonary arteries appear normal. There is a small hiatal hernia. Lung windows reveal a spiculated 3.1 x 2.2 cm mass in the left upper lobe (image 26). This finding is highly suspicious for malignant neoplasm. There is an additional 4 mm noncalcified pulmonary nodule in the left upper lobe (image 28). There is a calcified pulmonary nodules in the left lower lobe as well as in the right upper lobe. There are emphysematous changes, bilaterally. The cardiac chambers demonstrate normal atrioventricular and ventriculoarterial concordance, and systemic and pulmonary venous return. The cardiac chamber sizes are normal. The coronary arteries have normal origins and courses. There are mild coronary calcifications identified, though this study was not optimized for coronary artery evaluation. VASCULAR WITH ADVANCED 3-D OFF-LINE POSTPROCESSING: Aortic valve is trileaflet and free of calcification. The thoracic aorta is normal in caliber. There is mild calcification of the mid ascending aorta, aortic arch, and descending thoracic aorta. There is severe noncalcified atheroma noted in the descending thoracic aorta. The descending thoracic aorta is tortuous. There is no acute aortic pathology, such as dissection, intramural hematoma, or contained rupture. The arch vessel branching pattern is normal . There is a large juxtarenal abdominal aortic aneurysm, associated with moderate mural thrombus. The descending thoracic aorta is tortuous and moderately calcified.. There is no acute aortic pathology. Orthodontist dimensions of the thoracic aorta are as follows: 2.3 x 2.1 cm at the aortic annulus 3.2 cm at the sinuses of Valsalva measured sinus to sinus (3.0 cm measured sinus to trigone) (the sinotubular junction is preserved) 3.0 cm at the mid ascending aorta 3.2 cm at the distal ascending aorta 2.9 cm at the mid transverse arch 2.8 cm at the proximal descending thoracic aorta 3.0 cm at the diaphragmatic hiatus The abdominal aorta measures: 3.2 cm at the supramesenteric segment 3.0 cm at the mesenteric segment 5.8 x 5.6 cm at the renal segment, unchanged on direct comparison to the prior study. 2.4 cm at the mid infrarenal segment 2.3 cm at the aortic bifurcation The celiac axis, SMA, and ADRIAN are patent. 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 There are dual left and single right renal arteries, all of which appear patent. The pelvic arteries are tortuous and mildly calcified, but otherwise normal in caliber and contour. ABDOMEN: The liver, gallbladder, spleen, and pancreas appear normal. The adrenal glands appear normal. Both kidneys are normal in size, shape, and density. There are simple appearing extrapelvic hypodense cystic lesions noted in the kidneys, bilaterally. There is no abnormal mass or hydronephrosis. PELVIS: There is no significant retroperitoneal adenopathy. No free fluid or free air within the abdomen or pelvis. Focal calcification is noted within the pelvis. The bowel appears unremarkable on this non-GI contrast examination. The urinary bladder appears normal. There are scattered phleboliths within the deep pelvis. IMPRESSION: 1. Spiculated 3.1 x 2.2 cm mass in the left upper lobe (image 26). This finding is highly suspicious for malignant neoplasm, and appears similar on direct comparison to prior study. Recommend further evaluation with biopsy and/or PET imaging. 2. Juxtarenal abdominal aortic aneurysm, associated with moderate mural thrombus and measuring 5.8 x 5.6 cm. No acute abdominal aortic pathology. 3. Normal caliber thoracic aorta. There is severe noncalcified atheroma noted in the descending thoracic aorta. No acute aortic pathology identified. 4. 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 There Charging Operator: PSCB Transcribe Date/Time: Apr 20 2017 1:37P Dictated by : ALEXUS GARCIA MD This examination was interpreted and the report reviewed and electronically signed by: ALEXUS GARCIA MD on Apr 20 2017 2:53PM EST [id number] PROGRESS Observed: 04/20/2017 Status: COMPLETED Source: [place] 12:30 PM [facility] REPOSITORY HNO ID: [id number] Author: KAYLA Menendez (Ct) Service: Radiology Author Type: Clinical Blast Furnace Keeper Helper Type: Progress Notes Filed: 04/20/2017 12:37 PM Note Text: Radiology Service Progress Note PATIENT NAME: Debbie Choi DATE OF SERVICE: April 20, 2017 TIME: 12:30 PM PATIENT IDENTITY VERIFICATION COMPLETED USING TWO (2) METHODS: Patient confirmed name verbally and ID band matches.. PATIENT GENDER DATA: Female. status: : No status: NO. PATIENT RELEVANT IMPLANT DATA REVIEWED: Yes RADIOLOGY DEPARTMENT: CT; Exam(s) Completed: CTA Cardiac PERIPHERAL IV DATA: Site assessment: Clean,Dry and Intact, Site disposition Discontinued SIGNED BY: KAYLA Menendez April 20, 2017 12:30 PM PROGRESS Observed: 04/20/2017 Status: COMPLETED Source: [place] 11:56 AM [facility] REPOSITORY HNO ID: [id number] Author: Camilla (Rn) LEYDA Singh Service: (none) Author Type: Registered Nurse Type: Progress Notes Filed: 04/20/2017 12:20 PM Note Text: Radiology Service Progress Note PATIENT NAME: Debbie Choi DATE OF SERVICE: April 20, 2017 TIME: 11:56 AM PATIENT WEIGHT: 125 LBS PATIENT IDENTITY VERIFICATION COMPLETED USING TWO (2) METHODS: Patient confirmed name verbally and ID band matches.. PATIENT GENDER DATA: Female. status: : No status: NO. CONTRAST INDUCED NEPHROPATHY RISK FACTORS: Patient age > 60 years CREATININE: No results found for: CREAT, EGFROTH, EGFRAA P.O.C.T. RESULTS: POC done: Yes, See Lab Tab April 20, 2017 TREATMENT: No Hydration needed. ALLERGIES: Reviewed and unchanged CONTRAST ALLERGY: NO. IV SITE: Ambulatory: A peripheral IV was started in the Left antecubital site with a Angio cath: 20 gauge diffusic and A Saline lock was inserted per protocol IV SITE APPEARANCE: Clean,Dry and Intact SIGNED BY: Camilla Singh RN April 20, 2017 11:56 AM PROGRESS Observed: 04/20/2017 Status: COMPLETED Source: [place] 11:06 AM [facility] REPOSITORY HNO ID: [id number] Author: Ren Thompson Service: (none) Author Type: Physician Type: Progress Notes Filed: 04/22/2017 11:32 AM Note Text: . VASCULAR SURGERY INITIAL CONSULT SERVICE DATE: 04/20/2017 SERVICE TIME: 11:17 AM PRIMARY CARE PHYSICIAN: Rebecca Dorman, CHRIS REFERRING PROVIDER: Thierry Snyder MD [address] [address] Consult requested for an opinion regarding the evaluation and treatment of the above. My final impression and recommendations will be communicated back to the requesting physician by way of the shared medical record or letter via US mail. CHIEF COMPLAINT/HISTORY OF PRESENT ILLNESS: Chief Complaint: AAA, pararenal of 5.2x 6.5 cm (according to the report of CTA from 04/07/17 [facility]) History of Present Illness: Debbie Choi is a 76 year old female smoker from [place] went to the ER with back pain on 04/07/[address] and was incidentally diagnosed with AAA and Lung mass highly suspected for a primary lung carcinoma and was offered a biopsy which she declined. The source of his back pain was consider a bladder infection and was treated with antibiotics according to patient. She has a FH of aneurysms: father AAA, brother cerebral aneurysm. She has h/o COPD/ Emphysema and uses ADVAIR DISKUS. Other commodities include HTN, hydronephrosis, diverticulosis. She denies CP and h/o coronary events or intervention. Never has had a stress test She complains of SOD on prolonged waking. Never has had PFT. Also she has a mild aneurismal dilatation of the descending aorta PAST MEDICAL/SURGICAL/FAMILY/SOCIAL HISTORY PAST MEDICAL HISTORY Diagnosis Date - AAA (abdominal aortic aneurysm) without rupture (HCC) - Bladder infection - COPD (chronic obstructive pulmonary disease) (HCC) - Dilatation of thoracic aorta (HCC) mild daneurismal dilataion of the descending aort - Diverticulosis - Duodenal diverticulum large - Hepatic steatosis - Hiatal hernia small - [place] (hard of hearing) - HTN (hypertension) - Hydronephrosis - Hypercholesterolemia - Lung mass - Pelviectasis left - Smoker PAST SURGICAL HISTORY Procedure Laterality Date - PAST SURGICAL HISTORY OF 1996 Hysterectomy FAMILY HISTORY Problem Relation Age of Onset - AAA [OTHER] Father - cerebral aneurysm [OTHER] Brother SOCIAL HISTORYSocial History Marital status: Spouse name: Years of education: Number of children: Social History Main Topics Smoking status: Current Every Day Smoker Packs/day: 1.00 Years: 0.00 Types: Cigarettes Smokeless status: Never Used MEDICATIONS/ALLERGIES Current Outpatient Prescriptions: latanoprost (XALATAN) 0.005 % ophthalmic solution INSTILL 1 DROP INTO BOTH EYES AT BEDTIME DIRECTED Disp: Rfl: 3 lisinopril-hydrochlorothiazide (PRINZIDE,ZESTORETIC) 20-12.5 mg per tablet Take 1 tablet by mouth once daily. Disp: Rfl: 3 pravastatin (PRAVACHOL) 40 mg tablet once daily. Disp: Rfl: 3 ADVAIR DISKUS 250-50 mcg/dose dsdv once daily. Disp: Rfl: 3 PROAIR HFA 90 mcg/actuation inhaler INHALE 2 (TWO) PUFFS EVERY 4-6 HOURS NEEDED Disp: Rfl: 3 ipratropium-albuterol (DUONEB) 0.5 mg-3 mg(2.5 mg base)/3 mL nebu USE ONE VIAL VIA NEBULIZER EVERY 4 TO 6 HOURS NEEDED Disp: Rfl: 3 multivitamin tablet Take 1 tablet by mouth once daily. Disp: Rfl: CHOLECALCIFEROL, VITAMIN D3, ORAL Take by mouth once daily. Disp: Rfl: VITAMIN E ORAL Take by mouth once daily. Disp: Rfl: iv contrast (radiology procedure) CTA CHST/ABD/PEL. No IV access, insert saline lock prior to the sedation, infusion, injection for imaging exam. Discontinue saline lock post exam. If Pt. has a central line or IVAD, may access for administration according to line specific nursing protocol. Once exam is complete flush line and de-access according to line specific nursing protocol in the CT contrast administration guidelines link. Disp: 1 Each Rfl: 0 No current facility-administered medications for this visit. ALLERGIES No Known Allergies REVIEW OF SYSTEMS Constitutional: No weight loss, malaise or fevers. HEENT: Negative for frequent or significant headaches, No changes in hearing or vision, no nose bleeds or other nasal problems Respiratory:SOB at effort no O2 use. Negative for cough, wheezing, or shortness of breath Cardiovascular: AAA asymptomatic, HTN .Negative for chest pain, leg swelling or palpitations Gatrointestinal: Negative for abdominal discomfort, blood in stools or black stools or change in bowel habits Genitourinary:Hydronephrosis No history of dysuria, frequency, or incontinence and No difficulty urination, nocturia >1 times per night or hematuria Musculoskeletal: Negative for joint pain or swelling, back pain or muscle pain Endocrine: Negative for cold or heat intolerance, polyuria, polydipsia and goiter Hematology/Lymphatic: easy bruising Negative for prolonged bleeding or swollen nodes Neurologic: No history or headaches, syncope, paralysis, seizures or tremors Integumentary: Negative for lesions, rash, and itching. PHYSICAL EXAM VITALS: BP 144/66 Pulse 91 Temp (Src) 98.3 (Temporal Artery) Resp 20 Ht 4' 11 (1.50m) Wt 125 lb (56.7kg) SpO2 96% BMI 25.23 kg/(m2). General: Alert and oriented, No acute distress Integumentary: Normal color, no rash, no lesions. HEENT: No carotid bruits Cardiovascular: Normal S1 AND S2, no rubs, murmurs or gallops. No JVD., Pulse regular. Lungs: bronchial BS Abdomen: Soft, non-tender, no rigidity. Extremities: No deformity, no edema or tenderness, no joint swelling or clubbing. Neurological: Normal cognition and motor skills. Vascular: Radial Pulse Right: Normal - Left: Normal Popliteal Pulse Right: Normal - Left: Normal Posterior Tibial Right: Normal - Left: Normal Dorsalis Pedal Right: Absent - Left: Normal ASSESSMENT TAAA 5.8cm Lung mass very concerning for cancer, but patient does not want any further workup Would be high risk for open repair and she would not even consider it Without working up her lung cancer she would not be able to have a branch graft at a different institution PLAN/RECOMMENDATIONS Unfortunately she does not have good options for repair SIGNATURE: Ren Thompson MD PATIENT NAME: Debbie Choi DATE: April 20, 2017 TIME: 11:17 AM CNOV Observed: 04/20/2017 Status: COMPLETED Source: [place] 11:00 AM [facility] REPOSITORY Office Visit (VASSMN) DEBBIE CHOI ([id number]) 1940 F Date Time Provider Department 04/20/17 11:00 AM NIKUNJ MARSHALL) AMILCAR During your visit today, we recorded the following information about you: Nikunj Marshall PA-C 05/06/2017 3:04 PM Signed HANDamp;P was completed in Ren Thompson MD Office visit from 04/20/17. ?? Nikunj Marshall PA-C Referring Provider: THIERRY SNYDER [[id number]] Allergies As of Date: 04/20/2017 (No Known Allergies) Date Reviewed: 04/20/2017 Reviewed by: Camilla (Rn) LEYDA Singh - Fully Assessed Reason for Visit: New Patient Evaluation [154] Primary Visit Diagnosis:Thoracoabdominal aortic aneurysm (TAAA) without rupture (HCC) [I71.6] Prescriptions as of 04/20/2017 Sig: LATANOPROST 0.005 % EYE DROPS INSTILL 1 DROP INTO BOTH EYES* LISINOPRIL 20 MG-HYDROCHLOROT* Take 1 tablet by mouth once d* PRAVASTATIN 40 MG TABLET once daily. ADVAIR DISKUS 250 MCG-50 MCG/* once daily. PROAIR HFA 90 MCG/ACTUATION A* INHALE 2 (TWO) PUFFS EVERY 4-* IPRATROPIUM-ALBUTEROL 0.5 MG-* USE ONE VIAL VIA NEBULIZER EV* MULTIVITAMIN TABLET Take 1 tablet by mouth once d* CHOLECALCIFEROL (VITAMIN D3) * Take by mouth once daily. VITAMIN E ORAL Take by mouth once daily. IV CONTRAST (RADIOLOGY PROCED* CTA CHST/ABD/PEL. No IV acces* Problem List As Of Date: 04/20/2017 (None) Encounter Status:Closed by NIKUNJ MARSHALL PA-C on 05/06/17 EMERGENCY DEPARTMENT Observed: 04/11/2017 Status: F [facility] EM[facility]GENCY DEPARTMENT SUMMARY NAME NUMBER SEX AGE ADMIT DISC TYPE MED.RECORD# GRACIE LEWIS [id number] F 76 04/08/17 04/08/17 Marie [id number] ROOM:ER-C DATE OF :1940 PHYSICIAN NO.:[id number] PHYSICIAN NAME:DARLENE Tuttle D.O. PHYSICIAN: HISTORY OF PRESENT ILLNESS: The patient came in. She was admitted to the hospital for COPD. She was diagnosed with an abdominal aortic aneurysm up to 6.5 x 2.0 cm, involving the renal area. She has had hydronephrosis. She complains of back pain. She also was found to have lung cancer, which is felt to be primary. When she was admitted to [place] for COPD, she refused to have any treatment regarding the abdominal aortic aneurysm or cancer because she did not want anything done on the cancer. Today she is coming in stating that she still has pain and wants to be treated for the abdominal aortic aneurysm, but not the lung cancer and wants a second opinion. We do not have the services here. I did discuss this with the patient. We will transfer her up to [place] for a consultation with Dr. Snyder, the vascular surgeon. She is going to go through the ER with Dr. Velásquez accepting. PAST MEDICAL HISTORY: Positive for COPD. She has had cataract surgery. Hypertension. She had a hysterectomy. SOCIAL HISTORY: She does smoke. She denies alcohol use. REVIEW OF SYSTEMS: Ten systems were reviewed and are negative except as mentioned above. PHYSICAL EXAMINATION: The patient is afebrile. Blood pressure 157/101, pulse 93, respirations 20, pulse oximetry 92% on room air. Head is normocephalic and atraumatic. Pupils are equally round and reactive to light. Extraocular muscles are intact. Nares are patent. Throat has adequate moisture. Uvula is midline. Neck is supple without petechial rash. Heart without murmur, S1, S2. No S3 or S4 appreciated. Lungs are clear to auscultation bilaterally. No rales, rhonchi or retractions. Abdomen is soft, nontender and nondistended. Skin is warm and dry. DIAGNOSIS: 1. Aneurysm. 2. Lung cancer. 3. Back pain. PLAN/DISPOSITION: She is going by private vehicle to [place] emergency department. The pain is not changed. She just wants to have it looked at this time, which she did not want to have done two days ago. D: Nishant Tuttle DO TD: 12:43 JOB #: [id number] Electronically signed by: DARLENE Tuttle D.O. 04/11/17 21:25 Transcribed by: marco antonio 04/09/2017 01:29 12 LEAD ELECTROCARDIOGRAM Observed: 04/09/2017 Status: F Source: [place] 1:55 PM [facility] [place] [facility] [place] Cardiovascular Services [address] [place] [id number] 12 Lead EKG 04/06/17 2328 MR#: [id number] Acct: [id number] Name: DEBBIE CHOI Rep #: [id number] : 1940 76 From: José Miguel Eid MD Attending Dr: Jhonny SHARP,Sofia Status: DIS ERIC Ordering Dr: Lolis Smith MD Date: 04/06/17 [place] [facility] [place]: F C Admitted: 04/07/17 Test Reason : SOB Blood Pressure : / mmHG Vent. Rate : 161 BPM Atrial Rate : 105 BPM P-R Int : 152 ms QRS Dur : 010 ms QT Int : 074 ms P-R-T Axes : 057 000 246 degrees QTc Int : 121 ms Sinus rhythm Indeterminate axis Nonspecific ST and T wave abnormality Inferior GA, age undetermined, cannot be excluded Abnormal ECG Confirmed by KRISTOFER SHARP, JOSÉ MIGUEL ([id number]), electronic news gathering editor LAVERNE HEMPHILL ([id number]) on 04/09/2017 1:55:00 PM Referred By: NIXON Confirmed By:JOSÉ MIGUEL EID MD 04/09/17 0678 Date José Miguel iEd MD CC: CHALO DORMAN; Lolis Smith MD Signed CONSULTATION Observed: 04/08/2017 Status: F Source: [place] 8:25 AM [facility] [place] [facility] [place] Medical Records Department [address] [place] [address] Consultation 04/07/17612 MR#: [id number] Acct: [id number] Name: DEBBIE CHOI Rep #: [id number] : 1940 76 From: Aftab Tilley MD PCP: CHALO JURADO Status: DIS ERIC Y Location: MS3 JR119-4 Problem List (1) AAA (abdominal aortic aneurysm) Status: Acute Qualifiers: Presence of rupture: without rupture Qualified Code(s): I71.4 - Abdominal aortic aneurysm, without rupture Reason for Consult Date of Consultation: 04/07/17 History of Present Illness: The patient is a 76 year old F who was admitted yesterday with exacerbation of COPD. Because of shortness of breath CT imaging of the chest led to identification of an abnormally ectatic thoracic aorta and a abdominal aortic aneurysm. CT of the abdomen was obtained demonstrating a 5.2 x 6.5 cm abdominal aortic aneurysm with tortuosity and suspected mass effect upon the left kidney causing mild to moderate hydronephrosis. Great significance however is that there is irregular thrombus within the aneurysm and narrowing of the lumen at the origin of the superior mesenteric artery. There is thrombus heavily involving the wall of the aneurysm at the level of the renals and there is aneurysmal change already at the level of the renals measuring 4.4 x 3.6 cm. additional mention is made of a 5.2 x 6.5 cm duodenal diverticulum. Tortuous colon. Diverticulosis. Small hiatal hernia. In addition unfortunately due to the patient's COPD she has a newly detected left apical lung mass measuring 3.4 x 2.5 x 2.5 which is highly suspicious for malignancy she is a long-term cigarette smoker and she continues to smoke. She has exacerbation of her COPD hypoxic at 87% on room air. She was complaining of back pain that was therefore aggravating and exacerbating her ability to breathe. She currently states that she is not having back pain at this moment Past Medical History Past Medical History (Chronic Problems): Chronic Problems COPD (chronic obstructive pulmonary disease) (Chronic) Hyperlipidemia (Chronic) Hypertension (Chronic) Allergies No Known Allergies Allergy (Verified 04/06/17 23:14) Home Medications: Ambulatory Orders Medication Instructions Recorded Albuterol Aerosols [Ventolin 2.5 mg INHALATION Q6HWA.RT 04/06/17 Aerosols] Albuterol IH (ProAir) [Proair Hfa 2 puff INHALATION 4X/DAY PRN PRN 04/06/17 Surgical History: hysterectomy Smoking Status: Heavy Smoker (>10/day) Tobacco Use: Cigarettes Alcohol: None Drugs: None - *Family History Maternal History Items: - - no cancer Review of Systems Constitutional: Denies: Anorexia Eyes: Denies: Blurred vision HEENT: Denies: Difficulty Hearing Cardiovascular: Reports: Chest Tightness Respiratory: Reports: Shortness of Breath Gastrointestinal: Denies: Abdominal Pain, Nausea, Vomiting Genitourinary: Denies: Dysuria Musculoskeletal: Denies: Leg Pain Skin: Denies: Jaundice Neurological: Denies: Balance problems Psychiatric: Denies: Anxiety Hematologic/ Lymphatic: Denies: Adenopathy Patient Problems: Active and Suspected Problems COPD with acute exacerbation (Acute) AAA (abdominal aortic aneurysm) (Acute) Lung mass (Acute) - Physical Exam General: Alert, Oriented x3, Cooperative, - - Patient moves and very quick hyper movements HEENT: Atraumatic Oral: Moist Mucosa Lungs: - - Markedly increased anterior posterior diameter. Notably kyphotic. Poor air excursion. Wheezes bilaterally Cardiovascular: - - Ectopic beats. 2/6 systolic ejection murmur Abdomen: Bowel Sounds Present, Soft, Non Tender, Non-Distended - Patient prefers a semisitting position. I cannot detect the aneurysm in this position Bilateral carotids 3+ no bruits, bilateral brachial and radials and femorals and popliteals 3+. Right DP 2+. Right PT 3+. Left DP and PT 3+ Lymphatic: No Cervical, Supraclavicular, or Inguinal Adenopathy Vital Signs Temp Pulse Resp BP Pulse Ox 98 F 101 H 20 H 173/84 H 94 04/07/17 03:25 04/07/17 03:25 04/07/17 03:25 04/07/17 03:25 04/07/17 03:25 Oxygen Flow Rate 1 Oxygen Delivery Method Room Air Weight: 127 lb 1 oz Body Mass Index (BMI) 23.2 Intake and Output for Last 24 Hours Intake Total 120 / 120 Balance 120 / 120 Assessment/Plan Active and Suspected Problems COPD with acute exacerbation (Acute) AAA (abdominal aortic aneurysm) (Acute) Lung mass (Acute) Complicated 76-year-old female. She has exacerbation of her COPD and significant pulmonary dysfunction. In addition to that she has a newly detected highly suspicious left apical lung mass. In addition to that she has diffuse ectasia of her thoracic aorta and a significant abdominal aortic aneurysm with thrombus at the level of the superior mesenteric artery and aneurysm and thrombus involving the renal arteries. This represents an extraordinarily high risk repair candidate. She will need to be referred to a tertiary center for consideration of aneurysm treatment. The etiology to the patient's back pain that occurred yesterday and previously on Wednesday is indeterminate. Although the aneurysm is not demonstrating current signs of rupture it is not clear whether it is a component of her discomfort or whether it is compression upon the left kidney could be part of this complex. Tertiary evaluation at earliest convenience would be appropriate. I appreciate the opportunity of assisting with her surgical care and will sign off Aftab Tilley M.D., F.A.C.S. 04/08/17 0825 <Electronically signed by Aftab Tilley MD> Date Aftab Tilley MD Cosigner Signature (if applicable): Date CC: CHALO DORMAN; Jamey Pacheco MD; Aftab Tilley MD Signed DISCHARGE SUMMARY Observed: 04/07/2017 Status: F Source: [place] 5:57 PM [facility] [place] [facility] Medical Records Department [address] [place] [address] Discharge Summary 04/07/17 1454 MR#: [id number] Acct: [id number] Name: DEBBIE CHOI Rep #: [id number] : 1940 76 From: Sofia Turner MD PCP: CHALO JURADO Status: DIS ERIC Y Location: MT3 [id number] Discharge Date and Diagnosis Date of Admission: 04/07/17 Date of Discharge: 04/07/17 - Primary Discharge Diagnosis Active and Suspected Problems COPD with acute exacerbation (Acute) AAA (abdominal aortic aneurysm) (Acute) Lung mass (Acute) - Secondary Discharge Diagnosis Chronic Problems COPD (chronic obstructive pulmonary disease) (Chronic) Hyperlipidemia (Chronic) Hypertension (Chronic) Suspected chronic obstructive pulmonary disease based on initial evaluation (Chronic) Hospital Course and Treatment Summary of Care Provided: Debbie Choi is a 76 F with history of hypertension and hypercholesterolemia who presents to the emergency room for intermittent back pain and shortness of breath. Patient states that she began having symptoms 4 days ago with a really tight sharp pain in her bilateral lower thoracic back that takes her breath away. In the emergency room she underwent CTA of the chest abdomen and pelvis. CTA of the chest showed a new left upper lobe lung mass suspicious for malignancy. CTA of the abdomen and pelvis shows a 6.5 cm x 5.7 cm infrarenal aneurysm of the aorta with no evidence of rupture. Additionally she has mild to moderate left hydronephrosis. Patient remained stable in the emergency department. Regarding the a new left upper lobe lung mass suspicious for malignancy found on the CT scan, pulmonary medicine was consulted but the patient declined any further workup on this. She understands this is likely to be malignancy but she does not want to proceed with any further workup or treatment on this. Regarding the CTA of the abdomen and pelvis showing the 6.5 cm x 5.7 cm infrarenal aneurysm of the aorta with no evidence of rupture. Dr Tilley was consulted,although the aneurysm is not demonstrating current signs of rupture it is not clear whether it is a component of her discomfort or whether it is compression upon the left kidney could be part of this complex. Tertiary evaluation at earliest convenience was recommended. The patient and family elected to go to tertiary care as an outpatient evaluation to her primary care doctor. For imaging on disc be given to them. She was discharged home in a stable condition. physical exam at the time of discharge; vital signs were stable. He was alert and oriented to time place and person. He did not appear to be any form of distress. S1 and S2 heard no murmur or gallop Lung exam was clear to auscultation with no adventitious sounds. Abdomen was soft nontender with normal bowel sounds. extremity exam did not reveal any edema, palpable pulses bilaterally. Neurologic exam was grossly intact. Discharge Diet: No Restrictions Discharge Activity: Return to Normal Activity Home Medications: Medications to take at Discharge Albuterol Aerosols [Ventolin Aerosols] 2.5 mg INHALATION Q6HWA.RT 04/06/17 Albuterol IH (ProAir) [Proair Hfa] 2 puff INHALATION 4X/DAY PRN PRN 04/06/17 Fluticasone/Salmeterol [Advair 250-50 Diskus] 1 each IH BID 04/06/17 Lisinopril 20 mg PO DAILY 04/06/17 Multivitamin No.58/Vit D3/K [Multivit-A,B,D,E,K,Zn Softgel] 1 tab PO DAILY 04/06/17 Pravastatin [Pravachol] 40 mg PO DAILY 04/06/17 Vitamin E Mixed [Vitamin E] 1,000 unit PO DAILY 04/06/17 Primary Care Physician: Rebecca Dorman PA [Primary Care Provider] - In 1 Week Disposition: Home Meaningful Use Info Meaningful Use Diagnoses (Choose all that apply): None applicable Code Visit Inpatient E AND M: 56168 Disch Hosp 04/07/17 175 <Electronically signed by Sofia Turner MD> Date Sofia Turner MD Cosigner Signature (if applicable): Date CC: CHALO DORMAN; Sofia Turner MD Signed DISCHARGE INSTRUCTION Observed: 04/07/2017 Status: F Source: [place] 2:54 PM [facility] [place] [facility] Medical Records Department [address] [place] [address] Instructions for Home/Discharge Instructions 04/07/17 1452 MR#: [id number] Acct: [id number] Name: DEBBIE CHOI Rep #: [id number] : 1940 76 From: Sofia Turner MD PCP: CHALO JURADO Status: ADM IN - Discharge Diagnoses Current Active Problems: Current Active and Chronic Problems COPD with acute exacerbation (Acute) COPD (chronic obstructive pulmonary disease) (Chronic) AAA (abdominal aortic aneurysm) (Acute) Lung mass (Acute) Hyperlipidemia (Chronic) Hypertension (Chronic) Suspected chronic obstructive pulmonary disease based on initial evaluation (Chronic) You will use the following diet at home:: Regular Discharge Activity: Return to Normal Activity Allergies/Adverse Reactions: Allergies No Known Allergies Allergy (Verified 04/06/17 23:14) Medications to take at Discharge Albuterol Aerosols [Ventolin Aerosols] 2.5 mg INHALATION Q6HWA.RT 04/06/17 Albuterol IH (ProAir) [Proair Hfa] 2 puff INHALATION 4X/DAY PRN PRN 04/06/17 Fluticasone/Salmeterol [Advair 250-50 Diskus] 1 each IH BID 04/06/17 Lisinopril 20 mg PO DAILY 04/06/17 Multivitamin No.58/Vit D3/K [Multivit-A,B,D,E,K,Zn Softgel] 1 tab PO DAILY 04/06/17 Pravastatin [Pravachol] 40 mg PO DAILY 04/06/17 Vitamin E Mixed [Vitamin E] 1,000 unit PO DAILY 04/06/17 Primary Care Physician: Rebecca Dorman PA [Primary Care Provider] - In 1 Week 04/07/17 9100 <Electronically signed by Sofia Turner MD> Date Sofia Turner MD CC: CHALO DORMAN; Jamey Pacheco MD; Aftab Tilley MD CONSULTATION Observed: 04/07/2017 Status: F Source: [place] 12:16 PM [facility] [place] [facility] Medical Records Department [address] [place] [address] Consultation 04/07/17 0908 MR#: [id number] Acct: [id number] Name: DEBBIE CHOI Rep #: [id number] : 1940 76 From: Ирина Purcell GAME WARDEN-C PCP: CHALO JURADO Status: ADM IN Location: MT3 [id number] ADDENDUM by Jamey Pacheco MD on 04/07/17 at 1216 Code Visit Patient seen and examined independently in conjunction with nurse practitioner. All data, including note below, was personally reviewed and I agree with the added comments. Short, patient presented to the emergency department with severe lower thoracic left-sided back pain. Through the workup, patient did receive a CTA of the chest looking for pulmonary embolism that did show a left apex 3.4 x 2.5 x 2.5 cm lobulated mass. A pulmonary consult was obtained to discuss with the family and the patient about possible workup. She was also noted to have multiple areas of emphysematous changes and does have a significant past medical history for smoking. Patient has no inclination to quit smoking at this time. Physical exam was independently performed and I agree as listed below. Laboratory workup was grossly unremarkable except for a slightly elevated white blood cell count and d-dimer. Imaging was personally reviewed. CT of the chest was described above. Assessment and plan Long discussion with patient and several family members about CT findings. Patient is aware that there is high clinical concern for a malignant process. After review of the risks, benefits and alternatives, patient has elected to have no interventions at this time. Patient understands that delay in diagnosis can lead to higher stage disease and overall poor prognosis. However, patient states that she feels that this would add more stress to her life. Patient is interested in seeking a repair of her AAA. Also discussed with patient about the utility of obtaining a complete pulmonary function test and seeing patient from an emphysematous COPD standpoint but patient refused. Patient has no inclination for smoking cessation at this time. Patient can be discharged from a pulmonary perspective. Contact information was given to the patient. Patient can call at any time for workup. Inpatient E AND M: [id number] Init Hosp L2 04/07/17 1216 <Electronically signed by Jamey Pacheco MD> Date Jamey Pacheco MD cc: CHALO DORMAN; Jamey Pacheco MD; Aftab Tilley MD * Signed Problem List (1) Suspected chronic obstructive pulmonary disease based on initial evaluation Status: Chronic (2) AAA (abdominal aortic aneurysm) Status: Acute Qualifiers: Presence of rupture: without rupture Qualified Code(s): I71.4 - Abdominal aortic aneurysm, without rupture (3) Lung mass Status: Acute (4) Hyperlipidemia Status: Chronic Qualifiers: Hyperlipidemia type: unspecified Qualified Code(s): E78.5 - Hyperlipidemia, unspecified (5) Hypertension Status: Chronic Qualifiers: Hypertension type: unspecified Qualified Code(s): I10 - Essential (primary) hypertension Reason for Consult Date of Consultation: 04/07/17 Reason for Consultation: lung mass History of Present Illness: The patient is a 76 year old F with a past medical history as below who presented to the ED with a one-day history of severe lower thoracic back pain across her entire back. Patient states she had some moderate back pain the previous couple of days, however on day of presentation was so severe that she became short of breath. She tried taking a nebulizer with no relief. The pain was worse with deep inspiration. No relieving factors. Associated symptoms of cough but no sputum production. She denied any chest pain, fevers or chills, abdominal pain, nausea, vomiting, or diarrhea. She thought maybe she was having heart problems and called her granddaughter to bring her to the ED. Patient was initially hypoxic at 87% on room air. She did not appear to be in any respiratory distress. Chest x-ray on presentation showed a soft tissue density in the suprahilar region left chest suspicious for mass/neoplasm, as well as COPD. CTA of the chest was obtained and confirmed a mass in the left apex measuring 3.4 x 2.5 x 2.5 cm. There is also mild aneurysmal dilatation of the descending thoracic aorta and advanced pulmonary emphysema/COPD. There are degenerative changes of the lower thoracic and upper lumbar spine. CTA of the abdomen was obtained to further evaluate her aneurysm, showed AAA measuring 5.2 x 6.5 cm there is no acute hematoma or free fluid in the abdomen. She did have mild to moderate hydronephrosis with left-sided pelviectasis. There is also hepatic steatosis and large duodenal diverticulum. The colon was tortuous with the cecum appearing to extend to the left side of the abdomen. CBC remarkable for mildly elevated white count of 11,100, elevated hemoglobin of 15.7 and hematocrit 47.8. BUN mildly elevated at 20 and normal creatinine at 1.01. Glucose was 122, troponin normal, INR 1.1. D-dimer was elevated at 1.68. EKG with sinus tachycardia, no evidence of ischemia. Patient was given 4 baby aspirin, Solu-Medrol 125 mg 1, and aerosols with improvement in her breathing. The pain in her back resolved while in the ER. She was started on scheduled IV steroids and bronchodilators and transferred to the medical surgical 3 floor for further evaluation and management. Patient denies previously seeing a chief safety officer or having any pulmonary function tests completed. She was placed on Advair quite some time ago and has been using albuterol nebulizers for several years. She typically uses albuterol every 4-6 hours and Advair twice daily. Nebulizers do typically improve her shortness of breath. She does have some intermittent wheezing at home but nothing significant. She takes Proair when out of the house. Patient does note a history of tuberculosis when she was 21 years old and was treated for this at [facility]. She had follow-up chest x-rays for over 15 years and was eventually told she did not need to follow-up anymore. She denies any known abnormal follow up imaging. 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 She denies previous colonoscopies but had a mammogram several years ago that was reportedly normal. She does not wish to have any further testing done, including a colonoscopy. Denies any family or personal history of cancer. She does have a significant smoking history with 50 pack years and continues to smoke a pack a day. The patient has been weaned to room air this morning. Her shortness of breath on exertion is back to baseline which is very mild. She denies any significant cough or sputum production. No history of hemoptysis. She does admit to a history of sleep apnea and used oxygen for this in the past, however she does not currently use any oxygen at home. Patient does not wish to have a repeat sleep study or wear a noninvasive positive pressure device. Past Medical History Past Medical History (Chronic Problems): Chronic Problems COPD (chronic obstructive pulmonary disease) (Chronic) Hyperlipidemia (Chronic) Hypertension (Chronic) Suspected chronic obstructive pulmonary disease based on initial evaluation (Chronic) Allergies No Known Allergies Allergy (Verified 04/06/17 23:14) Home Medications: Ambulatory Orders Medication Instructions Recorded Albuterol Aerosols [Ventolin 2.5 mg INHALATION Q6HWA.RT 04/06/17 Aerosols] Albuterol IH (ProAir) [Proair Hfa 2 puff INHALATION 4X/DAY PRN PRN 04/06/17 Surgical History: hysterectomy Psychiatric History: No pertinent psych hx [employer] History: No pertinent [employer] history Lives: Alone Smoking Status: Heavy Smoker (>10/day) Tobacco Use: Cigarettes Alcohol: None Drugs: None - *Family History Maternal History Items: - - no cancer Paternal History Items: No pertinent history Review of Systems Constitutional: Denies: Anorexia, Chills, Fever, Night Sweats, Malaise, Weakness, Weight Change, Fatigue Eyes: Denies: Vision Change HEENT: Reports: - - [place]. Denies: Difficulty Swallowing, Head Aches, Nasal bleeding, Nasal Congestion, Post Nasal Drip, Sinus Congestion, Sore Throat Cardiovascular: Denies: Chest Pain, Chest Tightness, Edema, Light Headedness, Orthopnea, Palpitations, Paroxysmal Noc. Dyspnea, Syncope Respiratory: Reports: Cough - chronic. Denies: Hemoptysis Gastrointestinal: Denies: Abdominal Pain, Constipation, Diarrhea, Dyspepsia, Hematemesis, Hematochezia, Nausea, Melena, Vomiting Genitourinary: Reports: Incontinence - stress. Denies: Dysuria, Hematuria, Retention Gynecological: Denies: Breast symptoms Musculoskeletal: Reports: Back Pain - Resolved, Joint stiffness - Generalized. Denies: Muscle pain, Neck Pain Skin: Denies: Rash, Wounds Neurological: Denies: Balance problems, Change in Speech, Confusion, Difficulty swallowing, Focal weakness, Numbness, Tingling, Tremor, Seizures Psychiatric: Denies: Anxiety, Depression Endocrine: Denies: Change in Body Habitus, Polydipsia, Polyuria Hematologic/ Lymphatic: Reports: Easy Bruising. Denies: Adenopathy, Anemia, Easy Bleeding, Hx of blood clot Patient Problems: Active and Suspected Problems COPD with acute exacerbation (Acute) AAA (abdominal aortic aneurysm) (Acute) Lung mass (Acute) Subjective: The patient was seen and examined. She is ambulatory in the room. She does not appear to be in any acute distress. She reports her breathing is back to her baseline. She does have an occasional cough with no sputum production. Denies any wheezing or chest tightness. The pain in her back has not returned since she was in the ER. Objective: Clinical Impression(s) from Imaging Studies Chest X-Ray 04/06/17 23:30 IMPRESSION: Soft tissue density in the suprahilar region of the left chest suspicious for mass or neoplasm measuring 2.1 x 2.0 cm. This is superimposed on chronic obstructive pulmonary disease. Recommend follow-up CT scan of the chest. N.B. : The above information has been verbally conveyed by Alexus Gunderson MD to , Covering Physician, on 04/07/2017 00:59:28 (ET). Electronically Signed: Alexus Gunderson MD at 0:55 EST Tel , Service support , N.B. : The above information has been verbally conveyed by Alexus Gunderson MD to , Covering Physician, on 04/07/2017 00:59:28 (ET). Chest CTA 04/07/17 00:26 IMPRESSION: There is a mass in the left apex Measuring 3.4 x 2.5 x 2.5 which is highly suspicious for primary lung carcinoma. Mild aneurysmal dilatation of the descending thoracic aorta. Advanced pulmonary emphysema and chronic obstructive pulmonary disease. Degenerative change thoracolumbar spine multilevel loss of height of the lower thoracic spine and upper lumbar spine. Please refer to the CT scan of the abdomen and pelvis performed the same day for further discussion of the infrarenal aortic aneurysm. N.B. : The above information has been verbally conveyed by Alexus Gunderson MD to Dr. Fuchs , Covering Physician, on 04/07/2017 02:21:52 (ET). Electronically Signed: Alexus Gunderson MD at 1:56 EST Tel , Service support , N.B. : The above information has been verbally conveyed by Alexus Gunderson MD to Dr. Fuchs , Covering Physician, on 04/07/2017 02:21:52 (ET). Abdomen CTA 04/07/17 00:51 IMPRESSION: Abdominal aortic aneurysm measuring 5.2 x 6.5 cm. Without acute hematoma or free fluid in the abdomen. It is off to the left side of the abdomen at the left level of the left kidney causing mild to moderate hydronephrosis which is superimposed on left-sided pelviectasis. Hepatic steatosis. Large duodenal diverticulum. Tortuous colon with the cecum appearing to extend to the left side of the abdomen could consider follow-up barium enema when appropriate. Diverticulosis without evidence of diverticulitis. Small hiatal hernia. Electronically Signed: Alexus Gunderson MD at 2:09 EST Tel , Service support , - Physical Exam General: Alert, Oriented x3, Cooperative, No apparent distress, Well developed, Well nourished, - - No conversational dyspnea HEENT: Atraumatic, PERRLA, Normocephalic Oral: Moist Mucosa, No Gingival or Mucosal Lesions/ Ulcerations, - - Scar to right chin area from infection secondary to dental implants Neck: Supple, No JVD, No Nodes, Trachea Midline Lungs: - - Diminished throughout, no appreciable rhonchi, rales, or wheezing. Symmetric expansion. Kyphosis. Cardiovascular: Regular rate, Regular Rhythm, Normal S1, Normal S2, No murmurs, No rub noted, No Gallop Abdomen: Bowel Sounds Present, Soft, Non Tender, Non-Distended, No Hepato-splenomegaly Extremities: No cyanosis, No edema, Capillary Refill Less than 3 Seconds, Peripheral Pulses Normal Skin: No rashes, No breakdown Musculoskeletal: No Tenderness to Palpation of Joints or Extremities Lymphatic: No Cervical, Supraclavicular, or Inguinal Adenopathy Neurological: Cranial nerves II-XII grossly intact, Neuro grossly intact, Motor Exam 5/5 strength throughout Psych/Mental Status: Alert and oriented to time, place, person, mood and affect Vital Signs Temp Pulse Resp BP Pulse Ox 98 F 86 20 H 173/84 H 96 04/07/17 03:25 04/07/17 07:08 04/07/17 07:08 04/07/17 03:25 04/07/17 07:10 Oxygen Flow Rate 1 Oxygen Delivery Method Room Air Weight: 127 lb 1 oz Body Mass Index (BMI) 23.2 Intake and Output for Last 24 Hours Intake Total 120 / 120 Balance 120 / 120 Assessment/Plan Active and Suspected Problems COPD with acute exacerbation (Acute) AAA (abdominal aortic aneurysm) (Acute) Lung mass (Acute) RECOMMENDATIONS 1. Wean oxygen supplementation to keep saturations 88-92%. 2. Encourage incentive spirometer 3. Increase activity as tolerated 4. Continue aerosols scheduled and PRN 5. Likely okay to discontinue steroids 6. Consider transfer to tertiary care center for evaluation of her AAA. 7. Follow-up with her primary care physician regarding her suspected COPD, management 8. Okay to discharge from pulmonary perspective IMPRESSIONS 1. Lung mass CTA of the chest showed a mass in the left apex measuring 3.4 x 2.5 x 2.5 cm that was suspicious for primary lung carcinoma. There is mild aneurysmal dilatation of the descending thoracic aorta. Also advanced pulmonary emphysema and COPD. If cancer, mass is likely not resectable. Discussed the CT findings with the patient, she does not wish to pursue any further workup regarding the mass. She states if it was cancer, she would still not want to pursue further evaluation and treatment, including chemotherapy and/or radiation. Discussed having a CT-guided biopsy while in the hospital, she is adamant she is not interested in this. I also met with the patient's son and son-in-law, who were brought up to speed on findings. 2. Suspected COPD CTA of the chest consistent with advanced pulmonary emphysema/COPD. No previous chief safety officer or official pulmonary function tests to quantify her lung disease, states her COPD is presumed. Not wish to pursue any further workup or follow-up in the pulmonary clinic. Patient home inhaler regimen includes albuterol nebulizers every 4-6 hours and Advair twice daily. She also uses a MDI for when she is out of the house. States she is typically well at home and has not had any exacerbations in 2 years. Patient does not appear to be in an acute exacerbation at this time. No significant wheezing but is globally diminished. Very slight leukocytosis, no fevers. Can obtain sputum culture if cough becomes productive. Likely okay to discontinue steroids. No antibiotics required. Reasonable to continue her nebulizers and Advair on discharge. 3. Abdominal aortic aneurysm Evaluated via CTA of abdomen, measuring 5.2 x 6.5 cm. No acute hematoma or free fluid in abdomen. It is off to the left side of the abdomen at the level of the left kidney causing mild to moderate hydronephrosis which is superimposed on left- sided pelviectasis. Hepatic steatosis, large duodenal diverticulum. Small hiatal hernia, patient denies any epigastric discomfort or history of GERD. Dr. Tilley saw the patient as surgical consult, patient deemed high risk for intervention here at [facility] and recommended transfer to tertiary care center. The patient is interested in discussing transfer to a tertiary care center for possible intervention for her aneurysm. 4. Hypertension/hyperlipidemia/tobacco abuse Complicates care, management, recovery, and prognosis. Patient has verbalized no intention of quitting smoking. She still smokes about a pack a day. Nicotine replacement therapy can be offered while hospitalized. Thank you for the opportunity to participate in this patient's care, please do not hesitate to contact us with any further questions or concerns. This note was generated with [employer] software. It may contain incorrect words, spelling, and punctuation that were not noted in checking the note before signing. 04/07/17 1132 <Electronically signed by Ирина SIEGEL> Date Ирина SIEGEL Cosigner Signature (if applicable): Date CC: CHALO DORMAN; Jamey Pacheco MD; Aftab Tilley MD Signed HISTORY AND PHYSICAL Observed: 04/07/2017 Status: F Source: [place] EXAM 2:54 AM [facility] [place] [facility] Medical Records Department [address] [place] [id number] History and Physical 04/07/17 0243 MR#: [id number] Acct: [id number] Name: DEBBIE CHOI Rep #: [id number] : 1940 76 From: Brayan Castanon DO PCP: CHALO JURADO Status: ADM IN Y Location: MT3 DX360-1 Problem List (1) COPD with acute exacerbation Status: Acute (2) COPD (chronic obstructive pulmonary disease) Status: Chronic (3) AAA (abdominal aortic aneurysm) Status: Acute Qualifiers: Presence of rupture: without rupture Qualified Code(s): I71.4 - Abdominal aortic aneurysm, without rupture (4) Lung mass Status: Acute (5) Hyperlipidemia Status: Chronic (6) Hypertension Status: Chronic History of Present Illness Date of Admission: 04/07/17 Chief Complaint: back pain The patient is a 76 year old F presents w 1 day h/o back pain. Pain worse with deep respirations. Presents to ED and had a d-dimer that came back elevated. Subsequently underwent a CTA of chest that showed.a left lung apex mass of 3.4x2.5x2.5. Also underwent a CTA of A/P that showed a 5.2x6.5 AAA. Pt denies any abdominal pain. She was hypoxic at 87% on RA on presentation. Pt treated for AECOPD w solumedrol and BDs.[] Past Medical History Past Medical History (Chronic Problems): Chronic Problems COPD (chronic obstructive pulmonary disease) (Chronic) Hyperlipidemia (Chronic) Hypertension (Chronic) Allergies No Known Allergies Allergy (Verified 04/06/17 23:14) Home Medications: Ambulatory Orders Medication Instructions Recorded Albuterol Aerosols [Ventolin 2.5 mg INHALATION Q6HWA.RT 04/06/17 Aerosols] Albuterol IH (ProAir) [Proair Hfa 2 puff INHALATION 4X/DAY PRN PRN 04/06/17 Smoking Status: Heavy Smoker (>10/day) Tobacco Use: Cigarettes Alcohol: None Drugs: None - *Family History Maternal History Items: - - no cancer Review of Systems Constitutional: Denies: Chills, Fever, Weight Change Eyes: Denies: Blurred vision, Double vision HEENT: Reports: Difficulty Hearing. Denies: Dysphasia Cardiovascular: Denies: Chest Pain, Edema Respiratory: Reports: Shortness of Breath. Denies: Sputum production Gastrointestinal: Denies: Abdominal Pain, Nausea, Vomiting Genitourinary: Denies: Dysuria Musculoskeletal: Reports: Back Pain. Denies: Arm Pain Skin: Denies: Rash, Wounds Neurological: Denies: Blurred vision, Double vision, Focal weakness, Numbness, Tingling Psychiatric: Denies: Anxiety, Depression Hematologic/ Lymphatic: Denies: Easy Bruising, Easy Bleeding, Hx of blood clot VTE Information - Inpt Only VTE Present on Admission: No VTE Pharm Prophylaxis ordered?: Yes Patient Problems: Active and Suspected Problems COPD with acute exacerbation (Acute) AAA (abdominal aortic aneurysm) (Acute) Lung mass (Acute) - Physical Exam General: Alert, Cooperative, No apparent distress, - - CH[place] RANCH HEENT: Atraumatic, Normocephalic Neck: No Nodes, Thyroid Normal Size and Texture Lungs: No rhonchi, No wheeze, Diminished Cardiovascular: Regular rate, Regular Rhythm, Normal S1, Normal S2, No murmurs Abdomen: Bowel Sounds Present, Soft, Non Tender, Non-Distended, No Hepato-splenomegaly Extremities: No edema, No Calf Tenderness Skin: No rashes, No breakdown Musculoskeletal: No Tenderness to Palpation of Joints or Extremities, No Muscle Wasting Neurological: Neuro grossly intact, Sensory exam intact to light touch and pain Psych/Mental Status: Normal Affect, Appropriate Vital Signs Temp Pulse Resp BP Pulse Ox 36.9 C 103 H 24 H 132/93 H 94 04/07/17 02:24 04/07/17 02:24 04/07/17 02:24 04/07/17 02:24 04/07/17 02:24 Oxygen Flow Rate 2 Oxygen Delivery Method Nasal Cannula Weight: 59.3 kg Body Mass Index (BMI) 23.9 Laboratory Tests Past 24 Hrs WBC 11.1 H RBC 4.92 WBC RBC Hgb Hct MCV MCH MCHC RDW RDW Differential Plt Count MPV Immature Gran % (Auto) Neut % (Auto) Lymph % (Auto) Clinical Impression(s) from Imaging Studies Chest X-Ray 04/06/17 23:30 IMPRESSION: Soft tissue density in the suprahilar region of the left chest suspicious for mass or neoplasm measuring 2.1 x 2.0 cm. This is superimposed on chronic obstructive pulmonary disease. Recommend follow-up CT scan of the chest. N.B. : The above information has been verbally conveyed by Alexus Gunderson MD to , Covering Physician, on 04/07/2017 00:59:28 (ET). Electronically Signed: Alexus Gunderson MD at 0:55 EST Tel , Service support , N.B. : The above information has been verbally conveyed by Alexus Gunderson MD to , Covering Physician, on 04/07/2017 00:59:28 (ET). Chest CTA 04/07/17 00:26 IMPRESSION: There is a mass in the left apex Measuring 3.4 x 2.5 x 2.5 which is highly suspicious for primary lung carcinoma. Mild aneurysmal dilatation of the descending thoracic aorta. Advanced pulmonary emphysema and chronic obstructive pulmonary disease. Degenerative change thoracolumbar spine multilevel loss of height of the lower thoracic spine and upper lumbar spine. Please refer to the CT scan of the abdomen and pelvis performed the same day for further discussion of the infrarenal aortic aneurysm. N.B. : The above information has been verbally conveyed by Alexus Gunderson MD to Dr. Fuchs , Covering Physician, on 04/07/2017 02:21:52 (ET). Electronically Signed: Alexus Gunderson MD at 1:56 EST Tel , Service support , N.B. : The above information has been verbally conveyed by Alexus Gunderson MD to Dr. Fuchs , Covering Physician, on 04/07/2017 02:21:52 (ET). Abdomen CTA 04/07/17 00:51 IMPRESSION: Abdominal aortic aneurysm measuring 5.2 x 6.5 cm. Without acute hematoma or free fluid in the abdomen. It is off to the left side of the abdomen at the left level of the left kidney causing mild to moderate hydronephrosis which is superimposed on left-sided pelviectasis. Hepatic steatosis. Large duodenal diverticulum. Tortuous colon with the cecum appearing to extend to the left side of the abdomen could consider follow-up barium enema when appropriate. Diverticulosis without evidence of diverticulitis. Small hiatal hernia. Electronically Signed: Alexus Gunderson MD at 2:09 EST Tel , Service support , Assessment/Plan Active and Suspected Problems COPD with acute exacerbation (Acute) AAA (abdominal aortic aneurysm) (Acute) Lung mass (Acute) 1. AECOPD * BDs and solumedrol * advised to quit smoking d/t further progression of COPD but also due to #2 and 3 2. Lung mass * concerning for CA * c/s pulm for input and recs for biopsy (perc v bronch). Informed pt and family may be done as outpt. 3. AAA * asymptomatic, but large * consult vascular surgery for input * Again, pt and family advised may need further addressed as outpt 4. DVT proph: LMWH. Code Visit Inpatient E AND M: [id number] Init Hosp L3 04/07/17 0254 <Electronically signed by Brayan Castanon DO> Date Brayan Castanon DO Cosigner Signature: Date (if applicable) CC: CHALO DORMAN; Brayan Castanon DO Signed EMERGENCY DEPARTMENT Observed: 04/07/2017 Status: F Source: [place] SUMMARY 2:27 AM [facility] [place] [facility] Medical Records Department [address] [place] [address] Emergency Department Summary 04/06/17 2323 MR#: [id number] Acct: [id number] Name: DEBBIE CHOI Rep #: [id number] : 1940 76 From: Lolis Smith MD PCP: CHALO JURADO Status: REG ER ADDENDUM by Sarahi Fuchs on 04/07/17 at 0227 Patient was signed out to me pending CTA of the chest abdomen and pelvis. CTA of the chest shows a new left upper lobe lung mass suspicious for malignancy. CTA of the abdomen and pelvis shows a 6.5 cm x 5.7 cm infrarenal aneurysm of the aorta with no evidence of rupture. Additionally she has mild to moderate left hydronephrosis. Patient remained stable in the emergency department. She was 94% on 2 L. She was not in respiratory distress. She was not having pain at this time. Findings of the CAT scans were discussed with the patient and her family. She will be admitted to the hospital. I spoke with Dr. Castanon. Date Sarahi Fuchs cc: CHALO DORMAN * Signed - ER Visit Summary Date of Service: 04/06/17 Chief Complaint: Pain and shortness of breath History of Present Illness: The patient is a 76 F with history of hypertension and hypercholesterolemia who presents for intermittent back pain and shortness of breath. Patient states that she began having symptoms 4 days ago with a really tight sharp pain in her bilateral lower thoracic back that takes her breath away. Pain gradually subsided and returned tonight. She is having cough and shortness of breath with it. No chest pain, no fever, no abdominal pain nausea or vomiting. She history of sleep apnea and has oxygen for this but does not use it. She denies any cardiac history. No history of blood clots in the lungs or legs. No recent history of travel or surgery, she does use tobacco. No known cancer history or use of exogenous hormones. Patient is not on blood thinners. Physical Examination: Vital signs: afebrile, hemodynamically stable, 87% on room air, hypoxic General: well nourished, well developed, in respiratory distress Skin: warm, dry, no rash, no pallor HEENT: normocephalic and atraumatic; PERRL, EOMI, moist mucous membranes Cardiovascular: Tachycardic rate and rhythm without murmurs, no peripheral edema, 2+ pulses all distal extremities no calf tenderness swelling Respiratory: Mild increased work of breathing, 96% on 2 L nasal cannula, lungs mild diffuse rhonchi with hyperresonant breath sounds in the left lower field Abdominal: Abdomen is soft, nontender with normoactive bowel sounds, no guarding or rebound, no masses MSK: Moves all extremities, no deformities, normal strength Neuro: Awake and alert, oriented 4. No facial droop, sensation and motor function intact and symmetric Test Results: Abnormal Lab Results Emergency Department Course and Treatment: Patient presents with pleuritic back pain and diffuse rhonchi, with hyperresonant breath sounds in the left lower lobe concerning for possible consolidation. Patient was hypoxic on presentation and tachycardic. Because she does have history of COPD, she was given breathing treatments and IV steroids. EKG showed a sinus tachycardia without ischemia or ectopy. CBC showed very mild leukocytosis of 11.1. No electrolyte derangements on BMP. Troponin negative. Patient was reevaluated and had improvement in her breath sounds, with resolution of the rhonchi and the uneven breath sounds, but still was tachypneic, felt no better, still was having the pleuritic back pain worse with deep inspiration, and remained tachycardic. A d-dimer was added to a workup to evaluate for possible pulmonary embolism. It was elevated at 1.68. CTA chest was ordered and is pending. Patient will acquire admission for her back pain and shortness of breath, with differential including COPD exacerbation or pulmonary embolism. Patient was signed out to the night physician for follow-up of CTA and final disposition. Treatment Plan: [] Disposition: Patient Impression: Hypoxia on room air, shortness of breath, pleuritic back pain This note was generated with [employer] dictation software. It may contain incorrect words, spelling, and punctuation that were not noted in review of the chart prior to signing ED Disposition - Plan for ED Patient: Chief Complaint: General Illness Referrals: Rebecca Dorman PA [Primary Care Provider] - What to do if you have Problems For any increased pain, shortness of breath, bleeding, nausea or vomiting, chest pain, or any unexpected problems, contact your Primary Care Provider. Call [facility] ([phone]) or report to the closest Emergency Room. Call 911 if necessary. 04/07/17 0037 <Electronically signed by Lolis Smith MD> Date Lolis Smith MD Cosigner Signature (If Indicated): Date CC: CHALO DORMAN CTA ABDOMEN W/WO Observed: 04/07/2017 Status: F Source: [place] 12:52 AM [facility] [place] [facility] Imaging Services [address] [place] [address] CTA Abdomen W/WO Contrast MR#: [id number] Acct: [id number] Name: DEBBIE CHOI Rep #: [id number] : 1940 F 76 From: Alexus Gunderson MD PCP: CHALO JURADO Status: REG ER Study: CTA Abdomen W/WO Contrast Date of Exam: 04/07/17 Exam# [id number] Ordering Dr: Lolis Smith MD STUDY: CTA OF THE ABDOMINAL AORTA AND BILATERAL LOWER EXTREMITIES REASON FOR EXAM: Female, 76 years old. Positive d-dimer RADIATION DOSAGE (If Supplied By Facility): CTDIvol = ( 21.12 ) mGy, DLP = ( 536.12 ) mGycm TECHNIQUE: Axial CT angiography multi-detector data acquisition was obtained from the to the following intravenous administration of 75ml ml of Isovue 370 contrast. Axial images and MIP images were reconstructed from the axial data set. Post-processing of the angiographic images was performed, with multiplanar reformation and 3D reconstruction. Individualized dose optimization techniques were used for this CT. TECHNICAL QUALITY: Good COMPARISON: None. Descriptors of Narrowing: None (0%) Mild (< 50%) Moderate (50-70%) Severe (70-90%) Subtotal/Total Occlusion (90-100%) Non-Evaluable (technically non-diagnostic FINDINGS: Abdominal aorta: Aorta at the hiatus measures 3.0 x 3.0 cm. There is a narrowed appearance of the lumen at the takeoff of the superior mesenteric artery relative to the caliber of the aorta. The aorta measures 2.0 x 3.7 cm. There is contrast within the aorta measuring 2.7 x 2.4 cm. At the level of the renal arteries see order measures 4.4 x 3.6 cm. Infrarenal aorta measures 6.2 x 5.7 cm over a segment of approximately 6.4 cm. The aorta is tortuous and then bifurcates to near normal caliber bilateral iliac arteries. There is fairly good contrast enhancement of the iliac arteries. Celiac and superior mesenteric arteries: The celiac has its takeoff from the well contrasted lumen at the hiatus there is calcification the take off of the superior mesenteric artery Inferior mesenteric artery: A track of contrast and seen be seen exiting the peripheral thrombosed portion of the aorta to enter into the inferior mesenteric artery which shows limited enhancement. Right renal artery(arteries): No demonstrated narrowing. Left renal artery(arteries): The flow to the left renal artery courses through the thrombus at the level of the aneurysm. Right common iliac artery: There is [id number] diffuse narrowing. Right external iliac artery: There is mild diffuse narrowing. Right internal iliac artery: There is moderate diffuse narrowing. Left common iliac artery: There is mild diffuse narrowing. Left external iliac artery: There is mild diffuse narrowing. Left internal iliac artery: There is mild diffuse narrowing. RIGHT LOWER EXTREMITY Right common femoral artery: There is mild diffuse narrowing. LEFT LOWER EXTREMITY Left common femoral artery: There is mild diffuse narrowing. The liver is borderline enlarged and fatty infiltrated. The gallbladder spleen and pancreas appear grossly unremarkable. There is right renal pelviectasis. There is left hydronephrosis likely secondary to the mass effect of the large aorta leaning to the left causing some effacement of the left ureter. There is a sizable diverticulum at the level of the duodenum with gas and fecal material that measures 5.2 x 6.5 cm. This appears to extend from the second part of the duodenum. There is a small hiatal hernia. Adrenal glands appear normal. There is abundant stool in the colon. There are numerous diverticula present without evidence of diverticulitis. There is a tortuous appearance of the bowel. There are a few small bowel loops that have a fecal appearance suggesting possible stasis associated with tortuosity. There is a tortuous low-lying appearance of the colon. The cecum appears to be on the left side of the abdomen. The appendix is not well-visualized. The uterus appears to been removed. At the timing of this study there is a right-sided ureteral jet. The left-sided ureteral jet is not seen. There is multilevel degenerative change in the thoracolumbar spine with chronic appearing loss of height at L1 and the visualized level of T12. CT/CTA Abdomen W/WO Contrast IMPRESSION: Abdominal aortic aneurysm measuring 5.2 x 6.5 cm. Without acute hematoma or free fluid in the abdomen. It is off to the left side of the abdomen at the left level of the left kidney causing mild to moderate hydronephrosis which is superimposed on left-sided pelviectasis. Hepatic steatosis. Large duodenal diverticulum. Tortuous colon with the cecum appearing to extend to the left side of the abdomen could consider follow-up barium enema when appropriate. Diverticulosis without evidence of diverticulitis. Small hiatal hernia. Electronically Signed: Alexus Gunderson MD at 2:09 EST Tel , Service support , CC: CHALO DORMAN; Lolis Smith MD Charging Operator: Signed CTA CHEST W/WO Observed: 04/07/2017 Status: F Source: [place] 12:27 AM [facility] [place] [facility] Imaging Services [address] [place] [address] CTA Chest W/WO Contrast MR#: [id number] Acct: [id number] Name: DEBBIE CHOI Rep #: [id number] : 1940 F 76 From: Alexus Gunderson MD PCP: CHALO JURADO Status: REG ER Study: CTA Chest W/WO Contrast Date of Exam: 04/07/17 Exam# [id number] Ordering Dr: Lolis Smith MD STUDY: CTA CHEST REASON FOR EXAM: Female, 76 years old. Elevated d-dimer shortness of breath RADIATION DOSAGE (If Supplied By Facility): CTDIvol = ( 6.11 ) mGy, DLP = ( 305.75 ) mGycm TECHNIQUE: The examination was performed with the intravenous administration of 75ml ml of Isovue 370 contrast material. Post-processing of the angiographic images was performed, with multiplanar reformation and 3D reconstruction. Individualized dose optimization techniques were used for this CT. COMPARISON: Chest x-ray April 06, 2017 FINDINGS: Normal enhancement of the main pulmonary artery and right and left pulmonary arteries. Normal enhancement of the bilateral peripheral pulmonary arteries. There is no demonstrated pulmonary embolism. The aorta is tortuous and partially calcified in the ascending aorta. There is a mild bulbous appearance of the arch which likely represents ductus diverticulum. The descending thoracic aorta measures 3.1 x 3.0 cm. There is peripheral thrombus demonstrated. The descending thoracic aorta measures 3.2 x 3.2 cm at the level of the left atrium. It is tortuous as it enters the abdomen. There is no demonstrated aortic dissection. There are coronary calcifications. There is borderline cardiomegaly. Normal mediastinum. Normal hilar regions. Normal visualized trachea and bronchi. There is a pattern of emphysematous change throughout the lungs. There are scattered areas of minimal peripheral fibrotic change. Within the left upper lobe there is a lobulated spiculated mass that abuts the pleura and the prevascular pericardial fat that measures 2.4 x 2.5 x 2.8 cm. There is a subtle adjacent nodule measuring 2.4 mm. There are multiple punctate calcifications in the anterior aspect of the upper lobe and in the right upper lobe towards the apex compatible with old granulomatous disease. Normal pleura. Normal chest wall structures. The bones are osteopenic. There is multilevel loss of height demonstrated at the level of L1 T11 and T10. There is partial visualization of a sizable infrarenal aorta that measures 6.5 x 5.0 cm with a internal lumen measuring 5.0 x 3.9 cm. This could be further described on the CT scan of the abdomen and pelvis performed the same day. CT/CTA Chest W/WO Contrast IMPRESSION: There is a mass in the left apex Measuring 3.4 x 2.5 x 2.5 which is highly suspicious for primary lung carcinoma. Mild aneurysmal dilatation of the descending thoracic aorta. Advanced pulmonary emphysema and chronic obstructive pulmonary disease. Degenerative change thoracolumbar spine multilevel loss of height of the lower thoracic spine and upper lumbar spine. Please refer to the CT scan of the abdomen and pelvis performed the same day for further discussion of the infrarenal aortic aneurysm. N.B. : The above information has been verbally conveyed by Alexus Gunderson MD to Dr. Fuchs , Covering Physician, on 04/07/2017 02:21:52 (ET). Electronically Signed: Alexus Gunderson MD at 1:56 EST Tel , Service support , N.B. : The above information has been verbally conveyed by Alexus Gunderson MD to Dr. Fuchs , Covering Physician, on 04/07/2017 02:21:52 (ET). CC: CHALO DORMAN; Lolis Smith MD Charging Operator: Signed CT-CTA ABDOMEN W/WO Observed: 04/07/2017 Status: F Source: [place] IMPORT 12:00 AM [facility] REPOSITORY Images were obtained outside of [facility] [id number] CT-CTA CHEST W/WO Observed: 04/07/2017 Status: F Source: [place] IMPORT 12:00 AM [facility] REPOSITORY Images were obtained outside of [facility] [id number] CHEST PA AND LATERAL Observed: 04/06/2017 Status: F Source: [place] 11:23 PM [facility] [place] [facility] Imaging Services [address] [place] [address] Chest PA and Lateral MR#: [id number] Acct: [id number] Name: DEBBIE CHOI Rep #: [id number] : 1940 F 76 From: Alexus Gunderson MD PCP: CHALO JURADO Status: REG ER Study: Chest PA and Lateral Date of Exam: 04/06/17 Exam# [id number] Ordering Dr: Lolis Smith MD STUDY: X-RAY CHEST REASON FOR EXAM: Female, 76 years old. Back and chest pain TECHNIQUE: PA and lateral views of the chest. COMPARISON: None. FINDINGS: There is a left-sided suprahilar density suspicious for mass measuring 2.1 x 2.0 cm. The lungs are hyperinflated. There are calcified nodular densities in the right apex compatible with old granulomatous disease. There is a pattern of interstitial thickening throughout the lungs suggesting chronic lung disease. Normal size heart. Normal mediastinum and naida. Normal visualized pulmonary arteries. There is atherosclerotic calcification of the aortic arch with tortuosity. There are diffuse degenerative changes of the visualized thoracic spine. Normal visualized ribs, clavicles, and shoulders. There is no demonstrated abnormality of the visualized soft tissue structures of the upper abdomen. RAD/Chest PA and Lateral IMPRESSION: Soft tissue density in the suprahilar region of the left chest suspicious for mass or neoplasm measuring 2.1 x 2.0 cm. This is superimposed on chronic obstructive pulmonary disease. Recommend follow-up CT scan of the chest. N.B. : The above information has been verbally conveyed by Alexus Gunderson MD to , Covering Physician, on 04/07/2017 00:59:28 (ET). Electronically Signed: Alexus Gunderson MD at 0:55 EST Tel , Service support , N.B. : The above information has been verbally conveyed by Alexus Gunderson MD to , Covering Physician, on 04/07/2017 00:59:28 (ET). CC: CHALO DORMAN; Lolis Smith MD Charging Operator: Signed D-DIMER QUANTITATIVE Collected: 04/06/2017 Status: F Source: [place] (DVT/PE) 11:18 PM [facility] [place] CODE TESTS RESULT OUT OF RANGE REFERENCE UNITS LAB L300.8000 0.27-0.49 FEU/ug/m High alert D-DIMER 1.68 QUANT Result Comment: D-Dimer ELEVATED (>0.49): Additional studies and clinical assessments are indicated to conclude diagnosis of: Deep Vein Thrombosis (DVT) or Pulmonary Embolism (PE) CRITICAL VALUE VERIFIED. CALLED TO [facility] 04/07/17 0024 Graciela Carranza. RESULTS READ BACK BY SAME . Performed By: #### L300.8000 #### [facility] [address] [place], [address] CBC W/DIFF, AUTOMATED Collected: 04/06/2017 Status: F Source: [place] 11:15 PM [facility] [place] CODE TESTS RESULT OUT OF RANGE REFERENCE UNITS LAB L100.1000 4.4-11.0 K/mm3 High WBC 11.1 LAB L100.1200 4.2-5.4 M/mm3 Normal RBC 4.92 LAB L100.1300 12.0-15.0 g/dl High HGB 15.7 LAB L100.1400 37-47 % High HCT 47.8 LAB L100.1500 81-99 fL Normal MCV 97.2 LAB L100.1600 27.0-32.0 pg Normal MCH 31.9 LAB L100.1700 32-36 g/gl Normal MCHC 32.8 LAB L100.1810 11.6-14.6 % Normal RDW CV 13.7 LAB L100.1820 35.1-43.9 fl High RDW SD 47.8 LAB L100.1900 150-450 K/mm3 Normal PLT 346 LAB L100.2000 6.2-12.0 fl Normal MPV 9.3 LAB L100.2100 47-70 % Normal NEUT% 67.2 LAB L100.2200 19-41 % Normal LY% 21.0 LAB L100.2300 0-10 % Normal MONO% 9.5 LAB L100.2400 0-5 % Normal EO% 1.4 LAB L100.2500 0-1 % Normal BASO% 0.5 LAB L100.2550 0.0-0.9 % Normal IM GRAN % 0.400 Result Comment: IG% - Immature Granulocytes (promyelocytes, myelocytes and metamyelocytes) > 1% indicates that a LEFT SHIFT is Present. LAB L100.2620 2.0-7.7 X10 3/uL Normal Absolute Neut 7.5 LAB L100.2720 0.83-4.51 X10 3/ul Normal Absolute Lymph 2.33 Performed By: #### L100.0100 #### [facility] [address] [place], [place], [address] BASIC METABOLIC Collected: 04/06/2017 Status: F Source: [place] PROFILE ([facility]) 11:15 PM [facility] [place] Order Comment: 'TROP' Serial specimen #1, #2, #3, or #4: 1 TYPE CODE TESTS RESULT OUT OF RANGE REFERENCE UNITS LAB L501.0100 74-106 mg/dL High GLU 122 Result Comment: Fasting Glucose result from 110 to <126 mg/dL suggests IMPAIRED HOMEOSTASIS per A.D.A. criteria. LAB L501.1000 7-18 mg/dL High BUN 20 LAB L501.1100 0.55-1.02 mg/dL Normal CREAT,SERUM 1.01 Result Comment: The validity of the calculated GFR AND GFRAA in patients over 70 years has not been determined. Clinical correlation is essential. LAB L501.1110 >60 mL/min Low EST GFR 56 Result Comment: Non- GFR Calc LAB L501.1115 >60 mL/min Normal EST GFR - AA 68 Result Comment: GFR Calc LAB L501.1255 ml/min Normal Estimated CRCL 36.89 LAB L501.1300 10-20 RATIO Normal BUN/CRE 19.8 LAB L501.2200 8.5-10 mg/dL Normal .1 CA 9.7 LAB L501.5300 136-14 mmol/L Normal 5 NA 141 LAB L501.5600 3.5-5. mmol/L Normal 1 K 3.8 LAB L501.5900 98-107 mmol/L Normal CL 104 LAB L501.6100 21.0-3 mmol/L Normal 2.0 CO2 30.0 LAB L501.6200 5-15 Normal GAP 7 Performed By: #### L500.2500, L501.4010 #### [facility] [address] [facility] [place], [place], [address] TROPONIN-I Collected: 04/06/2017 Status: F Source: [place] 11:15 PM [facility] [place] Order Comment: 'TROP' Serial specimen #1, #2, #3, or #4: 1 TYPE CODE TESTS RESULT OUT OF RANGE REFERENCE UNITS LAB L501.4010 <0.06 ng/mL Normal < 0.02 TROPONIN-I Result Comment: TROPONIN-I EXPECTED VALUES <0.05 NEGATIVE 0.06 - 0.59 AT RISK OF GA > OR = 0.60 SUGGEST GA Performed By: #### L500.2500, L501.4010 #### [facility] [address] [place], [place], [address] PROTHROMBIN TIME W/INR Collected: 04/06/2017 Status: F Source: [place] 11:15 PM [facility] [place] TYPE CODE TESTS RESULT OUT OF RANGE REFERENCE UNITS LAB L300.4150 11.7-14.9 SECONDS Normal PROTIME 13.3 LAB L300.4200 Normal INR 1.1 Performed By: #### L300.3900, L300.4310 #### [facility] [address] [place], [address] PARTIAL THROMBOPLAST Collected: 04/06/2017 Status: F Source: [place] TIME 11:15 PM [facility] [place] CODE TESTS RESULT OUT OF REFERENCE UNITS RANGE LAB L300.4310 24.1-36.2 Seconds High PTT 38.8 Performed By: #### L300.3900, L300.4310 #### [facility] [address] [place], [address] CR-CHEST PA AND Observed: 04/06/2017 Status: F Source: [place] LATERAL IMPORT 12:00 AM [facility] REPOSITORY Images were obtained outside of [facility] [id number] ALLERGIES ALLERGIES DATE TYPE / CODE NAME / CODE REACTION SEVERITY SOURCE 01/29/2018 Drug No Known Unknown [place] Allergy/764094679(S Allergies/F0019 [place] [facility] [place]) [address](RXNORM) Hospital Repository Drug NO KNOWN [place] Class/275595745(SNO ALLERGIES [facility] CT) [place] Repository Miscellaneous No Known Drug Moderate Maximiliano Pomerene Allergy/156640054(S Allergies (Severity [facility] NOMED CT) Modifier) [facility] (Qualifier Repository Value) ENCOUNTERS ENCOUNTERS ADMIT/DISCHARGE ACCOUNT NUMBER ADMITTING ENCOUNTER LOCATION SOURCE CLASS 01/29/2018/02/01/20 [id number] Ambulatory BMSBuilding: [place] [address] [facility] Repository 01/29/2018/02/01/20 [id number] [place], Inpatient [place] Lord Encounter [facility] ding:[id number] Repository : TA193Pth: 1 01/29/2018 [id number] [place], Ambulatory BMSBuilding: [place] Lord BMS[facility] Repository 01/29/2018 [id number] [place], Ambulatory BMSBuilding: [place] Lord [facility]MS[facility] Repository 01/29/2018 [id number] [place], Ambulatory BMSBuilding: [place] Lord BMS.CF.[facility] Repository 01/29/2018 [id number] [place], Ambulatory BMSBuilding: [place] Lord [facility]MS[facility] Repository 01/24/2018/01/26/20 [id number] Ambulatory Q[facility] [place] Repository 01/19/2018/01/25/20 [id number] Ambulatory Qureshi 18 [facility] [place] Repository 01/05/2018/01/12/20 [id number] Ambulatory Qureshi 18 [facility] [place] Repository 01/05/2018/01/06/20 [id number] Ambulatory [place] [facility] [place] Repository 01/05/2018/01/06/20 [id number] Ambulatory [address] Main [place] Repository 12/30/2017/12/31/19 [id number] TABAT[place], Ambulatory Qureshi 18 [facility] Main [place] Repository 12/30/2017/01/04/20 [id number] Ambulatory [address] Main [place] Repository 12/30/2017 [id number] TABAT[place], Ambulatory Qureshi [facility] [place] Repository 12/30/2017/12/31/19 [id number] [place], Ambulatory Qureshi 18 [facility] [place] Repository 12/25/2017/12/26/19 [id number] Emergency [place] [address] ding:ED Repository 12/22/2017/01/06/20 [id number] Ambulatory Q[facility] [place] Repository 12/22/2017/12/30/19 [id number] Ambulatory Q[facility] [place] Repository 12/22/2017/12/28/19 [id number] Ambulatory Q[facility] [place] Repository 12/15/2017/12/16/19 [id number] Inpatient Qureshi[address] Main [place] Repository 12/13/2017 [id number] [place], Ambulatory [facility] Repository 12/10/2017/12/16/19 [id number] MIK Inpatient [place] [address] , SELENE [facility] Main [place] Repository 12/10/2017/12/11/19 [id number] Emergency [address] ding:ED Repository 12/09/2017 [id number] [place], Ambulatory Maximiliano Reno [facility] Repository 08/24/2017/08/25/19 [id number] [place], Ambulatory [address] Repository 04/20/2017/04/20/19 [id number] Ambulatory [address] Repository 04/20/2017/04/22/19 [id number] Ambulatory [address] Repository 04/20/2017/05/07/19 [id number] Ambulatory [address] Repository 04/20/2017/04/20/19 [id number] Ambulatory [address] Repository 04/08/2017/04/08/19 [id number] Emergency ABuilding:[address] Repository 04/08/2017/04/08/19 [id number] [place], Emergency [address]in[address] [place] [address] DR NISHANT Cloud Room: ERBed: [facility] Repository 04/07/2017/04/07/19 [id number] [place] [address] ding:[id number] Repository : NM520Qzk: 1 04/07/2017 [id number] [place] BMSBuilding: [place] Schmidt BMS[facility] Repository 04/07/2017 [id number] Lg Ambulatory BMSBuilding: [place] Brayan [facility] Repository 04/07/2017 [id number] [place] BMSBuilding: [place] Brayan BMS.CF.[facility] Repository 04/07/2017/04/07/19 [id number] Ambulatory BMSBuilding: [place] 18 BMS.[facility] Repository PAYERS PAYERS ENCOUNTER GUARANTOR PAYER SUBSCRIBER SOURCE 01/29/2018 DEBBIE [id number] Primary DEBBIE SOMMEROB: [place] DURAN Insurance:[employer] [id number] [place] [facility] [address]Ozb: (330) Number: Repository [phone] (HP) [id number] Date:0862-14-39JY [address] [place] [address]YG: 01/29/2018 Secondary NOT GIVENUNK [place] Insurance:SELF PAY [facility] Number: Effective Repository Date:2018-01-29 01/29/2018 DEBBIE [id number] Primary DEBBIE ELLISDOB: [place] Insurance:ANTHEM [id number] [place] [facility] [address]Tel: (330) Number: Repository [phone] () [id number] Date:8909-12-26NQ [id number] [place] [address] 111[address]VN: 01/29/2018 Secondary NOT GIVENUNK [place] Insurance:SELF PAY [facility] Number: Effective Repository Date:2018-01-29 01/29/2018 DEBBIE [id number] Primary DEBBIE ELLISDOB: [place] TERE DRLOT Insurance:ANTHEM [id number] [place] [facility] [address]Tel: (330) Number: Repository [phone] () [id number] Date:4806-34-00XY [address] [address]DS: 01/29/2018 Secondary NOT GIVENUNK [place] Insurance:SELF PAY [facility] Number: Effective Repository Date:2018-01-29 01/29/2018 DEBBIE [id number] Primary DEBBIE ELLISDOB: [place] Insurance:ANTHEM [id number] [place] [facility] [address]Tel: (330) Number: Repository [phone] () [id number] Date:4895-16-05YW [address] [place] [address] 15[address]MX: 01/29/2018 Secondary NOT GIVENUNK [place] Insurance:SELF PAY [facility] Number: Effective Repository Date:2018-01-29 01/29/2018 DEBBIE [id number] Primary DEBBIE ELLISDOB: [place] Insurance:[facility]LY [facility] [id number] [place] [facility] [address]Hcz: (330) Number: Repository [phone] () [id number] Date:6029-07-47SK[address] [address]HG: 01/29/2018 Secondary NOT GIVENUNK [place] Insurance:SELF PAY [facility] Number: Effective Repository Date:2018-01-29 01/29/2018 DEBBIE [id number] Primary DEBBIE ELLISDOB: [place] Insurance:[facility] [id number] [place] [facility] [address]Xnp: (330) Number: Repository [phone] () [id number] Date:5686-83-59FO [address] [place] [address] 41166TI: 01/29/2018 Secondary NOT GIVENUNK [place] Insurance:SELF PAY [facility] Number: Effective Repository Date:2018-01-29 12/25/2017 DEBBIE [id number] Primary DEBBIE ELLISDOB: [place] Insurance:[facility] [id number] [place] [facility] [address]Vlm: (330) Number: Repository [phone] () [id number] Date:0107-34-38TT[address] [address]PT: 12/25/2017 Secondary NOT GIVENUNK [place] Insurance:SELF PAY [facility] Number: Effective Repository Date:2017-12-25 12/13/2017 DEBBIE ELLISDOB: Primary Insurance:BLUE DEBBIE ELLISDOB: Maximiliano Reno [facility] [id number], Number: [place], [place] [address]Qhk: [id number] Date:Plan Name:B3P O () [address], [place] [id number]: 12/10/2017 DEBBIE [id number] Primary DEBBIE ELLISDOB: [place] TERE DURAN Insurance:ANTH [id number] [place] [facility] [address]Tel: (234) Number: Repository [phone] () [id number] Date:5219-28-44UK [address] [place] [address] [place] [address]ES: 12/10/2017 Secondary NOT GIVENUNK [place] Insurance:SELF PAY [facility] Number: Effective Repository Date:2017-12-10 12/09/2017 DEBBIE ELLISDOB: Primary Insurance:BLUE DEBBIE ELLISDOB: Maximiliano Reno [facility] [id number], Number: [place] [address]Gjd: [id number] Date:Plan Name:B3P O () [address], [place] [id number]: 08/24/2017 DEBBIE ELLISDOB: Primary Insurance:BLUE DEBBIE ELLISDOB: Maximiliano Reno [facility] [id number] Number: [place] Repository [address]Sfc: [phone] [phone] () Date:Plan Name:B3P [address]V, [place] [id number]: 04/08/2017 DEBBIE ELLISDOB: Primary DEBBIE ELLISDOB: [facility] Insurance:ANTHEM [id number] [place] [address] DR [facility] Number: 0 [facility] Repository [place], [place] [id number] [place], [place] [address]Pyh: (234) Date:2017-04-08Tel: (HP) [id number] Name:[address] Box ()Tel: 000 [address]Lamsklj [place] 000-0000 () [address]JA: 04/08/2017 DEBBIE ELLISDOB: Primary DEBBIE ELLISDOB: Maximiliano Pomerene Insurance:[facility] [employer] [id number] [facility] MEDIC[facility] [address] [facility] [place] PHYSICIANPolicy [place] Repository [address]Vum: (234) Number: [place] [phone] () [id number] Date:Plan Name:[address] [id number]: 04/08/2017 Secondary DEBBIE ELLISDOB: Maximiliano Pomerene Insurance:[employer] [id number] Repository Number: [place] [id number] Date:Plan Name:[facility] O [address] [id number]: 04/07/2017 Debbie [id number] Primary Debbie EllisDOB: [place] [facility] Insurance:ANTH [id number] [place] [facility] [address]Uwk: (234) Number: Repository [phone] () [id number] Date:7134-85-19KI [address] [place] [address]AG: 04/07/2017 Secondary NOT GIVENUNK [place] Insurance:SELF PAY [facility] Number: Effective Repository Date:2017-04-06 04/07/2017 Debbie [id number] Primary Debbie EllisDOB: [place]RL[place] Insurance:ANTHEM [id number] [place] [facility] [address]Tel: (234) Number: Repository [phone] () [id number] Date:9823-14-20HR [address] [place] [address] 26399ZS: 04/07/2017 Secondary NOT GIVENUNK [place] Insurance:SELF PAY [facility] Number: Effective Repository Date:2017-04-07 04/07/2017 Debbie [id number] Primary Debbie EllisDOB: [place] T[place] Insurance:ANTHEM [id number] [place] [facility] [address]Tel: (234) Number: Repository [phone] () [id number] Date:9965-03-97DR [address] [place] [address]HM: 04/07/2017 Secondary NOT GIVENUNK [place] Insurance:SELF PAY [facility] Number: Effective Repository Date:2017-04-07 04/07/2017 Debbie [id number] Primary Debbie EllisDOB: [place] TERE [place]RLOT Insurance:ANTHEM [id number] [place] [facility] [address]Pat: (234) Number: Repository [phone] () [id number] Date:9327-63-23KM [address] [place] [address] 326[address]CZ: 04/07/2017 Secondary NOT GIVENUNK [place] Insurance:SELF PAY [facility] Number: Effective Repository Date:2017-04-07 04/07/2017 Debbie [id number] Primary Debbie EllisDOB: [place] TERE DRLOT Insurance:ANTHEM [id number] [place] [facility] [address]Tel: (234) Number: Repository [phone] () [id number] Date:4601-16-50KC[address] [place] [address]TU: 04/07/2017 Secondary NOT GIVENUNK [place] Insurance:SELF PAY [facility]: Effective Repository Date:2017-04-07
== END 2018-01-31 01:45 | DRG 208 ==
LOC: ED 18:16 → MS3 19:58 → PCU 20:27 → ICU 01-30 04:32 → MS2 01-31 10:42
PROVIDERS: Admitting Provider Hospitalist; Emergency Provider Emergency Medicine; Family Provider Physician Assistant; PCP Physician Assistant; Visit Provider Family Medicine
DX: J44.1 Chronic obstructive pulmonary disease with (acute) exacerbation (principal); I26.99 Other pulmonary embolism without acute cor pulmonale; J96.21 Acute and chronic respiratory failure with hypoxia; J96.22 Acute and chronic respiratory failure with hypercapnia; C34.90 Malignant neoplasm of unspecified part of unspecified bronchus or lung; C79.31 Secondary malignant neoplasm of brain; Z99.81 Dependence on supplemental oxygen; Z92.3 Personal history of irradiation; I10 Essential (primary) hypertension; I71.4 Abdominal aortic aneurysm, without rupture; F17.210 Nicotine dependence, cigarettes, uncomplicated; Z66 Do not resuscitate; E78.5 Hyperlipidemia, unspecified; Z51.5 Encounter for palliative care
CPT/HCPCS: 31500; 31720; 36600; 71045; 71275; 80048; 80053; 82550; 82803; 83605; 84100; 84478; 84484; 85025; 85730; 87040; 87070; 87077; 87149; 87186; 87205; 87633; 87804; 93005; 94002; 94003; 94640; 97802; 99251; 99284; J7120; Q9967; A4216; G0463; J0330; J2405